=== PATIENT | male | born 1935 | race Caucasian/White ===

== ENCOUNTER 2024-04-08 10:13 | Emergency (ER) | payer OTHER, SELFPAY ==
[2024-04-08 10:19] VITALS: BP 159/77
[2024-04-08 12:18] VITALS: BMI 27.4
[2024-04-08 12:28] VITALS: BP 153/83
[2024-04-08 13:00] VITALS: BP 153/81
[2024-04-08 13:16] LABS: % Basophils 0.2 % (0-2); % Eosinophils 0.7 % (0-6); % Immature Granulocytes 0.3 % (0-0.5); % Neutrophils 53.8 % (42.2-75.2); Absolute Eosinophils 0.1 10^3/uL (0-0.7); Absolute Monocytes 0.4 10^3/uL (0.1-0.6); Absolute Neutrophils 5.2 10^3/uL (1.4-6.5); Hematocrit 31.1 % (39.0-52.0); Mean Corp Hgb Conc. 32.2 g/dL (33.0-37.0); Mean Corpuscular Hgb 30.2 pg (27.0-31.0); Mean Platelet Volume 11.1 fL (7.4-10.4); Nucleated Red Blood Cells % 0 % (-); Platelet Count 213 10^3/uL (130-400); Red Blood Cell Count 3.31 10^6/uL (4.70-6.10); Red Cell Dist. Width 14.4 % (11.5-14.5); White Blood Cell Count 9.7 10^3/uL (4.8-10.8)
[2024-04-08 13:16] LABS: Urine Albumin 2+ (Neg - Trace); Urine Bilirubin Negative (Negative); Urine Character Clear (Clear); Urine Color Yellow; Urine Glucose Negative (Negative); Urine Ketone Trace (Negative); Urine Leukocyte 2+ (Negative); Urine Nitrite Negative (Negative); Urine Occult Blood 3+ (Negative); Urine Urobilinogen Negative (Neg - 1+)
--- NOTE | 2024-04-08 13:23 | ED.GENMED ---
Addendum entered and electronically signed by Iván Mcfadden PA-C 04/10/24 07:11:
Urine culture shows greater than 100,000 colony-forming units of strep species sensitivities pending. Patient on Keflex.
Original Note:
History of Present Illness
General
Chief Complaint: Male Genito-Urinary Symptoms
Source: patient
Exam Limitations: none
Time Seen by Provider: 04/08/24 11:53
Travel History
Have you had any contact with someone who has COVID-19?: No
Do you have any symptoms of coronavirus? Fever > 100 degrees, chills, cough, shortness of breath, sore throat, loss of taste or smell, muscle aches, or headache?: No
History of Present Illness
History of Present Illness:
88-year-old male with known history of polycystic kidney disease presents with decreased urine output over the past several days. He now he only gets drops of urine out when he tries to go. He denies flank pain or fever. No nausea or vomiting.
He follows with nephrology for his polycystic kidney disease. He feels like he is going more frequently
Phy Exam
Physical Exam
Physical Exam:
General: Well-appearing male no acute respiratory distress
HEENT: Normocephalic atraumatic
Heart: Regular rate and rhythm no murmurs
Lungs: Clear no wheeze or rales
Abdomen: Soft suprapubic tenderness and distention no guarding or rebound normal bowel sounds nondistended no
Extremities: No cyanosis or edema
Course
Orders/Labs/Results
Orders:
Orders
04/08/24 12:11
Bladder Scan- Treatment ONCE
04/08/24 12:32
Rutledge Placement- Treatment ONCE
Reason for insertion: Acute Retention
04/08/24 12:50
Complete Blood Count/With Diff Urgent
Comprehensive Metabolic Panel Urgent
04/08/24 12:54
Urinalysis Reflex To Culture Urgent
Date Specimen was Collected: 04/08/24
Time Specimen was Collected: 12:51
Urine Microscopic Reflex Cult Urgent
Urine Culture Urgent
JESSICA Source: U
Specimen Description:
Date Specimen was Collected: 04/08/24
Time Specimen was Collected: 12:51
Abnormal Lab Results
04/08/24 04/08/24
12:50 12:54
RBC 3.31 L 10^6/uL
(4.70-6.10)
Hgb 10.0 L g/dL
(13.0-18.0)
Hct 31.1 L %
(39.0-52.0)
MCHC 32.2 L g/dL
(33.0-37.0)
MPV 11.1 H fL
(7.4-10.4)
Absolute Lymphs (auto) 4.0 H 10^3/uL
(1.2-3.4)
Sodium 128 L mmol/L
(135-145)
Carbon Dioxide 17 L mmol/L
(22-30)
BUN 61 H mg/dl
(9-20)
Creatinine 4.7 H* mg/dL
(0.7-1.3)
Glucose 100 H mg/dl
(70-99)
Urine Ketones Trace A
(Negative)
Ur Occult Blood Reflex 3+ A
(Negative)
Leukocyte Esterase Rfl 2+ A
(Negative)
Urine WBC (Reflex) 80-90 A /HPF
(0-5)
Urine Bacteria (Reflex) Few A
(Negative)
Urine Albumin (Reflex) 2+ A
(Neg - Trace)
04/08/24 12:50
04/08/24 12:50
Vital Signs
Initial and Last Documented VS:
Initial Vital Signs
Temp Pulse Resp BP Pulse Ox
98.1 F 62 17 159/77 99
04/08/24 10:19 04/08/24 10:19 04/08/24 10:19 04/08/24 10:19 04/08/24 10:19
Last Documented Vital Signs
Temp Pulse Resp BP Pulse Ox
98.1 F 62 17 156/94 95
04/08/24 10:19 04/08/24 10:19 04/08/24 10:19 04/08/24 14:00 04/08/24 14:15
MDM/Problems Addressed
Differential Diagnosis Includes:
Increased difficulty urinating with decreased output. Question worsening kidney dysfunction versus urinary retention versus UTI
Postvoid residual bladder scan performed here demonstrated a volume of 630 mL postvoid. Urinalysis is pending. Wait for labs. Patient has known kidney dysfunction secondary to polycystic kidney disease
*Critical Care Note
Total Time (30-74mins, 75-104mins- exclusive of procedures): Not Applicable
Update Note
Update Note:
Creatinine today 4.7. Discussed with nephrology who has been following the patient. Creatinine February last month was higher than what it is today at 5.24. I suspect patient does not have acute kidney injury currently. Postvoid bladder scan
demonstrated over 600 mL and a Rutledge catheter was placed for acute urinary retention. In actuality, 1100 mL was drained from his bladder. Catheter was kept in place. No need for intervention or admission at this time. Will refer to urology for
further evaluation. There was some white blood cells and bacteria in the urine and in the setting of instrumentation of Rutledge catheter will treat with Keflex pending culture
ED Attending Note
-
Portions of this chart may have been created with voice recognition software.� Occasional wrong word or��sound alike� substitutions may have occurred due to the inherent limitations of voice recognition software.
Discharge Plan
Departure
Patient Disposition: Home (Routine Discharge)
Date of Disposition: 04/08/24
Time of Disposition: 14:43
Patient with high blood pressure during this ER visit?: No
Discharge Problem:
Acute urinary retention
Instructions: Urinary Retention (DC)
Prescriptions:
New
cephalexin 500 mg capsule
500 mg PO TID 7 Days Qty: 21 0RF
No Action
amlodipine 10 MG tablet
10 mg PO DAILY
ezetimibe 10 MG tablet
10 mg PO HS
metoprolol succinate 50 MG tablet extended release 24 hr
50 mg PO BID
tamsulosin 0.4 MG capsule
0.4 mg PO HS
rosuvastatin 20 MG tablet
20 mg PO DAILY
pantoprazole 40 MG tablet,delayed release (DR/EC)
40 mg PO HS
clopidogrel 75 MG tablet
75 mg PO DAILY
acetaminophen 325 mg Tablet
650 mg PO Q6HPRN PRN (Reason: mild pain)
sodium bicarbonate 650 mg Tablet
650 mg PO TID
Referrals:
Rudy Gerardo DO [Family Provider] -
Isrrael Champagne MD [Active] -
Activity Restrictions/Additional Instructions:
Take antibiotic as directed. Please follow-up with urology for next available appointment for further evaluation
Interventions
Interventions:
*Risk Screen - Suicide Last Done: 04/08/24 10:20
*General Assessment Last Done: 04/08/24 10:20
*Neglect/Abuse Screening Last Done: 04/08/24 10:20
ED- Fall Risk Assessment Last Done: 04/08/24 12:18
*ED COVID-19 Vaccine History Last Done: 04/08/24 12:18
ED-Male Genitourinary Assessment Last Done: 04/08/24 12:18
Discharge Date and Time
Print Language: PAP[place]
[2024-04-08 13:27] LABS: ALT (SGPT) 21 U/L (0-50); AST (SGOT) 33 U/L (17-59); Albumin 4.1 g/dl (3.5-5.0); Alkaline Phosphatase 57 U/L (38-126); Blood Urea Nitrogen 61 mg/dl (9-20); Calcium 9.2 mg/dl (8.4-10.2); Carbon Dioxide 17 mmol/L (22-30); Chloride 100 mmol/L (98-107); Estimated Creatinine Clearance 11 ml/min; Glucose 100 mg/dl (70-99); Sodium 128 mmol/L (135-145); Total Bilirubin 0.7 mg/dl (0.2-1.3); Total Protein 6.4 g/dl (6.3-8.2); eGFR 11.44
[2024-04-08 13:31] LABS: Urine Red Blood Cell 0-2 /HPF (0-2); Urine Squamous Cell 0-2 /LPF (Few)
[2024-04-08 13:32] LABS: Urine Bacteria Few (Negative); Urine White Cell 80-90 /HPF (0-5)
--- NOTE | 2024-04-08 13:58 | PHANOTE ---
med rec rupali-attempted to do med rec with spouse and patient, but they don't know their meds and will bring in list later
[2024-04-08 14:00] VITALS: BP 156/94
== END 2024-04-08 15:10 | disposition home or self-care (01) ==
LOC: EMR 10:13
PROVIDERS: Physician Assistant; EMERGENCY PHYSICIAN Emergency Medicine; FAMILY PHYSICIAN Family Medicine
DX: R33.9 Retention of urine, unspecified (principal); Q61.3 Polycystic kidney, unspecified
CPT/HCPCS: 99283; 80053; 81003; 81015; 85025; 87086

== ENCOUNTER 2024-04-28 19:15 | Inpatient (IN) | payer OTHER, SELFPAY ==
[2024-04-28 16:13] VITALS: BP 131/53
[2024-04-28 16:33] VITALS: BP 132/67
--- NOTE | 2024-04-28 16:34 | ED.GENMED ---
History of Present Illness
General
Chief Complaint: Fever
Source: patient and spouse
Exam Limitations: none
Time Seen by Provider: 04/28/24 16:18
Nursing documentation reviewed up to this point in time: agreed with
Travel History
Have you had any contact with someone who has COVID-19?: No
Do you have any symptoms of coronavirus? Fever > 100 degrees, chills, cough, shortness of breath, sore throat, loss of taste or smell, muscle aches, or headache?: No
History of Present Illness
History of Present Illness:
Patient to ED with complaint of fever/chills, lethargy, decreased urine stream. He was seen in ED 2 weeks ago for urinary retention. Rutledge placed and he was dischrged home to follow up with Dr. Champagne. Rutledge was removed on Friday, started on
finasteride. States over the past 24 hours his urine stream has decreased. Other symptoms strarted this AM. Brought to ED by spouse for eval.
Past History
Past History
ED Past Medical History: GERD, HTN and Hypercholesterolemia
Social History
Alcohol: None
Review of Systems
Review of Systems
Allergies reviewed?: Yes
All Other Systems: ROS reviewed and negative except as documented in HPI and ROS
Constitutional: Reports fever, fatigue and chills
EENT: Reports no symptoms
Respiratory: Reports trouble breathing
Cardiac: Reports no symptoms
ABD/GI: Reports no symptoms
: Reports difficulty voiding
Musculoskeletal: Reports no symptoms
Skin: Reports no symptoms
Neurological: Reports weakness
Psychiatric: Reports no symptoms
Phy Exam
General Physical Exam
General Presentation: no apparent distress
General age: appears stated age
General Skin: warm and dry
General Habitus: normal
General Mental: alert
Cardiovascular Exam
Cardiovascular Exam: regular rate/rhythm
Pulmonary Exam
Pulmonary Exam: lungs clear and no respiratory distress
Gastrointestinal Exam
Gastrointestinal Exam: normal bowel sounds, non tender and soft
Musculoskeletal Exam
Musculoskeletal Exam: full ROM and neuro vasc intact
Skin Exam
Skin Exam: normal color and warm/dry
Psychiatric Exam
Psychiatric Exam: normal mood/affect
Course
Orders/Labs/Results
Orders:
Orders
04/28/24 16:32
Bladder Scan- Treatment ONCE
Acetaminophen [Tylenol] 650 mg PO NOW STA
04/28/24 16:33
CR Chest - 2 Views Urgent
Comment:
Reason For Exam: SOB
04/28/24 16:45
Complete Blood Count/With Diff Urgent
Comprehensive Metabolic Panel Urgent
Lactic Acid Urgent
Blood Culture Q30M
JESSICA Source: Blood/Venous
Specimen Description:
Blood Culture Q30M
JESSICA Source: Blood/Venous
Specimen Description:
04/28/24 16:55
Urinalysis Reflex To Culture Urgent
Date Specimen was Collected: 04/28/24
Time Specimen was Collected: 16:51
Urine Microscopic Reflex Cult Urgent
Urine Culture Urgent
JESSICA Source: U
Specimen Description:
Date Specimen was Collected: 04/28/24
Time Specimen was Collected: 16:51
04/28/24 17:03
0.9% Sodium Chloride 1000 ml [Nss] 1,000 ml IV BOLUS
04/28/24 17:13
Renal Only US [US Renal Only W/O Bladder] Urgent
Comment:
Reason For Exam: LUCIANO, sepsis
04/28/24 17:14
CefTRIAXone [Rocephin] 1,000 mg IV NOW STA
04/28/24 17:50
NEPHROLOGY CONSULT Urgent
Consulting Provider: Lincoln Coates V.
Was physician already notified: Yes
04/28/24 17:51
Gentamicin Sulfate [Gentamicin] 150 mg 0.9% Sodium Chloride [Nss] 50 ml IV NOW
04/28/24 18:42
Rutledge Catheter [Catheter- Indwelling] As Directed
Reason for insertion: Acute Kidney Injury
Discontinue Date/Time: 05/01/24 0600
04/28/24 18:43
Admit/Transfer Patient As Directed
Co-Sign Provider:
Level of Care: Inpatient admission
Assign to:: Telemetry
Physician / Group: Sandoval
Diagnosis: Severe Sepsis, UTI, LUCIANO
Reason for Telemetry: Arrhythmia
Date to Stop Telemetry: 05/01/24
Time to Stop Telemetry: 11:00
Reason for Hospitalization: IVFs, IV abx
Expected length of stay greater than two midnights?: Yes
ELOS- Estimated Length of Stay in days: 3
I certify the patient meets the requirements for IP care: Yes
Intake/ Output As Directed
Frequency: Per unit guidelines
Comment: strict intake and output monitoring
Weight As Directed
Frequency: Daily
04/28/24 18:47
Code Status As Directed
Resuscitation Status: Full Code
04/28/24 19:05
0.9% Sodium Chloride 1000 ml [Nss] 1,000 ml IV BOLUS
04/28/24 21:00
Lactic Acid Routine
05/01/24 11:00
DC Protocol for Telemetry ONCE
Abnormal Lab Results
04/28/24 04/28/24
16:45 16:55
WBC 18.9 H 10^3/uL
(4.8-10.8)
RBC 3.17 L 10^6/uL
(4.70-6.10)
Hgb 9.4 L g/dL
(13.0-18.0)
Hct 28.9 L %
(39.0-52.0)
MCHC 32.5 L g/dL
(33.0-37.0)
RDW 15.8 H %
(11.5-14.5)
Abs Immat Gran (auto) 0.1 H 10^3/uL
(0-0.05)
Absolute Neuts (auto) 15.7 H 10^3/uL
(1.4-6.5)
Absolute Monos (auto) 0.9 H 10^3/uL
(0.1-0.6)
Neutrophils % 83.5 H %
(42.2-75.2)
Lymphocytes % 11.4 L %
(20.5-51.1)
Sodium 134 L mmol/L
(135-145)
Carbon Dioxide 15 L mmol/L
(22-30)
BUN 72 H mg/dl
(9-20)
Creatinine 6.0 H* mg/dL
(0.7-1.3)
Glucose 195 H mg/dl
(70-99)
Lactic Acid 2.9 H mmol/L
(0.7-2.0)
Total Protein 5.8 L g/dl
(6.3-8.2)
Ur Occult Blood Reflex 1+ A
(Negative)
Leukocyte Esterase Rfl 2+ A
(Negative)
Urine RBC 3-6 A /HPF
(0-2)
Urine WBC (Reflex) 11-15 A /HPF
(0-5)
Urine Albumin (Reflex) 2+ A
(Neg - Trace)
04/28/24 16:45
04/28/24 16:45
Vital Signs
Initial and Last Documented VS:
Initial Vital Signs
Temp Pulse Resp BP Pulse Ox
99.1 F 68 20 131/53 97
04/28/24 16:13 04/28/24 16:13 04/28/24 16:13 04/28/24 16:13 04/28/24 16:13
Last Documented Vital Signs
Temp Pulse Resp BP Pulse Ox
98.8 F 65 20 114/59 97
04/28/24 19:24 04/28/24 20:14 04/28/24 20:14 04/28/24 20:14 04/28/24 20:14
*Critical Care Note
Total Time (30-74mins, 75-104mins- exclusive of procedures): Not Applicable
ED Attending Note
-
Portions of this chart may have been created with voice recognition software.� Occasional wrong word or��sound alike� substitutions may have occurred due to the inherent limitations of voice recognition software.
Discharge Plan
Departure
Patient Disposition: Admit
Date of Disposition: 04/28/24
Time of Disposition: 17:42
Presentation/result/management discussed w/ accepting MD/DO: Hospitalist
Patient with high blood pressure during this ER visit?: No
Condition: Fair
Covid-19: Not Applicable
Discharge Problem:
Sepsis, Renal failure
Interventions
Interventions:
*Risk Screen - Suicide Last Done: 04/28/24 16:30
*General Assessment Last Done: 04/28/24 17:49
*Neglect/Abuse Screening Last Done: 04/28/24 16:30
ED- Fall Risk Assessment Last Done: 04/28/24 16:29
*ED COVID-19 Vaccine History Last Done: 04/28/24 16:29
ED- Neurological Assessment Last Done: 04/28/24 19:24
ED-Skin Assessment Last Done: 04/28/24 19:24
[2024-04-28 16:51] VITALS: BMI 23.7
[2024-04-28] MEDS: TYLENOL 650 MG PO (16:52)
[2024-04-28 16:57] LABS: % Basophils 0.1 % (0-2); % Immature Granulocytes 0.5 % (0-0.5); % Lymphocytes 11.4 % (20.5-51.1); % Monocytes 4.5 % (1.7-9.3); % Neutrophils 83.5 % (42.2-75.2); Absolute Immature Granulocytes 0.1 10^3/uL (0-0.05); Absolute Lymphocytes 2.2 10^3/uL (1.2-3.4); Absolute Monocytes 0.9 10^3/uL (0.1-0.6); Absolute Neutrophils 15.7 10^3/uL (1.4-6.5); Hematocrit 28.9 % (39.0-52.0); Hemoglobin 9.4 g/dL (13.0-18.0); Mean Corp Hgb Conc. 32.5 g/dL (33.0-37.0); Mean Corpuscular Hgb 29.7 pg (27.0-31.0); Mean Corpuscular Volume 91.2 fL (80.0-94.0); Mean Platelet Volume 10.2 fL (7.4-10.4); Nucleated Red Blood Cells % 0 % (-); Platelet Count 249 10^3/uL (130-400); Red Blood Cell Count 3.17 10^6/uL (4.70-6.10); Red Cell Dist. Width 15.8 % (11.5-14.5); White Blood Cell Count 18.9 10^3/uL (4.8-10.8)
[2024-04-28 17:06] LABS: Urine Albumin 2+ (Neg - Trace); Urine Bilirubin Negative (Negative); Urine Glucose Negative (Negative); Urine Ketone Negative (Negative); Urine Leukocyte 2+ (Negative); Urine Nitrite Negative (Negative); Urine Occult Blood 1+ (Negative); Urine Specific Gravity 1.015 (<1.030); Urine Urobilinogen Negative (Neg - 1+)
[2024-04-28 17:09] LABS: Lactic Acid 2.9 mmol/L (0.7-2.0)
[2024-04-28 17:12] LABS: ALT (SGPT) 15 U/L (0-50); AST (SGOT) 19 U/L (17-59); Albumin 3.6 g/dl (3.5-5.0); Alkaline Phosphatase 57 U/L (38-126); Blood Urea Nitrogen 72 mg/dl (9-20); Calcium 8.8 mg/dl (8.4-10.2); Carbon Dioxide 15 mmol/L (22-30); Chloride 106 mmol/L (98-107); Estimated Creatinine Clearance 9 ml/min; Glucose 195 mg/dl (70-99); Potassium 4.9 mmol/L (3.5-5.1); Sodium 134 mmol/L (135-145); Total Bilirubin 0.8 mg/dl (0.2-1.3); Total Protein 5.8 g/dl (6.3-8.2); eGFR 8.54
[2024-04-28] MEDS: NSS 1000 IV ×3 (17:17→22:52)
[2024-04-28] MEDS: ROCEPHIN 1000 MG IV (17:22)
[2024-04-28 17:30] LABS: Urine Color Yellow
[2024-04-28 17:38] LABS: Urine Character Cloudy (Clear)
--- NOTE | 2024-04-28 18:16 | W.PN.UPDATE ---
Update Note
Progress Note Update
This note serves as an addendum to the H&P by Rosemary Blanchard PA-C, on April 28, 2024.
88 y/o male with past medical history of polycystic kidney disease, hypertension and TIA who presented to the emergency department with subjective fever, chills, shortness of breath, and difficulty balancing. The patient reports his symptoms started
this morning, he did not measure his temperature at home but felt hot. Additionally, he reports decreased urinary stream and increased frequency/urgency for a few days now. The patient notes he was started on Finasteride a few weeks ago when he
presented to the emergency department for urinary retention and require placement of a Mcmanus catheter which was just removed 2 days ago, at that time he got Keflex antibiotics and completed the course after discharge from the ER. He saw Dr. Champagne
and his special ed assistant a few days ago, when his mcmanus catheter was taken out. Patient reported increased sweats during history so temperature was taken revealing fever of 100.8F. The patient denied flank pain, dysuria, and hematuria.
Vital Signs
Afebrile
BP is okay
HR in the 60s
RR in the 20s
Saturating oxygen well on room air
Physical Exam
General: Not in acute distress.
HEENT: Normocephalic. Moist mucous membranes
Respiratory: CTAB
Cardiac: S1/S2 and Regular Rhythm
GI: Soft, Non Tender and Normal Bowel Sounds
Skin: Warm and Dry
Neuro: Awake, Alert, Oriented and Nonfocal/grossly intact
Psych: Calm
Assessment/Plan
Severe Sepsis secondary to Urinary Tract Infection
Leukocytosis
-Received Ceftriaxone and Gentamicin in the ER
-Continue Ceftriaxone
-Await urine and blood cultures
LUCIANO on CKD 4
History of Polycystic Kidney Disease
-Nephrology consulted, recommendations appreciated
-Place Mcmanus
-Continue IVFs
-Continue sodium bicarb as prior to admission
-Recheck Labs in AM
Essential Hypertension
-Continue amlodipine and metoprolol
Hyperlipidemia
-Continue Zetia and rosuvastatin
BPH
-Continue tamsulosin
-Patient reports headaches since starting finasteride - Will hold for now
Hx TIA
-Continue Plavix
Aortic Stenosis status post TAVR
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
DVT PPx: SC Heparin
Code Status: Full Code
[2024-04-28] MEDS: GENTAMICIN 53.75 MG IV (18:33)
--- NOTE | 2024-04-28 18:53 | HPS.HSE ---
Family Physician
-
Family Physician: Rudy Gerardo
Chief Complaint
-
Fever and Chills
History of Present Illness
This is a 88 year old male with past medical history polycystic kidney disease, hypertension and TIA who presents to the emergency department with subjective fever, chills, shortness of breath, and difficulty balancing. The patient reports his
symptoms started this morning. Additionally, he reports decreased urinary stream and increased frequency/urgency since yesterday. The patient notes he was started on Finasteride a few weeks ago when he presented to the emergency department for
urinary retention and require placement of a Rutledge catheter which was just removed 2 days ago. Patient reported increased sweats during history so temperature was taken revealing fever of 100.8F. The patient denies flank pain, dysuria, and
hematuria.
Medical History
Past Medical History
Past Medical History: Reports Other
Additional Past Medical History:
Essential Hypertension
Hyperlipidemia
Heart Block s/p Pacemaker
Aortic Stenosis s/p TAVR
TIA
Polycystic Kidney Disease
CKD Stage IV
BPH
Past Surgical History: Reports Other
Additional Past Surgical History:
L4/L5 Spine Surgery
Bilateral Knee Replacements
TAVR
Social History
Tobacco: Former Smoker
Alcohol: None
Family History
Family History: Not pertinent
Allergies / Home Medications
Allergies reflects when Allergies were last updated in [facility].
Home Medications with original date entered in [facility]
Allergy/Medication List:
Allergies
Allergy/AdvReac Type Severity Reaction Status Date / Time
celecoxib [From Celebrex] Allergy GI bleed Verified 04/28/24 17:39
Home Medications
amlodipine 10 mg tablet 10 mg PO DAILY Blood pressure 08/29/09
ezetimibe 10 mg tablet 10 mg PO DAILY High cholesterol 08/29/09
metoprolol succinate 50 mg tablet,extended release 24 hr 50 mg PO BID Blood pressure 04/01/16
pantoprazole 40 mg tablet,delayed release 40 mg PO DAILY Gastrointestinal issue 04/01/16
rosuvastatin 20 mg tablet 20 mg PO DAILY High cholesterol 04/01/16
tamsulosin 0.4 mg capsule 0.4 mg PO HS Urinary issue 04/01/16
clopidogrel 75 mg tablet 75 mg PO DAILY Blood clot prevention/tx 08/03/20
sodium bicarbonate 650 mg tablet 650 mg PO TID 04/08/24
acetaminophen 650 mg tablet,extended release 650 mg PO DAILYPRN PRN mild pain 04/28/24
finasteride 5 mg tablet 5 mg PO HS 04/28/24
vitamins A,C,G-qarg-jtkscz 4,296 mcg-226 mg-90 mg capsule (PreserVision AREDS) 1 cap PO BID 04/28/24
Review of Systems
-
A 12 point ROS was completed and negative except as noted: Yes
Constitutional: Reports Fever and Chills
Respiratory: Denies Cough or Trouble Breathing
Cardiac: Denies Chest Pain or Palpitations
Abdomen/GI: Denies Abdominal Pain, Nausea or Vomiting
: Reports See HPI
Physical Exam
Vital Signs
Vital Signs
Temp Pulse Resp BP Pulse Ox
99.1 F 65 26 132/67 97
04/28/24 16:13 04/28/24 17:15 04/28/24 17:15 04/28/24 16:33 04/28/24 16:13
Physical Exam
General: Comfortable and Conversant
HEENT: Anicteric and Moist mucous membranes
Respiratory: Clear and Non Labored Respirations
Cardiac: S1/S2 and Regular Rhythm
GI: Soft, Non Tender and Normal Bowel Sounds
Genito-urinary: Other (Suprapubic discomfort, prominent slightly palpable bladder)
Skin: Warm and Dry
Neuro: Awake, Alert, Oriented and Nonfocal/grossly intact
Psych: Calm
Laboratory Results
-
04/28/24 16:45
04/28/24 16:45
Laboratory Results
Lactic Acid 2.9 mmol/L (0.7-2.0) H 04/28/24 16:45
Total Bilirubin 0.8 mg/dl (0.2-1.3) 04/28/24 16:45
AST 19 U/L (17-59) 04/28/24 16:45
ALT 15 U/L (0-50) 04/28/24 16:45
Alkaline Phosphatase 57 U/L (38-126) 04/28/24 16:45
Data Reviewed
-
Diagnostic Radiology: Report Reviewed by me
Lab Data: Labs Reviewed by me
Old Records: Reviewed
Impression/Plan
-
Severe Sepsis secondary to Urinary Tract Infection
-Continue Ceftriaxone
-Await urine and blood cultures
LUCIANO on CKD 4
-Consult Nephrology
-Place Rutledge
-Continue IVFs
-Continue sodium bicarb as prior to admission
-Recheck Labs in AM
Essential Hypertension
-Continue amlodipine and metoprolol
Hyperlipidemia
-Continue Zetia and rosuvastatin
BPH
-Continue tamsulosin
-Patient reports headaches since starting finasteride - Will hold for now
Hx TIA
-Continue Plavix
DVT proph: SC Heparin
Code Status: Full Code
[2024-04-28 19:24] VITALS: BP 125/58
[2024-04-28 20:14] VITALS: BP 114/59
[2024-04-28 21:39] VITALS: BP 120/65
[2024-04-28 21:55] LABS: Lactic Acid 1.4 mmol/L (0.7-2.0)
[2024-04-28] MEDS: TOPROL XL 50 MG PO (22:52)
[2024-04-28] MEDS: SODIUM BICARBONATE 650 MG PO (22:52)
[2024-04-28] MEDS: FLOMAX 0.400000000000000022 MG PO (22:52)
[2024-04-28] MEDS: HEPARIN 5000 UNITS SC (23:04)
[2024-04-28 23:08] VITALS: BP 130/64
--- NOTE | 2024-04-29 00:34 | PTCARENOTE ---
Received pt from ER at 2300. Pt AAOX3, VSS, amb in room. Pt oriented to room, call eisenberg and plan of care.
[2024-04-29 00:38] VITALS: BMI 23.4
[2024-04-29 03:00] VITALS: BP 114/71
[2024-04-29 05:46] VITALS: BMI 23.4
[2024-04-29 06:03] LABS: Hematocrit 26.8 % (39.0-52.0); Hemoglobin 8.8 g/dL (13.0-18.0); Mean Corp Hgb Conc. 32.8 g/dL (33.0-37.0); Mean Corpuscular Hgb 29.7 pg (27.0-31.0); Mean Corpuscular Volume 90.5 fL (80.0-94.0); Mean Platelet Volume 10.3 fL (7.4-10.4); Platelet Count 246 10^3/uL (130-400); Red Blood Cell Count 2.96 10^6/uL (4.70-6.10); Red Cell Dist. Width 15.6 % (11.5-14.5); White Blood Cell Count 15.5 10^3/uL (4.8-10.8)
[2024-04-29 06:47] LABS: Blood Urea Nitrogen 72 mg/dl (9-20); Calcium 8.6 mg/dl (8.4-10.2); Carbon Dioxide 17 mmol/L (22-30); Chloride 108 mmol/L (98-107); Estimated Creatinine Clearance 10 ml/min; Glucose 102 mg/dl (70-99); Magnesium 2.2 mg/dl (1.6-2.3); Sodium 136 mmol/L (135-145); eGFR 9.27
[2024-04-29 07:59] VITALS: BP 117/62
[2024-04-29] MEDS: PROTONIX 40 MG PO (09:26)
[2024-04-29] MEDS: NORVASC 10 MG PO (09:26)
[2024-04-29] MEDS: SODIUM BICARBONATE 650 MG PO ×2 (09:26→15:54)
[2024-04-29] MEDS: ZETIA 10 MG PO (09:26)
[2024-04-29] MEDS: TOPROL XL 50 MG PO ×2 (09:26→19:50)
[2024-04-29] MEDS: HEPARIN 5000 UNITS SC ×3 (09:27→23:35)
[2024-04-29] MEDS: PLAVIX 75 MG PO (09:27)
[2024-04-29] MEDS: CRESTOR 20 MG PO (09:27)
--- NOTE | 2024-04-29 11:20 | CON.MD ---
Consultation - Medical
-
see dictated note
pt with long hx of PCKD and bph
recent episode of urinary retention
mcmanus removed several days ago
pt presented with fatigue/TREVINO and weakness
residual urine only about 200cc
started on iv atnibx and fluids- already feels better
plan
continue flomax- to consider restart of proscar as this is unlikely to be the cause of his current illness
continue mcmanus for now- can discuss timing of TOV depending on lenght of stay- but may need to be discharged with cath in place
await ucx
will follow
no evid of obstruction on renal u/s
[2024-04-29 11:52] VITALS: BP 109/60
[2024-04-29] MEDS: NSS 1000 IV (12:48)
--- NOTE | 2024-04-29 15:02 | W.PN.HOSP.TC ---
Today's Communication/Plan
-
Continue Rocephin
Urine cultures growing gram negative bacilli
Appreciate urology and nephrology
Assessment / Plan
Assessment / Plan
Physical Exam
General: Not in acute distress.
HEENT: Normocephalic. Moist mucous membranes
Respiratory: CTAB
Cardiac: S1/S2 and Regular Rhythm
GI: Soft, Non Tender and Normal Bowel Sounds
Skin: Warm and Dry
Neuro: Awake, Alert, Oriented and Nonfocal/grossly intact
Psych: Calm
Assessment/Plan
Severe Sepsis secondary to Urinary Tract Infection
Leukocytosis
-Received Ceftriaxone and Gentamicin in the ER
-Continue Ceftriaxone
-Await urine and blood cultures --> urine cultures preliminarily positive for gram negative bacilli
LUCIANO on CKD 4
History of Polycystic Kidney Disease
-Nephrology consulted, recommendations appreciated
-Continue Rutledge catheter
-Continue IVFs
-Continue sodium bicarb as prior to admission
-Recheck Labs in AM
Essential Hypertension
-Continue amlodipine and metoprolol
Hyperlipidemia
-Continue Zetia and rosuvastatin
BPH
-Continue tamsulosin
-Patient reports headaches since starting finasteride - but consider restart of Proscar as this is unlikely to be the cause of his current illness
-Consulted urology, recommendations appreciated
Hx TIA
-Continue Plavix
Aortic Stenosis status post TAVR
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
DVT PPx: SC Heparin
Code Status: Full Code
Anticipated Discharge: > 48 hours
Subjective/Interval History
-
Date of Service: April 29, 2024
Patient was seen and examined. He denied any new symptoms or complaints.
Objective Data
-
Labs:
Laboratory Results
04/29/24
05:23
WBC 15.5 H
Hgb 8.8 L
Hct 26.8 L
Plt Count 246
Sodium 136
Potassium 5.0
Chloride 108 H
Carbon Dioxide 17 L
BUN 72 H
Creatinine 5.6 H*
Glucose 102 H
Calcium 8.6
Vital Signs:
Vital Signs
Temp Pulse Resp BP Pulse Ox
97.6 F 70 21 109/60 98
04/29/24 11:52 04/29/24 11:52 04/29/24 11:52 04/29/24 11:52 04/29/24 11:52
I&O
04/28/24 04/29/24 04/30/24
06:59 06:59 06:59
Output Total 200 / 200
Balance -200 / -200
[2024-04-29 15:43] VITALS: BP 119/68
--- NOTE | 2024-04-29 15:50 | W.CON.NEPH ---
Consultation
-
Date/Time Consultation Requested: 04/28/2024 7:00 PM
Date/Time Consultation Performed: 04/29/2024 3:30 PM
Requesting Provider: Dr. Weinberg
Performing Provider: Dr. Coates
Reason for Consultation: Chronic kidney disease stage V/polycystic kidney disease
Medical History
-
Chief Complaint: CKD stage V
History of Present Illness:
The patient is a 88-year-old male with a past medical history of polycystic kidney disease who maintains a baseline creatinine of about 5. He has been preparing for hemodialysis but is yet to obtain the AV fistula access. He has a history of
hypertension for which he is maintained on metoprolol and amlodipine. He has a history of chronic metabolic acidosis and is maintained on sodium and bicarbonate therapy. Has a history of BPH with obstructive uropathy and recently had his Rutledge
catheter removed earlier this Friday by urology when he had been seen in the emergency room a few weeks prior for said obstructive uropathy. He presented to the hospital with change in mental status fatigue and decreased urinary output. He was in
acute renal failure with his creatinine up to 6 of his previous baseline of 4.7 noted on April 08, 2024. He was noted to have E. coli urinary tract infection and is being treated with ceftriaxone. Nephrology was consulted in the setting of his acute
on chronic kidney disease
Past Medical History
Polycystic kidney disease\\CKD stage V baseline creatinine 4.7
Hypertension
BPH
Metabolic acidosis
History of recent Rutledge catheter placement
Dyslipidemia
Pacemaker
Social History
Tobacco: Non-Smoker
Alcohol: None
Family History
Both sons with polycystic kidney disease requiring dialysis and transplant
Allergies / Home Medications
Allergy/AdvReac Type Severity Reaction Status Date / Time
celecoxib [From Celebrex] Allergy GI bleed Verified 04/28/24 17:39
�Medication �Instructions �Recorded �Confirmed �Type
amlodipine 10 mg tablet 10 mg PO DAILY Blood pressure 08/29/09 04/28/24 History
ezetimibe 10 mg tablet 10 mg PO DAILY High cholesterol 08/29/09 04/28/24 History
metoprolol succinate 50 mg 50 mg PO BID Blood pressure 04/01/16 04/28/24 History
tablet,extended release 24 hr
pantoprazole 40 mg tablet,delayed 40 mg PO DAILY Gastrointestinal 04/01/16 04/28/24 History
release issue
rosuvastatin 20 mg tablet 20 mg PO DAILY High cholesterol 04/01/16 04/28/24 History
tamsulosin 0.4 mg capsule 0.4 mg PO HS Urinary issue 04/01/16 04/28/24 History
clopidogrel 75 mg tablet 75 mg PO DAILY Blood clot 08/03/20 04/28/24 History
prevention/tx
sodium bicarbonate 650 mg tablet 650 mg PO TID Kidney Disease 04/08/24 04/28/24 History
acetaminophen 650 mg 650 mg PO DAILYPRN PRN mild pain 04/28/24 04/28/24 History
tablet,extended release
finasteride 5 mg tablet 5 mg PO HS Urinary Issue 04/28/24 04/28/24 History
vitamins A,C,D-pwyc-dfxwlf 4,296 1 cap PO BID Supplement 04/28/24 04/28/24 History
mcg-226 mg-90 mg capsule
(PreserVision AREDS)
Review of Systems
-
History Source: Patient
All other systems: Negative unless noted
Constitutional: Fever and Fatigue
Respiratory: No Symptoms
Cardiac: No Symptoms
Abdomen/GI: No Symptoms
: Difficulty Voiding
Neurological: Dizzy and Other (Balance issues confusion)
Physical Exam
Vital Signs
Vital Signs
Temp Pulse Resp BP Pulse Ox
98 F 71 20 119/68 99
04/29/24 15:43 04/29/24 15:43 04/29/24 15:43 04/29/24 15:43 04/29/24 15:43
Lab Results
04/29/24 05:23
04/29/24 05:23
WBC 15.5 10^3/uL (4.8-10.8) H 04/29/24 05:23
RBC 2.96 10^6/uL (4.70-6.10) L 04/29/24 05:23
Hgb 8.8 g/dL (13.0-18.0) L 04/29/24 05:23
Hct 26.8 % (39.0-52.0) L 04/29/24 05:23
Plt Count 246 10^3/uL (130-400) 04/29/24 05:23
Sodium 136 mmol/L (135-145) 04/29/24 05:23
Potassium 5.0 mmol/L (3.5-5.1) 04/29/24 05:23
Chloride 108 mmol/L (98-107) H 04/29/24 05:23
Carbon Dioxide 17 mmol/L (22-30) L 04/29/24 05:23
BUN 72 mg/dl (9-20) H 04/29/24 05:23
Creatinine 5.6 mg/dL (0.7-1.3) H* 04/29/24 05:23
eGFR 9.27 04/29/24 05:23
Glucose 102 mg/dl (70-99) H 04/29/24 05:23
Calcium 8.6 mg/dl (8.4-10.2) 04/29/24 05:23
Phosphorus 6.0 mg/dl (2.5-4.5) H 04/29/24 05:23
Albumin 3.6 g/dl (3.5-5.0) 04/28/24 16:45
Physical Exam
General: AOx3, No Distress and Nontoxic
HEENT: PERRL, EOMI, Anicteric, Conjunctivae Clear, Ear/Nose Intact, Oropharynx Clear/Moist, Dentition Intact, Neck Supple, Trachea Midline, No JVD and No Thyromegaly
Respiratory: Clear
Cardiac: S1/S2, Regular Rate/Rhythm, Murmur (Soft ejection murmur at right sternal border) and No Edema
Breast: Deferred by me
Abdomen: Soft, Nontender, Nondistended and Normal Bowel Sounds
Rectal: Deferred by Provider
Genito-urinary: No Costovertebral Tender and Other (Rutledge catheter)
Musculoskeletal: No Cyanosis and No Edema
Skin: No Rash, Warm, Dry and No Cyanosis
Neuro: Nonfocal/Grossly Intact and Strength (5 out of 5 in both upper and lower extremity)
Hematologic/Lymphatic: No Cervical Lymphadenopathy, No Submandibular Lymphadenopathy and No Supraclavicular Lymphadenopathy
Psych: Mood/afflect pleasant, Insight/judgement good and Appropriate
Data Reviewed
-
Radiology: Image Personally Visualized and interpreted (Chest x-ray personally viewed by myself no evidence of congestive heart failure or pneumonic infiltrate) and Report Reviewed by me (Renal ultrasound notes no hydronephrosis scattered cysts with
increased echogenicity consistent with PKD)
CT Scan: Image Personally Visualized and interpreted (Chest x-ray personally reviewed) and Report Reviewed by me (Renal ultrasound: No hydronephrosis noted enlarged kidneys multiple bilateral cyst)
Labs: Labs Reviewed by me (BMP CBC urine and blood cultures)
Old Records: Reviewed (Old labs reviewed including creatinine 4.7 from April 08, 2024)
Assessment/Plan
-
Impression:
Urinary tract infection/bladder retention
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
Acute kidney injury
Hypertension
Dyslipidemia
Metabolic acidosis
History of pacemaker placement
BPH with recent Rutledge catheter removal earlier this week
Plan:
LUCIANO:
-Likely due to obstructive component now nonoliguric with increased urinary output following Rutledge catheter reinsertion
-IV fluids have been provided with improvement of kidney function, no further need for IV fluids following this liter
-No acute need for dialysis at this time
-Discussed need to obtain vascular access and appointment with vascular surgery with patient and
HTN:
-Blood pressure well-controlled on metoprolol and amlodipine
Metabolic acidosis:
-Will increase sodium bicarbonate
UTI:
-Maintain on ceftriaxone for E. coli UTI
--- NOTE | 2024-04-29 15:56 | CM ---
Met with patient and his at the bedside; initial assessment completed
Pharmacy verified: [facility], [address], [place]
Patient and his live in multilevel home; 2 steps to enter; 12 steps between floors; railing present inside/outside; powder room on the 1st floor; 2nd floor bath has stall shower with grab bar.
Have family nearby if assistance or support needed
PLOF: patient reported he is independent with ambulation, stairs, and ADLs; drives
DME: CPAP, Had a Rutledge Catheter prior to admission
SNF/Rehab/Home Health utilization history: none; If Home Health is recommended, agency preference is [facility]
Transportation: will provide ride home
Plan: Discharge to home when medically stable; CM will monitor for DC needs
[2024-04-29] MEDS: STERILE WATER FOR INJECTION 10 ML IV (17:13)
[2024-04-29] MEDS: ROCEPHIN 1000 MG IV (17:13)
[2024-04-29 19:10] VITALS: BP 122/66
[2024-04-29] MEDS: PROSCAR 5 MG PO (22:10)
[2024-04-29] MEDS: SODIUM BICARBONATE 1300 MG PO (22:11)
[2024-04-29] MEDS: FLOMAX 0.400000000000000022 MG PO (22:11)
[2024-04-29 23:20] VITALS: BP 116/70
[2024-04-30 03:15] VITALS: BP 129/64
[2024-04-30] MEDS: NSS 1000 IV (03:31)
[2024-04-30 06:00] VITALS: BMI 23.6
[2024-04-30 07:00] VITALS: BP 120/79
[2024-04-30 07:30] LABS: Blood Urea Nitrogen 74 mg/dl (9-20); Calcium 8.7 mg/dl (8.4-10.2); Carbon Dioxide 17 mmol/L (22-30); Chloride 111 mmol/L (98-107); Estimated Creatinine Clearance 10 ml/min; Glucose 91 mg/dl (70-99); Potassium 5.4 mmol/L (3.5-5.1); Sodium 138 mmol/L (135-145); eGFR 9.48
--- NOTE | 2024-04-30 07:52 | W.PN.URO.CBU ---
Today's Communication / Plan
-
continue mcmanus
flomax and proscar
treat UTI
Assessment / Plan
-
PCKD
BPH
recent urinary retention
admitted with UTI
continue flomax- re-add proscar- this was not the source of his sx's
treat UTI
if pt remains in house thru the weekend- could remove mcmanus friday for TOV- if he is discharged- would send home with yonathan and to call dr haley to arrange outp f/u and TOV
Diagnosis
-
Date of Service: April 30, 2024
-
Patient Diagnosis:
urinary retention
UTI
PCKD
chronci renal insuff
Subjective
-
pt feels good
urine clear
cr stable
ucx + for gram neg rods
Objective
-
Vital Signs
Temp Pulse Resp BP Pulse Ox
97.8 F 82 18 129/64 100
04/30/24 03:15 04/30/24 03:15 04/30/24 03:15 04/30/24 03:15 04/30/24 03:15
Intake and Output
04/29/24 04/30/24 05/01/24
06:59 06:59 06:59
Intake Total 1530 / 1530
Output Total 200 / 200 2925 / 2925
Balance -200 / -200 -1395 / -1395
Intake:
Oral fluids 780 / 780
IV fluids (Total) 750 / 750
Output:
Urine, Mcmanus 2925 / 2925
Urine, Voided 200 / 200
Laboratory Results
04/29/24 05:23
04/30/24 06:19
Review of Systems
-
Constitutional: No Symptoms
Respiratory: No Symptoms
Cardiac: No Symptoms
Abdomen/GI: No Symptoms
: No Symptoms
Physical Exam
-
General -no acute distress
Genitalia - normal- mcmanus in place
[2024-04-30] MEDS: CRESTOR 20 MG PO (08:29)
[2024-04-30] MEDS: PLAVIX 75 MG PO (08:29)
[2024-04-30] MEDS: SODIUM BICARBONATE 1300 MG PO (08:30)
[2024-04-30] MEDS: ZETIA 10 MG PO (08:30)
[2024-04-30] MEDS: HEPARIN 5000 UNITS SC (08:30)
[2024-04-30] MEDS: PROTONIX 40 MG PO (08:30)
[2024-04-30] MEDS: TOPROL XL 50 MG PO (08:30)
[2024-04-30] MEDS: NORVASC 10 MG PO (08:30)
[2024-04-30 08:51] LABS: % Basophils 0.4 % (0-2); % Eosinophils 2.4 % (0-6); % Immature Granulocytes 0.2 % (0-0.5); % Lymphocytes 30.1 % (20.5-51.1); % Monocytes 6.2 % (1.7-9.3); % Neutrophils 60.7 % (42.2-75.2); Absolute Eosinophils 0.2 10^3/uL (0-0.7); Absolute Lymphocytes 2.8 10^3/uL (1.2-3.4); Absolute Monocytes 0.6 10^3/uL (0.1-0.6); Absolute Neutrophils 5.6 10^3/uL (1.4-6.5); Hematocrit 29.4 % (39.0-52.0); Hemoglobin 9.2 g/dL (13.0-18.0); Mean Corp Hgb Conc. 31.3 g/dL (33.0-37.0); Mean Corpuscular Hgb 29.7 pg (27.0-31.0); Mean Corpuscular Volume 94.8 fL (80.0-94.0); Mean Platelet Volume 10.9 fL (7.4-10.4); Nucleated Red Blood Cells % 0 % (-); Platelet Count 250 10^3/uL (130-400); Red Cell Dist. Width 15.7 % (11.5-14.5); White Blood Cell Count 9.2 10^3/uL (4.8-10.8)
[2024-04-30] MEDS: LOKELMA 10 GRAM PO (10:47)
[2024-04-30] MEDS: OMNICEF 300 MG PO (10:47)
[2024-04-30 11:00] VITALS: BP 118/63
--- NOTE | 2024-04-30 11:10 | W.PN.HOSP.TC ---
Addendum entered and electronically signed by Alverto Nick MD 05/09/24 12:27:
CKD 5
Original Note:
Today's Communication/Plan
-
Discharge today
Assessment / Plan
Assessment / Plan
Physical Exam
General: Not in acute distress.
HEENT: Normocephalic. Moist mucous membranes
Respiratory: CTAB
Cardiac: S1/S2 and Regular Rhythm
GI: Soft, Non Tender and Normal Bowel Sounds
Skin: Warm and Dry
Neuro: Awake, Alert, Oriented and Nonfocal/grossly intact
Psych: Calm
Assessment/Plan
Severe Sepsis secondary to Urinary Tract Infection
Enterobacter intermedius UTI
Leukocytosis
-Received Ceftriaxone and Gentamicin in the ER
-Completed Ceftriaxone
-Continue Cefdinir 300 mg daily (renally-dosed from 300 mg BID) for 12 more days
LUCIANO on CKD 4
History of Polycystic Kidney Disease
-Nephrology consulted, recommendations appreciated
-Continue Rutledge catheter
-Continue IVFs
-Continue sodium bicarb but newly increased dose at 1300 mg TID
-Recheck Labs in AM
Hyperkalemia
-Lokelma 10 mg daily
-Low potassium diet
Essential Hypertension
-Continue amlodipine and metoprolol
Hyperlipidemia
-Continue Zetia and rosuvastatin
BPH
-Continue tamsulosin
-Okat to resume Finasteride, as per urology
-Consulted urology, recommendations appreciated
History of TIA
-Continue Plavix
Aortic Stenosis status post TAVR
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
DVT PPx: SC Heparin
Code Status: Full Code
More than 30 minutes spent in discharge including
Final examination of the patient
Summarizing hospital stay
Instructions for continuing care to all relevant caregivers
Preparation of discharge records, prescriptions, and referral forms
Total time spent (in minutes): 38
Anticipated Discharge: Today
Subjective/Interval History
-
Date of Service: April 30, 2024
Patient was seen and examined. He denied any new symptoms or complaints, and mentioned he would be very happy to go home today.
Objective Data
-
Labs:
Laboratory Results
04/30/24 04/30/24
06:18 06:19
WBC 9.2
Hgb 9.2 L
Hct 29.4 L
Plt Count 250
Sodium 138
Potassium 5.4 H
Chloride 111 H
Carbon Dioxide 17 L
BUN 74 H
Creatinine 5.5 H*
Glucose 91
Calcium 8.7
Vital Signs:
Vital Signs
Temp Pulse Resp BP Pulse Ox
98.0 F 73 18 120/79 99
04/30/24 07:00 04/30/24 07:00 04/30/24 07:00 04/30/24 07:00 04/30/24 11:09
I&O
04/29/24 04/30/24 05/01/24
06:59 06:59 06:59
Intake Total 1530 / 1530
Output Total 200 / 200 2925 / 2925
Balance -200 / -200 -1395 / -1395
--- NOTE | 2024-04-30 13:02 | CM ---
Chart reviewed and plan is to home with spouse no needs when stable.
Plan; Home with spouse no needs.
--- NOTE | 2024-04-30 13:58 | W.DS.TRANS ---
DC Summary - Freight Adjuster
-
Discharge Instructions:
Discharge Diagnosis/Procedures Severe Sepsis secondary to Urinary Tract
Infection
Enterobacter intermedius Urinary Tract Infection
Leukocytosis
Acute Kidney Injury - likely due to obstructive
component now nonoliguric with increased urinary
output following Rutledge catheter reinsertion -
on Chronic Kidney Disease Stage 4
History of Polycystic Kidney Disease
Hyperkalemia
Essential Hypertension
Hyperlipidemia
Benign Prostatic Hyperplasia
History of Transient Ischemic Attack
Aortic Stenosis status post TAVR
History of 2nd degree AV Block status post
Pacemaker
Diet Other diet
Additional Diets 2 gram sodium diet, low potassium diet, low fat
diet
Activity As tolerated
Instructions:
Stand-Alone Forms:
Changes to Home Medications: Yes
Discharge Medications:
DC Medications w/original date entered in [employer]
amlodipine 10 mg tablet 10 mg PO DAILY Blood pressure 08/29/09
ezetimibe 10 mg tablet 10 mg PO DAILY High cholesterol 08/29/09
metoprolol succinate 50 mg tablet,extended release 24 hr 50 mg PO BID Blood pressure 04/01/16
pantoprazole 40 mg tablet,delayed release 40 mg PO DAILY Gastrointestinal issue 04/01/16
rosuvastatin 20 mg tablet 20 mg PO DAILY High cholesterol 04/01/16
tamsulosin 0.4 mg capsule 0.4 mg PO HS Urinary issue 04/01/16
clopidogrel 75 mg tablet 75 mg PO DAILY Blood clot prevention/tx 08/03/20
acetaminophen 650 mg tablet,extended release 650 mg PO DAILYPRN PRN mild pain 04/28/24
finasteride 5 mg tablet 5 mg PO HS Urinary Issue 04/28/24
vitamins A,C,P-xqff-vqnccm 4,296 mcg-226 mg-90 mg capsule (PreserVision AREDS) 1 cap PO BID Supplement 04/28/24
cefdinir 300 mg capsule 300 mg PO DAILY 12 days #12 caps 04/30/24
sodium bicarbonate 650 mg tablet 1,300 mg (2 x 650 mg) PO TID #180 tabs 04/30/24
Home Medication Changes
Cefdinir is a new medication.
Sodium Bicarbonate was increased from 650 mg PO TID to 1300 mg PO TID.
Pending Results: Yes
Additional Pending Results:
Final results of blood cultures from hospitalization
Total time spent discharging patient (in min): 38
--- NOTE | 2024-04-30 14:31 | W.PN.NEPH.PH ---
Today's Communication / Plan
-
- for d/c
Assessment/Plan
-
Impression:
Urinary tract infection/bladder retention
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
Acute kidney injury
Hypertension
Dyslipidemia
Metabolic acidosis
History of pacemaker placement
BPH with recent Rutledge catheter removal earlier this week
Plan:
LUCIANO:
-Likely due to obstructive component now nonoliguric with increased urinary output following Rutledge catheter reinsertion
-Cr moving back down to baseline
-no further IVF
-No acute need for dialysis at this time
-Discussed need to obtain vascular access and appointment with vascular surgery with patient and (per Dr. Coates)
HTN:
-Blood pressure well-controlled on metoprolol and amlodipine
Metabolic acidosis:
-Will increase sodium bicarbonate
UTI:
-Maintain on ceftriaxone for E. coli UTI
Mild HyperK
-low K diet
-lokelma 10g daily
Please obtain repeat labs Friday next week
-
-
Date of Service: April 30, 2024
CC / HPI / ROS
-
Chief Complaint:
LUCIANO on CKD
History of Present Illness:
Rutledge in place
excellent UOP
no urgent dialysis needs
Review of Systems:
feeling well
plan for DC today
Labs
-
Labs:
WBC 9.2 10^3/uL (4.8-10.8) 04/30/24 06:18
RBC 3.10 10^6/uL (4.70-6.10) L 04/30/24 06:18
Hgb 9.2 g/dL (13.0-18.0) L 04/30/24 06:18
Hct 29.4 % (39.0-52.0) L 04/30/24 06:18
Plt Count 250 10^3/uL (130-400) 04/30/24 06:18
Sodium 138 mmol/L (135-145) 04/30/24 06:19
Potassium 5.4 mmol/L (3.5-5.1) H 04/30/24 06:19
Chloride 111 mmol/L (98-107) H 04/30/24 06:19
Carbon Dioxide 17 mmol/L (22-30) L 04/30/24 06:19
BUN 74 mg/dl (9-20) H 04/30/24 06:19
Creatinine 5.5 mg/dL (0.7-1.3) H* 04/30/24 06:19
eGFR 9.48 04/30/24 06:19
Glucose 91 mg/dl (70-99) 04/30/24 06:19
Calcium 8.7 mg/dl (8.4-10.2) 04/30/24 06:19
Phosphorus 6.0 mg/dl (2.5-4.5) H 04/29/24 05:23
Albumin 3.6 g/dl (3.5-5.0) 04/28/24 16:45
Physical Exam
-
Vital Signs:
Vital Signs
Temp Pulse Resp BP Pulse Ox
97.3 F 71 18 118/63 99
04/30/24 11:00 04/30/24 11:00 04/30/24 11:00 04/30/24 11:00 04/30/24 11:09
Cardiovascular:: Regular rate and rhythm
Respiratory:: Bilateral: Coarse
Lung Excursion:: Normal
Abdomen:: Nontender and Soft
Bowel Sounds:: Normal
Extremity Edema:: +1: Bilateral:
Rutledge Catheter: Yes
[2024-04-30 15:00] VITALS: BP 123/70
--- NOTE | 2024-05-03 15:15 | PN.CDI ---
CDI
- -
CDI:
Physician Documentation Request
Admit Date: 04/28/24 19:15
Dear Doctor Sandoval,
Patient admitted with LUCIANO.
04/29 Nephrology PN: 'Polycystic kidney disease\\CKD stage V baseline creatinine 4.7'
04/30 Hospitalist PN: 'LUCIANO on CKD 4. History of Polycystic Kidney Disease'
Laboratory Tests
04/28/24 04/29/24 04/30/24
16:45 05:23 06:19
Creatinine 6.0 H* 5.6 H* 5.5 H*
eGFR 8.54 9.27 9.48
Clarify which of the following accurately represents the patient's renal status:
CKD 5
CKD 4
Other
Stages of Chronic Kidney Disease*
Level Description GFR
G1 Normal or High >90
G2 Mildly decreased 60-89
G3a Mildly to moderately decreased 45-59
G3b Moderately to severely decreased 30-44
G4 Severely decreased 15-29
G5 Kidney failure <15
Use of terms such as suspected, likely, concern for, or probable (associated with a specific diagnosis that is being evaluated, monitored, or treated as if it exists) are acceptable and can be coded in the inpatient setting, when documented at the
time of discharge.
Thank you,
Erica Skaggs RN, BSN
CDI Specialist
Available via [place] text
Please use your independent medical judgment in providing your response.
*Source: Kidney Disease: Improving Global Outcomes (KDIGO) 2012
--- NOTE | 2024-05-04 22:40 | W.DCSUMMARY ---
Discharge Summary
Discharge Data
Date of Admission: 04/28/24
Date of Discharge: 04/30/24
Total time spent discharging patient (in min): 38
-
Pending Results: Yes
Additional Pending Results:
Final results of blood cultures from hospitalization
Hospital Course
88 y/o male with past medical history of polycystic kidney disease, hypertension and TIA who presented to the emergency department with subjective fever, chills, shortness of breath, and difficulty balancing. The patient reports his symptoms started
on the morning of presentation, he did not measure his temperature at home, but felt hot. Additionally, he reported decreased urinary stream and increased frequency/urgency for a few days. The patient notes he was started on Finasteride a few weeks
ago when he presented to the emergency department for urinary retention and required placement of a Mcmanus catheter which was just removed 2 days prior to presentation, at that time he got Keflex antibiotics and completed the course after discharge
from the ER. He saw urologist Dr. Champagne and his rehab care assistant a few days prior to presentation, when his Mcmanus catheter was taken out.
Patient was admitted with severe sepsis secondary to urinary tract infection and was given intravenous fluids and antibiotics. A Mcmanus Catheter was placed. Urology was consulted. Proscar was held as patient's family was concerned about whether that
was causing his symptoms, but it was later continued when it was determined that it was an unlikely cause of patient's symptoms. Nephrology was also consulted given patient's polycystic kidney disease. Patient's acute kidney injury gradually
improved. Patient was found to have Enterobacter intermedius urinary tract infection, and he was able to be switched to oral antibiotics. Blood cultures were negative. As discussed with on-call steffen house supervisor on the day of discharge, patient was
started on Lokelma for hyperkalemia and his sodium bicarbonate dose was increased.
Discharge Plan
-
Patient Disposition: Home (Routine Discharge)
Discharge Diagnosis/Procedures: Severe Sepsis secondary to Urinary Tract Infection
Enterobacter intermedius Urinary Tract Infection
Leukocytosis
Acute Kidney Injury - likely due to obstructive component now nonoliguric with increased urinary output following Mcmanus catheter reinsertion - on Chronic Kidney Disease Stage 4
History of Polycystic Kidney Disease
Hyperkalemia
Essential Hypertension
Hyperlipidemia
Benign Prostatic Hyperplasia
History of Transient Ischemic Attack
Aortic Stenosis status post TAVR
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
Condition: Good
Diet: Other diet
Additional Diets: 2 gram sodium diet, low potassium diet, low fat diet
Activity: As tolerated
Activity Restrictions/Additional Instructions:
Follow-up with a vascular surgeon because of the need to obtain vascular access for dialysis.
Call urologist's Dr. Isrrael Champagne's office to arrange outpatient follow-up and trial of void to see whether your mcmanus catheter can be taken out.
Referrals:
Rudy Gerardo DO [Family Provider] - in less than 1 week
Isrrael Champagne MD [Active] - in less than 1 week (Hospital Follow-Up: needs trial of void for Mcmanus catheter)
Additional Discharge Medication Instructions: Cefdinir is a new medication.
Sodium Bicarbonate was increased from 650 mg PO TID to 1300 mg PO TID.
Prescriptions:
New
cefdinir 300 mg Capsule
300 mg PO DAILY 12 Days Qty: 12 0RF
sodium bicarbonate 650 mg Tablet
1,300 mg PO TID Qty: 180 1RF
Continued
amlodipine 10 MG tablet
10 mg PO DAILY
ezetimibe 10 MG tablet
10 mg PO DAILY
metoprolol succinate 50 MG tablet extended release 24 hr
50 mg PO BID
tamsulosin 0.4 MG capsule
0.4 mg PO HS
rosuvastatin 20 MG tablet
20 mg PO DAILY
pantoprazole 40 MG tablet,delayed release (DR/EC)
40 mg PO DAILY
clopidogrel 75 MG tablet
75 mg PO DAILY
acetaminophen 650 mg Tablet Extended Release
650 mg PO DAILYPRN PRN (Reason: mild pain)
finasteride 5 mg Tablet
5 mg PO HS
PreserVision AREDS 4,296 mcg-226 mg-90 mg Capsule
1 cap PO BID
Discontinued
sodium bicarbonate 650 mg Tablet
650 mg PO TID
Discharge Orders:
Discharge Patient (As Directed); Ordered 04/30/24
Ordered By: Alverto Nick
Discharge Date and Time
Discharge Date/Time: 04/30/24 17:56
Print Language: [place]OT[place]
== END 2024-04-30 17:56 | disposition home or self-care (01) | DRG 872 ==
LOC: 4 WEST ACU 19:15
PROVIDERS: Nurse Practitioner; Physician Assistant Medical; ADMITTING PHYSICIAN Hospitalist; CONSULT PHYSICIAN Specialist; EMERGENCY PHYSICIAN Emergency Medicine; FAMILY PHYSICIAN Family Medicine
DX: A41.9 Sepsis, unspecified organism (principal); N17.9 Acute kidney failure, unspecified; N39.0 Urinary tract infection, site not specified; Q61.3 Polycystic kidney, unspecified; E87.20 Acidosis, unspecified; N18.5 Chronic kidney disease, stage 5; R65.20 Severe sepsis without septic shock; I15.1 Hypertension secondary to other renal disorders; R50.9 Fever, unspecified; K21.9 Gastro-esophageal reflux disease without esophagitis; E78.5 Hyperlipidemia, unspecified; E87.5 Hyperkalemia; E78.00 Pure hypercholesterolemia, unspecified; R33.9 Retention of urine, unspecified; N40.0 Benign prostatic hyperplasia without lower urinary tract symptoms; Z96.653 Presence of artificial knee joint, bilateral; Z95.2 Presence of prosthetic heart valve; Z95.0 Presence of cardiac pacemaker; Z86.73 Personal history of transient ischemic attack (TIA), and cerebral infarction without residual deficits; Z87.891 Personal history of nicotine dependence; Z88.6 Allergy status to analgesic agent; Z79.02 Long term (current) use of antithrombotics/antiplatelets
CPT/HCPCS: 51702; 51798; 71046; 76775; 80048; 80053; 81003; 81015; 83605; 83735; 84100; 85025; 85027; 87040; 87077; 87086; 87186; 96361; 96365; 96375; 97162; 97166; 99285

== ENCOUNTER 2024-06-03 13:44 | Inpatient (IN) | payer OTHER, SELFPAY ==
[2024-06-01] VITALS (10 sets, daily range): BP systolic 124–153; BP diastolic 57–101; BMI 23.9; BMI 23.7
--- NOTE | 2024-06-01 11:41 | ED.GENMED ---
History of Present Illness
<Cheyanne Gil PA-C - Last Filed: 06/02/24 12:33>
General
Chief Complaint: Back Pain
Source: patient
Exam Limitations: none
Time Seen by Provider: 06/01/24 11:02
Nursing documentation reviewed up to this point in time: agreed with
History of Present Illness
History of Present Illness:
Patient is a 88 year old male with hx CKD, PCKD, HTN presenting to the emergency department via EMS for evaluation of acute onset lower back pain yesterday. Patient states that he was walking around yesterday morning when he noticed a sharp
stabbing, constant pain spanning across his lower back. Pain is worse with movement. Patient denies any associated fever, chills, nausea, vomiting, or abdominal pain. Patient denies any numbness or tingling in extremities. Patient denies any
bowel or bladder incontinence.
Patient states that he is producing urine. No hematuria or dysuria.
Patient did speak with his primary care provider today and was seen in office yesterday. Patient provide is concerned that this may be renal failure and advised to come to the emergency department for further evaluation.
Past History
<Cheyanne Gil PA-C - Last Filed: 06/02/24 12:33>
Past History
ED Past Medical History: GERD, HTN and Hypercholesterolemia
Social History
Alcohol: None
Review of Systems
<Cheyanne Gil PA-C - Last Filed: 06/02/24 12:33>
Review of Systems
Allergies reviewed?: Yes
All Other Systems: ROS reviewed and negative except as documented in HPI and ROS
Phy Exam
<Cheyanne Gil PA-C - Last Filed: 06/02/24 12:33>
Physical Exam
Physical Exam:
Vitals: Mildly hypertensive, otherwise vital signs stable. Afebrile
General: Patient is well appearing, no acute distress. Nontoxic appearing.
Skin: Warm and dry, no rashes or lesions
Head: Normocephalic, atraumatic
Eyes: Sclera nonicteric. EOMs intact. No nystagmus.
Throat: Dry mucous membranes. Protecting airway
Neck: Normal ROM, no cervical spine tenderness, no meningismus
Cardiac: Regular rate and rhythm, no murmurs.
Pulm: Normal respiratory effort, no wheezes, rales, rhonchi heard on exam.
Abdomen: Abdomen soft. No abdominal tenderness.
Back: Mildly reproducible paralumbar back tenderness. Positive straight leg raise on right. No cervical spine tenderness. No midline spinal tenderness.
Extremities: No evidence of cyanosis or edema. Great distal pulses.
Neuro: AAOx3. CN II-XII intact. No focal neurologic deficits. Speech fluid. Sensation fully intact. Bilateral weakness of upper and lower extremities.
Psychiatric: Normal affect.
Course
<Cheyanne Gil PA-C - Last Filed: 06/02/24 12:33>
Orders/Labs/Results
Orders:
Orders
06/01/24 Breakfast
Sodium, 2 Gram
At Your Request: Limited Participation
Low Sodium: Potassium, 2 Gram
06/01/24 11:32
Electrocardiogram (*1) Urgent
Reason for Study: Vertigo / Dizzy
EKG- Treatment ONCE
06/01/24 11:34
Interrogate Pacemaker- Treatment ONCE
06/01/24 11:36
Acetaminophen [Tylenol] 650 mg PO NOW STA
06/01/24 11:38
0.9% Sodium Chloride 1000 ml [Nss] 1,000 ml IV BOLUS
06/01/24 11:49
Complete Blood Count/With Diff Urgent
Comprehensive Metabolic Panel Urgent
Urinalysis Reflex To Culture Urgent
Date Specimen was Collected: 06/01/24
Time Specimen was Collected: 11:34
Urine Microscopic Reflex Cult Urgent
06/01/24 11:53
0.9% Sodium Chloride 1000 ml [Nss] 1,000 ml IV BOLUS
06/01/24 13:43
CT Abd/pel Without Iv Or Oral Urgent
Comment: CKD
Reason For Exam: lower back pain
06/01/24 14:01
Lidocaine [Lidocaine 4% Patch] 1 patch TOPICAL NOW STA
Apply Lidocaine patch(s) to:: lower back
Tramadol HCl [Ultram] 25 mg PO NOW STA
06/01/24 15:28
Morphine Sulfate 4 mg IV NOW STA
06/01/24 16:03
Morphine Sulfate 2 mg IV NOW STA
06/01/24 17:32
CT Head W/o Iv Contrast Urgent
Comment:
Reason For Exam: dizziness
06/01/24 17:33
Admit/Transfer Patient As Directed
Co-Sign Provider:
Level of Care: Observation services
Assign to:: Medical/Surgical
Physician / Group: [facility]
Diagnosis: Back Pain
PRN Pain Medication Management As Directed
May give lesser potent ordered pain med per pt: Yes
preference::
Protocol:: Medication orders for pain may be administered in a
manner that supports deferring to patient preference
when the pt is:
- Requesting an ordered lesser potent pain medication.
Least to most potent pain medications are defined
as: acetaminophen < NSAID < tramadol < opioids
(morphine, oxycodone, hydromorphone).
- Requesting a lesser dose of the same medication IF
ORDERED.
- Requesting a less intrusive route of administration
if both routes are prescribed by the provider (PO <
IV).
06/01/24 17:38
Code Status As Directed
Resuscitation Status: Full Code
06/01/24 19:15
Acetaminophen [Tylenol] 1,000 mg PO Q6HPRN PRN
Cyclobenzaprine HCl [Flexeril] 5 mg PO Q8HPRN PRN
Oxycodone [Roxicodone] 2.5 mg PO Q6HPRN PRN
Oxycodone [Roxicodone] 5 mg PO Q6HPRN PRN
06/01/24 19:15
NEPHROLOGY CONSULT Routine
Consulting Provider: Bita Negrete
Was physician already notified: Yes
MR Lumbar Without Contrast Routine
Comment:
Reason For Exam: back pain with radiation down legs
Recent pill cam endoscopy?: No
Activity As Directed
Activity Level: Out of Bed-Early Mobility
With Assistance
Bladder Scan As Directed
Follow Bladder Retention/Intermittent Cath Algorithm?: Yes
PRN if no void in __ hours: 6
Frequency: Per Retention Algorithm
If Bladder Scan Result >: 400
then:: Straight cath
I&O [Intake/ Output] As Directed
Frequency: q12h
Orthostatic Vital Signs As Directed
Orthostatic VS Frequency: BID
Straight Cath As Directed
Frequency: Per Retention Algorithm
Additional Instructions: straight cath as needed per acute urinary retention algorithm for 24 hrs
Additional Instructions: for bladder scan greater than 400 mL
Vital Signs As Directed
Frequency: Per unit guidelines
Weight As Directed
Frequency: Daily
Ot Eval And Treat Routine
Pt Eval And Treat Routine
Activity Level: Out of Bed-Early Mobility
With Assistance
DX Deep Vein Thrombosis Video Routine
06/01/24 20:00
Metoprolol Xl [Toprol Xl] 50 mg PO BID
Vit C/Vit E/Lutein/Min/[place]-3 [Ocuvite Softgel] 1 cap PO BID
06/01/24 22:00
Sodium Bicarbonate 1,300 mg PO TID
Tamsulosin [Flomax] 0.4 mg PO HS
06/02/24 00:00
Heparin 5,000 units SC Q8
06/02/24 08:00
Amlodipine [Norvasc] 10 mg PO DAILY
Clopidogrel Bisulfate [Plavix] 75 mg PO DAILY
Ezetimibe [Zetia] 10 mg PO DAILY
Lidocaine [Lidocaine 4% Patch] 1 patch TOPICAL DAILY
Apply Lidocaine patch(s) to:: low back
Pantoprazole [Protonix] 40 mg PO DAILY
Rosuvastatin Calcium [Crestor] 10 mg PO DAILY
06/02/24 09:39
Basic Metabolic Panel IN AM
Complete Blood Count/No Diff IN AM
Abnormal Lab Results
06/01/24
11:49
WBC 10.9 H 10^3/uL
(4.8-10.8)
RBC 3.62 L 10^6/uL
(4.70-6.10)
Hgb 10.2 L g/dL
(13.0-18.0)
Hct 31.4 L %
(39.0-52.0)
MCHC 32.5 L g/dL
(33.0-37.0)
RDW 15.9 H %
(11.5-14.5)
MPV 12.0 H fL
(7.4-10.4)
Absolute Neuts (auto) 8.5 H 10^3/uL
(1.4-6.5)
Absolute Monos (auto) 0.7 H 10^3/uL
(0.1-0.6)
Neutrophils % 77.6 H %
(42.2-75.2)
Lymphocytes % 15.8 L %
(20.5-51.1)
Carbon Dioxide 16 L mmol/L
(22-30)
BUN 93 H mg/dl
(9-20)
Creatinine 5.8 H* mg/dL
(0.7-1.3)
Glucose 118 H mg/dl
(70-99)
Total Protein 6.1 L g/dl
(6.3-8.2)
Urine Ketones Trace A
(Negative)
Ur Occult Blood Reflex Trace A
(Negative)
Leukocyte Esterase Rfl Trace A
(Negative)
Urine RBC 3-6 A /HPF
(0-2)
Urine Bacteria (Reflex) Few A
(Negative)
Urine Glucose Trace A
(Negative)
Urine Albumin (Reflex) 2+ A
(Neg - Trace)
06/01/24 11:49
06/01/24 11:49
Vital Signs
Initial and Last Documented VS:
Initial Vital Signs
Temp Pulse Resp BP Pulse Ox
99.9 F 88 18 153/99 92
06/01/24 11:00 06/01/24 11:00 06/01/24 11:00 06/01/24 11:00 06/01/24 11:00
Last Documented Vital Signs
Temp Pulse Resp BP Pulse Ox
98.4 F 87 14 116/73 94
06/02/24 07:00 06/02/24 08:52 06/02/24 07:00 06/02/24 07:00 06/02/24 11:05
<Washington Grace, DO - Last Filed: 06/01/24 12:03>
Orders/Labs/Results
Orders:
Orders
06/01/24 Breakfast
Sodium, 2 Gram
At Your Request: Limited Participation
Low Sodium: Potassium, 2 Gram
06/01/24 11:32
Electrocardiogram (*1) Urgent
Reason for Study: Vertigo / Dizzy
EKG- Treatment ONCE
06/01/24 11:34
Interrogate Pacemaker- Treatment ONCE
06/01/24 11:36
Acetaminophen [Tylenol] 650 mg PO NOW STA
06/01/24 11:38
0.9% Sodium Chloride 1000 ml [Nss] 1,000 ml IV BOLUS
06/01/24 11:49
Complete Blood Count/With Diff Urgent
Comprehensive Metabolic Panel Urgent
Urinalysis Reflex To Culture Urgent
Date Specimen was Collected: 06/01/24
Time Specimen was Collected: 11:34
Urine Microscopic Reflex Cult Urgent
06/01/24 11:53
0.9% Sodium Chloride 1000 ml [Nss] 1,000 ml IV BOLUS
06/01/24 13:43
CT Abd/pel Without Iv Or Oral Urgent
Comment: CKD
Reason For Exam: lower back pain
06/01/24 14:01
Lidocaine [Lidocaine 4% Patch] 1 patch TOPICAL NOW STA
Apply Lidocaine patch(s) to:: lower back
Tramadol HCl [Ultram] 25 mg PO NOW STA
06/01/24 15:28
Morphine Sulfate 4 mg IV NOW STA
06/01/24 16:03
Morphine Sulfate 2 mg IV NOW STA
06/01/24 17:32
CT Head W/o Iv Contrast Urgent
Comment:
Reason For Exam: dizziness
06/01/24 17:33
Admit/Transfer Patient As Directed
Co-Sign Provider:
Level of Care: Observation services
Assign to:: Medical/Surgical
Physician / Group: [facility]
Diagnosis: Back Pain
PRN Pain Medication Management As Directed
May give lesser potent ordered pain med per pt: Yes
preference::
Protocol:: Medication orders for pain may be administered in a
manner that supports deferring to patient preference
when the pt is:
- Requesting an ordered lesser potent pain medication.
Least to most potent pain medications are defined
as: acetaminophen < NSAID < tramadol < opioids
(morphine, oxycodone, hydromorphone).
- Requesting a lesser dose of the same medication IF
ORDERED.
- Requesting a less intrusive route of administration
if both routes are prescribed by the provider (PO <
IV).
06/01/24 17:38
Code Status As Directed
Resuscitation Status: Full Code
06/01/24 19:15
Acetaminophen [Tylenol] 1,000 mg PO Q6HPRN PRN
Cyclobenzaprine HCl [Flexeril] 5 mg PO Q8HPRN PRN
Oxycodone [Roxicodone] 2.5 mg PO Q6HPRN PRN
Oxycodone [Roxicodone] 5 mg PO Q6HPRN PRN
06/01/24 19:15
NEPHROLOGY CONSULT Routine
Consulting Provider: Bita Negrete
Was physician already notified: Yes
MR Lumbar Without Contrast Routine
Comment:
Reason For Exam: back pain with radiation down legs
Recent pill cam endoscopy?: No
Activity As Directed
Activity Level: Out of Bed-Early Mobility
With Assistance
Bladder Scan As Directed
Follow Bladder Retention/Intermittent Cath Algorithm?: Yes
PRN if no void in __ hours: 6
Frequency: Per Retention Algorithm
If Bladder Scan Result >: 400
then:: Straight cath
I&O [Intake/ Output] As Directed
Frequency: q12h
Orthostatic Vital Signs As Directed
Orthostatic VS Frequency: BID
Straight Cath As Directed
Frequency: Per Retention Algorithm
Additional Instructions: straight cath as needed per acute urinary retention algorithm for 24 hrs
Additional Instructions: for bladder scan greater than 400 mL
Vital Signs As Directed
Frequency: Per unit guidelines
Weight As Directed
Frequency: Daily
Ot Eval And Treat Routine
Pt Eval And Treat Routine
Activity Level: Out of Bed-Early Mobility
With Assistance
DX Deep Vein Thrombosis Video Routine
06/01/24 20:00
Metoprolol Xl [Toprol Xl] 50 mg PO BID
Vit C/Vit E/Lutein/Min/[place]-3 [Ocuvite Softgel] 1 cap PO BID
06/01/24 22:00
Sodium Bicarbonate 1,300 mg PO TID
Tamsulosin [Flomax] 0.4 mg PO HS
06/02/24 00:00
Heparin 5,000 units SC Q8
06/02/24 08:00
Amlodipine [Norvasc] 10 mg PO DAILY
Clopidogrel Bisulfate [Plavix] 75 mg PO DAILY
Ezetimibe [Zetia] 10 mg PO DAILY
Lidocaine [Lidocaine 4% Patch] 1 patch TOPICAL DAILY
Apply Lidocaine patch(s) to:: low back
Pantoprazole [Protonix] 40 mg PO DAILY
Rosuvastatin Calcium [Crestor] 10 mg PO DAILY
06/02/24 09:39
Basic Metabolic Panel IN AM
Complete Blood Count/No Diff IN AM
Abnormal Lab Results
06/01/24
11:49
WBC 10.9 H 10^3/uL
(4.8-10.8)
RBC 3.62 L 10^6/uL
(4.70-6.10)
Hgb 10.2 L g/dL
(13.0-18.0)
Hct 31.4 L %
(39.0-52.0)
MCHC 32.5 L g/dL
(33.0-37.0)
RDW 15.9 H %
(11.5-14.5)
MPV 12.0 H fL
(7.4-10.4)
Absolute Neuts (auto) 8.5 H 10^3/uL
(1.4-6.5)
Absolute Monos (auto) 0.7 H 10^3/uL
(0.1-0.6)
Neutrophils % 77.6 H %
(42.2-75.2)
Lymphocytes % 15.8 L %
(20.5-51.1)
Carbon Dioxide 16 L mmol/L
(22-30)
BUN 93 H mg/dl
(9-20)
Creatinine 5.8 H* mg/dL
(0.7-1.3)
Glucose 118 H mg/dl
(70-99)
Total Protein 6.1 L g/dl
(6.3-8.2)
Urine Ketones Trace A
(Negative)
Ur Occult Blood Reflex Trace A
(Negative)
Leukocyte Esterase Rfl Trace A
(Negative)
Urine RBC 3-6 A /HPF
(0-2)
Urine Bacteria (Reflex) Few A
(Negative)
Urine Glucose Trace A
(Negative)
Urine Albumin (Reflex) 2+ A
(Neg - Trace)
06/01/24 11:49
06/01/24 11:49
Vital Signs
Initial and Last Documented VS:
Initial Vital Signs
Temp Pulse Resp BP Pulse Ox
99.9 F 88 18 153/99 92
06/01/24 11:00 06/01/24 11:00 06/01/24 11:00 06/01/24 11:00 06/01/24 11:00
Last Documented Vital Signs
Temp Pulse Resp BP Pulse Ox
98.4 F 87 14 116/73 94
06/02/24 07:00 06/02/24 08:52 06/02/24 07:00 06/02/24 07:00 06/02/24 11:05
<Cheyanne Gil PA-C - Last Filed: 06/02/24 12:33>
MDM/Problems Addressed
Differential Diagnosis Includes:
Not limited to: muscle strain, UTI, pyelonephritis, kidney stone, LUCIANO,
MDM/Problems Addressed:
88 year old male with history as documented presenting via EMS for acute onset back pain yesterday. PCP concerned for worsening kidney function and sent to ER. Patient denies any fever, chills, or urinary symptoms. Reports urinating with normal
frequency/ amount.No bowel/bladder incontinence. Patient does endorse an episode of dizziness yesterday. 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 Rutledge next week. Patient hypertensive, otherwise vitals
stable. Exam as above. No focal neurologic deficits. Great distal pulses. Sensation fully intact in b/l upper and lower extremities. Positive straight leg raise on right. Benign abdominal exam. Will obtain basic labs, UA, bladder scan to r/o urinary
retention. Will give tylenol and IVF.
Pacemaker was interrogated due to episode of dizziness yesterday. No arrhythmias noted.
Labs noted. CBC without any clinically significant abnormalities. Chemistry shows findings consistent with stable kidney disease- creatinine of 5.8 which is minimally elevated from suspected baseline. No indication for emergent dialysis. Urine
without signs of infection. Patient without urinary retention based on bladder scan. Patient still with significant discomfort. Suspect likely sciatica/MSK etiology but will obtain CT abdomen/pelvis to rule out obbstructing stone.
CT shows no acute changes. 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 Patient with no improvement following tramadol - will give IV morphine. Given patients intractable pain requiring IV pain medication and gait difficulties due to pain will
admit to hospitalist for pain management/further evaluation.Patient accepted to hospitalist service.
Chronic conditions affecting care:
PCKD, CKD, hypertension
Acute Exacerbation and/or Progression of Chronic Illness:
N/A
<Cheyanne Gil PA-C - Last Filed: 06/02/24 12:33>
*Radiology
Radiology exam reviewed: preliminary read by ED provider and radiology read reviewed
*Pulse Oximetry
Patient hypoxic: no
*EKG
Interpreted by ED Provider?: Yes
EKG Intrepretation Date: 06/01/24
Interpretation: abnormal
Comparison EKG: changes noted
Heart Rate: 88
Rate: normal
Rhythm: ventricular paced
Ischemia: no ischemia
*Stockroom Attendant Interpretation
Rate: normal
Interpretation: abnormal
Heart Rate: 86
Rhythm: ventricular paced
*Critical Care Note
Total Time (30-74mins, 75-104mins- exclusive of procedures): Not Applicable
<Cheyanne Gil PA-C - Last Filed: 06/02/24 12:33>
Patient Management
Discussion with other providers: Hospitalist
Escalation/DeEscalation of care consider admission/obs:
Admit for pain management/ further evaluation
ED Attending Note
<Cheyanne Gil PA-C - Last Filed: 06/02/24 12:33>
-
Portions of this chart may have been created with voice recognition software.� Occasional wrong word or��sound alike� substitutions may have occurred due to the inherent limitations of voice recognition software.
<Washington Grace DO - Last Filed: 06/01/24 12:03>
ED Attending Note
Patient seen and examined by attending physician: Yes
I performed the substantive portion of visit, reviewed & personally made and approve the management plan that is documented in note by myself or VINCE.: Yes
ED Attending Note:
I have seen and evaluated the patient with a [id number] encounter. I have spoken to the advance practicer provider and involved in the medical history, the physical exam, medical decision making.
Evaluation and management service: agree unless noted differently below.
Results interpretation: agree unless noted differently below.
Focused HPI: 88-year-old male presenting for evaluation of back pain. Given his history of polycystic kidney disease, his primary care doctor is concerned that he could be developing kidney failure. Patient denies trouble urinating
Physical exam: Sitting in bed comfortably. No abdominal or back tenderness noted. No leg edema
Medical Decision Making: Will start with blood work to look for any evidence of acute kidney injury. Urinalysis and postvoid bladder scan to rule out post renal syndrome.
Discharge Plan
Departure
Patient Disposition: Admit
Date of Disposition: 06/01/24
Time of Disposition: 17:01
Presentation/result/management discussed w/ accepting MD/DO: Hospitalist
Discharge Problem:
Back pain
Interventions
Interventions:
*General Assessment Last Done: 06/01/24 11:00
*Neglect/Abuse Screening Last Done: 06/01/24 11:00
*Nursing Disposition Last Done: 06/01/24 19:04
ED-Musculoskeletal Assessment Last Done: 06/01/24 11:04
Discharge Date and Time
Discharge Date/Time: 06/01/24 19:06
[2024-06-01] MEDS: TYLENOL 650 MG PO (11:56)
[2024-06-01] MEDS: NSS 1000 IV (11:57)
[2024-06-01 12:11] LABS: % Basophils 0.1 % (0-2); % Immature Granulocytes 0.3 % (0-0.5); % Lymphocytes 15.8 % (20.5-51.1); % Monocytes 6.2 % (1.7-9.3); % Neutrophils 77.6 % (42.2-75.2); Absolute Lymphocytes 1.7 10^3/uL (1.2-3.4); Absolute Monocytes 0.7 10^3/uL (0.1-0.6); Absolute Neutrophils 8.5 10^3/uL (1.4-6.5); Hematocrit 31.4 % (39.0-52.0); Hemoglobin 10.2 g/dL (13.0-18.0); Mean Corp Hgb Conc. 32.5 g/dL (33.0-37.0); Mean Corpuscular Hgb 28.2 pg (27.0-31.0); Mean Corpuscular Volume 86.7 fL (80.0-94.0); Nucleated Red Blood Cells % 0 % (-); Platelet Count 170 10^3/uL (130-400); Red Blood Cell Count 3.62 10^6/uL (4.70-6.10); Red Cell Dist. Width 15.9 % (11.5-14.5); White Blood Cell Count 10.9 10^3/uL (4.8-10.8)
[2024-06-01 12:20] LABS: ALT (SGPT) 27 U/L (0-50); AST (SGOT) 37 U/L (17-59); Albumin 3.7 g/dl (3.5-5.0); Alkaline Phosphatase 61 U/L (38-126); Blood Urea Nitrogen 93 mg/dl (9-20); Carbon Dioxide 16 mmol/L (22-30); Chloride 104 mmol/L (98-107); Estimated Creatinine Clearance 10 ml/min; Glucose 118 mg/dl (70-99); Potassium 4.6 mmol/L (3.5-5.1); Sodium 137 mmol/L (135-145); Total Bilirubin 0.9 mg/dl (0.2-1.3); Total Protein 6.1 g/dl (6.3-8.2); eGFR 8.89
[2024-06-01 13:21] LABS: Urine Albumin 2+ (Neg - Trace); Urine Bilirubin Negative (Negative); Urine Character Clear (Clear); Urine Color Yellow; Urine Glucose Trace (Negative); Urine Ketone Trace (Negative); Urine Leukocyte Trace (Negative); Urine Nitrite Negative (Negative); Urine Occult Blood Trace (Negative); Urine Specific Gravity 1.015 (<1.030); Urine Urobilinogen Negative (Neg - 1+)
[2024-06-01 13:28] LABS: Urine Bacteria Few (Negative)
[2024-06-01] MEDS: LIDOCAINE 4% PATCH 1 PATCH TOPICAL (14:44)
[2024-06-01] MEDS: ULTRAM 25 MG PO (14:45)
[2024-06-01] MEDS: MORPHINE SULFATE 2 MG IV (16:05)
--- NOTE | 2024-06-01 17:03 | HPS.HSE ---
Family Physician
-
Family Physician: Rudy Gerardo
Chief Complaint
-
Back Pain
History of Present Illness
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 Patient reports he saw his PCP yesterday for dizziness and he was told
to stop his finasteride. Later yesterday he developed back pain which has worsened to the point he could not get out of bed. He reports pain radiates down both legs, but reports it is worse on the right leg. He denies bowel/bladder incontinence.
Medical History
Past Medical History
Past Medical History: Reports Other
Additional Past Medical History:
Essential Hypertension
Hyperlipidemia
Heart Block s/p Pacemaker
Aortic Stenosis s/p TAVR
TIA
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
BPH
Past Surgical History: Reports Other
Additional Past Surgical History:
L4/L5 Spine Surgery
Bilateral Knee Replacements
TAVR
Social History
Tobacco: Former Smoker
Alcohol: None
Family History
Family History: Not pertinent
Allergies / Home Medications
Allergies reflects when Allergies were last updated in [email or web address].
Home Medications with original date entered in [email or web address]
Allergy/Medication List:
Allergies
Allergy/AdvReac Type Severity Reaction Status Date / Time
celecoxib [From Celebrex] Allergy GI bleed Verified 06/01/24 11:05
Home Medications
amlodipine 10 mg tablet 10 mg PO DAILY Blood pressure 08/29/09
ezetimibe 10 mg tablet 10 mg PO DAILY High cholesterol 08/29/09
metoprolol succinate 50 mg tablet,extended release 24 hr 50 mg PO BID Blood pressure 04/01/16
pantoprazole 40 mg tablet,delayed release 40 mg PO DAILY Gastrointestinal issue 05/23/16
rosuvastatin 20 mg tablet 20 mg PO DAILY High cholesterol 04/01/16
tamsulosin 0.4 mg capsule 0.4 mg PO HS Urinary issue 04/01/16
clopidogrel 75 mg tablet 75 mg PO DAILY Blood clot prevention/tx 08/03/20
acetaminophen 650 mg tablet,extended release 650 mg PO DAILYPRN PRN mild pain 04/28/24
vitamins A,C,Y-upoz-cvoxhw 4,296 mcg-226 mg-90 mg capsule (PreserVision AREDS) 1 cap PO BID Supplement 04/28/24
sodium bicarbonate 650 mg tablet 1,300 mg PO TID Electrolyte Repletion 06/01/24
Review of Systems
-
A 12 point ROS was completed and negative except as noted: Yes
Constitutional: Denies Fever
Respiratory: Denies Cough or Trouble Breathing
Cardiac: Denies Chest Pain or Palpitations
Abdomen/GI: Denies Abdominal Pain, Nausea, Vomiting or Diarrhea
Physical Exam
Vital Signs
Vital Signs
Temp Pulse Resp BP Pulse Ox
99.9 F 79 22 131/75 90
06/01/24 11:00 06/01/24 16:45 06/01/24 16:45 06/01/24 17:00 06/01/24 16:45
Physical Exam
General: Comfortable and Conversant
HEENT: Anicteric and Moist mucous membranes
Respiratory: Clear and Non Labored Respirations
Cardiac: S1/S2 and Regular Rhythm
GI: Soft and Non Tender
Musculoskeletal: No Clubbing, No Cyanosis, No Edema and Other (Holds right lower extremity in flexed position with inability to lift right lower ext off stretcher due to pain)
Skin: Warm and Dry
Neuro: Awake, Alert, Oriented and Nonfocal/grossly intact
Psych: Calm
Laboratory Results
-
06/01/24 11:49
06/01/24 11:49
Laboratory Results
Total Bilirubin 0.9 mg/dl (0.2-1.3) 06/01/24 11:49
AST 37 U/L (17-59) 06/01/24 11:49
ALT 27 U/L (0-50) 06/01/24 11:49
Alkaline Phosphatase 61 U/L (38-126) 06/01/24 11:49
Data Reviewed
-
CT Scan: Report Reviewed by me
Lab Data: Labs Reviewed by me
Old Records: Reviewed
Impression/Plan
-
Back Pain/Ambulatory Dysfunction
-Check Lumbar Spine MRI
-Consult PT/OT
-Continue Tylenol for mild pain and Oxycodone for moderate/severe pain
-Add Flexeril for muscle spasms
-Continue Lidocaine Patch
Dizziness
-Check Head CT
-Check orthostatic VS
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
-BUN more elevated than baseline
-Consult Nephrology
Chronic Metabolic Acidosis
-Continue sodium bicarbonate
Essential Hypertension
-Continue amlodipine and Metoprolol
Hyperlipidemia
-Continue Crestor and Zetia
Hx TIA
-Continue Plavix
BPH
-Continue Flomax
Hx Heart Block s/p Pacemaker
Hx Aortic Stenosis s/p TAVR
DVT proph: SC Heparin
Code Status: Full Code
--- NOTE | 2024-06-01 18:07 | W.PN.UPDATE ---
Update Note
Progress Note Update
I have independently evaluated the patient and agree with A/P outlined in same date written H&P. In addition:
88yo M with APKD with CKD stage 5, BPH, HTN, HLD came with intractable back pain starting from the top of the back and radiating down to both LE R>L. Also noted dizziness for past few days.
A/P:
#Back pain, most likely schiatica with multilevel disk narrowing on CT
Pain mgmt
Muscle relaxant
PT/OT
MRI spine
#Dizziness
CT head
#APKD with CKD stage 5
planned for AVF with
Nephrology eval
avoid nephrotoxins
#Essential HTN
cont home meds
#BPH
tamsulosin/finasteride
watch for urinary retention
DVT ppx hep
Full code
I have spent at least 58min admitting patient, reviewing chart, test results and direct patient care
--- NOTE | 2024-06-01 19:05 | EDRN ---
Please note this patient was not cared for by this RN. The patients chart was removed by this RN only
[2024-06-01] MEDS: OCUVITE SOFTGEL 1 CAP PO (20:04)
[2024-06-01] MEDS: TOPROL XL 50 MG PO (20:04)
[2024-06-01] MEDS: SODIUM BICARBONATE 1300 MG PO (21:10)
[2024-06-01] MEDS: FLOMAX 0.4 MG PO (21:10)
[2024-06-02] VITALS (7 sets, daily range): BP systolic 105–138; BP diastolic 65–82; PULSE 80–91; O2SAT 89; BMI 23.6
[2024-06-02] MEDS: HEPARIN 5000 UNITS SC ×4 (00:09→23:31)
[2024-06-02] MEDS: ZETIA 10 MG PO (08:51)
[2024-06-02] MEDS: OCUVITE SOFTGEL 1 CAP PO ×2 (08:51→20:12)
[2024-06-02] MEDS: NORVASC 10 MG PO (08:51)
[2024-06-02] MEDS: PLAVIX 75 MG PO (08:51)
[2024-06-02] MEDS: LIDOCAINE 4% PATCH 1 PATCH TOPICAL (08:51)
[2024-06-02] MEDS: PROTONIX 40 MG PO (08:52)
[2024-06-02] MEDS: TOPROL XL 50 MG PO ×2 (08:52→20:12)
[2024-06-02] MEDS: SODIUM BICARBONATE 1300 MG PO ×3 (08:52→21:30)
[2024-06-02] MEDS: CRESTOR 10 MG PO (08:52)
[2024-06-02 10:09] LABS: Hemoglobin 10.2 g/dL (13.0-18.0); Mean Corp Hgb Conc. 32.9 g/dL (33.0-37.0); Mean Corpuscular Hgb 29.1 pg (27.0-31.0); Mean Corpuscular Volume 88.3 fL (80.0-94.0); Mean Platelet Volume 11.8 fL (7.4-10.4); Platelet Count 147 10^3/uL (130-400); Red Blood Cell Count 3.51 10^6/uL (4.70-6.10); Red Cell Dist. Width 16.2 % (11.5-14.5); White Blood Cell Count 9.8 10^3/uL (4.8-10.8)
--- NOTE | 2024-06-02 11:25 | W.CON.NEPH ---
Consultation
-
Date/Time Consultation Requested: 06/01/2024 19:15
Date/Time Consultation Performed: 06/02/2024 11:26AM
Requesting Provider: Siva Blanchard
Performing Provider: Ivet Alonso
Reason for Consultation: CKD V
Medical History
-
Chief Complaint: CKD stage V
History of Present Illness:
The patient is a 88-year-old male with a past medical history of polycystic kidney disease who maintains a baseline creatinine of about 5. He has been preparing for hemodialysis but is yet to obtain the AV fistula access. He has a history of
hypertension for which he is maintained on metoprolol and amlodipine. He has a history of chronic metabolic acidosis and is maintained on sodium bicarbonate therapy. Has a history of BPH with obstructive uropathy and recently had his Rutledge
catheter removed earlier this Friday by urology when he had been seen in the emergency room a few weeks prior for said obstructive uropathy. He recently had an admission in April for obstructive uropathy in April. Cr had improved to 5.5. Rutledge
removed 05/17, patient is instructed to straight cath per urology.
He presents with back pain yesterday and lightheadedness/dizziness. He was told to stop tamuslosin? vs. finasteride?
Past Medical History
Polycystic kidney disease\\CKD stage V baseline creatinine 5ish
Hypertension
BPH
Metabolic acidosis
History of recent Rutledge catheter placement
Dyslipidemia
Pacemaker
Social History
Tobacco: Non-Smoker
Alcohol: None
Family History
Both sons with polycystic kidney disease requiring dialysis and transplant
Allergies / Home Medications
Allergy/AdvReac Type Severity Reaction Status Date / Time
celecoxib [From Celebrex] Allergy GI bleed Verified 06/01/24 11:05
�Medication �Instructions �Recorded �Confirmed �Type
amlodipine 10 mg tablet 10 mg PO DAILY Blood pressure 08/29/09 06/01/24 History
ezetimibe 10 mg tablet 10 mg PO DAILY High cholesterol 10/20/09 07/23/24 History
metoprolol succinate 50 mg 50 mg PO BID Blood pressure 04/01/16 06/01/24 History
tablet,extended release 24 hr
pantoprazole 40 mg tablet,delayed 40 mg PO DAILY Gastrointestinal 04/01/16 06/01/24 History
release issue
rosuvastatin 20 mg tablet 20 mg PO DAILY High cholesterol 04/01/16 06/01/24 History
tamsulosin 0.4 mg capsule 0.4 mg PO HS Urinary issue 04/01/16 06/01/24 History
clopidogrel 75 mg tablet 75 mg PO DAILY Blood clot 08/03/20 06/01/24 History
prevention/tx
acetaminophen 650 mg 650 mg PO DAILYPRN PRN mild pain 04/28/24 06/01/24 History
tablet,extended release
vitamins A,C,Y-rcoc-uaxfaz 4,296 1 cap PO BID Supplement 04/28/24 06/01/24 History
mcg-226 mg-90 mg capsule
(PreserVision AREDS)
sodium bicarbonate 650 mg tablet 1,300 mg PO TID Electrolyte 06/01/24 06/01/24 History
Repletion
Review of Systems
-
History Source: Patient
All other systems: Negative unless noted
Neurological: Dizzy
Physical Exam
Vital Signs
Vital Signs
Temp Pulse Resp BP Pulse Ox
98.4 F 87 14 116/73 90
06/02/24 07:00 06/02/24 08:52 06/02/24 07:00 06/02/24 07:00 06/02/24 07:00
Lab Results
WBC 9.8 10^3/uL (4.8-10.8) 06/02/24 09:39
RBC 3.51 10^6/uL (4.70-6.10) L 06/02/24 09:39
Hgb 10.2 g/dL (13.0-18.0) L 06/02/24 09:39
Hct 31.0 % (39.0-52.0) L 06/02/24 09:39
Plt Count 147 10^3/uL (130-400) 06/02/24 09:39
eGFR 8.89 06/01/24 11:49
Albumin 3.7 g/dl (3.5-5.0) 06/01/24 11:49
Physical Exam
General: AOx3, No Distress and Nontoxic
HEENT: PERRL, EOMI, Anicteric, Conjunctivae Clear, Ear/Nose Intact, Hearing Normal, Oropharynx Clear/Moist, Dentition Intact, Facial Symmetry and Neck Supple
Respiratory: Clear
Cardiac: S1/S2, Regular Rate/Rhythm and No Edema
Breast: N/A
Abdomen: Soft, Nontender, Nondistended, Normal Bowel Sounds and No Hepatosplenomegaly
Rectal: Deferred by Provider
Genito-urinary: Other (no Rutledge in place)
Musculoskeletal: No Clubbing, No Cyanosis and No Edema
Skin: No Rash, Warm, Dry, No Clubbing, No Cyanosis, Normal Turgor and No Bruising
Neuro: Other (difficulty with movement of R arm)
Hematologic/Lymphatic: No Cervical Lymphadenopathy
Psych: Mood/afflect pleasant, Insight/judgement good and Appropriate
Data Reviewed
-
CT Scan: Report Reviewed by me (No acute intracranial abnormality. Left parietal arachnoid cyst)
Labs: Labs Reviewed by me, Discussed with Physician and Discussed with Patient
Old Records: Reviewed
Assessment/Plan
-
Impression:
Urinary retention
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
Acute kidney injury
Hypertension
Dyslipidemia
Metabolic acidosis
History of pacemaker placement
BPH with recent Rutledge catheter removal earlier this week
Plan:
LUCIANO vs CKD
- Cr likely at new baseline
- please continue with bladder scans and intermittent straight cath.
-No acute need for dialysis at this time
-Vascular access being obtained
HTN:
-Blood pressure well-controlled on metoprolol and amlodipine
Metabolic acidosis:
-Will increase sodium bicarbonate
--- NOTE | 2024-06-02 11:26 | W.PN.HOSP.TC ---
Today's Communication/Plan
-
MRI spine
Neuro eval
cont pain meds
Assessment / Plan
Assessment / Plan
88yo M with SSS s/p PPM, APKD with CKD stage 5, BPH, HTN, HLD came with intractable back pain starting from the top of the back and radiating down to both LE R>L. Also noted dizziness for past few days. ALso started to complain of b/l UE weakness
with pain
A/P:
#Back pain, most likely schiatica with multilevel disk narrowing on CT
#B/L UE pain and weakness
Pain mgmt
Muscle relaxant
PT/OT
MRI spine: cervical, thoracic and lumbar
Neurology consult
#Dizziness
CT head neg for acute pathology
#APKD with CKD stage 5
planned for AVF with
Nephrology eval
avoid nephrotoxins
#Essential HTN
cont home meds
#BPH
tamsulosin/finasteride
watch for urinary retention
#Anemia of chronic disease
Check anemia w/u
DVT ppx hep
Full code
I have spent at least 58min reviewing chart, test results and direct patient care
Anticipated Discharge: > 48 hours
Subjective/Interval History
-
Date of Service: June 02, 2024
Objective Data
-
Labs:
Laboratory Results
06/02/24
09:39
WBC 9.8
Hgb 10.2 L
Hct 31.0 L
Plt Count 147
Sodium Pending
Potassium Pending
Chloride Pending
Carbon Dioxide Pending
BUN Pending
Creatinine Pending
Glucose Pending
Calcium Pending
Vital Signs:
Vital Signs
Temp Pulse Resp BP Pulse Ox
98.4 F 87 14 116/73 90
06/02/24 07:00 06/02/24 08:52 06/02/24 07:00 06/02/24 07:00 06/02/24 07:00
I&O
06/01/24 06/02/24 06/03/24
06:59 06:59 06:59
Intake Total 220 / 220
Output Total 650 / 650
Balance -430 / -430
Review of Systems
-
History Source: Patient
Constitutional: Reports Weakness
Musculoskeletal: Reports Other (b/l UE pain, RLE pain)
Neuro: Reports Dizzy
Physical Exam
-
General: No Apparent Distress
Respiratory: Clear to Auscultation; Negative Wheezes or Rales
Cardiac: Regular Rhythm
GI: Soft, Nontender and Nondistended
Musculoskeletal: No Clubbing, No Cyanosis and No Edema
Skin: Warm
Neuro: Awake, Alert, Oriented, AO x 3 and Other (b/l UE weakness)
Psych: Calm
--- NOTE | 2024-06-02 11:28 | CM ---
Patient seen bedside, initial assessment completed. Patient resides with his spouse in a multiple story home, three steps to enter. Prior to admission, patient was driving, working, denied use of any DME other than CPAP (patient unsure provider).
Patient denies VN or SNF history. Patient confirms PCP Rudy Gerardo, pharmacy [facility], confirms prescription coverage. Patient denies food, housing/utility, transportation insecurities at home. CM reviewed [facility] form, patient unable to sign at
this time, comfortable with CM documenting that form was reviewed. CM discussed OT recommendation of acute vs skilled rehab, patient agreeable to rehab, referral sent to [facility]. CM discussed patient will need insurance authorization and if acute rehab
unable to accept/denied, can look into skilled rehab. CM will continue to follow for all discharge planning needs.
Plan; acute vs skilled rehab, will need insurance auth, ref sent to [facility].
[2024-06-02 11:49] LABS: Blood Urea Nitrogen 97 mg/dl (9-20); Calcium 8.8 mg/dl (8.4-10.2); Carbon Dioxide 12 mmol/L (22-30); Chloride 107 mmol/L (98-107); Estimated Creatinine Clearance 10 ml/min; Glucose 173 mg/dl (70-99); Potassium 4.5 mmol/L (3.5-5.1); Sodium 135 mmol/L (135-145); eGFR 8.71
--- NOTE | 2024-06-02 12:06 | PTCARENOTE ---
Notified provider of patient's critical Cr as well as new oxygen needs.
[2024-06-02] MEDS: LASIX 40 MG IV (18:31)
[2024-06-02] MEDS: TYLENOL 1000 MG PO (20:21)
--- NOTE | 2024-06-02 21:16 | W.PN.UPDATE ---
Update Note
Progress Note Update
Reported by the nursing staff that the patient is currently on 5L O2 NC, seems SOB. On exam patient was seen on bed, looking comfortable, SPo2 93%. Lung sound/LT side with wheezing. Chest x-ray done earlier and noted with Pulmonary edema with small
bilateral pleural effusions. Patient received one time Lasix during the day.
- New order of duo neb as needed was added.
- Patient is using CPAP in home, order was added for CPAP.
-Bladder scan as needed
[2024-06-02] MEDS: FLEXERIL 5 MG PO (21:29)
[2024-06-02] MEDS: DUONEB 3 ML INH (22:08)
[2024-06-03 05:34] VITALS: BMI 23.7
[2024-06-03] MEDS: TYLENOL 1000 MG PO ×2 (06:16→17:16)
[2024-06-03] MEDS: FLEXERIL 5 MG PO ×2 (06:17→17:16)
[2024-06-03 07:00] VITALS: BP 99/61
[2024-06-03] MEDS: ZETIA 10 MG PO (08:24)
[2024-06-03] MEDS: LIDOCAINE 4% PATCH 1 PATCH TOPICAL (08:24)
[2024-06-03] MEDS: OCUVITE SOFTGEL 1 CAP PO ×2 (08:24→19:58)
[2024-06-03] MEDS: CRESTOR 10 MG PO (08:24)
[2024-06-03] MEDS: SODIUM BICARBONATE 1300 MG PO ×3 (08:24→21:11)
[2024-06-03] MEDS: PROTONIX 40 MG PO (08:24)
[2024-06-03] MEDS: HEPARIN 5000 UNITS SC ×3 (08:24→22:53)
[2024-06-03] MEDS: PLAVIX 75 MG PO (08:24)
[2024-06-03] MEDS: NORVASC PO (08:25)
[2024-06-03] MEDS: TOPROL XL PO (08:26)
[2024-06-03 09:00] LABS: % Basophils 0.1 % (0-2); % Immature Granulocytes 0.4 % (0-0.5); % Lymphocytes 16.9 % (20.5-51.1); % Monocytes 4.6 % (1.7-9.3); Absolute Lymphocytes 1.9 10^3/uL (1.2-3.4); Absolute Monocytes 0.5 10^3/uL (0.1-0.6); Absolute Neutrophils 8.8 10^3/uL (1.4-6.5); Hematocrit 28.9 % (39.0-52.0); Hemoglobin 9.4 g/dL (13.0-18.0); Mean Corp Hgb Conc. 32.5 g/dL (33.0-37.0); Mean Corpuscular Hgb 27.6 pg (27.0-31.0); Mean Platelet Volume 12.5 fL (7.4-10.4); Nucleated Red Blood Cells % 0 % (-); Platelet Count 176 10^3/uL (130-400); Red Cell Dist. Width 16.1 % (11.5-14.5); White Blood Cell Count 11.3 10^3/uL (4.8-10.8)
[2024-06-03 09:48] LABS: Blood Urea Nitrogen 107 mg/dl (9-20); Calcium 8.8 mg/dl (8.4-10.2); Carbon Dioxide 17 mmol/L (22-30); Chloride 104 mmol/L (98-107); Estimated Creatinine Clearance 9 ml/min; Glucose 132 mg/dl (70-99); Iron 22 ug/dl (49-181); Potassium 4.6 mmol/L (3.5-5.1); Sodium 132 mmol/L (135-145); eGFR 7.76
[2024-06-03 10:06] LABS: Percent Saturation 12 % (20-50); Total Iron Binding Capacity 174 ug/dl (261-462)
[2024-06-03] MEDS: STERILE WATER FOR INJECTION 10 ML IV (10:09)
[2024-06-03] MEDS: ROCEPHIN 1000 MG IV (10:09)
[2024-06-03] MEDS: VIBRAMYCIN 260 MG IV ×2 (10:24→21:11)
[2024-06-03 11:00] VITALS: BP 120/76
--- NOTE | 2024-06-03 12:24 | CM ---
Patient seen with , discussed PT recommendations for acute vs SNF when patient medically stable for discharge. Patients would prefer acute rehab. CM discussed referral was made to [facility], however patients insurance may deny approval,
discussed SNF referrals as backup. CM will send referrals for SNF for when patient is stable for discharge. CM will continue to follow for all discharge planning needs.
Plan; Acute vs SNF, will need insurance authorization, when patient is stable.
--- NOTE | 2024-06-03 12:26 | CON.NS ---
Chief Complaint
-
Weakness and pain
History of Present Illness
This is an 88-year-old male admitted on Friday of this week with severe onset of low back pain with bilateral radicular symptoms. His who is present also stated that he had such severe acute onset of weakness that he was unable to stand or
walk on his own. Addition to his low back pain he also notes severe amounts of arm pain and weakness. He is difficulty moving his right greater than left side. Describes his pain as aching, burning. He has been unable to ambulate. He is on
BiPAP.
He has a history of CKD stage V. Recently had vascular access placed just in case dialysis is needed.
MRI cervical spine and thoracic spine have been completed and are available for review
Review of Systems
-
10 point review of systems is completed negative except stated in HPI
Medication and Allergies
Home Medications
Home Medications
�Medication �Instructions �Recorded
amlodipine 10 mg tablet 10 mg PO DAILY Blood pressure 08/29/09
ezetimibe 10 mg tablet 10 mg PO DAILY High cholesterol 08/29/09
metoprolol succinate 50 mg 50 mg PO BID Blood pressure 04/01/16
tablet,extended release 24 hr
pantoprazole 40 mg tablet,delayed 40 mg PO DAILY Gastrointestinal 04/01/16
release issue
rosuvastatin 20 mg tablet 20 mg PO DAILY High cholesterol 04/01/16
tamsulosin 0.4 mg capsule 0.4 mg PO HS Urinary issue 04/01/16
clopidogrel 75 mg tablet 75 mg PO DAILY Blood clot 08/03/20
prevention/tx
acetaminophen 650 mg 650 mg PO DAILYPRN PRN mild pain 04/28/24
tablet,extended release
vitamins A,C,J-zahy-hszzom 4,296 1 cap PO BID Supplement 04/28/24
mcg-226 mg-90 mg capsule
(PreserVision AREDS)
sodium bicarbonate 650 mg tablet 1,300 mg PO TID Electrolyte 06/01/24
Repletion
Allergies
Allergies
Allergy/AdvReac Type Severity Reaction Status Date / Time
celecoxib [From Celebrex] Allergy GI bleed Verified 06/01/24 11:05
Physical Exam
-
Exam:
General: Ill-appearing
Awake alert and oriented x 3
Cranials 2-12 gross intact
Motor strength testing reveals pain limited weakness involving the upper and lower extremities. However he is at least 3 out of 5 in his upper extremities in all motor groups. Lower extremity strength testing again pain limited shows normal distal
strength and mild proximal hip flexor weakness 4 out of 5
Sensory testing reveals diminished sensation in his upper extremities compared to his lower extremities without any serious burning paresthesia or dysesthesia.
No Ade's, no clonus
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 Again motion limited making it difficult to determine whether or not there is abnormal spinal cord signal at this level.
Problems
-
Problem Status Onset Code
Back pain M54.9
Assessment / Plan
-
Weakness, burning paresthesias, back pain, neck pain
1. At this point in time is unclear if this is metabolic versus anatomic. My concern is that with his C4-5 stenosis that he has spinal cord compression causing his presentation.
2. Will await completion of MRIs
3. Continue supportive care
4. Will follow to determine whether or not patient requires surgical intervention of cervical spine during this admission
[2024-06-03 12:31] LABS: Folate > 20.0 ng/ml (2.76-20); Vitamin B12 771 pg/ml (239-931)
--- NOTE | 2024-06-03 13:02 | W.PN.HOSP.TC ---
Today's Communication/Plan
-
start Abx
Nephro for LUCIANO mgmt
BiPAP
IMU for close monitoring
MRI and repeat
Discussed with in details
Assessment / Plan
Assessment / Plan
88yo M with SSS s/p PPM, APKD with CKD stage 5, BPH, HTN, HLD came with intractable back pain starting from the top of the back and radiating down to both LE R>L. Also noted dizziness for past few days. ALso started to complain of b/l UE weakness
with pain
A/P:
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
#APKD
Nephro to follow
Lasix trial on 06/02/24
Maty, strict I&O
BiPAP PRN
Supplemental O2
Limit fluid intake
#XR with concern for b/l pneumonia
Empiric Ceftriaxone/DOxy
#Back pain, most likely sciatica with multilevel disk narrowing on CT
#B/L UE pain and weakness
Pain mgmt
Muscle relaxant
PT/OT
MRI spine: cervical, thoracic and lumbar. COncern for C4-C5 stenosis. Neurosurgey follows. Due to poor image qualiry - repeating MRI cervical. sedation impossible 2/2 worsening respiratory status
Neurology consult
#Dizziness
CT head neg for acute pathology
with CKD stage 5
planned for AVF with
Nephrology eval
avoid nephrotoxins
#Essential HTN
cont home meds
#BPH
tamsulosin/finasteride
watch for urinary retention
#Anemia of chronic disease
Check anemia w/u
#JEANIE
cont CPAP
DVT ppx hep
Full code
I have spent at least 58min reviewing chart, test results and direct patient care
Anticipated Discharge: > 48 hours
Subjective/Interval History
-
Date of Service: June 03, 2024
Objective Data
-
Labs:
Laboratory Results
06/03/24
08:25
WBC 11.3 H
Hgb 9.4 L
Hct 28.9 L
Plt Count 176
Sodium 132 L
Potassium 4.6
Chloride 104
Carbon Dioxide 17 L
BUN 107 H*
Creatinine 6.5 H*
Glucose 132 H
Calcium 8.8
Vital Signs:
Vital Signs
Temp Pulse Resp BP Pulse Ox
98.4 F 72 18 120/76 98
06/03/24 11:00 06/03/24 11:00 06/03/24 11:00 06/03/24 11:00 06/03/24 11:00
I&O
06/02/24 06/03/24 06/04/24
06:59 06:59 06:59
Intake Total 220 / 220 780 / 780
Output Total 650 / 650 1050 / 1050 240 / 240
Balance -430 / -430 -270 / -270 -240 / -240
Review of Systems
-
History Source: Patient
Constitutional: Reports Other (PAin )
Respiratory: Reports Trouble Breathing
Musculoskeletal: Reports Other (PAin and weakness in b/l UE R>L and RLE)
Physical Exam
-
General: Respiratory Distress
Respiratory: Crackles
Cardiac: Regular Rhythm and Tachycardic
GI: Soft, Nontender and Nondistended
Musculoskeletal: No Clubbing, No Cyanosis, Edema, Right Lower Extrem and Edema, Left Lower Extrem
Skin: Warm
Neuro: Awake, Alert, Oriented and AO x 3
Psych: Calm
--- NOTE | 2024-06-03 13:49 | W.PN.NEPH.PH ---
Today's Communication / Plan
-
- okay for lasix
Assessment/Plan
-
Impression:
Urinary retention
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
Acute kidney injury
Hypertension
Dyslipidemia
Metabolic acidosis
History of pacemaker placement
BPH with recent Rutledge catheter removal earlier this week
Plan:
LUCIANO vs CKD
-Cr again elevated to 6.5
- Rutledge placed today
- patient given lasix overnight, but feels euvolemic currently
- patient okay with initiating HD in the hospital if needed. no urgent indications currently, monitor for another 24-48h before deciding
- Vascular access being obtained
HTN:
-Blood pressure well-controlled on metoprolol and amlodipine
Metabolic acidosis:
-c/w sodium bicarb
Anemia
- likely will need iron infusions but will hold in the setting of possible infection
-
-
Date of Service: June 03, 2024
CC / HPI / ROS
-
Chief Complaint:
CKD V
History of Present Illness:
LUCIANO on CKD V
Cr now elevated to 6.5
Review of Systems:
?some concerns for volume overload overnight, but patient asx now
Labs
-
Labs:
WBC 11.3 10^3/uL (4.8-10.8) H 06/03/24 08:25
RBC 3.40 10^6/uL (4.70-6.10) L 06/03/24 08:25
Hgb 9.4 g/dL (13.0-18.0) L 06/03/24 08:25
Hct 28.9 % (39.0-52.0) L 06/03/24 08:25
Plt Count 176 10^3/uL (130-400) 06/03/24 08:25
Sodium 132 mmol/L (135-145) L 06/03/24 08:25
Potassium 4.6 mmol/L (3.5-5.1) 06/03/24 08:25
Chloride 104 mmol/L (98-107) 06/03/24 08:25
Carbon Dioxide 17 mmol/L (22-30) L 06/03/24 08:25
BUN 107 mg/dl (9-20) H* 06/03/24 08:25
Creatinine 6.5 mg/dL (0.7-1.3) H* 06/03/24 08:25
eGFR 7.76 06/03/24 08:25
Glucose 132 mg/dl (70-99) H 06/03/24 08:25
Calcium 8.8 mg/dl (8.4-10.2) 06/03/24 08:25
Albumin 3.7 g/dl (3.5-5.0) 06/01/24 11:49
Physical Exam
-
Vital Signs:
Vital Signs
Temp Pulse Resp BP Pulse Ox
98.4 F 72 18 120/76 98
06/03/24 11:00 06/03/24 11:00 06/03/24 11:00 06/03/24 11:00 06/03/24 11:00
Cardiovascular:: Regular rate and rhythm
Respiratory:: Bilateral: Coarse
Lung Excursion:: Normal
Abdomen:: Nontender and Soft
Bowel Sounds:: Normal
Extremity Edema:: None: Bilateral:
Rutledge Catheter: Yes
[2024-06-03 15:00] VITALS: BP 129/78
--- NOTE | 2024-06-03 16:45 | PTCARENOTE ---
Patient desatting on nasal cannula in AM d/t drowsiness. Patient on continuous pulse oximetry via tele and went down to mid to high 80's O2 sats when dozing off. CPAP reapplied. Attempted x2 to remove CPAP in the morning. Patient desaturated. MD
made aware, transfer to IMU initiated. While awaiting a bed for transfer, respiratory attempted to wean to NC. Patient more awake with visitors at bedside and tolerated 4LNC saturating adequately. IMU transfer cancelled per provider. No further
needs assessed at this time.
[2024-06-03] MEDS: ROXICODONE 2.5 MG PO (18:26)
[2024-06-03] MEDS: TOPROL XL 50 MG PO (19:58)
[2024-06-03 20:29] VITALS: BP 118/66
[2024-06-03 22:02] VITALS: PULSE 76
[2024-06-03 23:31] VITALS: BP 122/74
[2024-06-04] VITALS (7 sets, daily range): BP systolic 89–142; BP diastolic 77–88; PULSE 99; BMI 23.8
[2024-06-04 07:20] LABS: Venous Blood Gas B.E. -7.8 mmol/L (-4 to +4); Venous Blood Gas HCO3 16.2 mmol/L (22-27); Venous Blood Gas O2 Sat % 98.7 %; Venous Blood Gas pCO2 28 mmHg (35-48); Venous Blood Gas pH 7.37 (7.32-7.43); Venous Blood Gas pO2 94 mmHg (30-50)
[2024-06-04 07:21] LABS: Venous Blood Gas O2 Therapy CPAP
[2024-06-04 07:47] LABS: % Basophils 0.1 % (0-2); % Eosinophils 0.1 % (0-6); % Immature Granulocytes 0.3 % (0-0.5); % Lymphocytes 17.7 % (20.5-51.1); % Monocytes 3.8 % (1.7-9.3); Absolute Lymphocytes 2.1 10^3/uL (1.2-3.4); Absolute Monocytes 0.5 10^3/uL (0.1-0.6); Absolute Neutrophils 9.3 10^3/uL (1.4-6.5); Hemoglobin 11.4 g/dL (13.0-18.0); Mean Corp Hgb Conc. 33.5 g/dL (33.0-37.0); Mean Corpuscular Hgb 28.7 pg (27.0-31.0); Mean Corpuscular Volume 85.6 fL (80.0-94.0); Mean Platelet Volume 12.6 fL (7.4-10.4); Nucleated Red Blood Cells % 0 % (-); Platelet Count 200 10^3/uL (130-400); Red Blood Cell Count 3.97 10^6/uL (4.70-6.10); Red Cell Dist. Width 15.9 % (11.5-14.5); White Blood Cell Count 11.9 10^3/uL (4.8-10.8)
[2024-06-04 08:17] LABS: Blood Urea Nitrogen 117 mg/dl (9-20); Calcium 9.1 mg/dl (8.4-10.2); Carbon Dioxide 14 mmol/L (22-30); Chloride 104 mmol/L (98-107); Estimated Creatinine Clearance 9 ml/min; Glucose 128 mg/dl (70-99); Potassium 4.8 mmol/L (3.5-5.1); Sodium 135 mmol/L (135-145); eGFR 8.05
[2024-06-04] MEDS: NORVASC 10 MG PO (09:11)
[2024-06-04] MEDS: HEPARIN 5000 UNITS SC ×2 (09:11→17:42)
[2024-06-04] MEDS: SODIUM BICARBONATE 1300 MG PO ×3 (09:11→21:55)
[2024-06-04] MEDS: LIDOCAINE 4% PATCH 1 PATCH TOPICAL (09:11)
[2024-06-04] MEDS: TOPROL XL 50 MG PO ×2 (09:12→20:15)
[2024-06-04] MEDS: PLAVIX 75 MG PO (09:12)
[2024-06-04] MEDS: PROTONIX 40 MG PO (09:12)
[2024-06-04] MEDS: CRESTOR 10 MG PO (09:12)
[2024-06-04] MEDS: ZETIA 10 MG PO (09:12)
[2024-06-04] MEDS: OCUVITE SOFTGEL 1 CAP PO ×2 (09:12→20:15)
[2024-06-04] MEDS: STERILE WATER FOR INJECTION 10 ML IV (09:17)
[2024-06-04] MEDS: ROCEPHIN 1000 MG IV (09:17)
[2024-06-04] MEDS: VIBRAMYCIN 260 MG IV ×2 (09:36→21:55)
[2024-06-04] MEDS: ROXICODONE 5 MG PO (09:37)
--- NOTE | 2024-06-04 10:53 | PN.NS ---
Subjective
-
dosed oxycodone this am, slow to answer questions
remains with pain all over, parasthesias in UE's
weakness in Ue and LE
Physical Exam
-
Exam:
General: Ill-appearing
Awake alert and oriented x 3
Cranials 2-12 gross intact
Motor strength testing reveals pain limited weakness involving the upper and lower extremities. However he is at least 3 out of 5 in his upper extremities in all motor groups. Lower extremity strength testing again pain limited shows normal distal
strength and mild proximal hip flexor weakness 4 out of 5
Sensory testing reveals diminished sensation in his upper extremities compared to his lower extremities without any serious burning paresthesia or dysesthesia.
No Ade's, no clonus
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 Again motion limited making it difficult to determine whether or not there is abnormal spinal cord signal at this level.
Problems
-
Problem Status Onset Code
Back pain M54.9
Assessment / Plan
-
Weakness, burning paresthesias, back pain, neck pain
1. Likely central cord syndrome
2. Will await completion of MRIs/repeat cervical spine MRI as there is to much movement
3. Continue supportive care
4. if needs surgery will plan for next week
Today's Communication
-
--- NOTE | 2024-06-04 11:22 | CM ---
Chart reviewed: PT recommends SNF @ [facility]; wants Acute Rehab @ [place]. Per Neuro, dosed oxycodone this am, slow to answer questions; remains with pain all over; parasthesias in UE's; weakness in UE and LE
Referrals sent to SNFs and Acute Rehab
Text to Attending sent and acknowledged: PM&R requested for referral to Acute Rehab
Plan: SNF vs. Acute Rehab when medically stable pending bed availability and AUTH approval
--- NOTE | 2024-06-04 11:25 | W.PN.HOSP.TC ---
Today's Communication/Plan
-
Pending Echo
Pending repeated MRI cervical spine and completion of lumbar MRI
Cont Abx
Assessment / Plan
Assessment / Plan
88yo M with SSS s/p PPM, APKD with CKD stage 5, BPH, HTN, HLD came with intractable back pain starting from the top of the back and radiating down to both LE R>L. Also noted dizziness for past few days. ALso started to complain of b/l UE weakness
with pain, concern for central cord syndrome.
A/P:
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
#APKD
Nephro to follow: might need HD
Lasix trial on 06/02/24
Rutledge, strict I&O
BiPAP PRN
Supplemental O2
Limit fluid intake
#XR with concern for b/l pneumonia
Empiric Ceftriaxone/Doxy
#Back pain, most likely sciatica with multilevel disk narrowing on CT
#B/L UE pain and weakness, concern for central cord syndrome
Pain mgmt
Muscle relaxant
PT/OT
MRI spine: cervical, thoracic and lumbar. Concern for C4-C5 stenosis. Neurosurgery follows. Due to poor image quality - repeating MRI cervical. sedation impossible 2/2 worsening respiratory status.
Neurology consult
#Dizziness
CT head neg for acute pathology
#Essential HTN
cont home meds
#BPH
tamsulosin/finasteride
Rutledge
#Anemia of chronic disease
Check anemia w/u
#JEANIE
cont CPAP
DVT ppx hep
Full code
I have spent at least 38min reviewing chart, test results and direct patient care
Anticipated Discharge: > 48 hours
Subjective/Interval History
-
Date of Service: June 04, 2024
Objective Data
-
Labs:
Laboratory Results
06/04/24
07:07
WBC 11.9 H
Hgb 11.4 L D
Hct 34.0 L
Plt Count 200
Sodium 135
Potassium 4.8
Chloride 104
Carbon Dioxide 14 L*
BUN 117 H*
Creatinine 6.3 H*
Glucose 128 H
Calcium 9.1
Vital Signs:
Vital Signs
Temp Pulse Resp BP Pulse Ox
99.5 F 104 20 138/88 97
06/04/24 08:11 06/04/24 09:11 06/04/24 08:11 06/04/24 09:11 06/04/24 08:11
I&O
06/03/24 06/04/24 06/05/24
06:59 06:59 06:59
Intake Total 780 / 780 1660 / 1660
Output Total 1050 / 1050 1365 / 1365
Balance -270 / -270 295 / 295
Review of Systems
-
History Source: Patient
Musculoskeletal: Reports Other (RUE pain and weaknedd > LUE. RLL weakness and pain)
Physical Exam
-
General: No Apparent Distress
HEENT: Normocephalic and Atraumatic
Respiratory: Negative Wheezes or Rales
Cardiac: Regular Rhythm
GI: Soft, Nontender and Nondistended
Genito-urinary: Clear Urine and Rutledge
Musculoskeletal: No Clubbing, No Cyanosis and No Edema
Skin: Warm
Neuro: Awake, Alert, Oriented and AO x 3
Psych: Calm
--- NOTE | 2024-06-04 11:57 | W.PN.NEPH.PH ---
Today's Communication / Plan
-
Tunneled catheter today , HD tomorrow
Assessment/Plan
-
Impression:
Urinary retention
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
Acute kidney injury
Hypertension
Dyslipidemia
Metabolic acidosis
History of pacemaker placement
BPH with recent Rutledge catheter removal earlier this week
Plan:
LUCIANO vs CKD progression to ESRD
-Cr again elevated to 6.3, worsening azotemia
non oliguric with Rutledge
worsening met acidosis despite on large dose of po bicarb
I think he approached requiring HD, place tunneled catheter today and plan start HD tomorrow
since he noted hypervolemia on admit, will dose lasix today , echo results noted low EF 34%
HTN:
-Blood pressure well-controlled cont metoprolol and hold amlodipine for time being
pain control will be challenging, NS feels centra cord syndrome
spoke with on phone in detail
d/w nursing
-
-
Date of Service: June 04, 2024
CC / HPI / ROS
-
Chief Complaint:
CKD V
History of Present Illness:
LUCIANO on CKD V
Cr now elevated to 6.3, BUN 117
wt no change
Review of Systems:
offers no cp or sob
but less responsive on pain meds
Labs
-
Labs:
WBC 11.9 10^3/uL (4.8-10.8) H 06/04/24 07:07
RBC 3.97 10^6/uL (4.70-6.10) L 06/04/24 07:07
Hgb 11.4 g/dL (13.0-18.0) L D 06/04/24 07:07
Hct 34.0 % (39.0-52.0) L 06/04/24 07:07
Plt Count 200 10^3/uL (130-400) 06/04/24 07:07
Sodium 135 mmol/L (135-145) 06/04/24 07:07
Potassium 4.8 mmol/L (3.5-5.1) 06/04/24 07:07
Chloride 104 mmol/L (98-107) 06/04/24 07:07
Carbon Dioxide 14 mmol/L (22-30) L* 06/04/24 07:07
BUN 117 mg/dl (9-20) H* 06/04/24 07:07
Creatinine 6.3 mg/dL (0.7-1.3) H* 06/04/24 07:07
eGFR 8.05 06/04/24 07:07
Glucose 128 mg/dl (70-99) H 06/04/24 07:07
Calcium 9.1 mg/dl (8.4-10.2) 06/04/24 07:07
Albumin 3.7 g/dl (3.5-5.0) 06/01/24 11:49
Physical Exam
-
Vital Signs:
Vital Signs
Temp Pulse Resp BP Pulse Ox
99.7 F 92 18 119/77 96
06/04/24 11:38 06/04/24 11:38 06/04/24 11:38 06/04/24 11:38 06/04/24 11:38
Cardiovascular:: Regular rate and rhythm
Respiratory:: Bilateral: CTA (decreased)
Lung Excursion:: Normal
Abdomen:: Nontender and Soft
Extremity Edema:: None: Bilateral:
Rutledge Catheter: Yes
[2024-06-04] MEDS: LASIX 40 MG IV (12:22)
--- NOTE | 2024-06-04 13:21 | CON.CAR ---
Addendum entered and electronically signed by Yuriy Parra DO 06/04/24 16:50:
I saw and examined the patient.
The Pump Servicer Supervisor's note was reviewed and I agree with the note.
Comment:
General: No Apparent Distress and Other (elderly male seen in IR[facility] holding area, lethargic, on supp O2)
HEENT: Normocephalic, Anicteric and Moist Mucous Membranes
Respiratory: Wheezes (mild exp) and Non Labored Respirations
Cardiac: S1/S2 and Regular Rhythm; 2/6 holosystolic murmur
Musculoskeletal: No Clubbing, No Cyanosis and Edema (trace of B/L LE)
Skin: Warm and Dry
Neuro: Awake, Alert, Oriented and Sedated
EKG/Tele DEALERSHIP MANAGER
A/P as below
Patient presenting with worsening extremity weakness undergoing evaluation by neurosurgery with concern for central cord syndrome. Additionally, patient noted to have worsening function and dyspnea. Repeat TTE noted reduced LVEF 35-40%.
HD per nephrology to start this weekend via tunneled catheter
Continue GDMT as tolerated, monitor on telemetry
May require ischemic evaluation when stable from renal standpoint to uncover possible etiology of new cardiomyopathy; if non-ischemic, may require device upgrade with possible pacing induced CM with chronic DEALERSHIP MANAGER.
If surgery is required, patient at high risk however urgency defined by neurosurgery may outweigh the risk
Will continue to follow along
Original Note:
Consultation
Consultation Request
Date/Time Consultation Performed: 06/04/24
Requesting Provider: Dr. Camara
Performing Provider: Genie Stoll PA-C for Dr. Parra
Reason for Consultation: abnormal echo
Medical History
-
Chief Complaint: back pain
History of Present Illness:
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
Reports radiation down B/L legs R>L with weakness. Also reported some dizziness at times. Cervical and thoracic spine MRI with advanced DDD and central stenosis of T9-11. Concern for central cord syndrome and neurosurgery following. renal function
continues to worsen with concern for acute HF, and may require HD this admit. echo ordered which showed new EF 35%, resulting in cardiology consultation. Seen in [facility] post tunneled catheter placement. Denies CP, SOB, palpitations.
PMH:
Severe status post TAVR 2019
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
Progressive polycystic kidney disease with CKD stage V
History of TIA/CVA
Hypertension
Hyperlipidemia
Moderate bilateral carotid disease
JEANIE on CPAP
Past Medical History
Past Medical History: Other (in HPI)
Social History
Tobacco: Former Smoker
Personal:
Living: With Family
Allergies / Home Medications
Allergy/AdvReac Type Severity Reaction Status Date / Time
celecoxib [From Celebrex] Allergy GI bleed Verified 06/01/24 11:05
�Medication �Instructions �Recorded �Confirmed �Type
amlodipine 10 mg tablet 10 mg PO DAILY Blood pressure 08/29/09 06/01/24 History
ezetimibe 10 mg tablet 10 mg PO DAILY High cholesterol 08/29/09 06/01/24 History
metoprolol succinate 50 mg 50 mg PO BID Blood pressure 04/01/16 06/01/24 History
tablet,extended release 24 hr
pantoprazole 40 mg tablet,delayed 40 mg PO DAILY Gastrointestinal 04/01/16 06/01/24 History
release issue
rosuvastatin 20 mg tablet 20 mg PO DAILY High cholesterol 04/01/16 06/01/24 History
tamsulosin 0.4 mg capsule 0.4 mg PO HS Urinary issue 04/01/16 06/01/24 History
clopidogrel 75 mg tablet 75 mg PO DAILY Blood clot 08/03/20 06/01/24 History
prevention/tx
acetaminophen 650 mg 650 mg PO DAILYPRN PRN mild pain 04/28/24 06/01/24 History
tablet,extended release
vitamins A,C,V-ticz-loqikw 4,296 1 cap PO BID Supplement 04/28/24 06/01/24 History
mcg-226 mg-90 mg capsule
(PreserVision AREDS)
sodium bicarbonate 650 mg tablet 1,300 mg PO TID Electrolyte 06/01/24 06/01/24 History
Repletion
Review of Systems
-
History Source: Patient
All other systems: Negative unless noted
Physical Exam
Vital Signs
Temp Pulse Resp BP Pulse Ox
99.7 F 92 18 119/77 96
06/04/24 11:38 06/04/24 11:38 06/04/24 11:38 06/04/24 11:38 06/04/24 11:38
Lab Results
06/04/24 07:07
06/04/24 07:07
Physical Exam
General: No Apparent Distress and Other (elderly male seen in [facility] area, lethargic, on supp O2)
HEENT: Normocephalic, Anicteric and Moist Mucous Membranes
Respiratory: Wheezes (mild exp) and Non Labored Respirations
Cardiac: S1/S2 and Regular Rhythm
Musculoskeletal: No Clubbing, No Cyanosis and Edema (trace of B/L LE)
Skin: Warm and Dry
Neuro: Awake, Alert, Oriented and Sedated
Impression / Plan
-
Primary Finishing Operator: Dr. French
Assessment:
Presentation with back pain, concern for central cord syndrome
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
Cardiomyopathy, EF 35% by echo 06/03/24
Severe status post TAVR 2019
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
History of TIA/CVA
Hypertension
Hyperlipidemia
Moderate bilateral carotid disease
JEANIE on CPAP
Iron deficiency anemia
ECHO 11/2022: EF 53%, moderate concentric LVH, stage II diastolic dysfunction, MAC, mild to moderate MR, mildly dilated left atrium, #26 [place] GAMA #3 ultra transcatheter aortic valve with peak/mean gradients 28/14 mmHg with mild paravalvular AR,
normal right heart
ECHO 06/03/24: EF 35%, global hypokinesis, mild LVH, stage II diastolic dysfunction, dense MAC, mild to moderate MS with peak/mean gradients 14/7 mmHg, mild to moderate MR, status post TAVR with peak/mean gradient 22/12 mmHg, mild to moderate TR, PAP
44 mmHg, small circumferential pericardial effusion
Plan:
-Patient presented with intractable back pain, work up ongoing. being followed by neurosurgery as concern for central cord syndrome
-with evidence of acute CHF by CXR. diuresis per nephrology. unfortunately BUN/Cr worsening. received tunneled catheter placement in IR[facility] this afternoon with plan for initiation of HD in AM per nephrology notes
-echo completed with new EF 35% compared to prior. results discussed with patient in IRAD today. possibly pacemaker induced. plan for conservative mgmt at present given ongoing active issues
-continue toprol. not candidate for segundo/arb/arni/aldactone/SGLT2 inhibitor due to ESRD
-consider device interrogation. EKG asensed vpaced rhythm
-he is on chronic plavix and statin for history of TIA/CVA
-would consider for ischemic evaluation as well as possible device upgrade pending clinical improvement/recovery and once HD initiated. if without clinical improvement, goals of care discussion would appear appropriate.
-if surgical procedure needed, patient would be high cardiovascular risk given comorbidities
-d/w IRAD nursing
Data Reviewed
-
EKG: Tracing Personally Visualized and interpreted
Radiology: Report Reviewed by me
MRI: Report Reviewed by me
Medical Tests (Nuc Med, Echo etc): Report Reviewed by me
Labs: Labs Reviewed by me
Old Records: Reviewed
[2024-06-04 15:38] LABS: Hepatitis B Surface Antigen Negative (Negative)
[2024-06-04 15:57] LABS: Hepatitis B Core Ab, Total Negative (Negative); Hepatitis B Surface Antibody Negative; Hepatitis C Antibody Negative (Negative)
[2024-06-05] VITALS (8 sets, daily range): BP systolic 91–138; BP diastolic 56–83; PULSE 98
[2024-06-05] MEDS: HEPARIN 5000 UNITS SC ×4 (00:24→23:24)
[2024-06-05] MEDS: LIDOCAINE 4% PATCH 1 PATCH TOPICAL (08:46)
[2024-06-05] MEDS: PLAVIX 75 MG PO (08:46)
[2024-06-05] MEDS: OCUVITE SOFTGEL 1 CAP PO ×2 (08:46→20:36)
[2024-06-05] MEDS: CRESTOR 10 MG PO (08:47)
[2024-06-05] MEDS: SODIUM BICARBONATE 1300 MG PO (08:47)
[2024-06-05] MEDS: ZETIA 10 MG PO (08:47)
[2024-06-05] MEDS: TOPROL XL 50 MG PO ×2 (08:47→20:37)
[2024-06-05] MEDS: PROTONIX 40 MG PO (08:47)
[2024-06-05] MEDS: VIBRAMYCIN 260 MG IV (08:49)
[2024-06-05 09:10] LABS: Hematocrit 31.4 % (39.0-52.0); Hemoglobin 10.4 g/dL (13.0-18.0); Mean Corp Hgb Conc. 33.1 g/dL (33.0-37.0); Mean Corpuscular Hgb 28.5 pg (27.0-31.0); Mean Platelet Volume 12.7 fL (7.4-10.4); Platelet Count 212 10^3/uL (130-400); Red Blood Cell Count 3.65 10^6/uL (4.70-6.10); Red Cell Dist. Width 16.2 % (11.5-14.5); White Blood Cell Count 12.5 10^3/uL (4.8-10.8)
[2024-06-05 09:34] LABS: % Basophils 0.1 % (0-2); % Immature Granulocytes 0.7 % (0-0.5); % Lymphocytes 22.8 % (20.5-51.1); % Monocytes 1.9 % (1.7-9.3); % Neutrophils 74.5 % (42.2-75.2); Absolute Immature Granulocytes 0.1 10^3/uL (0-0.05); Absolute Lymphocytes 2.8 10^3/uL (1.2-3.4); Absolute Monocytes 0.2 10^3/uL (0.1-0.6); Absolute Neutrophils 9.3 10^3/uL (1.4-6.5); Nucleated Red Blood Cells % 0 % (-)
[2024-06-05 09:36] LABS: Calcium 9.2 mg/dl (8.4-10.2); Carbon Dioxide 13 mmol/L (22-30); Chloride 105 mmol/L (98-107); Creatine Phosphokinase 27 U/L (55-170); Glucose 148 mg/dl (70-99); Potassium 4.9 mmol/L (3.5-5.1); Sodium 137 mmol/L (135-145)
[2024-06-05 09:46] LABS: Blood Urea Nitrogen 133 mg/dl (9-20); Estimated Creatinine Clearance 8 ml/min; eGFR 6.98
--- NOTE | 2024-06-05 10:03 | PN.NS ---
Subjective
-
new MRI cervical spine reviewed. patient remains diffusely weak in UE and LE's. He has pain all over his body. He is unable to answer questions today. He quickly loses attention.
Physical Exam
-
Exam:
Diffusely weak in Ue and LE, worse than before. Only 2/5 UE and LE
pain with any palpation of any body part
Problems
-
Problem Status Onset Code
Back pain M54.9
Assessment / Plan
-
Weakness, burning paresthesias, back pain, neck pain
1. His repeat MRI doesn't show severe spinal cord compression or abnormal spinal cord signal to explain his symptoms
2. Unclear at this point whether this is or isn't a cervical spine process
3. his worsening mental status is concerning, defer to medicine/neurology for input
4. I am still considering surgery for his cervical spine if workup proves unfruitful for any metabolic/infectious reason for his weakness
5. will follow
Today's Communication
-
[2024-06-05 11:15] LABS: Urine Albumin 1+ (Neg - Trace); Urine Bilirubin Negative (Negative); Urine Character Clear (Clear); Urine Color Yellow; Urine Glucose Negative (Negative); Urine Ketone Trace (Negative); Urine Leukocyte Trace (Negative); Urine Nitrite Negative (Negative); Urine Occult Blood 1+ (Negative); Urine Urobilinogen Negative (Neg - 1+)
[2024-06-05 11:34] LABS: Urine Mucus Few
[2024-06-05 11:35] LABS: Urine Bacteria Few (Negative)
[2024-06-05] MEDS: ROCEPHIN IV (12:13)
[2024-06-05] MEDS: STERILE WATER FOR INJECTION IV (12:14)
[2024-06-05] MEDS: HEPARIN 500 UNITS IV ×2 (12:25→13:25)
[2024-06-05] MEDS: MANNITOL 25% 12.5 GRAMS IV ×2 (12:34→13:35)
[2024-06-05] MEDS: FLEXBUMIN 25% FOR HEMODIALYSIS 12.5 GRAMS IV ×2 (12:35→13:36)
--- NOTE | 2024-06-05 12:39 | W.PN.HOSP.TC ---
Today's Communication/Plan
-
Upgrade Abx
start HD
Assessment / Plan
Assessment / Plan
88yo M with SSS s/p PPM, APKD with CKD stage 5, BPH, HTN, HLD came with intractable back pain starting from the top of the back and radiating down to both LE R>L. Also noted dizziness for past few days. ALso started to complain of b/l UE weakness
with pain, concern for central cord syndrome. Developed worsening LUCIANO and AMS 2/2 this. Started new HD. Also concern for pneumonia
A/P:
#Acute metabolic encephalopathy
most likely 2/[address] head unremarkable
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
#APKD
Nephro to follow: might need HD
Permacath placed on 06/04/24
Initiate HD
Rutledge, strict I&O
BiPAP PRN
Supplemental O2
Limit fluid intake
#XR with concern for b/l pneumonia
Empiric Ceftriaxone/Doxy switched to Vanco/Zosyn on
Legionella and S/pneumonia Ag
Sputum Cx
Bcx
#Back pain, most likely sciatica with multilevel disk narrowing on CT
#B/L UE pain and weakness, concern for central cord syndrome
Pain mgmt
Muscle relaxant
PT/OT
MRI spine: cervical, thoracic and lumbar. Concern for C4-C5 stenosis. Neurosurgery follows. Due to poor image quality - repeating MRI cervical. sedation impossible 2/2 worsening respiratory status.
Neurology consult
#Dizziness
CT head neg for acute pathology
#Essential HTN
cont home meds
#BPH
tamsulosin/finasteride
Rutledge
#Anemia of chronic disease
Check anemia w/u
#JEANIE
cont CPAP
DVT ppx hep
Full code
I have spent at least 38min reviewing chart, test results and direct patient care
Anticipated Discharge: > 48 hours
Subjective/Interval History
-
Date of Service: June 05, 2024
Objective Data
-
Labs:
Laboratory Results
06/05/24
07:48
WBC 12.5 H
Hgb 10.4 L
Hct 31.4 L
Plt Count 212
Sodium 137
Potassium 4.9
Chloride 105
Carbon Dioxide 13 L*
BUN 133 H*
Creatinine 7.1 H*
Glucose 148 H
Calcium 9.2
Vital Signs:
Vital Signs
Temp Pulse Resp BP Pulse Ox
98.9 F 105 18 126/78 99
06/05/24 07:00 06/05/24 08:47 06/05/24 07:00 06/05/24 08:47 06/05/24 07:00
I&O
06/04/24 06/05/24 06/06/24
06:59 06:59 06:59
Intake Total 1660 / 1660 240 / 240
Output Total 1365 / 1365 1250 / 1250
Balance 295 / 295 -1010 / -1010
[2024-06-05] MEDS: VANCOCIN 200 IV (13:30)
[2024-06-05] MEDS: HEPARIN 4300 UNITS INTRACATH (14:10)
--- NOTE | 2024-06-05 14:15 | PHA.VAN.IN ---
Assessment
- Assessment
Renal Function: Appears elevated from baseline (SCr rising --> 7.1)
Concomitant Antimicrobials: piperacillin/tazo
AUC Dosing Plan
- Empiric Dosing
Initial / Loading Dose: 1000 mg x 1 dose
Maintenance Regimen: dose by random level
possible HD tomorrow
Plan
- Plan
Monitoring: random level 06/06 600
Pharmacokinetics Vancomycin I
- -
Patient Age: 88
Patient Sex: Male
Vancomycin Day #: 1
Indication: Pulmonary/Respiratory
Requesting Provider: Isshukri
Pertinent Antimicrobial Allergies:
celecoxib
Height / Weight:
Height 5 ft 11 in
Actual Weight 77.111 kg
Pertinent Past Medical History: worsening LUCIANO (poss HD tomorrow)
- Vital Signs / Lab Results
Temp Pulse Resp BP Pulse Ox
98.9 F 105 18 126/78 99
06/05/24 07:00 06/05/24 08:47 06/05/24 07:00 06/05/24 08:47 06/05/24 07:00
Lab Results - Hematology
06/03/24 06/04/24 06/05/24
08:25 07:07 07:48
WBC 11.3 H 11.9 H 12.5 H
Lab Results - Chemistry
06/03/24 06/04/24 06/05/24
08:25 07:07 07:48
BUN 107 H* 117 H* 133 H*
Creatinine 6.5 H* 6.3 H* 7.1 H*
Estimated Creat Clear 9 9 8
Lab Results - Urine
06/05/24
11:01
Urine Nitrite (Reflex) Negative
Leukocyte Esterase Rfl Trace A
Urine WBC (Reflex) 3-5
Ur Squamous Epith Cells 3-5
Urine Bacteria (Reflex) Few A
[2024-06-05] MEDS: ZOSYN 50 IV ×2 (14:40→23:24)
--- NOTE | 2024-06-05 14:42 | W.PN.NEPH.HD ---
Assessment
-
pt seen during HD
vitals stable
wean O2 as able
suspect AMS multifactorial-uremia is in differential
tunneled catheter functions well
NS follows
now he is on HD d/c po bicarb
HD tomorrow
Progress Note - Hemodialysis
-
Date of Service: June 05, 2024
Duration: 2 hours
Potassium Bath: 2
Calcium Bath: 2.5
Opti-Dialyzer: 160
Ultrafiltration: Other (1kg)
Blood Flow: 250
Dialysate Flow: Other (400)
Heparin: yesx2
EPO: no
[2024-06-05] MEDS: TYLENOL 1000 MG PO ×2 (16:06→23:25)
[2024-06-05] MEDS: ROXICODONE 5 MG PO (16:07)
--- NOTE | 2024-06-05 16:48 | W.PN.UPDATE ---
Update Note
Progress Note Update
Patient with new fever. Already repeated septic w/u - pneumonia with unspecified organism. Abx coverage extended. ID consult
[2024-06-05] MEDS: NSS 250 IV (18:34)
--- NOTE | 2024-06-05 19:04 | PTCARENOTE ---
Received patient on transfer from via bed. Ox1-2: able to say he was in the hospital but unable to state which hospital. Afebrile on arrival. IVF bolus initiated on arrival; labs drawn and urine sent. Family at bedside. Report given to oncoming
shift.
[2024-06-05 19:05] LABS: Lactic Acid 2.7 mmol/L (0.7-2.0)
--- NOTE | 2024-06-05 19:45 | PTCARENOTE ---
aaox2. vss. v paced. cpap placed. iv zozyn given. prelim blood cultures +. call eisenberg in reach. will monitor.
[2024-06-06] VITALS (31 sets, daily range): BP systolic 88–132; BP diastolic 59–85; PULSE 72–86; O2SAT 98; BMI 23.7
[2024-06-06 01:59] LABS: % Basophils 0.1 % (0-2); % Immature Granulocytes 0.5 % (0-0.5); % Monocytes 5.9 % (1.7-9.3); % Neutrophils 68.5 % (42.2-75.2); Absolute Immature Granulocytes 0.1 10^3/uL (0-0.05); Absolute Lymphocytes 2.8 10^3/uL (1.2-3.4); Absolute Monocytes 0.7 10^3/uL (0.1-0.6); Absolute Neutrophils 7.6 10^3/uL (1.4-6.5); Hematocrit 26.5 % (39.0-52.0); Hemoglobin 8.8 g/dL (13.0-18.0); Mean Corp Hgb Conc. 33.2 g/dL (33.0-37.0); Mean Corpuscular Hgb 28.5 pg (27.0-31.0); Mean Corpuscular Volume 85.8 fL (80.0-94.0); Mean Platelet Volume 11.2 fL (7.4-10.4); Nucleated Red Blood Cells % 0 % (-); Platelet Count 166 10^3/uL (130-400); Red Blood Cell Count 3.09 10^6/uL (4.70-6.10); Red Cell Dist. Width 16.1 % (11.5-14.5); White Blood Cell Count 11.1 10^3/uL (4.8-10.8)
[2024-06-06 02:16] LABS: Vancomycin Random 6.3 ug/ml
[2024-06-06 02:21] LABS: Blood Urea Nitrogen 108 mg/dl (9-20); Calcium 8.9 mg/dl (8.4-10.2); Carbon Dioxide 18 mmol/L (22-30); Chloride 104 mmol/L (98-107); Estimated Creatinine Clearance 10 ml/min; Glucose 145 mg/dl (70-99); Potassium 4.2 mmol/L (3.5-5.1); Sodium 135 mmol/L (135-145); eGFR 8.71
[2024-06-06] MEDS: ZOSYN 50 IV (06:20)
[2024-06-06] MEDS: TYLENOL 1000 MG PO (06:20)
--- NOTE | 2024-06-06 07:01 | PHA.VAN.FU ---
Vancomycin Assessment / Plan
- Assessment
Renal Function: SCR Decreasing (7.1->5.9 ( pt started HD yesterday))
Last Hemodialysis performed: 06/05/24 (sat) - Next HD Wednesday 06/06
WBC's are: Trending Down
In the past 24 hrs, patient has been: Febrile (100.4 - 06/06 - 03:36)
Concomitant Antimicrobials: pip/tazo
- Assessment - Therapeutic Drug Monitoring
Random Level: 6.3 ~ 12 hours after 1 gm dose - pt recd HD in interim
- Dosing Plan
Continue: dose by random level HD days
Dosing by Level: Re-dose today (750 mg x 1 dose at end of HD)
- Monitoring Plan
Random Level: ordered for AM Thursday 06/07 - unsure of next HD day
- Follow Up
Pharmacy will continue to follow.
Vancomycin Follow UP
- -
Patient Age: 88
Patient Sex: Male
Vancomycin Day #: 2
Indication: Pulmonary/Respiratory
Requesting Provider: Hoa
Pertinent Antimicrobial Allergies:
celecoxib
Height / Weight:
Height 5 ft 11 in
Actual Weight 77.2 kg
Pertinent Past Medical History: worsening LUCIANO
- Vital Signs / Lab Results
Temp Pulse Resp BP Pulse Ox
100.4 F H 67 15 92/60 96
06/06/24 03:36 06/06/24 01:00 06/06/24 01:00 06/06/24 00:09 06/06/24 01:00
Lab Results - Hematology
06/03/24 06/04/24 06/05/24
08:25 07:07 07:48
WBC 11.3 H 11.9 H 12.5 H
06/06/24
01:45
WBC 11.1 H
Lab Results - Chemistry
06/03/24 06/04/24 06/05/24
08:25 07:07 07:48
BUN 107 H* 117 H* 133 H*
Creatinine 6.5 H* 6.3 H* 7.1 H*
Estimated Creat Clear 9 9 8
06/06/24
01:45
BUN 108 H*
Creatinine 5.9 H*
Estimated Creat Clear 10
06/05/24 06/06/24 06/06/24
18:38 01:45 06:30
Lactic Acid 2.7 H 1.0 Cancelled
Lab Results - Urine
06/05/24
11:01
Urine Nitrite (Reflex) Negative
Leukocyte Esterase Rfl Trace A
Ur Squamous Epith Cells 3-5
Microbiology Results
06/05/24 11:11 Blood Culture - Preliminary
Blood/Venous Positive culture in progress
06/05/24 11:01 Blood Culture - Preliminary
Blood/Venous Positive culture in progress
Therapeutic Drug Monitoring
Random Vancomycin 6.3 ug/ml 06/06/24 01:45
--- NOTE | 2024-06-06 07:50 | W.PN.HOSP.TC ---
Addendum entered and electronically signed by Delano Camara MD 06/06/24 08:19:
#Severe spinal stenosis C2-C3
Original Note:
Today's Communication/Plan
-
Repeated Bcx scheduled for 06/07
ID consult
Cont HD
Assessment / Plan
Assessment / Plan
88yo M with SSS s/p PPM, s/p TAVR, APKD with CKD stage 5, BPH, HTN, HLD came with intractable back pain starting from the top of the back and radiating down to both LE R>L. Also noted dizziness for past few days. ALso started to complain of b/l
UE weakness with pain, concern for central cord syndrome. Developed worsening LUCIANO and AMS 2/2 this. tarted new HD. Low suspicion for pneumonia on admission then developed bacteremia with sepsis on 06/05/24.
A/P:
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
#APKD
Nephro to follow: might need HD
Permacath placed on 06/04/24
Initiate HD
Rutledge, strict I&O
BiPAP PRN
Supplemental O2
Limit fluid intake
#Sepsis with bacteremia (AMS, leukocytosis fever)
#XR with concern for b/l pneumonia
Bcx - GPC
TTE showed mitral calcifications
Vanco/Zosyn
ID consult
Follow repeated Bcx
Unlikely CAUTI since developed <24 after permacath insertion. Site of insertion not inflamed.
No significant wounds or signs of skin infection as per review with RN
Legionella and S/pneumonia Ag
Sputum Cx
Bcx
#Acute metabolic encephalopathy complicated by septic encephalopathy
Resolved
#Back pain, most likely sciatica with multilevel disk narrowing on CT
#B/L UE pain and weakness, concern for central cord syndrome
Pain mgmt
Muscle relaxant
PT/OT
MRI spine: cervical, thoracic and lumbar. Concern for C4-C5 stenosis. Neurosurgery follows. Due to poor image quality - repeating MRI cervical. sedation impossible 2/2 worsening respiratory status.
Neurology consult
#Dizziness
CT head neg for acute pathology
#Essential HTN
cont home meds
#BPH
tamsulosin/finasteride
Rutledge
#Anemia of chronic disease
Check anemia w/u
#JEANIE
cont CPAP
DVT ppx hep
Full code
I have spent at least 38min reviewing chart, test results and direct patient care
Anticipated Discharge: > 48 hours
Subjective/Interval History
-
Date of Service: June 06, 2024
Objective Data
-
Labs:
Laboratory Results
06/06/24
01:45
WBC 11.1 H
Hgb 8.8 L
Hct 26.5 L
Plt Count 166 D
Sodium 135
Potassium 4.2
Chloride 104
Carbon Dioxide 18 L
BUN 108 H*
Creatinine 5.9 H*
Glucose 145 H
Calcium 8.9
Vital Signs:
Vital Signs
Temp Pulse Resp BP Pulse Ox
100.4 F H 67 15 92/60 96
06/06/24 03:36 06/06/24 01:00 06/06/24 01:00 06/06/24 00:09 06/06/24 01:00
I&O
06/05/24 06/06/24 06/07/24
06:59 06:59 06:59
Intake Total 240 / 240 340 / 340
Output Total 1250 / 1250 720 / 720
Balance -1010 / -1010 -380 / -380
Review of Systems
-
History Source: Patient
All other systems: Reviewed and negative
Musculoskeletal: Reports Other (b/l UE pain and RLE pain)
Physical Exam
-
General: No Apparent Distress
HEENT: Normocephalic and Atraumatic
Respiratory: Clear to Auscultation
Cardiac: Regular Rhythm
GI: Soft
Musculoskeletal: No Clubbing
Skin: Warm
Neuro: Awake, Alert, Oriented and AO x 3
Psych: Calm
Data Reviewed
-
Labs: Labs Reviewed by me
[2024-06-06] MEDS: HEPARIN 500 UNITS IV ×2 (08:20→09:20)
[2024-06-06] MEDS: RETACRIT 2000 UNITS IV (08:32)
[2024-06-06] MEDS: MANNITOL 25% 12.5 GRAMS IV ×2 (08:32→09:33)
[2024-06-06] MEDS: FLEXBUMIN 25% FOR HEMODIALYSIS 12.5 GRAMS IV (09:02)
--- NOTE | 2024-06-06 09:35 | PN.NS ---
Subjective
-
on HD this am, and bipap
Mentally clearer and states pain is improving in UE and LE
notes improvement with motor strength as well
Physical Exam
-
Exam:
LE's 03/14
UE's /
sensory normal now without dysesthesias
Problems
-
Problem Status Onset Code
Back pain M54.9
Assessment / Plan
-
Weakness, burning paresthesias, back pain, neck pain
1. Given his improvement with HD symptoms are most likely to have been metabolic from uremia
2. no surgery at this time
3. will continue to follow to make sure he does not need surgery
Today's Communication
-
--- NOTE | 2024-06-06 10:10 | PTCARENOTE ---
Captured VS for nightshift from [phone]. This RN not present and cannot confirm accuracy.
--- NOTE | 2024-06-06 10:21 | PTCARENOTE ---
Assumed care of patient this morning. He reports his pain is decreased and strength is slightly better. He has no other complaints. Pt currently on HD, tolerating well. Assessment, care and VS as charted.
--- NOTE | 2024-06-06 10:34 | CON.ID ---
Consultation
-
Date/Time Consultation Requested: 06/05/24 16:51
Date/Time Consultation Performed: 06/06/24 10:35
Requesting Provider: Dr Camara
Performing Provider: Dr Meraz
Reason for Consultation: eval for mgmt of infection
Chief Complaint / Past History
Chief Complaint
back pain
History of Present Illness
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 Of note the day prior he was feeling dizzy, saw PCP and was instructed to stop finasteride. Then with back pain
with radiation to the bilateral legs R>L. No bowel or bladder incontinence. Progressed to burning paresthesias, weakness and neck pain. No cough, sputum production or difficulty breathing.
He was admitted here 06/01. He was initially afebrile then developed fevers 06/05 to a tmax of 102.8 which has persisted, BP stable. On arrival wbc was 10.9 and it has remained in the low teens throughout his stay. Hbg now 8.8, plt 166, L shift was
nitially present and resolved by HD 4. Eos not present throughout this time. On arrival na 137, K 4.6, cr 5.8. Today na 135, k 4.2, cr 5.9, lactic acid was elevated to 2.7 on 06/05 around the time fevers begun and has now normalized. UA 3-5
wbc/hpf, few bacteria on both 06/01 and again 06/05. Cervial MRI without contrast: DJD - no overt cord edema, lumbar spine MRI without contrast: DJD L2-L3 severe spinal stensosis; L4-L5 severe foraminal stenosis. initial CXR:06/02: pulmon edeam,
bibasilar pneumonia cannot be excluded. CXR: pacemaker, small bilateral effusions on my read, CT head: no acute abnormality. Note prior urine culture from 04/28/24 with 100K enterobacter, 04/08/24 urine culture 100K strep, with negative UA x2 urine
culture was not reflexed and not needed. 06/05 blood cultures x2 10 min apart both with gpcs in chains in aerobic bottle. Repeat blood cultures x2 are ordered. Legionella and S pnuemonia urine ags are negative. CT abd: 06/01 without contrast:
report is visible in the viewer though has not yet been pushed through to [facility]. Notable for: chronic bladder outlet, PCKD with nonobstructing stones, hepatic cysts, 3 cm AAA, Colonoscopy report from 10/2018 reviewed: diverticulosis, minimal
polys resected, TTE done 06/03: no vegatations but dense mitral calcifications. During the course of his admission he was started on new HD and a permacath was placed 06/04 at 4 pm (about a day before fevers began). patient is currently on
vancomycin and zosyn, was previously on ceftriaxone and doxycycline. He was seen by neurosurgery with concern for possible spinal compression however MRIs were reassuring as above. Rutledge was placed this admission Has been ID is consulted for
assistance with management.
Past History
Additional Past Medical History:
Essential Hypertension
Hyperlipidemia
Heart Block s/p Pacemaker
Aortic Stenosis s/p TAVR
TIA
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
BPH
Additional Past Surgical History:
L4/L5 Spine Surgery
Bilateral Knee Replacements
TAVR
Allergy History:
celecoxib [From Celebrex] Allergy (Verified 06/01/24 11:05)
GI bleed
Medications Reviewed: Yes
Social History
Tobacco: Former Smoker
Alcohol: None
Drug: None
Family History
Family History: Not Pertinent
Review of Systems
Review of Systems
General: Fever and Chills
All systems: All other systems were reviewed and were negative
Vital Signs
Temp Pulse Resp BP Pulse Ox
98.8 F 74 13 123/77 99
06/06/24 07:25 06/06/24 10:00 06/06/24 10:00 06/06/24 10:00 06/06/24 10:11
Physical Exam
Physical Exam
Constitutional: No Acute Distress and Chronically Ill
Cardiovascular: Regular Rate and S1/S2; Negative Murmur or Rub
Pulmonary: Clear and Symmetric; Negative Wheezes, Rales or Rhonchi
Gastrointestinal: Soft, Non Tender, Non Distended and Normal Bowel Sounds
Skin: Warm and Dry; Negative Rash or Jaundice
Lab / Diagnostic Study Results
06/06/24 01:45
06/06/24 01:45
Abs Immat Gran (auto) 0.1 10^3/uL (0-0.05) H 06/06/24 01:45
Absolute Neuts (auto) 7.6 10^3/uL (1.4-6.5) H 06/06/24 01:45
Absolute Lymphs (auto) 2.8 10^3/uL (1.2-3.4) 06/06/24 01:45
Absolute Monos (auto) 0.7 10^3/uL (0.1-0.6) H 06/06/24 01:45
Absolute Basos (auto) 0.0 10^3/uL (0-0.2) 06/06/24 01:45
Immature Gran % 0.5 % (0-0.5) 06/06/24 01:45
Neutrophils % 68.5 % (42.2-75.2) 06/06/24 01:45
Lymphocytes % 25.0 % (20.5-51.1) 06/06/24 01:45
Monocytes % 5.9 % (1.7-9.3) 06/06/24 01:45
Eosinophils % 0.0 % (0-6) 06/06/24 01:45
Basophils % 0.1 % (0-2) 06/06/24 01:45
Lactic Acid Cancelled 06/06/24 06:30
Ur Squamous Epith Cells 3-5 /LPF (Few) 06/05/24 11:01
Microbiology Results
Micro:
07/27/24 18:38 Legionella Urinary Antigen - Final
Urine Negative for Legionella pneumophila Serogroup 1 antigen.
A negative result does not rule out the possiblity of
Legionella infection due to other serogroups or species of
Legionella. Clinical correlation is recommended.
Streptococcus pneumoniae Antigen (M - Final
Negative for Streptococcus pneumoniae antigen.
A negative result does not exclude infection with
Streptococcus pneumoniae. Clinical correlation is
recommended.
06/05/24 11:11 Blood Culture - Preliminary
Blood/Venous Positive culture in progress
Gram Stain - Preliminary
06/05/24 11:01 Blood Culture - Preliminary
Blood/Venous Positive culture in progress
Gram Stain - Preliminary
06/05/24 18:38 Nasal Screen MRSA (PCR) - Pending
Nose
06/05/24 18:38 MRSA Screen - Pending
Throat/Pharynx
Assessment / Plan
Gram Positive bacteremia
S/p Pacemaker - no evidence of infection
s/p TAVR
ESRD, HD via permacath
Diverticulosis
- repeat blood cultures x2 ordered for 06/07
- follow for ID of isolate could be strep or enterococcus
- UA x2 negative, did not reflex to culture and I wouldnt recommend it
- s pneumo urine ag negative
- MARII - calcified MV, no definite vegetations
- CXR most likely bibasilar atelectasis and no symptoms of pneumonia
- CT a/p without contrast 06/01: incidental 3 cm AAA, known PCKD, no obvious source - report visible in the viewer application
- colonoscopy last done here 2018 - diverticulosis, few polyps resected
- permacath placed the day before onset of bacteremia - seems less likely to be the source
- no skin lesions, pacemaker without signs of inflammation
- agree with vancomycin for GPCs pending ID - likely cause of fevers
- no need for gram negative or atypical coverage, does not have symptoms of pneumonia and cxr most likely atelectasis - stopped zosyn
- follow clinically
[2024-06-06] MEDS: HEPARIN 4300 UNITS INTRACATH (10:55)
--- NOTE | 2024-06-06 11:06 | W.PN.NEPH.HD ---
Assessment
-
pt seen during HD
vitals stable
more awake and talking, likely uremia better with HD
febrile overnight, await cx data, bld cx GPC in chains
note he has tunneled catheter hopefully not the source-ID follows
HD again tomorrow
Progress Note - Hemodialysis
-
Date of Service: June 06, 2024
Duration: 45 minutes and 2 hours
Potassium Bath: 3
Calcium Bath: 2.5
Opti-Dialyzer: 160
Ultrafiltration: Other (1kg)
Blood Flow: 300
Dialysate Flow: 600
Heparin: yesx2
EPO: 2000
[2024-06-06] MEDS: PLAVIX 75 MG PO (11:38)
[2024-06-06] MEDS: ZETIA 10 MG PO (11:38)
[2024-06-06] MEDS: CRESTOR 10 MG PO (11:38)
[2024-06-06] MEDS: PROTONIX 40 MG PO (11:38)
[2024-06-06] MEDS: TOPROL XL 50 MG PO ×2 (11:38→20:06)
[2024-06-06] MEDS: LIDOCAINE 4% PATCH 1 PATCH TOPICAL (11:38)
[2024-06-06] MEDS: OCUVITE SOFTGEL 1 CAP PO ×2 (11:38→20:06)
[2024-06-06] MEDS: HEPARIN 5000 UNITS SC ×2 (11:44→16:39)
--- NOTE | 2024-06-06 11:47 | CON.NEURO4 ---
Consultation - Neurology 4
-
CONSULTING PHYSICIAN: Alin Ritter MD neurology
REFERRING PHYSICIAN: Hospitalist
DICTATED BY: Alin Ritter MD
DATE/TIME OF REQUEST: June 03, 2024
DATE/TIME OF CONSULTATION: June 06, 2024 1000
Reason for Consultation: Generalized weakness
History of Present Illness:
This is a 88 year old right handed male who has presented to the hospital with chief complaint low back pain with leg weakness. He gives a history of sick sinus syndrome/second-degree AV block status post PPM, aortic stenosis status post TAVR,
polycystic kidney disease with end-stage renal disease benign prostatic hypertrophy hypertension hyperlipidemia obstructive sleep apnea Enterococcal bacteremia- sustained, Definite Prosthetic Valve Endocarditis, S/p Pacemaker - no evidence of
infection
with hx TAVR, Diverticulosis, Multiple strokes suggestion of emboli who had generalized weakness.
MRI cervical and lumbar spine revealed extensive DJD with cord impression
Past Medical History: As above
Surgical History: As above
Family History: Polycystic kidney disease
Social History: Lives at home with his
Allergies: Celebrex
Home Medications: Addendum
Review of Symptoms:
Patient denies any fever, headache, chest pain, shortness of breath, GI or symptoms.
�Per the HPI.�All systems are reviewed negative except above.
�- Remove any of these problems that patient may have complained about in the HPI.
�- If patient is unresponsive, intubated or demented, say 'Per the HPI. I am unable to obtain a complete review of systems�because of patient's inability to provide history.'
Vital Signs:
The patient has a Temp 36.8 C Pulse 82 Resp13 BP132/81 Pulse Ox 99
Physical Exam:
The patient is afebrile, heart sounds S1 and S2 are regular, and chest is clear to auscultation bilaterally.
- If not clear, describe.
Neurologic Examination:
The patient is awake, confused and oriented x person and place. He is able to follow commands and answer questions appropriately. Speech is fluent with dysarthria. There is no aphasia .
On cranial nerve assessment, pupils are 3 mm bilateral, round and reactive to light and accommodation. Visual gomez are full. Extraocular movements are intact. Facial sensations are intact and bilaterally symmetrical, there is no facial asymmetry.
Hearing is intact bilaterally to normal conversation volume. Tongue palate and uvula are midline. Sternocleidomastoid strengths are full bilaterally.
Motor strengths are 5/5 bilateral upper and lower extremities on medical research [place] scale. There is no drift or involuntary movement noted.
Deep tendon reflexes are absent bilateral upper and lower extremities and Babinski is absent bilaterally.
Sensations of pain, touch, temperature and vibration are intact and bilaterally symmetrical. Coordination is intact by finger to nose bilaterally.
Rombergs and Gait cannot be tested as pat is bedbound
Lab Results: addendum
Neuro Imaging:
Impression:
Mr. YARI KENNY is a 88 year old M who has presented to the hospital with generalized weaknesssymptoms.
Differentials for the patient's presentation include:
1. ESRD
2. Sepsis
3. Peripheral neuropathy
4. Cervical myelopathy
Recommendations:
1. Hemodialysis
2. ID consult for IV antibiotics
3. PT/OT
4. Neurosurgery eval
Discussed patient care with: Hospitalist
Vital Signs and Labs
-
Vital Signs and Labs:
Vital Signs
Temp Pulse Resp BP Pulse Ox
36.8 C 82 13 132/81 99
06/06/24 11:10 06/06/24 11:38 06/06/24 10:00 06/06/24 11:38 06/06/24 10:11
Lab Results
06/06/24 01:45
06/06/24 01:45
Sodium 135 mmol/L (135-145) 06/06/24 01:45
Potassium 4.2 mmol/L (3.5-5.1) 06/06/24 01:45
BUN 108 mg/dl (9-20) H* 06/06/24 01:45
Glucose 145 mg/dl (70-99) H 06/06/24 01:45
Calcium 8.9 mg/dl (8.4-10.2) 06/06/24 01:45
Vitamin B12 771 pg/ml (115-931) 06/03/24 08:25
Medications
-
Active Medications
Generic Name Dose Route Start Last Admin
Trade Name Freq PRN Reason Stop Dose Admin
Acetaminophen 1,000 mg 06/01/24 19:15 06/06/24 06:20
Acetaminophen 500 Mg Tablet PO 06/29/24 19:14 1,000 mg
Q6HPRN PRN Administration
mild pain/fever
Albumin Human 12.5 grams 06/06/24 08:00 06/06/24 09:02
Albumin 12.5 Grams/50 Ml Bag *For Hemodialysis* IV 06/06/24 23:59 12.5 grams
HD-Q1HPRN PRN Administration
sbp<100
Albuterol/Ipratropium 3 ml 06/02/24 21:14 06/02/24 22:08
Ipratropium 0.5/Albuterol 3 Mg (3 Ml Ampul) INH 3 ml
R Q4HPRN PRN Administration
SOB or wheezing
Protocol
Amlodipine Besylate 10 mg 06/02/24 08:00 06/04/24 09:11
Amlodipine 10 Mg Tablet PO 06/30/24 07:59 10 mg
DAILY GARRETT Administration
Clopidogrel Bisulfate 75 mg 06/02/24 08:00 06/06/24 11:38
Clopidogrel 75 Mg Tablet PO 06/30/24 07:59 75 mg
DAILY GARRETT Administration
Cyclobenzaprine HCl 5 mg 06/01/24 19:15 06/03/24 17:16
Cyclobenzaprine 10 Mg Tablet PO 06/29/24 19:14 5 mg
Q8HPRN PRN Administration
muscle spasms
Ezetimibe 10 mg 06/02/24 08:00 06/06/24 11:38
Ezetimibe (Zetia) 10 Mg Tablet PO 06/30/24 07:59 10 mg
DAILY GARRETT Administration
Heparin Sodium 5,000 units 06/02/24 00:00 06/06/24 11:44
Heparin 5,000 Units/Ml 1 Ml Vial SC 06/30/24 00:00 5,000 units
Q8 GARRETT Administration
Vancomycin HCl 1 each/ Device 0 mls @ 0 mls/hr 06/05/24 12:00
IV
PER PROTOCOL GARRETT
Protocol
As Directed
Vancomycin HCl 750 mg in 150 mls @ 150 mls/hr 06/06/24 14:00
Vancocin IV 06/06/24 14:59
ONCE@1400 ONE
Protocol
Lidocaine 1 patch 06/02/24 08:00 06/06/24 11:38
Lidocaine 4% Topical Patch TOPICAL 06/30/24 07:59 1 patch
DAILY GARRETT Administration
Protocol
Metoprolol Succinate 50 mg 06/01/24 20:00 06/06/24 11:38
Metoprolol 50 Mg Extended Release Tablet PO 06/29/24 19:59 50 mg
BID GARRETT Administration
Oxycodone HCl 2.5 mg 06/01/24 19:15 06/03/24 18:26
Oxycodone 5 Mg Regular Release Tablet PO 06/15/24 19:14 2.5 mg
Q6HPRN PRN Administration
moderate pain
Oxycodone HCl 5 mg 06/01/24 19:15 06/05/24 16:07
Oxycodone 5 Mg Regular Release Tablet PO 06/15/24 19:14 5 mg
Q6HPRN PRN Administration
severe pain
Pantoprazole Sodium 40 mg 06/02/24 08:00 06/06/24 11:38
Pantoprazole 40 Mg Delayed Release Tablet PO 06/30/24 07:59 40 mg
DAILY GARRETT Administration
Patch Removal 0 patch 06/02/24 20:00 06/05/24 21:07
Remove Lidocaine Patch REMOVE 06/30/24 19:59 1 patch
DAILY@2000 GARRETT Administration
Rosuvastatin Calcium 10 mg 06/02/24 08:00 06/06/24 11:38
Rosuvastatin (Crestor) 10 Mg Tablet PO 06/30/24 07:59 10 mg
DAILY GARRETT Administration
Sodium Chloride 0 flush 06/01/24 20:00
Sodium Chloride 0.9% (Flush) Syringe IV 06/29/24 19:59
PER PROTOCOL GARRETT
Vitamin C/Vitamin E 1 cap 06/01/24 20:00 06/06/24 11:38
Vit C/Vit E/Lutein/Min/Douglas-3 (Ocuvite) Capsule PO 06/29/24 19:59 1 cap
BID GARRETT Administration
Home Medications
�Medication �Instructions �Recorded
amlodipine 10 mg tablet 10 mg PO DAILY Blood pressure 08/29/09
ezetimibe 10 mg tablet 10 mg PO DAILY High cholesterol 08/29/09
metoprolol succinate 50 mg 50 mg PO BID Blood pressure 04/01/16
tablet,extended release 24 hr
pantoprazole 40 mg tablet,delayed 40 mg PO DAILY Gastrointestinal 04/01/16
release issue
rosuvastatin 20 mg tablet 20 mg PO DAILY High cholesterol 04/01/16
tamsulosin 0.4 mg capsule 0.4 mg PO HS Urinary issue 04/01/16
clopidogrel 75 mg tablet 75 mg PO DAILY Blood clot 08/03/20
prevention/tx
acetaminophen 650 mg 650 mg PO DAILYPRN PRN mild pain 04/28/24
tablet,extended release
vitamins A,C,B-jntt-hdojvm 4,296 1 cap PO BID Supplement 04/28/24
mcg-226 mg-90 mg capsule
(PreserVision AREDS)
sodium bicarbonate 650 mg tablet 1,300 mg PO TID Electrolyte 06/01/24
Repletion
[2024-06-06] MEDS: VANCOCIN 150 IV (13:47)
--- NOTE | 2024-06-06 20:00 | PTCARENOTE ---
procurement consultant, pt awake/oriented to self and place, denies pain, VPaced HR 70s. RA IV flushed, patent. Sat 97% on 2LNC. inc small BM, skin care, mcmanus care, repositioned. RIJ HD cath WNL. POC discussed, call eisenberg with pt, bed alarm on.
[2024-06-07] VITALS (32 sets, daily range): BP systolic 101–128; BP diastolic 63–78; PULSE 69–79; O2SAT 95; BMI 23.0
[2024-06-07] MEDS: HEPARIN 5000 UNITS SC ×4 (00:24→23:21)
[2024-06-07 05:01] LABS: % Basophils 0.1 % (0-2); % Eosinophils 0.2 % (0-6); % Immature Granulocytes 0.6 % (0-0.5); % Monocytes 5.4 % (1.7-9.3); % Neutrophils 61.7 % (42.2-75.2); Absolute Immature Granulocytes 0.1 10^3/uL (0-0.05); Absolute Monocytes 0.7 10^3/uL (0.1-0.6); Absolute Neutrophils 7.7 10^3/uL (1.4-6.5); Hematocrit 29.1 % (39.0-52.0); Hemoglobin 9.4 g/dL (13.0-18.0); Mean Corp Hgb Conc. 32.3 g/dL (33.0-37.0); Mean Corpuscular Hgb 27.6 pg (27.0-31.0); Mean Corpuscular Volume 85.6 fL (80.0-94.0); Mean Platelet Volume 11.7 fL (7.4-10.4); Nucleated Red Blood Cells % 0 % (-); Platelet Count 190 10^3/uL (130-400); Red Cell Dist. Width 16.1 % (11.5-14.5); White Blood Cell Count 12.5 10^3/uL (4.8-10.8)
--- NOTE | 2024-06-07 05:15 | PTCARENOTE ---
no changes in pt assessment, restful on cpap.
[2024-06-07 05:36] LABS: Blood Urea Nitrogen 86 mg/dl (9-20); Calcium 9.2 mg/dl (8.4-10.2); Carbon Dioxide 21 mmol/L (22-30); Chloride 102 mmol/L (98-107); Estimated Creatinine Clearance 11 ml/min; Glucose 114 mg/dl (70-99); Potassium 3.8 mmol/L (3.5-5.1); Sodium 135 mmol/L (135-145); eGFR 10.62
[2024-06-07] MEDS: HEPARIN 500 UNITS IV ×2 (08:05→09:05)
--- NOTE | 2024-06-07 08:24 | W.PN.NEPH.HD ---
Assessment
-
Patient seen on dialysis
Currently on BiPAP
Systolic blood pressure 123 at current UF
Reducing dry weight as hemodynamically tolerated
Remains on vancomycin for gram-positive cocci in blood cultures x 2
Next dialysis will be scheduled for Friday
Progress Note - Hemodialysis
-
Date of Service: June 07, 2024
Duration: 30 minutes and 3 hours
Potassium Bath: 3
Calcium Bath: 2.5
Opti-Dialyzer: 160
Ultrafiltration: Other (1 kg)
Blood Flow: 400
Dialysate Flow: 600
Heparin: 500 x 2
EPO: 8000
--- NOTE | 2024-06-07 08:27 | PHA.VAN.FU ---
Vancomycin Assessment / Plan
- Assessment
Hemodialysis Schedule: Other (new start HD)
Last Hemodialysis performed: Sat 06/05 and Sun 06/06
WBC's are: Trending Up
- Assessment - Therapeutic Drug Monitoring
Random Level: pre-HD = 10
- Dosing Plan
Dosing by Level: Re-dose today (Vanc 750mg)
- Monitoring Plan
No level(s) ordered at this time: consider next level prior to HD Wed
- Follow Up
Pharmacy will continue to follow.
Vancomycin Follow UP
- -
Patient Age: 88
Patient Sex: Male
Vancomycin Day #: 3
Indication: Pulmonary/Respiratory
Requesting Provider: Hoa / Kt
Pertinent Antimicrobial Allergies:
no pertinent antibiotic allergies
Height / Weight:
Height 5 ft 11 in
Actual Weight 74.8 kg
Pertinent Past Medical History: CKD now requiring HD
- Vital Signs / Lab Results
Temp Pulse Resp BP Pulse Ox
98.4 F 74 15 105/66 100
06/07/24 07:58 06/07/24 07:58 06/07/24 07:58 06/07/24 04:00 06/07/24 07:58
Lab Results - Hematology
06/05/24 06/06/24 06/07/24
07:48 01:45 04:34
WBC 12.5 H 11.1 H 12.5 H
Lab Results - Chemistry
06/05/24 06/06/24 06/07/24
07:48 01:45 04:34
BUN 133 H* 108 H* 86 H
Creatinine 7.1 H* 5.9 H* 5.0 H*
Estimated Creat Clear 8 10 11
06/05/24 06/06/24 06/06/24
18:38 01:45 06:30
Lactic Acid 2.7 H 1.0 Cancelled
Microbiology Results
06/05/24 11:01 Blood Culture - Preliminary
Blood/Venous Positive culture in progress
Gram Stain - Final
06/05/24 18:38 Nasal Screen MRSA (PCR) - Final
Nose MRSA not detected - performed by PCR methodology.
06/05/24 11:11 Blood Culture - Preliminary
Blood/Venous Positive culture in progress
Gram Stain - Final
06/05/24 18:38 Legionella Urinary Antigen - Final
Urine Negative for Legionella pneumophila Serogroup 1 antigen.
A negative result does not rule out the possiblity of
Legionella infection due to other serogroups or species of
Legionella. Clinical correlation is recommended.
Streptococcus pneumoniae Antigen (M - Final
Negative for Streptococcus pneumoniae antigen.
A negative result does not exclude infection with
Streptococcus pneumoniae. Clinical correlation is
recommended.
Therapeutic Drug Monitoring
Random Vancomycin 10.0 ug/ml 06/07/24 04:34
[2024-06-07] MEDS: TOPROL XL PO (08:28)
[2024-06-07] MEDS: RETACRIT 8000 UNITS IV (09:07)
--- NOTE | 2024-06-07 09:14 | W.PN.ID1 ---
Date of Service
Date of Service: June 07, 2024
Today's Communication
- agree with vancomycin for GPCs pending ID - likely cause of fevers
Assessment / Plan
Gram Positive bacteremia
S/p Pacemaker - no evidence of infection
s/p TAVR
ESRD, HD via permacath
Diverticulosis
- repeat blood cultures x2 are in progress no growth to date
- follow for ID of isolate could be strep or enterococcus
- UA x2 negative
- MARII - calcified MV, no definite vegetations
- colonoscopy last done here 2017 - diverticulosis, few polyps resected
- permacath placed the day before onset of bacteremia - seems less likely to be the source
- no skin lesions, pacemaker without signs of inflammation
- agree with vancomycin for GPCs pending ID - likely cause of fevers
- follow clinically
Chief Complaint
-: Bacteremia
Subjective / Review of Systems
fever resolved
bp stable
essentially stable wbc count
hgb and plt slightly increased
no left shift
k 3.8
repeat blood cultures no growth to date
Vital Signs / Physical Exam
Vital Signs
Vital Signs
Temp Pulse Resp BP Pulse Ox
98.4 F 74 15 105/66 99
06/07/24 07:58 06/07/24 07:58 06/07/24 07:58 06/07/24 04:00 06/07/24 08:29
Physical Exam
Constitutional: No Acute Distress
Cardiovascular: Regular Rate and S1/S2; Negative Murmur or Rub
Pulmonary: Clear and Symmetric; Negative Wheezes or Rales
Gastrointestinal: Soft, Non Tender, Non Distended and Normal Bowel Sounds
Musculoskeletal: Other (bilateral knee surgical sites fully healed - no erythema/warmth/swelling/drainage)
Skin: Warm and Dry; Negative Rash or Jaundice
Objective Data
Lab Data
Lab Results
06/07/24 04:34
06/07/24 04:34
Estimated Creat Clear 11 ml/min 06/07/24 04:34
Lactic Acid Cancelled 06/06/24 06:30
Total Bilirubin 0.9 mg/dl (0.2-1.3) 06/01/24 11:49
AST 37 U/L (17-59) 06/01/24 11:49
ALT 27 U/L (0-50) 06/01/24 11:49
Alkaline Phosphatase 61 U/L (38-126) 06/01/24 11:49
Most recent labs reviewed.
Micro Results:
06/05/24 18:38 MRSA Screen - Final
Throat/Pharynx No Methicillin Resistant Staphylococcus aureus isolated.
06/05/24 11:01 Blood Culture - Preliminary
Blood/Venous Positive culture in progress
Gram Stain - Final
06/07/24 04:46 Blood Culture - Pending
Blood/Venous
06/07/24 04:34 Blood Culture - Pending
Blood/Venous
06/05/24 18:38 Nasal Screen MRSA (PCR) - Final
Nose MRSA not detected - performed by PCR methodology.
06/05/24 11:11 Blood Culture - Preliminary
Blood/Venous Positive culture in progress
Gram Stain - Final
06/05/24 18:38 Legionella Urinary Antigen - Final
Urine Negative for Legionella pneumophila Serogroup 1 antigen.
A negative result does not rule out the possiblity of
Legionella infection due to other serogroups or species of
Legionella. Clinical correlation is recommended.
Streptococcus pneumoniae Antigen (M - Final
Negative for Streptococcus pneumoniae antigen.
A negative result does not exclude infection with
Streptococcus pneumoniae. Clinical correlation is
recommended.
--- NOTE | 2024-06-07 09:24 | W.PN.CARDCBS ---
Today's Communication / Plan
-
Cont HD for ESRD, new HD this admit.
Volume control as per nephrology.
Discussed his new CM with EF 35-40%. Cont beta sirena.
GDMT limited due to renal failure and hypotension. Not currently a candidate for segundo/arb/arni/aldactone/SGLT2 inhibitor due to ESRD
Consider ischemic eval as outpt once improved clinically from comorbidities including renal failure. CM could also be from chronic pacing as part of the differential.
Impression / Plan
-
.
Primary Cage Supervisor: Dr. French
Impression:
Presentation with back pain, concern for central cord syndrome
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
Cardiomyopathy, EF 35% by echo 06/03/24
Severe status post TAVR 2019
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
History of TIA/CVA
Hypertension
Hyperlipidemia
Moderate bilateral carotid disease
JEANIE on CPAP
Iron deficiency anemia
ECHO 11/2022: EF 53%, moderate concentric LVH, stage II diastolic dysfunction, MAC, mild to moderate MR, mildly dilated left atrium, #26 Mobley GAMA #3 ultra transcatheter aortic valve with peak/mean gradients 28/14 mmHg with mild paravalvular AR,
normal right heart
ECHO 06/03/24: EF 35%, global hypokinesis, mild LVH, stage II diastolic dysfunction, dense MAC, mild to moderate MS with peak/mean gradients 14/7 mmHg, mild to moderate MR, status post TAVR with peak/mean gradient 22/12 mmHg, mild to moderate TR, PAP
44 mmHg, small circumferential pericardial effusion
Plan:
Cont HD for ESRD, new HD this admit.
Volume control as per nephrology.
Discussed his new CM with EF 35-40%. Cont beta sirena.
GDMT limited due to renal failure and hypotension. Not currently a candidate for segundo/arb/arni/aldactone/SGLT2 inhibitor due to ESRD
Consider ischemic eval as outpt once improved clinically from comorbidities including renal failure. CM could also be from chronic pacing as part of the differential.
Neurosurgery notes that weakness likely secondary to uremia. No plan for neurosurgery at this time. Neurosurgery continuing to follow.
Vpaced. HR and bp stable overall.
Remains on chronic plavix for hx of CVA.
HPI: Patient presenting with worsening extremity weakness undergoing evaluation by neurosurgery with concern for central cord syndrome. Additionally, patient noted to have worsening function and dyspnea. Repeat TTE noted reduced LVEF 35-40%.
Progress Note - Cage Supervisor
Subjective
Date of Service: June 07, 2024
Pt seen and examined. No complaints. No chest pain or shortness of breath.
Objective
Labs:
06/07/24 04:34
06/07/24 04:34
Labs
Hgb 9.4 g/dL (13.0-18.0) L 06/07/24 04:34
Hct 29.1 % (39.0-52.0) L 06/07/24 04:34
Plt Count 190 10^3/uL (130-400) 06/07/24 04:34
Sodium 135 mmol/L (135-145) 06/07/24 04:34
Potassium 3.8 mmol/L (3.5-5.1) 06/07/24 04:34
BUN 86 mg/dl (9-20) H 06/07/24 04:34
Creatinine 5.0 mg/dL (0.7-1.3) H* 06/07/24 04:34
Glucose 114 mg/dl (70-99) H 06/07/24 04:34
Vital Signs and I&O:
Vital Signs
Temp Pulse Resp BP Pulse Ox
98.4 F 74 15 105/66 99
06/07/24 07:58 06/07/24 07:58 06/07/24 07:58 06/07/24 04:00 06/07/24 08:29
Vital Signs
Temp Pulse Resp BP Pulse Ox
98.4 F 74 15 105/66 99
06/07/24 07:58 06/07/24 07:58 06/07/24 07:58 06/07/24 04:00 06/07/24 08:29
Intake & Output
06/05/24 06/06/24 06/07/24 06/08/24
06:59 06:59 06:59 06:59
Intake Total 240 / 240 340 / 340 930 / 930
Output Total 1250 / 1250 720 / 720 580 / 580
Balance -1010 / -1010 -380 / -380 350 / 350
Physical Exam
Physical Exam
General: No acute distress, AAOX3
Neck: Negative JVD
Heart: Regular, Negative S3 positive S1/S2, Negative S4, No murmur
Lungs: CTA b/l, negative wheezes/rales/rhonchi
Abd: Positive BS, NT/ND, neg rebound/rigidity/guarding
Ext: Negative cyanosis/clubbing/edema
Neuro: nonfocal
--- NOTE | 2024-06-07 09:30 | W.PN.HOSP.TC ---
Today's Communication/Plan
-
Continue antibiotics
Follow repeat cultures
PT OT
Out of bed to chair every day
Physiatry evaluation requested
Needs outpatient dialysis set up
Assessment / Plan
Assessment / Plan
88yo M with SSS s/p PPM, s/p TAVR, APKD with CKD stage 5, BPH, HTN, HLD came with intractable back pain starting from the top of the back and radiating down to both LE R>L. Also noted dizziness for past few days. ALso started to complain of b/l
UE weakness with pain, concern for central cord syndrome. Developed worsening LUCIANO and AMS 2/2 this. tarted new HD. Low suspicion for pneumonia on admission then developed bacteremia with sepsis on 06/05/24.
Echo 06/03/2024-LV mildly dilated. Mild LVH. Moderately reduced LV systolic function. Left ventricular ejection fraction 34%. Global hypokinesis. Stage II diastolic dysfunction suggestive of abnormal relaxation and increased filling pressures.
Mildly enlarged RV. Dense mitral annular calcification. Thickened mitral valve leaflets. Posterior leaflet appears calcified and restricted. Mild to moderate mitral stenosis. Mild to moderate MR. Status post TAVR. Mild to moderate TR.
Pulmonary artery pressure 44 mmHg. Small circumferential pericardial fusion without evidence of hemodynamic compromise. Since November 2023 LVEF has decreased from 50% to 34%.
06/04/24-Lumbar spine MRI-multilevel degenerative changes.Worst at L2-L3 where disc and facet disease contribute to severe spinal canal and moderate bilateral neural foraminal stenosis. Severe left-sided neuroforaminal stenosis L4/L5.
06/04/24-C-spine MRI-Motion degraded. Only marginally improved compared to 06/02/2024. 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 Focal mild myelomalacia C3/C4. No overt cord edema.
06/02/24-Thoracic spine MRI-multilevel changes. Advanced degenerative disc space narrowing with reactive Modic type I reactive signal alteration T8/T9 and T9/T10. Moderate to advanced central stenosis T9/T10 and T10/T11. No evidence of thoracic
cord signal alteration.
CT abdomen and pelvis 06/01/2024-prostatomegaly with bladder diverticulum and concentric thickening of the wall of the urinary bladder consistent with partial bladder outlet obstruction. Multicystic kidneys with multiple small bilateral
nonobstructing renal calculi. Stable hepatic cysts up to 5 cm. Atherosclerosis with fusiform aneurysmal dilatation of the infrarenal abdominal aorta 3 cm. Severe multilevel DJD.
Patient was seen during dialysis.
Awake alert and conversant. Able to give me history
Cardiovascular system S1-S2 appreciated, systolic murmur and diastolic murmur at apex
Extremity no edema
Neuro exam-no facial droop, sensory exam bilateral upper extremity and lower extremity unremarkable. Bilateral thenar and hypothenar muscle wasting on hands. Patient is able to lift arms however bilateral hand grasp is 4 x 5 strength.
Plantarflexion 4+ by 5. Dorsiflexion 5 x 5. Proximal muscles slightly weak on the lower extremities. Reflexes equivocal throughout
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
Continue supplemental oxygen, BiPAP as needed
#APKD
Metabolic acidosis better
Right chest wall permacath placed on 06/04/24
Started on hemodialysis 06/05/2024
End-stage renal disease
#Sepsis with bacteremia
No clear source identified at present
Bcx - GPC
TTE showed mitral calcifications
On Vanco
ID consult appreciated.
Follow cultures
Unlikely CAUTI since developed <24 after permacath insertion. Site of insertion not inflamed.
No significant wounds or signs of skin infection -on skin review
#Dizziness
CT head neg for acute pathology
PCP stopped finasteride as outpatient
#Acute toxic metabolic encephalopathy
Resolved
#Back pain, most likely sciatica with multilevel disk narrowing on CT
B/L UE pain and weakness, cervical spine MRI noted
Pain mgmt
Muscle relaxants
PT/OT
Neurosurgery consulted and following.
Patient has a history of L4-L5 surgery in the past
Unclear if this is likely secondary to uremia.
# Cardiomyopathy-new ejection fraction 34% by echo 06/03/2024.
Continue Toprol. Not candidate for segundo/arb/Arni/Aldactone/SGLT2 inhibitor due to renal failure
Ischemic evaluation planned at a later date
# Pacemaker placement 2019
# History of TAVR 2019
# History of TIA/CVA-continue Plavix and statin
# Moderate bilateral carotid disease
# Essential HTN-continue metoprolol. Norvasc on Hold.
# Hyperlipidemia-continue Zetia/Crestor
# Prostatomegaly with bladder diverticulum- Tamsulosin/finasteride on hold .Continue Rutledge
# Anemia of chronic disease
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
# Multiple hepatic cysts
# JEANIE-cont CPAP
# GERD/peptic ulcer disease-continue PPI
# Ex-smoker
# DVT ppx -SC hep
# Full code
Called on [phone]- was not able to reach
D/W Case management
D/W RN
D/W Dialysis RM at bed side
Time spent over 52 min
Anticipated Discharge: > 48 hours
Subjective/Interval History
-
Date of Service: June 07, 2024
Objective Data
-
Labs:
Laboratory Results
06/07/24
04:34
WBC 12.5 H
Hgb 9.4 L
Hct 29.1 L
Plt Count 190
Sodium 135
Potassium 3.8
Chloride 102
Carbon Dioxide 21 L
BUN 86 H
Creatinine 5.0 H*
Glucose 114 H
Calcium 9.2
Vital Signs:
Vital Signs
Temp Pulse Resp BP Pulse Ox
98.4 F 74 15 105/66 99
06/07/24 07:58 06/07/24 07:58 06/07/24 07:58 06/07/24 04:00 06/07/24 08:29
I&O
06/06/24 06/07/24 06/08/24
06:59 06:59 06:59
Intake Total 340 / 340 930 / 930
Output Total 720 / 720 580 / 580
Balance -380 / -380 350 / 350
[2024-06-07] MEDS: VANCOCIN 150 IV (10:39)
[2024-06-07] MEDS: HEPARIN 4300 UNITS INTRACATH (11:21)
[2024-06-07] MEDS: LIDOCAINE 4% PATCH 1 PATCH TOPICAL (12:13)
[2024-06-07] MEDS: ZETIA 10 MG PO (12:14)
[2024-06-07] MEDS: PROTONIX 40 MG PO (12:14)
[2024-06-07] MEDS: CRESTOR 10 MG PO (12:14)
[2024-06-07] MEDS: OCUVITE SOFTGEL 1 CAP PO ×2 (12:14→19:32)
[2024-06-07] MEDS: PLAVIX 75 MG PO (12:14)
--- NOTE | 2024-06-07 13:59 | PN.NS ---
Subjective
-
Patient seen and examined. History reviewed. Patient with a history of chronic kidney disease, stage IV, just initiated on dialysis. He presented with severe onset of low back pain, bilateral radicular symptoms. He also reported significant arm
pain, and weakness.
Patient seen and examined. is at bedside. Patient reports that while he does have sensitivity in upper extremities, he does admit that overall, his motor strength is improved, compared with presentation. agrees.
Physical Exam
-
Exam:
Exam:
LE's 03/14
UE's 02/12
Hyperesthesias in bilateral upper extremities diffusely
Problems
-
Problem Status Onset Code
Back pain M54.9
Assessment / Plan
-
88-year-old gentleman who presented with severe neck pain, back pain, workup demonstrating gram-positive bacteremia, end-stage renal disease, now on hemodialysis.
Symptoms are slowly improving, compared with presentation. Neurological examination in strength stable, compared with yesterday
1. Given his improvement with HD symptoms are most likely to have been metabolic from uremia
2. no surgery at this time
Patient can follow-up in the office with Dr. Aden should he have persistent/worsening symptoms after he undergoes a course of rehab/physical therapy.
Today's Communication
-
Discussed with the patient's , patient at bedside
--- NOTE | 2024-06-07 14:40 | CM ---
CM reviewed chart and pt with Dr Montoya- ADC >48 hours
Pt initiated on new HD and tunnel cath placed
Discussion with Jordon/Andria
PMR pending- if approved for [place], will need outpt HD set up prior to transfer to [place] per Andria
Bedside update with pt and spouse
Educated on role of PMR and [place] in auth approval
Also discussed SNF if acute denied- aware of limited options for SNF due to HD needs
Pt and spouse are requesting [facility] if outpt HD needs to be arranged
Spouse requesting info regarding HD transport- Transport info and application provided
[place] admissions and CM in agreement to await outcome of PMR prior to setting up outpt HD
Discharge Disposition- acute rehab vs SNF- new HD needs
--- NOTE | 2024-06-07 17:27 | PTCARENOTE ---
Pt presents as assessed. No acute events throughout the day. Resting at this time. Able to make needs known, call eisenberg within reach.
[2024-06-07] MEDS: TOPROL XL 50 MG PO (19:32)
[2024-06-07] MEDS: TYLENOL 1000 MG PO (23:20)
[2024-06-08] VITALS (17 sets, daily range): BP systolic 91–117; BP diastolic 55–90; PULSE 75–81; O2SAT 97; BMI 22.4
--- NOTE | 2024-06-08 04:23 | PTCARENOTE ---
Assessment as documented. 100% V-paced HR under 60 at times while sleeping. BPs soft at times while sleeping, but MAP remains >70. Pt denies complaints at this time. CPAP in place HS. Call eisenberg within reach
--- NOTE | 2024-06-08 08:45 | W.PN.CARDCBS ---
Today's Communication / Plan
-
Cont HD for ESRD, new HD this admit.
Volume control as per nephrology.
Discussed his new CM with EF 35-40%. Cont beta sirena.
GDMT limited due to renal failure and hypotension. Not currently a candidate for segundo/arb/arni/aldactone/SGLT2 inhibitor due to ESRD
Will consider ischemic eval as outpt once improved clinically from comorbidities including renal failure, bacteremia. CM could also be from chronic pacing as part of the differential.
Neurosurgery notes that weakness likely secondary to uremia. No plan for neurosurgical intervention.
Bacteremia with abx as per ID and primary service. Cont supportive care.
Vpaced. HR and bp stable overall with bp on the lower side.
Remains on chronic plavix for hx of CVA.
Impression / Plan
-
.
Primary Accounting Machine Operator: Dr. French
Impression:
Presentation with back pain, concern for central cord syndrome
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
Cardiomyopathy, EF 35% by echo 06/03/24
Bacteremia with gram positive cocci
Severe status post TAVR 2019
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
History of TIA/CVA
Hypertension
Hyperlipidemia
Moderate bilateral carotid disease
JEANIE on CPAP
Iron deficiency anemia
ECHO 11/2022: EF 53%, moderate concentric LVH, stage II diastolic dysfunction, MAC, mild to moderate MR, mildly dilated left atrium, #26 Mobley GAMA #3 ultra transcatheter aortic valve with peak/mean gradients 28/14 mmHg with mild paravalvular AR,
normal right heart
ECHO 06/03/24: EF 35%, global hypokinesis, mild LVH, stage II diastolic dysfunction, dense MAC, mild to moderate MS with peak/mean gradients 14/7 mmHg, mild to moderate MR, status post TAVR with peak/mean gradient 22/12 mmHg, mild to moderate TR, PAP
44 mmHg, small circumferential pericardial effusion
Plan:
Cont HD for ESRD, new HD this admit.
Volume control as per nephrology.
Discussed his new CM with EF 35-40%. Cont beta sirena.
GDMT limited due to renal failure and hypotension. Not currently a candidate for segundo/arb/arni/aldactone/SGLT2 inhibitor due to ESRD
Will consider ischemic eval as outpt once improved clinically from comorbidities including renal failure, bacteremia. CM could also be from chronic pacing as part of the differential.
Neurosurgery notes that weakness likely secondary to uremia. No plan for neurosurgical intervention.
Bacteremia with abx as per ID and primary service. Cont supportive care.
Vpaced. HR and bp stable overall with bp on the lower side.
Remains on chronic plavix for hx of CVA.
Discussed with son at bedside, primary service and nephrology.
HPI: Patient presenting with worsening extremity weakness undergoing evaluation by neurosurgery with concern for central cord syndrome. Additionally, patient noted to have worsening function and dyspnea. Repeat TTE noted reduced LVEF 35-40%.
Progress Note - Accounting Machine Operator
Subjective
Date of Service: June 08, 2024
Pt seen and examined. No complaints. No chest pain or shortness of breath.
Objective
Labs:
06/07/24 04:34
06/07/24 04:34
Labs
Hgb 9.4 g/dL (13.0-18.0) L 06/07/24 04:34
Hct 29.1 % (39.0-52.0) L 06/07/24 04:34
Plt Count 190 10^3/uL (130-400) 06/07/24 04:34
Sodium 135 mmol/L (135-145) 06/07/24 04:34
Potassium 3.8 mmol/L (3.5-5.1) 06/07/24 04:34
BUN 86 mg/dl (9-20) H 06/07/24 04:34
Creatinine 5.0 mg/dL (0.7-1.3) H* 06/07/24 04:34
Glucose 114 mg/dl (70-99) H 06/07/24 04:34
Vital Signs and I&O:
Vital Signs
Temp Pulse Resp BP Pulse Ox
97.7 F 54 18 97/61 98
06/08/24 03:02 06/08/24 04:00 06/08/24 04:00 06/08/24 04:00 06/08/24 04:00
Vital Signs
Temp Pulse Resp BP Pulse Ox
97.7 F 54 18 97/61 98
06/08/24 03:02 06/08/24 04:00 06/08/24 04:00 06/08/24 04:00 06/08/24 04:00
Intake & Output
06/06/24 06/07/24 06/08/24 06/09/24
06:59 06:59 06:59 06:59
Intake Total 340 / 340 930 / 930
Output Total 720 / 720 580 / 580 425 / 425
Balance -380 / -380 350 / 350 -425 / -425
Physical Exam
Physical Exam
General: No acute distress, AAOX3
Neck: Negative JVD
Heart: Regular, Negative S3 positive S1/S2, Negative S4, No murmur
Lungs: CTA b/l, negative wheezes/rales/rhonchi
Abd: Positive BS, NT/ND, neg rebound/rigidity/guarding
Ext: Negative cyanosis/clubbing/edema
Neuro: nonfocal
[2024-06-08] MEDS: OCUVITE SOFTGEL 1 CAP PO ×2 (09:19→20:07)
[2024-06-08] MEDS: LIDOCAINE 4% PATCH 1 PATCH TOPICAL (09:19)
[2024-06-08] MEDS: ZETIA 10 MG PO (09:19)
[2024-06-08] MEDS: HEPARIN 5000 UNITS SC ×3 (09:19→23:14)
[2024-06-08] MEDS: PLAVIX 75 MG PO (09:20)
[2024-06-08] MEDS: PROTONIX 40 MG PO (09:20)
[2024-06-08] MEDS: TOPROL XL 50 MG PO (09:20)
[2024-06-08] MEDS: CRESTOR 10 MG PO (09:20)
--- NOTE | 2024-06-08 09:26 | W.PN.NEPH.PH ---
Today's Communication / Plan
-
Dialysis tomorrow via catheter
Assessment/Plan
-
Impression:
Urinary retention
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
Acute kidney injury
Hypertension
Dyslipidemia
Metabolic acidosis
History of pacemaker placement
BPH with recent Rutledge catheter removal earlier this week
Enterococcus bacteremia
MAIL AGENT EF ~30%
Plan:
LUCIANO vs CKD progression to ESRD
-Now on dialysis/Hd again tomorrow
-Hypotensive with Enterococcus bacteremia
-Holding antihypertensives
-ID to direct antibiotic therapy, may need of assistance pacemaker extraction due to bacteremia
-
-
Date of Service: June 08, 2024
CC / HPI / ROS
-
Chief Complaint:
CKD V
History of Present Illness:
LUCIANO on CKD V now on HD
Hemodynamically labile
Currently maintained on vancomycin for Enterococcus bacteremia
Leukocytosis persist
Review of Systems:
offers no cp or sob
Mental status improving
Tunneled HD catheter
febrile
Labs
-
Labs:
WBC 12.5 10^3/uL (4.8-10.8) H 06/07/24 04:34
RBC 3.40 10^6/uL (4.70-6.10) L 06/07/24 04:34
Hgb 9.4 g/dL (13.0-18.0) L 06/07/24 04:34
Hct 29.1 % (39.0-52.0) L 06/07/24 04:34
Plt Count 190 10^3/uL (130-400) 06/07/24 04:34
Sodium 135 mmol/L (135-145) 06/07/24 04:34
Potassium 3.8 mmol/L (3.5-5.1) 06/07/24 04:34
Chloride 102 mmol/L (98-107) 06/07/24 04:34
Carbon Dioxide 21 mmol/L (22-30) L 06/07/24 04:34
BUN 86 mg/dl (9-20) H 06/07/24 04:34
Creatinine 5.0 mg/dL (0.7-1.3) H* 06/07/24 04:34
eGFR 10.62 06/07/24 04:34
Glucose 114 mg/dl (70-99) H 06/07/24 04:34
Calcium 9.2 mg/dl (8.4-10.2) 06/07/24 04:34
Albumin 3.7 g/dl (3.5-5.0) 06/01/24 11:49
Physical Exam
-
Vital Signs:
Vital Signs
Temp Pulse Resp BP Pulse Ox
97.9 F 54 18 97/61 98
06/08/24 07:02 06/08/24 04:00 06/08/24 04:00 06/08/24 04:00 06/08/24 04:00
Cardiovascular:: Regular rate and rhythm
Respiratory:: Bilateral: Coarse
Lung Excursion:: Normal
Abdomen:: Nontender and Soft
Extremity Edema:: None: Bilateral:
Rutledge Catheter: Yes
--- NOTE | 2024-06-08 09:37 | CON.NEURO4 ---
Addendum entered and electronically signed by Ren Rodas MD 06/08/24 14:50:
Studies reviewed.
I have personally examined the patient. I reviewed and agree with the ELECTRONIC ASSEMBLY's Note.
My addenda:
Awake, alert, interactive. No acute distress.
Speech intact.
Follows 2-step requests w/o difficulty. No tremor.
Extra-ocular movements grossly intact.
Facial movements full and symmetric. Hearing intact to normal conversational volume.
Normal UE movements with proximal weakness bilaterally, weakness in lower extremities proximally.
Neck: full ROM.
Chest: no dyspnea
Heart: no JVD
Ext: (-) Clubbing, (-) Cyanosis, (-) Edema
IMPRESSIONS/RECOMMENDATIONS:
Abrupt onset of proximal upper and lower extremity weakness and pain associated with onset of uremia
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
Reduced uremia if possible in hopes of reducing myopathy
When possible, provide high-dose steroids to reduce myopathy, if complete improvement of strength with uremic remediation
EMG with nerve conduction study if patient does not have significant improvement following remediation of other issues
Physical therapy evaluation
D/W patient / family / nursing
All questions answered.
Will continue to follow patient.
Original Note:
Consultation - Neurology 4
-
CONSULTING PHYSICIAN: Ren Rodas MD
REFERRING PHYSICIAN: Hospitalists/Dr. Camara
DICTATED BY: PEDRO Hdz
DATE/TIME OF REQUEST: 06/02/24
DATE/TIME OF CONSULTATION: 06/08/24
Reason for Consultation: Weakness and muscle pain
History of Present Illness:
This is an 88-year-old right-handed male who has presented to the hospital on 06/01/24 with report of severe low back pain. Patient reports a one month history of muscle discomfort with exertion. About 7-10 days ago he reports that bilateral arms
and legs became weak and he needed to start using a rolling walker. At baseline he walks without an assistive device. Currently, he reports he is unable to bear his own weight. One day prior to arrival he was noted to have dizziness and his
finesteride was discontinued. ON 06/04/24 a HD permacath was inserted. On 06/05/24 he spiked a fever to 102.8 and blood cultures were positive. MRI cervical, thoracic, and lumbar spine show multilevel degeneration without significant spinal cord
compression to explain patient's symptoms. He denies any swallowing difficulty or bladder/bowel difficulty. He denies any headache, dizziness, vision changes, speech difficulty, numbness, chest pain, palpitations, and shortness of breath. He is
taking Plavix 75mg daily.
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
Surgical History: TAVR, pacemaker, left carpal tunnel release, lumbar laminectomy, b/l TKR
Family History: Reviewed and noncontributory.
Social History: Former smoker. Occasional alcohol. Denies illicit drug use.
Allergies: Celecoxib.
Home Medications: See below.
Review of Symptoms:
Patient denies any fever, headache, chest pain, shortness of breath, GI or symptoms.
�Per the HPI.�All systems are reviewed negative except above.
Physical Exam:
The patient is afebrile, abdomen is nondistended, breathing is unlabored on oxygen via nasal cannula, skin with scattered ecchymosis.
Neurologic Examination:
The patient is awake, alert and oriented x 3. He is able to follow commands and answer questions appropriately. There is no aphasia or dysarthria. On cranial nerve assessment, pupils are 3 mm bilateral, round and reactive to light and
accommodation. Visual gomez are full. Extraocular movements are mildly reduced with upgaze. Facial sensations are intact and bilaterally symmetrical, there is no facial asymmetry. Hearing is intact bilaterally to normal conversation volume. Tongue
palate and uvula are midline. Sternocleidomastoid strengths are full bilaterally. Neck flexion 5/5, neck extension 5-/5. Motor strengths are distally 4-/5 bilateral upper and 4/5 left lower and 4-/4 right lower extremities on medical research
[place] scale. Bilateral finger spread 4-/5. Proximal arm weakness 2/5. Dorsiflexion/extension 5/5. There is no drift or involuntary movement noted. Deep tendon reflexes are 2+ bilateral upper and lower extremities and Babinski is absent
bilaterally. Sensations of touch and temperature are intact and bilaterally symmetrical. There was no extinction noted on double simultaneous stimulation. Coordination is intact by finger to nose bilaterally.
Lab Results: See below.
Neuro Imaging:
1. CT Head 06/05/24: No acute intracranial abnormality noted.
2. MRI Cervical Spine 06/04/24: Motion degraded exam, only marginally improved compared to prior exam 06/02/2024. Redemonstration of multilevel degenerative changes of the cervical spine as detailed, not significantly changed. 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 No overt cord edema.
3. MRI Lumbar Spine 06/04/24: Multilevel degenerative changes of the lumbar spine as detailed, worst at L2-3 where disc and facet disease contribute to severe spinal canal and moderate bilateral neural foraminal stenosis at this level. Severe
left-sided neural foraminal stenosis at L4-5. Nerve root impingements at several levels as detailed.
4. MRI Thoracic Spine 06/02/24: Limited examination, as described. Multilevel changes, as described. Advanced degenerative disc space narrowing with reactive Modic type I reactive signal alteration at T8-9 and T9-10. Moderate to advanced central
stenosis at T9-10 and T10-11. As far as visualized, no intrinsic thoracic cord signal alteration.
Differentials for the patient's presentation include:
1. Concern for uremic myopathy producing patient's weakness and muscle pain.
2. Cannot entirely exclude other sources of myopathy.
3. Orthostasis possibly producing transient dizziness.
4. Sepsis.
Patient has the following risk factors for their symptoms: ESRD, statin usage, infection, age, mutilevel spine degeneration
Recommendations:
-Symptoms will hopefully improve with dialysis treatments.
-Will avoid initiating steroids due to bacteremia, reviewed with ID.
-Consider EMG if symptoms do not improve with improvement in renal function.
-Infection workup per ID.
-PT/OT/ST evaluations.
-DVT prophylaxis.
Discussed patient care with: Dr. Rodas, the patient, patient's son
Vital Signs and Labs
-
Vital Signs and Labs:
Vital Signs
Temp Pulse Resp BP Pulse Ox
97.8 F 66 15 117/90 99
06/08/24 11:05 06/08/24 10:00 06/08/24 10:00 06/08/24 10:00 06/08/24 10:00
Lab Results
06/07/24 04:34
06/07/24 04:34
Sodium 135 mmol/L (135-145) 06/07/24 04:34
Potassium 3.8 mmol/L (3.5-5.1) 06/07/24 04:34
BUN 86 mg/dl (9-20) H 06/07/24 04:34
Glucose 114 mg/dl (70-99) H 06/07/24 04:34
Calcium 9.2 mg/dl (8.4-10.2) 06/07/24 04:34
Vitamin B12 895 pg/ml (239-931) 06/07/24 04:34
Medications
-
Active Medications
Generic Name Dose Route Start Last Admin
Trade Name Freq PRN Reason Stop Dose Admin
Acetaminophen 1,000 mg 06/01/24 19:15 06/07/24 23:20
Acetaminophen 500 Mg Tablet PO 06/29/24 19:14 1,000 mg
Q6HPRN PRN Administration
mild pain/fever
Amlodipine Besylate 10 mg 06/02/24 08:00 06/04/24 09:11
Amlodipine 10 Mg Tablet PO 06/30/24 07:59 10 mg
DAILY GARRETT Administration
Clopidogrel Bisulfate 75 mg 06/02/24 08:00 06/08/24 09:20
Clopidogrel 75 Mg Tablet PO 06/30/24 07:59 75 mg
DAILY GARRETT Administration
Cyclobenzaprine HCl 5 mg 06/01/24 19:15 06/03/24 17:16
Cyclobenzaprine 10 Mg Tablet PO 06/29/24 19:14 5 mg
Q8HPRN PRN Administration
muscle spasms
Ezetimibe 10 mg 06/02/24 08:00 06/08/24 09:19
Ezetimibe (Zetia) 10 Mg Tablet PO 06/30/24 07:59 10 mg
DAILY GARRETT Administration
Epoetin Evert-epbx 8,000 units 06/09/24 08:00
Epoetin Evert-Epbx (Retacrit) 4,000 Units/Ml Vial IV 06/09/24 08:01
HD-ONCE ONE
Heparin Sodium 5,000 units 06/02/24 00:00 06/08/24 09:19
Heparin 5,000 Units/Ml 1 Ml Vial SC 06/30/24 00:00 5,000 units
Q8 GARRETT Administration
Heparin Sodium 500 units 06/09/24 08:00
Heparin (1000 Units/Ml) 10,000 Units/10 Ml Vial IV 06/09/24 08:01
HD-ONCE ONE
Heparin Sodium 500 units 06/09/24 08:00
Heparin (1000 Units/Ml) 10,000 Units/10 Ml Vial IV 06/09/24 08:01
HD-ONCE ONE
Heparin Sodium 0 units 06/09/24 08:00
Heparin (1000 Units/Ml) 10,000 Units/10 Ml Vial INTRACATH 06/09/24 08:01
HD-ONCE ONE
Vancomycin HCl 1 each/ Device 0 mls @ 0 mls/hr 06/05/24 12:00
IV
PER PROTOCOL GARRETT
Protocol
As Directed
Ampicillin Sodium 2,000 mg/ 108 mls @ 108 mls/hr 06/08/24 12:00 06/08/24 12:11
Sodium Chloride IV 108 mls
Q12H GARRETT Administration
Lidocaine 1 patch 06/02/24 08:00 06/08/24 09:19
Lidocaine 4% Topical Patch TOPICAL 06/30/24 07:59 1 patch
DAILY GARRETT Administration
Protocol
Mannitol 12.5 grams 06/09/24 08:00
Mannitol 25% (12.5 Grams/50 Ml) Vial IV 06/09/24 23:59
HD-Q1HPRN PRN
sbp less then 100
Metoprolol Succinate 50 mg 06/01/24 20:00 06/08/24 09:20
Metoprolol 50 Mg Extended Release Tablet PO 06/29/24 19:59 50 mg
BID GARRETT Administration
Midodrine 5 mg 06/09/24 08:00
Midodrine 5 Mg Tablet PO 06/09/24 08:01
HD-ONCE ONE
Oxycodone HCl 2.5 mg 06/01/24 19:15 06/03/24 18:26
Oxycodone 5 Mg Regular Release Tablet PO 06/15/24 19:14 2.5 mg
Q6HPRN PRN Administration
moderate pain
Oxycodone HCl 5 mg 06/01/24 19:15 06/05/24 16:07
Oxycodone 5 Mg Regular Release Tablet PO 06/15/24 19:14 5 mg
Q6HPRN PRN Administration
severe pain
Pantoprazole Sodium 40 mg 06/02/24 08:00 06/08/24 09:20
Pantoprazole 40 Mg Delayed Release Tablet PO 06/30/24 07:59 40 mg
DAILY GARRETT Administration
Patch Removal 0 patch 06/02/24 20:00 06/07/24 19:33
Remove Lidocaine Patch REMOVE 06/30/24 19:59 1 patch
DAILY@2000 GARRETT Administration
Rosuvastatin Calcium 10 mg 06/02/24 08:00 06/08/24 09:20
Rosuvastatin (Crestor) 10 Mg Tablet PO 06/30/24 07:59 10 mg
DAILY GARRETT Administration
Sodium Chloride 0 flush 06/01/24 20:00
Sodium Chloride 0.9% (Flush) Syringe IV 06/29/24 19:59
PER PROTOCOL GARRETT
Sodium Chloride 10 ml 06/09/24 08:00
Sodium Chloride (4 Meq/Ml) 30 Ml Vial *For Hemodialysis* IV 06/09/24 23:59
HD-Q1HPRN PRN
cramps
Vitamin C/Vitamin E 1 cap 06/01/24 20:00 06/08/24 09:19
Vit C/Vit E/Lutein/Min/[place]-3 (Ocuvite) Capsule PO 06/29/24 19:59 1 cap
BID GARRETT Administration
Home Medications
�Medication �Instructions �Recorded
amlodipine 10 mg tablet 10 mg PO DAILY Blood pressure 08/29/09
ezetimibe 10 mg tablet 10 mg PO DAILY High cholesterol 08/29/09
metoprolol succinate 50 mg 50 mg PO BID Blood pressure 04/01/16
tablet,extended release 24 hr
pantoprazole 40 mg tablet,delayed 40 mg PO DAILY Gastrointestinal 04/01/16
release issue
rosuvastatin 20 mg tablet 20 mg PO DAILY High cholesterol 04/01/16
tamsulosin 0.4 mg capsule 0.4 mg PO HS Urinary issue 04/01/16
clopidogrel 75 mg tablet 75 mg PO DAILY Blood clot 08/03/20
prevention/tx
acetaminophen 650 mg 650 mg PO DAILYPRN PRN mild pain 04/28/24
tablet,extended release
vitamins A,C,Z-aaru-ouvukz 4,296 1 cap PO BID Supplement 04/28/24
mcg-226 mg-90 mg capsule
(PreserVision AREDS)
sodium bicarbonate 650 mg tablet 1,300 mg PO TID Electrolyte 06/01/24
Repletion
--- NOTE | 2024-06-08 09:51 | PHA.VAN.FU ---
Vancomycin Assessment / Plan
- Assessment
Hemodialysis Schedule: MWF
Last Hemodialysis performed: Mon 06/07
- Dosing Plan
Dosing by Level: Hold off on dosing today
- Monitoring Plan
Random Level: 06/09 prior to HD
- Follow Up
Pharmacy will continue to follow.
Vancomycin Follow UP
- -
Patient Age: 88
Patient Sex: Male
Vancomycin Day #: 4
Indication: Pulmonary/Respiratory
Requesting Provider: Hoa Meraz
Pertinent Antimicrobial Allergies:
no pertinent antibiotic allergies
Height / Weight:
Height 5 ft 11 in
Actual Weight 72.9 kg
Pertinent Past Medical History: CKD now requiring HD
- Vital Signs / Lab Results
Temp Pulse Resp BP Pulse Ox
97.9 F 54 18 97/61 98
06/08/24 07:02 06/08/24 04:00 06/08/24 04:00 06/08/24 04:00 06/08/24 04:00
Lab Results - Hematology
06/06/24 06/07/24
01:45 04:34
WBC 11.1 H 12.5 H
Lab Results - Chemistry
06/06/24 06/07/24
01:45 04:34
BUN 108 H* 86 H
Creatinine 5.9 H* 5.0 H*
Estimated Creat Clear 10 11
06/05/24 06/06/24 06/06/24
18:38 01:45 06:30
Lactic Acid 2.7 H 1.0 Cancelled
Microbiology Results
06/05/24 11:11 Blood Culture - Preliminary
Blood/Venous Enterococcus species
Gram Stain - Final
06/05/24 11:01 Blood Culture - Preliminary
Blood/Venous Positive culture in progress
Gram Stain - Final
06/07/24 04:46 Blood Culture - Preliminary
Blood/Venous Positive culture in progress
Gram Stain - Preliminary
06/07/24 04:34 Blood Culture - Preliminary
Blood/Venous Positive culture in progress
Gram Stain - Preliminary
06/05/24 18:38 MRSA Screen - Final
Throat/Pharynx No Methicillin Resistant Staphylococcus aureus isolated.
06/05/24 18:38 Nasal Screen MRSA (PCR) - Final
Nose MRSA not detected - performed by PCR methodology.
06/05/24 18:38 Legionella Urinary Antigen - Final
Urine Negative for Legionella pneumophila Serogroup 1 antigen.
A negative result does not rule out the possiblity of
Legionella infection due to other serogroups or species of
Legionella. Clinical correlation is recommended.
Streptococcus pneumoniae Antigen (M - Final
Negative for Streptococcus pneumoniae antigen.
A negative result does not exclude infection with
Streptococcus pneumoniae. Clinical correlation is
recommended.
Therapeutic Drug Monitoring
Random Vancomycin 10.0 ug/ml 06/07/24 04:34
--- NOTE | 2024-06-08 09:51 | W.PN.ID1 ---
Addendum entered and electronically signed by Pamella Meraz MD 06/08/24 13:07:
I spent about 15 minutes with patient and adult son Alejandro on rounds explaining in detail patients diagnosis and plan. Alejandro relayed that he would share with his family.
This afternoon I was surprised to be approached by patients nurse with concern that 'family wasnt being updated with the plan.'
I called patients Cheyanne - explained the above and clarified that I am only able to update 1 'point person' in the family per day and they will need to establish that person. Cheyanne and daughter agreed that Cheyanne will be that person.
Cheyanne was surprised to learn that I typically round on the step down unit before noon and wasnt sure she would physically be there by that time. While I am on service if she is not in the room we will call her from patients cell phone at most
twice and if no answer then they will need to wait for the next day or access the patients portal and read my note. The community relations representative can assist with portal access. I expressed clearly that I am only speaking for myself as the [facility] portal consultant and not
anyone else. I shared this conversation with the hospitalist Dr Montoya as well.
Original Note:
Date of Service
Date of Service: June 08, 2024
Today's Communication
plan 6 weeks of IV therapy follow by suppression
no evidence of suprainfection of his numerous devices at this time though at high risk for seeding and I will plan suppression
continue vancomycin add ampicillin
outpatient colonoscopy
Assessment / Plan
Enterococcal bacteremia - persistent
S/p Pacemaker - no evidence of infection
s/p TAVR
ESRD, HD via permacath
Diverticulosis
- repeat blood cultures x2 q48 hours until persistently cleared - ordered
- source was likely initially GI, could well have seeded other locations. CT nonrevealing, eventual outpatient colonoscopy, was last done 2017
- TTE - calcified MV, no definite vegetations; given persistent bacteremia will plan 6 weeks of IV therapy followed by oral suppression
- close attention to pacemaker on physical exam
- permacath placed the day before onset of bacteremia - seems less likely to be the source though possibly secondarily infected particularly as enterococcus forms biofilms, would like to see removal/replacement at some point particularly if unable
to clear the bacteremia. He has multiple endovascular devices (TAVR, pacemaker leads and the line) making the decision/management more complicated. Discussed with nephrology same day
- eventual outpatient colonoscopy to continue workup for inital source
- continue with vancomycin pending final ID and sensi of the enterococcus
- add ampicillin 2 gm iv q12 - renally dosed
- follow clinically
Chief Complaint
-: Bacteremia
Subjective / Review of Systems
afebrile
bp overall stable
no new complaints, shoulder pain ongoing
Vital Signs / Physical Exam
Vital Signs
Vital Signs
Temp Pulse Resp BP Pulse Ox
97.9 F 54 18 97/61 98
06/08/24 07:02 06/08/24 04:00 06/08/24 04:00 06/08/24 04:00 06/08/24 04:00
Physical Exam
Constitutional: No Acute Distress and Chronically Ill
Cardiovascular: Regular Rate and S1/S2; Negative Murmur or Rub
Pulmonary: Clear and Symmetric; Negative Wheezes or Rales
Gastrointestinal: Soft, Non Tender, Non Distended and Normal Bowel Sounds
Extremities: Other (tenderness in the R shoulder but no effusion, redness or warmth)
Musculoskeletal: Other (bilateral knees no redness swelling or tenderness)
Skin: Warm and Dry; Negative Rash or Jaundice
Lines: HD Cath (no redness, swelling or tendernes) and Other (pacemaker: no redness, swelling or tendernes)
Objective Data
Lab Data
Lab Results
06/07/24 04:34
06/07/24 04:34
Estimated Creat Clear 11 ml/min 06/07/24 04:34
Lactic Acid Cancelled 06/06/24 06:30
Total Bilirubin 0.9 mg/dl (0.2-1.3) 06/01/24 11:49
AST 37 U/L (17-59) 06/01/24 11:49
ALT 27 U/L (0-50) 06/01/24 11:49
Alkaline Phosphatase 61 U/L (38-126) 06/01/24 11:49
Most recent labs reviewed.
Micro Results:
06/05/24 11:11 Blood Culture - Preliminary
Blood/Venous Enterococcus species
Gram Stain - Final
06/05/24 11:01 Blood Culture - Preliminary
Blood/Venous Positive culture in progress
Gram Stain - Final
06/07/24 04:46 Blood Culture - Preliminary
Blood/Venous Positive culture in progress
Gram Stain - Preliminary
06/07/24 04:34 Blood Culture - Preliminary
Blood/Venous Positive culture in progress
Gram Stain - Preliminary
06/05/24 18:38 MRSA Screen - Final
Throat/Pharynx No Methicillin Resistant Staphylococcus aureus isolated.
06/05/24 18:38 Nasal Screen MRSA (PCR) - Final
Nose MRSA not detected - performed by PCR methodology.
06/05/24 18:38 Legionella Urinary Antigen - Final
Urine Negative for Legionella pneumophila Serogroup 1 antigen.
A negative result does not rule out the possiblity of
Legionella infection due to other serogroups or species of
Legionella. Clinical correlation is recommended.
Streptococcus pneumoniae Antigen (M - Final
Negative for Streptococcus pneumoniae antigen.
A negative result does not exclude infection with
Streptococcus pneumoniae. Clinical correlation is
recommended.
Care Review
Plan reviewed with: Physician (Dr Alejandre - persistent bacteremia)
--- NOTE | 2024-06-08 10:13 | W.PN.HOSP.TC ---
Today's Communication/Plan
-
Repeat blood cultures ordered
Neurology evaluation
Continue vancomycin
Encourage out of bed
PT OT every day
Assessment / Plan
Assessment / Plan
88yo M with difficulty with moving. Son at bedside giving me history [place] and then had a fever. Patient then had difficulty moving and had to be brought to the emergency room in
an ambulance. He also had some pain patient is not able to describe exactly where the pain is. Pain is mostly in the arms with movement but no muscle tenderness
Echo 06/03/2024-LV mildly dilated. Mild LVH. Moderately reduced LV systolic function. Left ventricular ejection fraction 34%. Global hypokinesis. Stage II diastolic dysfunction suggestive of abnormal relaxation and increased filling pressures.
Mildly enlarged RV. Dense mitral annular calcification. Thickened mitral valve leaflets. Posterior leaflet appears calcified and restricted. Mild to moderate mitral stenosis. Mild to moderate MR. Status post TAVR. Mild to moderate TR.
Pulmonary artery pressure 44 mmHg. Small circumferential pericardial fusion without evidence of hemodynamic compromise. Since November 2023 LVEF has decreased from 50% to 34%.
06/04/24-Lumbar spine MRI-multilevel degenerative changes.Worst at L2-L3 where disc and facet disease contribute to severe spinal canal and moderate bilateral neural foraminal stenosis. Severe left-sided neuroforaminal stenosis L4/L5.
06/04/24-C-spine MRI-Motion degraded. Only marginally improved compared to 06/02/2024. 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 Focal mild myelomalacia C3/C4. No overt cord edema.
06/02/24-Thoracic spine MRI-multilevel changes. Advanced degenerative disc space narrowing with reactive Modic type I reactive signal alteration T8/T9 and T9/T10. Moderate to advanced central stenosis T9/T10 and T10/T11. No evidence of thoracic
cord signal alteration.
CT abdomen and pelvis 06/01/2024-prostatomegaly with bladder diverticulum and concentric thickening of the wall of the urinary bladder consistent with partial bladder outlet obstruction. Multicystic kidneys with multiple small bilateral
nonobstructing renal calculi. Stable hepatic cysts up to 5 cm. Atherosclerosis with fusiform aneurysmal dilatation of the infrarenal abdominal aorta 3 cm. Severe multilevel DJD.
Awake alert and conversant. Able to give me history
Cardiovascular system S1-S2 appreciated, systolic murmur and diastolic murmur at apex
Extremity no edema
Neuro exam-no facial droop, sensory exam bilateral upper extremity and lower extremity unremarkable. Bilateral thenar and hypothenar muscle wasting on hands. Unable to raise arms today about shoulder. He is able to plantarflex and dorsiflex.
Decreased grasp in both hands. Proximal muscle weakness also noted. No muscle tenderness. No joint tenderness or redness noted.
# Weakness of upper extremity and to an extent lower extremity also
Pain reported
Check sed rate and CRP
? Polymyalgia rheumatica
Trial of 20 mg of prednisone to treat and see if it gets better-if not we will discontinue.
Discussed this with patient and son both agreeable.
Also request neurology evaluation
If not better may need EMG
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
Continue supplemental oxygen, BiPAP as needed
#APKD
Metabolic acidosis better
Right chest wall permacath placed on 06/04/24
Started on hemodialysis 06/05/2024
End-stage renal disease
# Sepsis with enterococcal bacteremia
No clear source identified at present
TTE showed mitral calcifications
On Vanco
ID following
Follow cultures
Unlikely CAUTI since developed <24 after permacath insertion. Site of insertion not inflamed.
Colonoscopy 2018-polyps and diverticulosis.
#Dizziness
CT head neg for acute pathology
PCP stopped finasteride as outpatient
#Acute toxic metabolic encephalopathy
Resolved
#Back pain, most likely sciatica with multilevel disk narrowing on CT
B/L UE pain and weakness, cervical spine MRI noted
Pain mgmt
Muscle relaxants
PT/OT
Neurosurgery consulted and following.
Patient has a history of L4-L5 surgery in the past
Unclear if this is likely secondary to uremia.
# Cardiomyopathy-new ejection fraction 34% by echo 06/03/2024.
Continue Toprol. Not candidate for segundo/arb/Arni/Aldactone/SGLT2 inhibitor due to renal failure
Ischemic evaluation planned at a later date
# Pacemaker placement 2019
# History of TAVR 2019
# History of TIA/CVA-continue Plavix and statin
# Moderate bilateral carotid disease
# Essential HTN-continue metoprolol. Norvasc on Hold.
# Hyperlipidemia-continue Zetia/Crestor
# Prostatomegaly with bladder diverticulum- Tamsulosin/finasteride on hold .Continue Rutledge
# Anemia of chronic disease
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
# Multiple hepatic cysts
# JEANIE-cont CPAP
# GERD/peptic ulcer disease-continue PPI
# Ex-smoker
# DVT ppx -SC hep
# Full code
Called on [phone]- was not able to reach
D/W RN
D/W son at bed side
D/W cardiology at bed side
Time spent over 51 min
Anticipated Discharge: > 48 hours
Subjective/Interval History
-
Date of Service: June 08, 2024
Objective Data
-
Vital Signs:
Vital Signs
Temp Pulse Resp BP Pulse Ox
97.9 F 53 16 93/55 97
06/08/24 07:02 06/08/24 08:00 06/08/24 08:00 06/08/24 08:00 06/08/24 08:53
I&O
06/07/24 06/08/24 06/09/24
06:59 06:59 06:59
Intake Total 930 / 930
Output Total 580 / 580 425 / 425
Balance 350 / 350 -425 / -425
[2024-06-08 11:05] LABS: Creatine Phosphokinase 37 U/L (55-170)
--- NOTE | 2024-06-08 11:20 | CM ---
Addendum entered by Faby Benito RN 06/08/24 15:51:
Met with patient, Cheyanne and daughter Fátima; discussed that [employer] will be seeing him to [facility] for [facility].
and daughter agree to a referral to [facility] for [place] [facility].
They have spoken with Dr Meraz and are aware that the patient will need a 6 wk course of IV Abx.
The wishes to remain as the primary contact. Fátima suggests that patient's son Axel, who lives nearby, should be the 2ndary contact- his ph [phone]. Fátima says the son that visited here this morning was Alejandro, who primarily lives in
[place]. The patient has 4 children. Fátima lives 1.5 hrs away.
Spoke with [facility]; initiated referral. Clinicals sent via Active Fax.
Plan follow up with [facility] for HD chair and clearance.
Plan follow patient's IV Abx needs post d/c.
Plan follow up after seen by Physiatry.
Original Note:
Patient with Dx extremity weakness/back pain, Acute hypoxic respiratory failure 2/2 pulmonary edema 2/2 LUCIANO, APKD, sepsis, acute TME, cardiomyopathy. O2 2L, CPAP. Receiving IV Abx.
PT; assist of 2, not doing transfers/ambulation, rec acute rehab.
OT 06/02; assist of 2, dependent LB self care, rec acute vs skilled rehab.
Physiatry Consult pending.
Per ID: plan 6 weeks of IV therapy for bacteremia.
Spoke with [facility]; discussed patient's clinical/functional status. She is aware Physiatry Consult is pending. Patient will need outpatient HD setup completed prior to going to [facility].
Spoke with patient's Cheyanne; asked to have update from MD- informed her would send message to Dr Montoya with her request---> sent via TT and Dr Montoya responded saying she spoke with son earlier today.
Provided update to that [employer] would see her for decision if [facility] could accept. says she is unsure if they would want patient to return home after rehab if his mobility does not improve, or be placed into penitentiary care.
Message from Dr Gutiérrez; Dx is ESRD and ok to refer to [facility] [place] [facility].
Message from nurse Karina; son was here this morning however name/phone # not available.
Plan referral to [facility] for Outpt HD.
Plan follow patient's IV Abx needs post d/c.
Plan follow up after seen by Physiatry.
[2024-06-08 11:39] LABS: TSH Reflex To Free T4 1.58 uIU/ml (0.47-4.68)
[2024-06-08 12:11] LABS: Folate > 20.0 ng/ml (2.76-20); Vitamin B12 895 pg/ml (239-931)
[2024-06-08] MEDS: AMPICILLIN 108 MG IV ×2 (12:11→23:15)
[2024-06-08] MEDS: DELTASONE 20 MG PO (12:13)
[2024-06-08 14:09] LABS: Erythrocyte Sed Rate 22 mm/hour (0-20)
--- NOTE | 2024-06-08 14:15 | W.PN.UPDATE ---
Update Note
Progress Note Update
Met with patient's at bedside and explained in detail regarding his medical conditions. She is aware that he has a very serious bloodstream infection which is hard to clear. Also discussed about his other conditions including the heart,
dialysis, weakness. Plan for care.
All questions answered. She requested that she be the spinneret person and not her children from now on
Case discussed with infectious disease, nephrology and neurology.
--- NOTE | 2024-06-08 15:44 | PTCARENOTE ---
Pt presents as assessed. Pt's family voicing concerns that pt needs more assistance with meals and pt is having difficulty pressing call button. director of nursing and information systems supervisor made aware. Director Ehs to unit to speak with family. Tap eisenberg placed in
patients room. Meal assistance provided, will pass on to oncoming shift as well. Updated on plan of care. Q2T maintained.
--- NOTE | 2024-06-08 15:59 | CON.MD ---
Documented by User: Judith Flores PA-C 06/09/24 19:38
Consultation - Medical
-
Referring Provider: Wilfredo Clark
Chief Complaint: Weakness and pain, debility
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
maintained on sodium bicarbonate therapy, BPH with obstructive uropathy with mcmanus removal a few weeks ago) who has presented to the hospital on 06/01/24 with report of severe low back pain. Patient reports a one month history of muscle discomfort
with exertion. About 7-10 days ago he reports that bilateral arms and legs became weak and he needed to start using a rolling walker. At baseline he walks without an assistive device. Currently, he reports he is unable to bear his own weight. One
day prior to arrival he was noted to have dizziness and his finesteride was discontinued. ON 06/04/24 a HD permacath was inserted. On 06/05/24 he spiked a fever to 102.8 and blood cultures were positive. MRI cervical, thoracic, and lumbar spine show
multilevel degeneration without significant spinal cord compression to explain patient's symptoms. He denies any swallowing difficulty or bladder/bowel difficulty. He denies any headache, dizziness, vision changes, speech difficulty, numbness, chest
pain, palpitations, and shortness of breath. He is taking Plavix 75mg daily.
Neurosurgery: patient remains diffusely weak in UE and LE's. He has pain all over his body. Weakness, burning paresthesias, back pain, neck pain. Repeat MRI doesn't show severe spinal cord compression or abnormal spinal cord signal to explain his
symptoms. Unclear at this point whether this is or isn't a cervical spine process. To consider surgery if no metabolic or infectious process found.
06/03- Acute hypoxic respiratory failure 2/2 pulmonary edema 2/2 LUCIANO on CKD stage 5. Recently had vascular access placed if dialysis is needed. Echo results noted low EF 34%. HD to be started.
Cardio:worsening function and dyspnea. Repeat TTE noted reduced LVEF 35-40%. HD per nephrology to start this weekend via tunneled catheter. Continue Beta Roland. GDMT limited due to renal failure and hypotension. Not currently a candidate for
segundo/arb/arni/aldactone/SGLT2 inhibitor due to ESRD. May require ischemic evaluation when stable from renal standpoint to uncover possible etiology of new cardiomyopathy; if non-ischemic, may require device upgrade with possible pacing induced CM
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
Per neurology:Abrupt onset of proximal upper and lower extremity weakness and pain associated with onset of uremia. 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
Neurosurgery notes that weakness likely secondary to uremia. No plan for neurosurgical intervention.
Patient remains with pain all over body on oxycodone
Bacteremia with abx as per ID and primary service. Cont supportive care.
06/09- nephrology: Has limited options of dialysis access since pacer on left side and HD catheter on right side
As per ID if bacteremia does not clear likely exchanging catheter is the option. Awaiting culture results.
06/09- MRI of Brain done today reveals- numerous small foci of restricted diffusion involving the bilateral cerebellar hemispheres, bilateral frontal lobes, left parietal and left occipital lobes consistent with acute infarctions. Given the
distribution this may be embolic in nature. No evidence of acute intracranial hemorrhage.
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
Procedure History: L4, L5 Laminectomy, bilateral knee replacement, TAVR, pacemaker, left carpal tunnel release,
Family History: non contributory
Social History:
Functional Level Premorbidly: Independent with all activities
Functional Level Currently: ADL status�dependent self-care unable to hold items secondary to pain, bed mobility�max assist. fatigue requiring assist to maintain upright posture sitting at edge of bed after 10 minutes. Unable to stand and transfer
due to weakness and pain. Cannot yet residential glazier walker handles, and has joint pain throughout with movement. Standing not attempted yet due to pain and weakness
Tobacco: Former smoker
Alcohol: Occasional alcohol.
Drug use: Denies
Lives with: Spouse
24-hour assistance available:
Number of floors: 2
# steps to enter: 3
# steps to second floor: 10 steps
Potential First floor set up: Bathroom first floor
Driving: Yes
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
�
Allergies:
Allergy/AdvReac Type Severity Reaction Status Date / Time
celecoxib [From Celebrex] Allergy GI bleed Verified 06/01/24 11:05
Review of Systems:
Constitutional: (x) Normal _
Eye: (x) Normal _
Ear/Nose/Throat: (x) Normal _
Respiratory: (x) Normal _
Cardiovascular: (x) Normal _
Gastrointestinal: (x) Normal _
Genitourinary: (x) Normal _
Musculoskeletal: (x) Normal _
Integumentary: (x) Normal _
Neurologic: (x) weakness neuropathy pain, cva
Psychiatric: (x) Normal _
Endocrine: (x) Normal _
Hematologic/Lymphatic: (x) Normal _
Allergic/Immunologic: (x) Normal _
Medications:
Active Current Visit Medication List
Category Date Time Status
Acetaminophen [Tylenol] Med 06/01/24 19:15 Active
1,000 mg PO Q6HPRN PRN
Amlodipine [Norvasc] Med 06/02/24 08:00 Hold
10 mg PO DAILY
Ampicillin 2,000 mg Med 06/08/24 12:00 Active
0.9% Sodium Chloride 100 ml [Nss] 100 ml
IV Q12H
Clopidogrel Bisulfate [Plavix] Med 06/02/24 08:00 Active
75 mg PO DAILY
Cyclobenzaprine HCl [Flexeril] Med 06/01/24 19:15 Active
5 mg PO Q8HPRN PRN
Ezetimibe [Zetia] Med 06/02/24 08:00 Active
10 mg PO DAILY
Flush (0.9% Sodium Chloride) [Flush (Nss)] Med 06/01/24 20:00 Active
See Dose Instructions IV PER PROTOCOL
Heparin Med 06/02/24 00:00 Active
5,000 units SC Q8
Lidocaine [Lidocaine 4% Patch] Med 06/02/24 08:00 Active
1 patch TOPICAL DAILY
Mannitol 25% Med 06/09/24 08:00 Active
12.5 grams IV HD-Q1HPRN PRN
Metoprolol Xl [Toprol Xl] Med 06/01/24 20:00 Active
50 mg PO BID
Oxycodone [Roxicodone] Med 06/01/24 19:15 Active
2.5 mg PO Q6HPRN PRN
Oxycodone [Roxicodone] Med 06/01/24 19:15 Active
5 mg PO Q6HPRN PRN
Pantoprazole [Protonix] Med 06/02/24 08:00 Active
40 mg PO DAILY
Remove Patch [Remove Lidocaine Patch] Med 06/02/24 20:00 Active
See Dose Instructions REMOVE DAILY@1999
Rosuvastatin Calcium [Crestor] Med 06/02/24 08:00 Active
10 mg PO DAILY
Sodium Chloride [Sodium Chloride 4 Meq/ml For Med 06/09/24 08:00 Active
Hemodialysis]
10 ml IV HD-Q1HPRN PRN
VANCOMYCIN Pharmacy to Dose [VANCOCIN Pharmacy to Dose] Med 06/05/24 12:00 Active
1 each
Pharmacy To Prepare [Call Pharmacy To Prepare] 0
ml
IV PER PROTOCOL
Vit C/Vit E/Lutein/Min/Beulah-3 [Ocuvite Softgel] Med 06/01/24 20:00 Active
1 cap PO BID
Vitals:
Temp Pulse Resp BP Pulse Ox
97.3 F 69 14 103/64 99
06/09/24 03:07 06/09/24 08:13 06/09/24 06:00 06/09/24 08:13 06/09/24 08:21
Height 5 ft 11 in
Actual Weight 74.7 kg
Body Mass Index (BMI) 23.0
Physical Exam:
General Appearance/Observation: Well-developed, well-nourished individual in no apparent distress. Resting in bed with warm blankets having HD
Pain/Comfort Assessment: neuropathic pain, joints pain
Mood/Affect: Appropriate, pleasant
Integumentary/Operative Site:
�� Pressure Ulcer Evaluation: absent over heels.
��
�� Other Type of Wound: pace on left side, HD cath on right side
�
Eyes: Conjunctiva/Lids: normal ��� Pupils: pupils equal round and reactive to light and Accommodation
Ears/Nose/Throat: oral mucosa moist,� throat clear.������������ Lips/Teeth/Gums: normal
Neck: No muscle spasm or tenderness
Cardiovascular: Heart: regular, no murmur
Pulses: dorsalis pedis 1+ bilaterally
Respiratory: Respiratory Effort/Chest Expansion: normal ������� Auscultation: Clear to auscultation bilaterally
Gastrointestinal: abdomen not tender, no distension, normal abdominal bowel sounds
Genitourinary: Mcmanus
Extremities: Edema: None Cyanosis: None Trophic changes: None
Neurology Exam:
Orientation: Alert, Oriented to self, Time, Place
Memory: Intact for immediate medical concerns
Higher cortical function
Repetition: NT
Comprehension: Intact
Two step command: Intact
Naming: Intact
Cranial Nerves:
�� CNII: Pupillary light reflex: Intact��� Visual Field: NT
�� CN III, IV, : Extraocular muscles: Intact
�� CN V: Facial Sensation at Forehead: Intact, Maxilla: Intact, Mandible: Intact
�� CN VII: Facial movement: Symmetric
�� CN VIII: Hearing: Normal
�� CN IX/X: Speech & swallow: Normal, Position of Uvula: Midline
�� CN XI: Shoulder shrug: Symmetric
�� CN XII: Tongue protrusion: Midline
Sensory:
�� Light touch: Intact in bilateral upper and lower extremities. No allodynia, no dysesthesia
��
Reflexes:
�� Biceps: absent bilaterally
�� Brachioradialis: absent+ bilaterally
�� Triceps: absent bilaterally
�� Patellar: 1+ bilaterally
�� Achilles: absent bilaterally
�� Babinski: Down going bilaterally
�� Clonus: NT
�� cerebellar: Dysmetria/Ataxia: NT
Musculoskeletal:
Motor: (Manual muscle scale 0-5)
Muscle SA EF WE EE FF FA HF KE DF EHL PF
Right� 2 2 2 2 2 2 2 2 2 NT 2
Left 2 2 2 2 2 2 2 2 2 NT 2
No muscular pain with touch or palpation. Pain with movement , range of motion of joints.
Tone: Normal in all extremities
Range of Motion: NT due to HD and pain
Lab Results
Labs
WBC 13.6 10^3/uL (4.8-10.8) H 06/09/24 07:24
RBC 3.70 10^6/uL (4.70-6.10) L 06/09/24 07:24
Hgb 10.4 g/dL (13.0-18.0) L 06/09/24 07:24
Hct 32.1 % (39.0-52.0) L 06/09/24 07:24
MCV 86.8 fL (80.0-94.0) 06/09/24 07:24
MCH 28.1 pg (27.0-31.0) 06/09/24 07:24
MCHC 32.4 g/dL (33.0-37.0) L 06/09/24 07:24
RDW 15.9 % (11.5-14.5) H 06/09/24 07:24
Plt Count 242 10^3/uL (130-400) D 06/09/24 07:24
MPV 12.6 fL (7.4-10.4) H 06/09/24 07:24
Abs Immat Gran (auto) 0.1 10^3/uL (0-0.05) H 06/07/24 04:34
Absolute Neuts (auto) 7.7 10^3/uL (1.4-6.5) H 06/07/24 04:34
Absolute Lymphs (auto) 4.0 10^3/uL (1.2-3.4) H 06/07/24 04:34
Absolute Monos (auto) 0.7 10^3/uL (0.1-0.6) H 06/07/24 04:34
Absolute Eos (auto) 0.0 10^3/uL (0-0.7) 06/07/24 04:34
Absolute Basos (auto) 0.0 10^3/uL (0-0.2) 06/07/24 04:34
CBC Comment Cancelled 06/09/24 06:00
Immature Gran % 0.6 % (0-0.5) H 06/07/24 04:34
Neutrophils % 61.7 % (42.2-75.2) 06/07/24 04:34
Lymphocytes % 32.0 % (20.5-51.1) 06/07/24 04:34
Monocytes % 5.4 % (1.7-9.3) 06/07/24 04:34
Eosinophils % 0.2 % (0-6) 06/07/24 04:34
Basophils % 0.1 % (0-2) 06/07/24 04:34
Nucleated RBC % 0 % (-) 06/07/24 04:34
ESR 22 mm/hour (0-20) H 06/08/24 11:26
VBG pH 7.37 (7.32-7.43) 06/04/24 07:07
VBG pCO2 28 mmHg (35-48) L 06/04/24 07:07
VBG pO2 94 mmHg (30-50) H 06/04/24 07:07
VBG HCO3 16.2 mmol/L (22-27) L 06/04/24 07:07
VBG O2 Sat (Dajuan) 98.7 % 06/04/24 07:07
VBG Base Excess -7.8 mmol/L (-4 to +4) 06/04/24 07:07
VBG O2 Therapy Cpap 06/04/24 07:07
Sodium 135 mmol/L (135-145) 06/09/24 07:24
Potassium 3.4 mmol/L (3.5-5.1) L 06/09/24 07:24
Chloride 99 mmol/L (98-107) 06/09/24 07:24
Carbon Dioxide 26 mmol/L (22-30) 06/09/24 07:24
BUN 76 mg/dl (9-20) H 06/09/24 07:24
Creatinine 4.8 mg/dL (0.7-1.3) H* 06/09/24 07:24
Estimated Creat Clear 12 ml/min 06/09/24 07:24
eGFR 11.16 06/09/24 07:24
Glucose 169 mg/dl (70-99) H 06/09/24 07:24
Lactic Acid Cancelled 06/06/24 06:30
Calcium 9.0 mg/dl (8.4-10.2) 06/09/24 07:24
Iron 22 ug/dl (49-181) L 06/03/24 08:25
TIBC 174 ug/dl (261-462) L 06/03/24 08:25
% Saturation 12 % (20-50) L 06/03/24 08:25
Ferritin 210.0 ng/ml (17.9-464.0) 06/07/24 04:34
Total Bilirubin 0.9 mg/dl (0.2-1.3) 06/01/24 11:49
AST 37 U/L (17-59) 06/01/24 11:49
ALT 27 U/L (0-50) 06/01/24 11:49
Alkaline Phosphatase 61 U/L (38-126) 06/01/24 11:49
Creatine Kinase 37 U/L (55-170) L 06/07/24 04:34
C-Reactive Protein 154.40 mg/L (0.0-10.00) H 06/07/24 04:34
Total Protein 6.1 g/dl (6.3-8.2) L 06/01/24 11:49
Albumin 3.7 g/dl (3.5-5.0) 06/01/24 11:49
Vitamin B12 895 pg/ml (239-931) 06/07/24 04:34
Folate > 20.0 ng/ml (2.76-20) H 06/07/24 04:34
TSH (Reflex) 1.58 uIU/ml (0.47-4.68) 06/07/24 04:34
Urine Color Yellow 06/05/24 11:01
Urine Clarity Clear (Clear) 06/05/24 11:01
Urine pH 5.0 (5.0-9.0) 06/05/24 11:01
Ur Specific [place] 1.020 (<1.030) 06/05/24 11:01
Urine Ketones Trace (Negative) A 06/05/24 11:01
Ur Occult Blood Reflex 1+ (Negative) A 06/05/24 11:01
Urine Nitrite (Reflex) Negative (Negative) 06/05/24 11:01
Urine Bilirubin Negative (Negative) 06/05/24 11:01
Urine Urobilinogen Negative (Neg - 1+) 06/05/24 11:01
Leukocyte Esterase Rfl Trace (Negative) A 06/05/24 11:01
Urine RBC 7-10 /HPF (0-2) A 06/05/24 11:01
Urine WBC (Reflex) 3-5 /HPF (0-5) 06/05/24 11:01
Ur Squamous Epith Cells 3-5 /LPF (Few) 06/05/24 11:01
Urine Bacteria (Reflex) Few (Negative) A 06/05/24 11:01
Urine Mucus Few 06/05/24 11:01
Urine Glucose Negative (Negative) 06/05/24 11:01
Urine Albumin (Reflex) 1+ (Neg - Trace) A 06/05/24 11:01
Random Vancomycin 8.7 ug/ml 06/09/24 06:20
HARRY IgG Screen Cancelled 06/07/24 04:34
Hep Bs Antigen Negative (Negative) 06/04/24 07:07
Hep Bs Antibody Negative 06/04/24 07:07
Hep B Core Total Ab Negative (Negative) 06/04/24 07:07
Hepatitis C Antibody Negative (Negative) 06/04/24 07:07
�
Diagnostic Results: as per HPI
Assessment
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
few weeks ago) currently with bilateral UE and LE weakness and pain. 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
Plan
PT/OT to increase independence with ADLs, improve balance, coordination, endurance, strength, mobility, community reintegration, decreased burden of care on others and family education.
CVA: Brain CXG-[id number] small foci of restricted diffusion involving the bilateral cerebellar hemispheres, bilateral frontal lobes, left parietal and left occipital lobes consistent with acute infarctions. Given the distribution this may be
embolic in nature. No evidence of acute intracranial hemorrhage.
Peripheral neuropathy/weakness: Neuro:normal, B12, TSH, A1c. unclear etiology, but very likely due to CKD slowly worsened over the years. symptoms and course not consistent with Guillain-Thao� syndrome. Weakness also in part due to sepsis/infection
and new dialysis needs. Best avenue for improving his neuropathy is dialysis and treatment of CKD. Neurology-does not think neuropathy will resolve completely even with dialysis
Enterococcus bacteremia:Gram Positive bacteremia. Permacath placed the day before onset of bacteremia - seems less likely to be the source. No skin lesions, pacemaker without signs of inflammation. S/p Pacemaker - no evidence of infection.
Ampicillin sodium 2000 mg IV q 12 . 06/09-received one time vancomycin 1gram IV HD
ESRD: satrted HD
HTN: Amlodipine 10 mg daily, metoprolol succinate 50 mg twice daily
HLD: Zetia 10 mg daily, Crestor 10 mg daily
Coronary artery disease : Aspirin, statin, beta-roland
Anemia: Likely multifactorial.� Continue to monitor.
Hypokalemia: replenish
Psych: Psychology consult.� Monitor mood, adjust medications as needed.
Skin: monitor for pressure sores/rashes/lesions.
Pain: acetaminophen, oxycodone 2.5mg as needed, flexeril
Bowel: Colace and Senna, PRN bisacodyl.
Bladder: Time void, PVRs, PRN straight cath.
GI Prophylaxis: Pantoprazole 40 mg daily
DVT Prophylaxis: Mechanical and Heparin sc q 8 hours
Pulmonary: Incentive spirometry
Safety: Continue to reinforce assistance with all transfers.
Code Status:� Full code
Dispo (date/plan/equipment needs): Home with family care.� Social history reviewed.
Functional and Medical Goals: Modified Independent with ADL�s, ambulation, transfers
Summary of recommendations: Patient with severe weakness and pain complicated by uremia and bacteremia currently on hemodialysis. As of today found to have multiple infarcts by MRI mostly likely embolic in nature, would benefit from Acute
inpatient rehabilitation once he is medically stable from nephrology, cardiology, infectious, and neurology stand and has been able to participate in therapies with decreased pain and improved mobility in order to be able to tolerate 3 hours of
intense acute inpatient therapies.
- Discharge Destination: Acute inpatient Rehab once medically stable from all medical specialties and able to tolerate and progress in recovery and therapies
CVA: Brain MRI- as of today-with numerous small foci of restricted diffusion involving the bilateral cerebellar hemispheres, bilateral frontal lobes, left parietal and left occipital lobes consistent with acute infarctions. Given the distribution
this may be embolic in nature. No evidence of acute intracranial hemorrhage. Continue care per neurology. (SBP less than 180 and diastolic less than 100 for ischemic stroke to participate in therapy)
Peripheral neuropathy/weakness: Neuro:normal, B12, TSH, A1c. unclear etiology, but very likely due to CKD slowly worsened over the years. symptoms and course not consistent with Guillain-Thao� syndrome. Weakness also in part due to sepsis/infection
and new dialysis needs. Best avenue for improving his neuropathy is dialysis and treatment of CKD. Neurology-does not think neuropathy will resolve completely even with dialysis
Enterococcus bacteremia:Gram Positive bacteremia. Permacath placed the day before onset of bacteremia - seems less likely to be the source. No skin lesions, pacemaker without signs of inflammation. S/p Pacemaker - no evidence of infection.
Ampicillin sodium 2000 mg IV q 12 . 06/09-received one time vancomycin 1gram IV HD
HTN: Amlodipine 10 mg daily, metoprolol succinate 50 mg twice daily. Amlodipine-on hold-soft pressure
Bowel: Colace and Senna, PRN bisacodyl.
Bladder: Time void, PVRs, PRN straight cath.
GI Prophylaxis: Pantoprazole 40 mg daily
DVT Prophylaxis: Mechanical and Heparin sc q 8 hours
Pulmonary: Incentive spirometry
Safety: Continue to reinforce assistance with all transfers.
Thank you for allowing me to care for your patient. Please contact me with any questions or concerns.
This note was dictated using a voice recognition system. Please excuse any typographical errors from swing saw operator. If you believe there are any discrepancies, please notify our office.

Documented by User: Jorge Dejesus MD 06/09/24 22:29
Consultation - Medical
-
Referring Provider: Wilfredo Clark
Chief Complaint: Weakness and pain, debility
History of Present Illness: Patient is a 88 year old male past medical history of CKD V due to polycystic kidney with baseline creatinine of 5ish, hypertension, heart block s/p pacemaker ,and aortic stenosis s/p TAVR, chronic metabolic acidosis
maintained on sodium bicarbonate therapy, BPH with obstructive uropathy with mcmanus removal a few weeks ago) who has presented to the hospital on 06/01/24 with report of severe low back pain. Patient reports a one month history of muscle discomfort
with exertion. About 7-10 days ago he reports that bilateral arms and legs became weak and he needed to start using a rolling walker. At baseline he walks without an assistive device. Currently, he reports he is unable to bear his own weight. One
day prior to arrival he was noted to have dizziness and his finasteride was discontinued. ON 06/04/24 a HD permacath was inserted. On 06/05/24 he spiked a fever to 102.8 and blood cultures were positive. MRI cervical, thoracic, and lumbar spine show
multilevel degeneration without significant spinal cord compression to explain patient's symptoms. He denies any swallowing difficulty or bladder/bowel difficulty. He denies any headache, dizziness, vision changes, speech difficulty, numbness, chest
pain, palpitations, and shortness of breath. He is taking Plavix 75mg daily.
Neurosurgery: patient remains diffusely weak in UE and LE's. He has pain all over his body. Weakness, burning paresthesias, back pain, neck pain. Repeat MRI doesn't show severe spinal cord compression or abnormal spinal cord signal to explain his
symptoms. Unclear at this point whether this is or isn't a cervical spine process. To consider surgery if no metabolic or infectious process found.
06/03- Acute hypoxic respiratory failure 2/2 pulmonary edema 2/2 LUCIANO on CKD stage 5. Recently had vascular access placed if dialysis is needed. Echo results noted low EF 34%. HD to be started.
Cardio:worsening function and dyspnea. Repeat TTE noted reduced LVEF 35-40%. HD per nephrology to start this weekend via tunneled catheter. Continue Beta Roland. GDMT limited due to renal failure and hypotension. Not currently a candidate for
segundo/arb/arni/aldactone/SGLT2 inhibitor due to ESRD. May require ischemic evaluation when stable from renal standpoint to uncover possible etiology of new cardiomyopathy; if non-ischemic, may require device upgrade with possible pacing induced CM
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
Per neurology:Abrupt onset of proximal upper and lower extremity weakness and pain associated with onset of uremia. 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
Neurosurgery notes that weakness likely secondary to uremia. No plan for neurosurgical intervention.
Patient remains with pain all over body on oxycodone
Bacteremia with abx as per ID and primary service. Cont supportive care.
06/09- nephrology: Has limited options of dialysis access since pacer on left side and HD catheter on right side
As per ID if bacteremia does not clear likely exchanging catheter is the option. Awaiting culture results.
06/09- MRI of Brain done today reveals- numerous small foci of restricted diffusion involving the bilateral cerebellar hemispheres, bilateral frontal lobes, left parietal and left occipital lobes consistent with acute infarctions. Given the
distribution this may be embolic in nature. No evidence of acute intracranial hemorrhage.
Overall patient and /son note he is doing much better with movement in the arms and legs today.
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
Procedure History: L4, L5 Laminectomy, bilateral knee replacement, TAVR, pacemaker, left carpal tunnel release,
Family History: non contributory
Social History:
Functional Level Premorbidly: Independent with all activities
Functional Level Currently: ADL status�dependent self-care unable to hold items secondary to pain, bed mobility�max assist. fatigue requiring assist to maintain upright posture sitting at edge of bed after 10 minutes. Unable to stand and transfer
due to weakness and pain. Cannot yet residential glazier walker handles, and has joint pain throughout with movement. Standing not attempted yet due to pain and weakness
Tobacco: Former smoker
Alcohol: Occasional alcohol.
Drug use: Denies
Lives with: Spouse
24-hour assistance available:
Number of floors: 2
# steps to enter: 3
# steps to second floor: 10 steps
Potential First floor set up: Bathroom first floor
Driving: Yes
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
Allergies:
Allergy/AdvReac Type Severity Reaction Status Date / Time
celecoxib [From Celebrex] Allergy GI bleed Verified 06/01/24 11:05
Review of Systems:
Constitutional: (x) abNormal _fatigue
Eye: (x) Normal _
Ear/Nose/Throat: (x) Normal _
Respiratory: (x) Normal _
Cardiovascular: (x) Normal _
Gastrointestinal: (x) Normal _
Genitourinary: (x) Normal _
Musculoskeletal: (x) abNormal _ weakness
Integumentary: (x) Normal _
Neurologic: (x) weakness neuropathy pain, cva
Psychiatric: (x) Normal _
Endocrine: (x) Normal _
Hematologic/Lymphatic: (x) Normal _
Allergic/Immunologic: (x) Normal _
Medications:
Active Current Visit Medication List
Category Date Time Status
Acetaminophen [Tylenol] Med 06/01/24 19:15 Active
1,000 mg PO Q6HPRN PRN
Amlodipine [Norvasc] Med 06/02/24 08:00 Hold
10 mg PO DAILY
Ampicillin 2,000 mg Med 06/08/24 12:00 Active
0.9% Sodium Chloride 100 ml [Nss] 100 ml
IV Q12H
Clopidogrel Bisulfate [Plavix] Med 06/02/24 08:00 Active
75 mg PO DAILY
Cyclobenzaprine HCl [Flexeril] Med 06/01/24 19:15 Active
5 mg PO Q8HPRN PRN
Ezetimibe [Zetia] Med 06/02/24 08:00 Active
10 mg PO DAILY
Flush (0.9% Sodium Chloride) [Flush (Nss)] Med 06/01/24 20:00 Active
See Dose Instructions IV PER PROTOCOL
Heparin Med 06/02/24 00:00 Active
5,000 units SC Q8
Lidocaine [Lidocaine 4% Patch] Med 06/02/24 08:00 Active
1 patch TOPICAL DAILY
Mannitol 25% Med 06/09/24 08:00 Active
12.5 grams IV HD-Q1HPRN PRN
Metoprolol Xl [Toprol Xl] Med 06/01/24 20:00 Active
50 mg PO BID
Oxycodone [Roxicodone] Med 06/01/24 19:15 Active
2.5 mg PO Q6HPRN PRN
Oxycodone [Roxicodone] Med 06/01/24 19:15 Active
5 mg PO Q6HPRN PRN
Pantoprazole [Protonix] Med 06/02/24 08:00 Active
40 mg PO DAILY
Remove Patch [Remove Lidocaine Patch] Med 06/02/24 20:00 Active
See Dose Instructions REMOVE DAILY@1999
Rosuvastatin Calcium [Crestor] Med 06/02/24 08:00 Active
10 mg PO DAILY
Sodium Chloride [Sodium Chloride 4 Meq/ml For Med 06/09/24 08:00 Active
Hemodialysis]
10 ml IV HD-Q1HPRN PRN
VANCOMYCIN Pharmacy to Dose [VANCOCIN Pharmacy to Dose] Med 06/05/24 12:00 Active
1 each
Pharmacy To Prepare [Call Pharmacy To Prepare] 0
ml
IV PER PROTOCOL
Vit C/Vit E/Lutein/Min/Beulah-3 [Ocuvite Softgel] Med 06/01/24 20:00 Active
1 cap PO BID
Vitals:
Temp Pulse Resp BP Pulse Ox
97.3 F 69 14 103/64 99
06/09/24 03:07 06/09/24 08:13 06/09/24 06:00 06/09/24 08:13 06/09/24 08:21
Height 5 ft 11 in
Actual Weight 74.7 kg
Body Mass Index (BMI) 23.0
Physical Exam:
General Appearance/Observation: Well-developed, well-nourished male in no apparent distress. Resting in bed with warm blankets having HD
Pain/Comfort Assessment: neuropathic pain, joints pain
Mood/Affect: Appropriate, pleasant
Integumentary/Operative Site:
�� Pressure Ulcer Evaluation: absent over heels.
�� �� Other Type of Wound: pacer on left side, HD cath on right side
�
Eyes: Conjunctiva/Lids: normal ��� Pupils: pupils equal round and reactive to light and Accommodation
Ears/Nose/Throat: oral mucosa moist,� throat clear.������������ Lips/Teeth/Gums: normal
Neck: No muscle spasm or tenderness
Cardiovascular: Heart: regular, no murmur
Pulses: dorsalis pedis 1+ bilaterally
Respiratory: Respiratory Effort/Chest Expansion: normal ������� Auscultation: Clear to auscultation bilaterally
Gastrointestinal: abdomen not tender, no distension, normal abdominal bowel sounds
Genitourinary: Catheter with no urine
Extremities: Edema: None Cyanosis: None Trophic changes: None
Neurology Exam:
Orientation: Alert, Oriented to self, year, Place, not day of week or date
Memory: Intact for immediate medical concerns
Comprehension: Impaired
Two step command: Impaired
Naming: Intact
Cranial Nerves:
�� CNII: Pupillary light reflex: Intact��
�� CN III, IV, : Extraocular muscles: Intact
�� CN V: Facial Sensation at Forehead: Intact, Maxilla: Intact, Mandible: Intact
�� CN VII: Facial movement: Symmetric
�� CN VIII: Hearing: Normal
�� CN IX/X: Speech & swallow: Normal, Position of Uvula: Midline
�� CN XI: Shoulder shrug: Symmetric
�� CN XII: Tongue protrusion: Midline
Sensory:
�� Light touch: Intact in bilateral upper and lower extremities. No allodynia, no dysesthesia
��
Reflexes:
�� Biceps: absent bilaterally
�� Brachioradialis: absent+ bilaterally
�� Triceps: absent bilaterally
�� Patellar: 0 bilaterally
�� Achilles: 0 bilaterally
�� Babinski: Down going bilaterally
�� Clonus: None
�� cerebellar: Dysmetria/Ataxia: trouble with weakness
Musculoskeletal: Motor: (Manual muscle scale 0-5) Limited with pain in most joints.
Muscle SA EF WE EE FF FA HF KE DF EHL PF
Right� 2 3 2+ 2 3 2 2 3 2 NT 2
Left 2 3 2+ 2 3 2 2 3 2 NT 2
No muscular pain with touch or palpation. Pain with movement , range of motion of joints.
Tone: Normal in all extremities
Range of Motion: limited with general pain with ROM of joints.
Lab Results
Labs
WBC 13.6 10^3/uL (4.8-10.8) H 06/09/24 07:24
RBC 3.70 10^6/uL (4.70-6.10) L 06/09/24 07:24
Hgb 10.4 g/dL (13.0-18.0) L 06/09/24 07:24
Hct 32.1 % (39.0-52.0) L 06/09/24 07:24
MCV 86.8 fL (80.0-94.0) 06/09/24 07:24
MCH 28.1 pg (27.0-31.0) 06/09/24 07:24
MCHC 32.4 g/dL (33.0-37.0) L 06/09/24 07:24
RDW 15.9 % (11.5-14.5) H 06/09/24 07:24
Plt Count 242 10^3/uL (130-400) D 06/09/24 07:24
MPV 12.6 fL (7.4-10.4) H 06/09/24 07:24
Abs Immat Gran (auto) 0.1 10^3/uL (0-0.05) H 06/07/24 04:34
Absolute Neuts (auto) 7.7 10^3/uL (1.4-6.5) H 06/07/24 04:34
Absolute Lymphs (auto) 4.0 10^3/uL (1.2-3.4) H 06/07/24 04:34
Absolute Monos (auto) 0.7 10^3/uL (0.1-0.6) H 06/07/24 04:34
Absolute Eos (auto) 0.0 10^3/uL (0-0.7) 06/07/24 04:34
Absolute Basos (auto) 0.0 10^3/uL (0-0.2) 06/07/24 04:34
CBC Comment Cancelled 06/09/24 06:00
Immature Gran % 0.6 % (0-0.5) H 06/07/24 04:34
Neutrophils % 61.7 % (42.2-75.2) 06/07/24 04:34
Lymphocytes % 32.0 % (20.5-51.1) 06/07/24 04:34
Monocytes % 5.4 % (1.7-9.3) 06/07/24 04:34
Eosinophils % 0.2 % (0-6) 06/07/24 04:34
Basophils % 0.1 % (0-2) 06/07/24 04:34
Nucleated RBC % 0 % (-) 06/07/24 04:34
ESR 22 mm/hour (0-20) H 06/08/24 11:26
VBG pH 7.37 (7.32-7.43) 06/04/24 07:07
VBG pCO2 28 mmHg (35-48) L 06/04/24 07:07
VBG pO2 94 mmHg (30-50) H 06/04/24 07:07
VBG HCO3 16.2 mmol/L (22-27) L 06/04/24 07:07
VBG O2 Sat (Dajuan) 98.7 % 06/04/24 07:07
VBG Base Excess -7.8 mmol/L (-4 to +4) 06/04/24 07:07
VBG O2 Therapy Cpap 06/04/24 07:07
Sodium 135 mmol/L (135-145) 06/09/24 07:24
Potassium 3.4 mmol/L (3.5-5.1) L 06/09/24 07:24
Chloride 99 mmol/L (98-107) 06/09/24 07:24
Carbon Dioxide 26 mmol/L (22-30) 06/09/24 07:24
BUN 76 mg/dl (9-20) H 06/09/24 07:24
Creatinine 4.8 mg/dL (0.7-1.3) H* 06/09/24 07:24
Estimated Creat Clear 12 ml/min 06/09/24 07:24
eGFR 11.16 06/09/24 07:24
Glucose 169 mg/dl (70-99) H 06/09/24 07:24
Lactic Acid Cancelled 06/06/24 06:30
Calcium 9.0 mg/dl (8.4-10.2) 06/09/24 07:24
Iron 22 ug/dl (49-181) L 06/03/24 08:25
TIBC 174 ug/dl (261-462) L 06/03/24 08:25
% Saturation 12 % (20-50) L 06/03/24 08:25
Ferritin 210.0 ng/ml (17.9-464.0) 06/07/24 04:34
Total Bilirubin 0.9 mg/dl (0.2-1.3) 06/01/24 11:49
AST 37 U/L (17-59) 06/01/24 11:49
ALT 27 U/L (0-50) 06/01/24 11:49
Alkaline Phosphatase 61 U/L (38-126) 06/01/24 11:49
Creatine Kinase 37 U/L (55-170) L 06/07/24 04:34
C-Reactive Protein 154.40 mg/L (0.0-10.00) H 06/07/24 04:34
Total Protein 6.1 g/dl (6.3-8.2) L 06/01/24 11:49
Albumin 3.7 g/dl (3.5-5.0) 06/01/24 11:49
Vitamin B12 895 pg/ml (239-931) 06/07/24 04:34
Folate > 20.0 ng/ml (2.76-20) H 06/07/24 04:34
TSH (Reflex) 1.58 uIU/ml (0.47-4.68) 06/07/24 04:34
Urine Color Yellow 06/05/24 11:01
Urine Clarity Clear (Clear) 06/05/24 11:01
Urine pH 5.0 (5.0-9.0) 06/05/24 11:01
Ur Specific [place] 1.020 (<1.030) 06/05/24 11:01
Urine Ketones Trace (Negative) A 06/05/24 11:01
Ur Occult Blood Reflex 1+ (Negative) A 06/05/24 11:01
Urine Nitrite (Reflex) Negative (Negative) 06/05/24 11:01
Urine Bilirubin Negative (Negative) 06/05/24 11:01
Urine Urobilinogen Negative (Neg - 1+) 06/05/24 11:01
Leukocyte Esterase Rfl Trace (Negative) A 06/05/24 11:01
Urine RBC 7-10 /HPF (0-2) A 06/05/24 11:01
Urine WBC (Reflex) 3-5 /HPF (0-5) 06/05/24 11:01
Ur Squamous Epith Cells 3-5 /LPF (Few) 06/05/24 11:01
Urine Bacteria (Reflex) Few (Negative) A 06/05/24 11:01
Urine Mucus Few 06/05/24 11:01
Urine Glucose Negative (Negative) 06/05/24 11:01
Urine Albumin (Reflex) 1+ (Neg - Trace) A 06/05/24 11:01
Random Vancomycin 8.7 ug/ml 06/09/24 06:20
HARRY IgG Screen Cancelled 06/07/24 04:34
Hep Bs Antigen Negative (Negative) 06/04/24 07:07
Hep Bs Antibody Negative 06/04/24 07:07
Hep B Core Total Ab Negative (Negative) 06/04/24 07:07
Hepatitis C Antibody Negative (Negative) 06/04/24 07:07
Diagnostic Results: as per HPI
Assessment
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
weeks ago) currently with bilateral UE and LE weakness and pain. 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
Plan
PT/OT to increase independence with ADLs, improve balance, coordination, endurance, strength, mobility, community reintegration, decreased burden of care on others and family education.
CVA: Brain RAG-[id number] small foci of restricted diffusion involving the bilateral cerebellar hemispheres, bilateral frontal lobes, left parietal and left occipital lobes consistent with acute infarctions. Given the distribution this may be
embolic in nature. No evidence of acute intracranial hemorrhage. Neurology follow-up
Peripheral neuropathy/weakness: Neuro:normal, B12, TSH, A1c. unclear etiology, but very likely due to CKD slowly worsened over the years. symptoms and course not consistent with Guillain-Thao� syndrome. Weakness also in part due to sepsis/infection
and new dialysis needs. Best avenue for improving his neuropathy is dialysis and treatment of CKD. Neurology-does not think neuropathy will resolve completely even with dialysis
Enterococcus bacteremia:Gram Positive bacteremia. Permacath placed the day before onset of bacteremia - seems less likely to be the source. No skin lesions, pacemaker without signs of inflammation. S/p Pacemaker - no evidence of infection.
Ampicillin sodium 2000 mg IV q 12 . 06/09-received one time vancomycin 1gram IV HD
-duration of antibiotics as per ID, please note them prior to discahrge to make sure they can be given in rehab and at home/dialysis.
ESRD: started HD, has a place set up for outpatient. Spoke with SW and this process is almost complete.
HTN: Amlodipine 10 mg daily, metoprolol succinate 50 mg twice daily
HLD: Zetia 10 mg daily, Crestor 10 mg daily
Coronary artery disease : Aspirin, statin, beta-roland
Anemia: Likely multifactorial.� Continue to monitor.
Hypokalemia: replenish
Psych: Psychology consult.� Monitor mood, adjust medications as needed.
Skin: monitor for pressure sores/rashes/lesions.
Pain: acetaminophen, oxycodone 2.5mg as needed, flexeril
Bowel: Colace and Senna, PRN bisacodyl.
Bladder: Has catheter, external per patient. BPH history. Was started on prostate medication but got dizzy when standing. Time void, PVRs, PRN straight cath.
GI Prophylaxis: Pantoprazole 40 mg daily
DVT Prophylaxis: Mechanical and Heparin sc q 8 hours
Pulmonary: Incentive spirometry
Safety: Continue to reinforce assistance with all transfers.
Code Status:� Full code
Dispo (date/plan/equipment needs): Home with family care.� Social history reviewed.
Functional and Medical Goals: Modified Independent with ADL�s, ambulation, transfers
Attending Statement:I saw and examined the patient 06/09/24.� Reviewed care plan with patient, therapy, nursing, and physician wardrobe assistant.� I agree with the above subjective and physical exam, and plan as documented by JAN Flores with adjustments
made as necessary.
A total of 60 minutes were spent with the patient preparing for the evaluation, obtaining history, performing examination and evaluation, counseling, data review, case management, care coordination, order picker, and EMR documentation.
Summary of recommendations: Patient with severe weakness and pain complicated by uremia and bacteremia currently on hemodialysis. As of today found to have multiple infarcts by MRI mostly likely embolic in nature, would benefit from Acute
inpatient rehabilitation once he is medically stable from nephrology, cardiology, infectious, and neurology stand and has been able to participate in therapies with decreased pain and improved mobility in order to be able to tolerate 3 hours of
intense acute inpatient therapies.
Discharge Destination: Acute inpatient Rehab once medically stable from all medical specialties and able to tolerate and progress in recovery and therapies
CVA: Brain MRI- as of today-with numerous small foci of restricted diffusion involving the bilateral cerebellar hemispheres, bilateral frontal lobes, left parietal and left occipital lobes consistent with acute infarctions. Given the distribution
this may be embolic in nature. No evidence of acute intracranial hemorrhage. Continue care per neurology. (SBP less than 180 and diastolic less than 100 for ischemic stroke to participate in therapy)
Peripheral neuropathy/weakness: Neuro:normal, B12, TSH, A1c. unclear etiology, but very likely due to CKD slowly worsened over the years. symptoms and course not consistent with Guillain-Thao� syndrome. Weakness also in part due to sepsis/infection
and new dialysis needs. Best avenue for improving his neuropathy is dialysis and treatment of CKD. Neurology-does not think neuropathy will resolve completely even with dialysis
Enterococcus bacteremia: Gram Positive bacteremia. Permacath placed the day before onset of bacteremia - seems less likely to be the source. No skin lesions, pacemaker without signs of inflammation. S/p Pacemaker - no evidence of infection.
Ampicillin sodium 2000 mg IV q 12 . 06/09-received one time vancomycin 1gram IV HD
-duration of antibiotics as per ID, please note them prior to discahrge to make sure they can be given in rehab and at home/dialysis.
HTN: Amlodipine 10 mg daily, metoprolol succinate 50 mg twice daily. Amlodipine-on hold-soft pressure
Bowel: Colace and Senna, PRN bisacodyl.
Bladder: Has catheter, external per patient. BPH history. Was started on prostate medication but got dizzy when standing. Time void, PVRs, PRN straight cath.
DVT Prophylaxis: Mechanical and Heparin sc q 8 hours
Thank you for allowing me to care for your patient. Please contact me with any questions or concerns.
[2024-06-08] MEDS: TOPROL XL PO (20:07)
[2024-06-09] VITALS (38 sets, daily range): BP systolic 84–123; BP diastolic 60–86; PULSE 80; BMI 23.0
--- NOTE | 2024-06-09 00:58 | PTCARENOTE ---
assumed care of patient, pt able to make needs known. tap call eisenberg at bedside. pt inc of stool, cleaned up at start of the shift. pt able to take pills without issues. q2t- on bipap at HS. no c/o pain. care ongoing.
--- NOTE | 2024-06-09 05:55 | W.PN.NEURO.1 ---
Addendum entered and electronically signed by Stone Calabrese MD 06/09/24 13:46:
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
Given bacteremia and s/p TAVR along with embolic strokes will need consider infective endocarditis and MARII
Keep the chronic clopidogrel going but would not add to antithrombotics.
Add NIH and neurologic checks
Will continue to follow
Original Note:
Today's Communication / Plan
-
-Would continue with dialysis mobilization and supportive care efforts to improve strength
-Checks of easily reversible causes of neuropathy have been normal, B12, TSH, A1c
-In general it seems to me the best avenue for improving his neuropathy is dialysis and treatment of CKD although I set expectations with him that I do not expect what is most likely a longstanding peripheral neuropathy from CKD to resolve
altogether even with dialysis
-Discussed the option to pursue EMG testing with the patient although I do not feel that this would really change his management to a significant extent, he would prefer to hold off on the test for now
-Not seeing indication for starting neuropathic pain medications which can create some drowsiness/confusion (Pregabalin, Gabapentin)
Will follow peripherally
Neuro Assessment/Plan
Assessment
Patient is 88-year-old man presented to hospital and has developed renal failure from previous CKD now requiring dialysis as well as Enterococcus bacteremia.
He presented with significant back pain radiating to the legs bilaterally. He notes that this is improved and nearly resolved though still with some leg pain with movement.
He does feel that the strength of his arms and legs has improved some.
MRI of lumbar and C spine not showing abscess, cord compression or surgical pathology
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 They probably came to a head with infection and dialysis. Additionally could
have also had a transient sciatica bilaterally. His symptoms and course not consistent with Guillain-Thao� syndrome.
Weakness also in part due to sepsis/infection and new dialysis neegs
Subjective/Objective
Subjective Data
Date of Service: June 09, 2024
No acute events, notes some improvement in strength compared to previous days, pain with moving in the legs but back pain and radiation has improved
Objective Data
Vital Signs
Temp Pulse Resp BP Pulse Ox
97.3 F 59 16 101/67 99
06/09/24 03:07 06/09/24 04:00 06/09/24 04:00 06/09/24 04:00 06/09/24 04:00
Sodium 135 mmol/L (135-145) 06/07/24 04:34
Potassium 3.8 mmol/L (3.5-5.1) 06/07/24 04:34
BUN 86 mg/dl (9-20) H 06/07/24 04:34
Glucose 114 mg/dl (70-99) H 06/07/24 04:34
Calcium 9.2 mg/dl (8.4-10.2) 06/07/24 04:34
Vitamin B12 895 pg/ml (239-931) 06/07/24 04:34
Patient Allergies
celecoxib [From Celebrex] Allergy (Verified 06/01/24 11:05)
GI bleed
Review of Systems
-
History Source: Patient
All other systems: Reviewed and negative
Constitutional: No Symptoms
EENT: No Symptoms Reported
Respiratory: No Symptoms
Cardiac: No Symptoms
Abdomen/GI: No Symptoms
Genitourinary: No Symptoms
Musculoskeletal: No Symptoms
Skin: No Symptoms
Neuro: Weakness
Endocrine: No Symptoms
Allergy / Immunology: No Symptoms
Physical Exam
-
General: No Apparent Distress and Appears Chronically Ill
Eyes: No Ptosis
HEENT: Normocephalic
Neck: No Bruits Bilaterally
Respiratory: Clear to Auscultation
Cardiac: Regular Rhythm
GI: Normal Bowel Sounds
Skin: Unremarkable
Extremities: No Clubbing
Psych: Unremarkable
Extended Neurological Exam
Mood & Affect: Mood Unremarkable and Affect Unremarkable
Attention Span & Concentration: Awake, Alert and Interactive
Memory: Unremarkable
Tremor: Hand Tremor Absent
Involuntary Movement: None
Speech: Quality Unremarkable and Quantity Unremarkable; Negative Expressive Aphasia, Receptive Aphasia or Dysarthric
Cranial Nerve II: Left Eye: Pupillary Reactivity Unremarkable and Pupillary Size Unremarkable
Cranial Nerve II: Right Eye: Pupillary Reactivity Unremarkable and Pupillary Size Unremarkable
Cranial Nerves III, IV, : Extraocular Movement: Extraocular Movement Full in all Directions
Muscle Bulk & Tone: Bulk Unremarkable and Tone Unremarkable
Pronator Drift: No Drift in Upper Extremities
Deep Tendon Reflexes: Absent Throughout
Vibration Sensation: Reduced Mildly Distally
Touch Sensation: Pin Prick Reduced
Coordination: Cibknl-jvdo-qsfwnw Testing Unremarkable
Babinski Sign: Absent Bilaterally
Data Reviewed
-
MRI Cervical Spine: Report Reviewed and Image Reviewed
MRI Lumbar Spine: Report Reviewed and Image Reviewed
[2024-06-09 07:16] LABS: Vancomycin Random 8.7 ug/ml
[2024-06-09] MEDS: HEPARIN 500 UNITS IV ×2 (07:45→08:45)
[2024-06-09 07:59] LABS: Hematocrit 32.1 % (39.0-52.0); Hemoglobin 10.4 g/dL (13.0-18.0); Mean Corp Hgb Conc. 32.4 g/dL (33.0-37.0); Mean Corpuscular Hgb 28.1 pg (27.0-31.0); Mean Corpuscular Volume 86.8 fL (80.0-94.0); Mean Platelet Volume 12.6 fL (7.4-10.4); Platelet Count 242 10^3/uL (130-400); Red Cell Dist. Width 15.9 % (11.5-14.5); White Blood Cell Count 13.6 10^3/uL (4.8-10.8)
[2024-06-09 08:11] LABS: Blood Urea Nitrogen 76 mg/dl (9-20); Carbon Dioxide 26 mmol/L (22-30); Chloride 99 mmol/L (98-107); Estimated Creatinine Clearance 12 ml/min; Glucose 169 mg/dl (70-99); Potassium 3.4 mmol/L (3.5-5.1); Sodium 135 mmol/L (135-145); eGFR 11.16
[2024-06-09] MEDS: HEPARIN 5000 UNITS SC ×2 (08:12→16:54)
[2024-06-09] MEDS: CRESTOR 10 MG PO (08:13)
[2024-06-09] MEDS: ProAmatine 5 MG PO (08:13)
[2024-06-09] MEDS: OCUVITE SOFTGEL 1 CAP PO ×2 (08:13→20:01)
[2024-06-09] MEDS: PROTONIX 40 MG PO (08:13)
[2024-06-09] MEDS: LIDOCAINE 4% PATCH 1 PATCH TOPICAL (08:13)
[2024-06-09] MEDS: ZETIA 10 MG PO (08:13)
[2024-06-09] MEDS: MANNITOL 25% 12.5 GRAMS IV ×2 (08:30→10:10)
--- NOTE | 2024-06-09 08:30 | PHA.VAN.FU ---
Vancomycin Assessment / Plan
- Assessment
Hemodialysis Schedule: MWF
Last Hemodialysis performed: 06/07
WBC's are: Trending Up
Concomitant Antimicrobials: ampicillin
- Assessment - Therapeutic Drug Monitoring
Random Level: pre-HD = 8.7
- Dosing Plan
Dosing by Level: Re-dose today (Vanc 1000mg)
- Monitoring Plan
No level(s) ordered at this time: consider level for Fri
- Follow Up
Pharmacy will continue to follow.
Vancomycin Follow UP
- -
Patient Age: 88
Patient Sex: Male
Vancomycin Day #: 5
Indication: Pulmonary/Respiratory
Requesting Provider: Hoa / Kt
Pertinent Antimicrobial Allergies:
no pertinent antibiotic allergies
Height / Weight:
Height 5 ft 11 in
Actual Weight 74.7 kg
Pertinent Past Medical History: CKD now requiring HD
- Vital Signs / Lab Results
Temp Pulse Resp BP Pulse Ox
97.3 F 69 14 103/64 99
06/09/24 03:07 06/09/24 08:13 06/09/24 06:00 06/09/24 08:13 06/09/24 08:21
Lab Results - Hematology
06/07/24 06/09/24 06/09/24
04:34 06:00 07:24
WBC 12.5 H Cancelled 13.6 H
Lab Results - Chemistry
06/07/24 06/09/24
04:34 07:24
BUN 86 H 76 H
Creatinine 5.0 H* 4.8 H*
Estimated Creat Clear 11 12
Microbiology Results
06/05/24 11:01 Blood Culture - Preliminary
Blood/Venous Enterococcus faecalis
Gram Stain - Final
06/05/24 11:11 Blood Culture - Final
Blood/Venous Enterococcus faecalis
Gram Stain - Final
06/07/24 04:46 Blood Culture - Preliminary
Blood/Venous Positive culture in progress
Gram Stain - Preliminary
06/07/24 04:34 Blood Culture - Preliminary
Blood/Venous Positive culture in progress
Gram Stain - Preliminary
06/05/24 18:38 MRSA Screen - Final
Throat/Pharynx No Methicillin Resistant Staphylococcus aureus isolated.
Therapeutic Drug Monitoring
Random Vancomycin 8.7 ug/ml 06/09/24 06:20
[2024-06-09] MEDS: RETACRIT 8000 UNITS IV (08:58)
--- NOTE | 2024-06-09 09:17 | W.PN.CARDCBS ---
Today's Communication / Plan
-
Continue hemodialysis.
Has recurrent bacteremia with Enterococcus. Will need 6 weeks of antibiotics. Continue vancomycin and ampicillin.
Continue Toprol.
Will review transthoracic echo.
Impression / Plan
-
.
Primary Caser Up: Dr. French
Impression:
Presentation with back pain, concern for central cord syndrome
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
Cardiomyopathy, EF 35% by echo 06/03/24
Bacteremia with gram positive cocci
Severe status post TAVR 2019
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
History of TIA/CVA
Hypertension
Hyperlipidemia
Moderate bilateral carotid disease
JEANIE on CPAP
Iron deficiency anemia
ECHO 11/2022: EF 53%, moderate concentric LVH, stage II diastolic dysfunction, MAC, mild to moderate MR, mildly dilated left atrium, #26 [place] GAMA #3 ultra transcatheter aortic valve with peak/mean gradients 28/14 mmHg with mild paravalvular AR,
normal right heart
ECHO 06/03/24: EF 35%, global hypokinesis, mild LVH, stage II diastolic dysfunction, dense MAC, mild to moderate MS with peak/mean gradients 14/7 mmHg, mild to moderate MR, status post TAVR with peak/mean gradient 22/12 mmHg, mild to moderate TR, PAP
44 mmHg, small circumferential pericardial effusion
Plan:
Remains on hemodialysis. Continue to follow daily weights.
Has Enterococcus bacteremia with recurrent blood cultures positive. Will review transthoracic echo again. He likely needs at least 6 weeks of antibiotics with his transcatheter aortic valve.
Discussed his new CM with EF 35-40%. Cont Toprol.
GDMT limited due to renal failure and hypotension. Not currently a candidate for segundo/arb/arni/aldactone/SGLT2 inhibitor due to ESRD
Will consider ischemic eval as outpt once improved clinically from comorbidities including renal failure, bacteremia. CM could also be from chronic pacing as part of the differential.
Neurosurgery notes that weakness likely secondary to uremia. No plan for neurosurgical intervention.
Vpaced. HR and bp stable overall with bp on the lower side.
Remains on chronic plavix for hx of CVA.
HPI: Patient presenting with worsening extremity weakness undergoing evaluation by neurosurgery with concern for central cord syndrome. Additionally, patient noted to have worsening function and dyspnea. Repeat TTE noted reduced LVEF 35-40%.
Progress Note - Caser Up
Subjective
Date of Service: June 09, 2024
On dialysis. Denies fevers or shortness of breath.
Objective
Labs:
06/09/24 07:24
06/09/24 07:24
Labs
Hgb 10.4 g/dL (13.0-18.0) L 06/09/24 07:24
Hct 32.1 % (39.0-52.0) L 06/09/24 07:24
Plt Count 242 10^3/uL (130-400) D 06/09/24 07:24
Sodium 135 mmol/L (135-145) 06/09/24 07:24
Potassium 3.4 mmol/L (3.5-5.1) L 06/09/24 07:24
BUN 76 mg/dl (9-20) H 06/09/24 07:24
Creatinine 4.8 mg/dL (0.7-1.3) H* 06/09/24 07:24
Glucose 169 mg/dl (70-99) H 06/09/24 07:24
Vital Signs and I&O:
Vital Signs
Temp Pulse Resp BP Pulse Ox
97.5 F 69 14 103/64 99
06/09/24 07:07 06/09/24 08:13 06/09/24 06:00 06/09/24 08:13 06/09/24 08:21
Vital Signs
Temp Pulse Resp BP Pulse Ox
97.5 F 69 14 103/64 99
06/09/24 07:07 06/09/24 08:13 06/09/24 06:00 06/09/24 08:13 06/09/24 08:21
Intake & Output
06/07/24 06/08/24 06/09/24 06/10/24
06:59 06:59 06:59 06:59
Intake Total 930 / 930
Output Total 580 / 580 425 / 425 250 / 250
Balance 350 / 350 -425 / -425 -250 / -250
Physical Exam
Physical Exam
GEN: No distress, awake, Ox3
HEENT: supple, anicteric, mmm
LUNGS: scatt rhonchi
CV: Reg, S1/S2, 1/6 syst LSB, no gallop
ABD: soft, BS+, NT/ND
EXT: R chest wall dialysis catheter
NEURO: Gross non-focal
SKIN: No rash
--- NOTE | 2024-06-09 09:53 | W.PN.HOSP.TC ---
Today's Communication/Plan
-
Continue antibiotics until blood cultures clear
If blood cultures continue to be growing Enterococcus consider MARII
MRI of the brain today
Assistance with all meals
Encourage patient out of bed in a chair twice a day and therapy daily.
Assessment / Plan
Assessment / Plan
88yo M with difficulty with moving. [place] gave me history [place] and then had a fever. Patient then had difficulty moving and had to be brought to the emergency room in an ambulance.
He also had some pain patient is not able to describe exactly where the pain is. Pain is mostly in the arms with movement but no muscle tenderness
Echo 06/03/2024-LV mildly dilated. Mild LVH. Moderately reduced LV systolic function. Left ventricular ejection fraction 34%. Global hypokinesis. Stage II diastolic dysfunction suggestive of abnormal relaxation and increased filling pressures.
Mildly enlarged RV. Dense mitral annular calcification. Thickened mitral valve leaflets. Posterior leaflet appears calcified and restricted. Mild to moderate mitral stenosis. Mild to moderate MR. Status post TAVR. Mild to moderate TR.
Pulmonary artery pressure 44 mmHg. Small circumferential pericardial fusion without evidence of hemodynamic compromise. Since November 2023 LVEF has decreased from 50% to 34%.
06/04/24-Lumbar spine MRI-multilevel degenerative changes.Worst at L2-L3 where disc and facet disease contribute to severe spinal canal and moderate bilateral neural foraminal stenosis. Severe left-sided neuroforaminal stenosis L4/L5.
06/04/24-C-spine MRI-Motion degraded. Only marginally improved compared to 06/02/2024. 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 Focal mild myelomalacia C3/C4. No overt cord edema.
06/02/24-Thoracic spine MRI-multilevel changes. Advanced degenerative disc space narrowing with reactive Modic type I reactive signal alteration T8/T9 and T9/T10. Moderate to advanced central stenosis T9/T10 and T10/T11. No evidence of thoracic
cord signal alteration.
CT abdomen and pelvis 06/01/2024-prostatomegaly with bladder diverticulum and concentric thickening of the wall of the urinary bladder consistent with partial bladder outlet obstruction. Multicystic kidneys with multiple small bilateral
nonobstructing renal calculi. Stable hepatic cysts up to 5 cm. Atherosclerosis with fusiform aneurysmal dilatation of the infrarenal abdominal aorta 3 cm. Severe multilevel DJD.
Awake alert and conversant.
Cardiovascular system S1-S2 appreciated, systolic murmur and diastolic murmur at apex
Extremity no edema
Neuro exam-no facial droop, sensory exam bilateral upper extremity and lower extremity unremarkable. Bilateral thenar and hypothenar muscle wasting on hands. Unable to raise arms today about shoulder. He is able to plantarflex and dorsiflex.
Decreased grasp in both hands. Proximal muscle weakness also noted. No muscle tenderness. No joint tenderness or redness noted.
# Weakness of upper extremity and to an extent lower extremity also
Generalized weakness
Pain reported- cant specify
He feels slightly better today
No more steroids per D/W ID
This may be related to enterococcal sepsis
Consider EMG - Though Neuro notes indicate pt wants to hold off
Neuro eval appreciated.
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
Continue supplemental oxygen, BiPAP as needed
#APKD
Metabolic acidosis better
Right chest wall Permacath placed on 06/04/24
Started on hemodialysis 06/05/2024
End-stage renal disease
# Sepsis with enterococcal bacteremia
No clear source identified at present
TTE showed mitral calcifications
On Vanco and Ampicillin
ID following
Follow cultures
Unlikely CAUTI since developed <24 after Permacath insertion. Site of insertion not inflamed.
Colonoscopy 2018-polyps and diverticulosis.
#Dizziness
CT head neg for acute pathology
PCP stopped finasteride as outpatient
#Acute toxic metabolic encephalopathy
Resolved
#Back pain, most likely sciatica with multilevel disk narrowing on CT
B/L UE pain and weakness, cervical spine MRI noted
Pain mgmt
Muscle relaxants
PT/OT
Neurosurgery consulted and following.
Patient has a history of L4-L5 surgery in the past
Unclear if this is likely secondary to uremia.
# Cardiomyopathy-new ejection fraction 34% by echo 06/03/2024.
Continue Toprol. Not candidate for segundo/arb/Arni/Aldactone/SGLT2 inhibitor due to renal failure
Ischemic evaluation planned at a later date
# Pacemaker placement 2019
# History of TAVR 2019
# History of TIA/CVA-continue Plavix and statin
# Moderate bilateral carotid disease
# Essential HTN-continue metoprolol. Norvasc on Hold.
# Hyperlipidemia-continue Zetia/Crestor
# Prostatomegaly with bladder diverticulum- Tamsulosin/finasteride on hold .Continue Rutledge
# Anemia of chronic disease
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
# Multiple hepatic cysts
# JEANIE-cont CPAP
# GERD/peptic ulcer disease-continue PPI
# Ex-smoker
# DVT ppx -SC hep
# Full code
Spoke to on [phone]- updated the plan
D/W RN
Time spent over 51 min
Anticipated Discharge: > 48 hours
Subjective/Interval History
-
Date of Service: June 09, 2024
Objective Data
-
Labs:
Laboratory Results
06/09/24 06/09/24
06:00 07:24
WBC Cancelled 13.6 H
Hgb Cancelled 10.4 L
Hct Cancelled 32.1 L
Plt Count Cancelled 242 D
Sodium 135
Potassium 3.4 L
Chloride 99
Carbon Dioxide 26
BUN 76 H
Creatinine 4.8 H*
Glucose 169 H
Calcium 9.0
Vital Signs:
Vital Signs
Temp Pulse Resp BP Pulse Ox
97.5 F 69 14 103/64 99
06/09/24 07:07 06/09/24 08:13 06/09/24 06:00 06/09/24 08:13 06/09/24 08:21
I&O
06/08/24 06/09/24 06/10/24
06:59 06:59 06:59
Output Total 425 / 425 250 / 250
Balance -425 / -425 -250 / -250
--- NOTE | 2024-06-09 09:57 | W.PN.ID1 ---
Date of Service
Date of Service: June 09, 2024
Today's Communication
blood culture x2 q48 hours until persistently clear
- continue ampicillin 2 gm iv q12 - renally dosed
- add ceftriaxone 2 gm IV q24 - monitor mental status
Assessment / Plan
Enterococcal bacteremia - persistent
S/p Pacemaker - no evidence of infection
s/p TAVR
ESRD, HD via permacath
Diverticulosis
- repeat blood cultures x2 q48 hours until persistently cleared - ordered; note a third set was inadvertently sent yesterday
- source was likely initially GI, could well have seeded other locations. CT nonrevealing, eventual outpatient colonoscopy, was last done 2017
- TTE - calcified MV, no definite vegetations; given persistent bacteremia will plan 6 weeks of IV therapy followed by oral suppression
- continue close attention to pacemaker on physical exam
- permacath placed the day before onset of bacteremia - seems less likely to be the source though possibly secondarily infected particularly as enterococcus forms biofilms, would like to see removal/replacement at some point particularly if unable
to clear the bacteremia. He has multiple endovascular devices (TAVR, pacemaker leads and the line) making the decision/management more complicated. Discussed with nephrology same day
- eventual outpatient colonoscopy to continue workup for initial source
- continue ampicillin 2 gm iv q12 - renally dosed
- add ceftriaxone 2 gm IV q24 - monitor mental status
- follow clinically
Chief Complaint
-: Bacteremia
Subjective / Review of Systems
no further fevers
seen by neurology - declined emg
I strongly objected to steroids in discussion with neurology yesterday and the consensus was not to give them. the risks of prolonging bacteremia/seeding other devices is significant
no new joint pains or swelling
spoke with patient and via cell phone
Vital Signs / Physical Exam
Vital Signs
Vital Signs
Temp Pulse Resp BP Pulse Ox
97.5 F 69 14 103/64 99
07/31/24 07:07 06/09/24 08:13 06/09/24 06:00 06/09/24 08:13 06/09/24 08:21
Physical Exam
Constitutional: No Acute Distress and Chronically Ill
Cardiovascular: Regular Rate and S1/S2; Negative Murmur or Rub
Pulmonary: Clear and Symmetric; Negative Wheezes or Rales
Gastrointestinal: Soft, Non Tender, Non Distended and Normal Bowel Sounds
Extremities: Other (tenderness in the R shoulder but no effusion, redness or warmth)
Musculoskeletal: Other (bilateral knees no redness swelling or tenderness)
Skin: Warm and Dry; Negative Rash or Jaundice
Lines: HD Cath (no redness, swelling or tenderness, functional)
Objective Data
Lab Data
Lab Results
06/09/24 07:24
06/09/24 07:24
ESR 22 mm/hour (0-20) H 06/08/24 11:26
Estimated Creat Clear 12 ml/min 06/09/24 07:24
Lactic Acid Cancelled 06/06/24 06:30
Total Bilirubin 0.9 mg/dl (0.2-1.3) 06/01/24 11:49
AST 37 U/L (17-59) 06/01/24 11:49
ALT 27 U/L (0-50) 06/01/24 11:49
Alkaline Phosphatase 61 U/L (38-126) 06/01/24 11:49
C-Reactive Protein 154.40 mg/L (0.0-10.00) H 06/07/24 04:34
Most recent labs reviewed.
Micro Results:
06/07/24 04:46 Blood Culture - Preliminary
Blood/Venous Enterococcus faecalis
Gram Stain - Preliminary
06/07/24 04:34 Blood Culture - Preliminary
Blood/Venous Enterococcus faecalis
Gram Stain - Preliminary
06/05/24 11:01 Blood Culture - Final
Blood/Venous Enterococcus faecalis
Gram Stain - Final
06/09/24 06:14 Blood Culture - Pending
Blood/Venous
06/09/24 06:20 Blood Culture - Pending
Blood/Venous
06/08/24 11:25 Blood Culture - Pending
Blood/Venous
06/05/24 11:11 Blood Culture - Final
Blood/Venous Enterococcus faecalis
Gram Stain - Final
06/05/24 18:38 MRSA Screen - Final
Throat/Pharynx No Methicillin Resistant Staphylococcus aureus isolated.
06/05/24 18:38 Nasal Screen MRSA (PCR) - Final
Nose MRSA not detected - performed by PCR methodology.
06/05/24 18:38 Legionella Urinary Antigen - Final
Urine Negative for Legionella pneumophila Serogroup 1 antigen.
A negative result does not rule out the possiblity of
Legionella infection due to other serogroups or species of
Legionella. Clinical correlation is recommended.
Streptococcus pneumoniae Antigen (M - Final
Negative for Streptococcus pneumoniae antigen.
A negative result does not exclude infection with
Streptococcus pneumoniae. Clinical correlation is
recommended.
[2024-06-09] MEDS: AMPICILLIN 108 MG IV (10:27)
[2024-06-09] MEDS: HEPARIN 4300 UNITS INTRACATH (11:04)
[2024-06-09] MEDS: ROCEPHIN 2000 MG IV (11:39)
[2024-06-09] MEDS: STERILE WATER FOR INJECTION 20 ML IV (11:39)
[2024-06-09] MEDS: TOPROL XL 50 MG PO (11:41)
[2024-06-09] MEDS: PLAVIX 75 MG PO (11:41)
--- NOTE | 2024-06-09 12:32 | W.PN.NEPH.HD ---
Assessment
-
pt seen during HD
vitals stable, bp soft with minimal UF, may need to decrease BB if ok with cards
will d/c mcmanus and follow bladder scan
await repeat cx data to clear bacteremia
Has limited options of dialysis access since pacer on left side and HD catheter on right side
As per ID if bacteremia does not clear likely exchange catheter is the option
abx per ID
high k bath for hypokalemia
Progress Note - Hemodialysis
-
Date of Service: June 09, 2024
Duration: 30 minutes and 3 hours
Potassium Bath: 4
Calcium Bath: 2.5
Opti-Dialyzer: 160
Ultrafiltration: Other (1kg)
Blood Flow: 400
Dialysate Flow: 600
Heparin: yesx2
EPO: 8000
--- NOTE | 2024-06-09 14:30 | PTCARENOTE ---
Patient taken to and back from MRI with RN. Performed NIH on return and resulted 2, see flowsheet.
Pt's reports that she does not want the patient to know he had strokes. She expressed that she thinks he is already depressed and this will make it worse.
Pt's Rutledge was removed per Nephrology today, DTV [id number].
Assessment, care and VS as charted.
--- NOTE | 2024-06-09 14:48 | W.PN.UPDATE ---
Update Note
Progress Note Update
Embolic stroke noted.
made aware about the MRI findings.
requested not to let the patient know about the strokes now as he is already feeling really down and she does not want this to impact him. She feels this will bring him even down and
--- NOTE | 2024-06-09 17:04 | CM ---
Patient with Dx extremity weakness/back pain, Acute hypoxic respiratory failure 2/2 pulmonary edema 2/2 LUCIANO, APKD, sepsis, dizziness, acute TME, cardiomyopathy. Room air. Brain MRI today. Receiving IV Abx. Physiatry Consult today. PT; rec acute
rehab. OT: rec acute vs skilled rehab.
Spoke with Hannah, Assigned [facility] x [phone]; she has set patient up with HD for MWF 3:30pm start time with tentative start date 06/16, considering he will be going to rehab first then home. Faxed her the Preadmission checklist and
HD flowsheets.
Message from Dr Dejesus; [facility] will be accepting when he can tolerate a little more rehab. Will need to have a dialysis center all lined up and accepting of him.
Plan follow up with [facility] for HD clearance.
Plan follow patient's IV Abx needs post d/c.
Plan [facility] when medically ready.
[2024-06-09] MEDS: TOPROL XL PO (20:01)
[2024-06-10] VITALS (21 sets, daily range): BP systolic 92–130; BP diastolic 56–97; PULSE 78–82; O2SAT 98; BMI 23.1
[2024-06-10] MEDS: AMPICILLIN 108 MG IV ×3 (01:17→23:24)
[2024-06-10] MEDS: HEPARIN 5000 UNITS SC ×4 (01:20→23:25)
[2024-06-10 01:34] LABS: ANA, IgG Reflex to HEp-2 None Detected (None Detected)
--- NOTE | 2024-06-10 03:24 | PTCARENOTE ---
Pt has not voided since removal of mcmanus, most recent BS result 229, pt encouraged to attempt to void. This RN will continue to monitor status and bladder scan throughout shift. Turn schedule in place to prevent skin breakdown. Tap call eisenberg within
reach.
[2024-06-10 04:35] LABS: % Basophils 0.1 % (0-2); % Eosinophils 0.4 % (0-6); % Immature Granulocytes 0.6 % (0-0.5); % Lymphocytes 24.4 % (20.5-51.1); % Monocytes 5.4 % (1.7-9.3); % Neutrophils 69.1 % (42.2-75.2); Absolute Eosinophils 0.1 10^3/uL (0-0.7); Absolute Immature Granulocytes 0.1 10^3/uL (0-0.05); Absolute Lymphocytes 3.5 10^3/uL (1.2-3.4); Absolute Monocytes 0.8 10^3/uL (0.1-0.6); Absolute Neutrophils 9.9 10^3/uL (1.4-6.5); Hematocrit 31.3 % (39.0-52.0); Mean Corp Hgb Conc. 31.9 g/dL (33.0-37.0); Mean Corpuscular Hgb 28.3 pg (27.0-31.0); Mean Corpuscular Volume 88.7 fL (80.0-94.0); Nucleated Red Blood Cells % 0 % (-); Platelet Count 241 10^3/uL (130-400); Red Blood Cell Count 3.53 10^6/uL (4.70-6.10); Red Cell Dist. Width 15.9 % (11.5-14.5); White Blood Cell Count 14.3 10^3/uL (4.8-10.8)
[2024-06-10] MEDS: PLAVIX 75 MG PO (08:34)
[2024-06-10] MEDS: LIDOCAINE 4% PATCH 1 PATCH TOPICAL (08:34)
[2024-06-10] MEDS: TOPROL XL 50 MG PO (08:34)
[2024-06-10] MEDS: OCUVITE SOFTGEL 1 CAP PO ×2 (08:35→20:19)
[2024-06-10] MEDS: PROTONIX 40 MG PO (08:35)
[2024-06-10] MEDS: CRESTOR 10 MG PO (08:35)
[2024-06-10] MEDS: ZETIA 10 MG PO (08:35)
--- NOTE | 2024-06-10 08:46 | W.PN.NEURO.1 ---
Today's Communication / Plan
-
-Would need to consider MARII given TAVR, bacteremia, embolic appearing strokes.
-Would need plan for length of antibiotic coverage if there remains suspicion for endocarditis
-Okay to continue Clopidogrel would not add further antithrombotics
-Continuing on dialysis
-NIH and neurologic checks
Neuro Assessment/Plan
Assessment
Patient is 88-year-old man presented to hospital and has developed renal failure from previous CKD now requiring dialysis as well as Enterococcus bacteremia.
He presented with significant back pain radiating to the legs bilaterally. He notes that this is improved and nearly resolved though still with some leg pain with movement.
He does feel that the strength of his arms and legs has improved some.
MRI of lumbar and C spine not showing abscess, cord compression or surgical pathology
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 They probably came to a head with infection and dialysis. Additionally could
have also had a transient sciatica bilaterally. His symptoms and course not consistent with Guillain-Thao� syndrome.
Weakness also in part due to sepsis/infection and new dialysis neegs
MRI showing multiterritory small embolic ischemic strokes, concerning for possibly an embolic source and in the context of a patient with bacteremia and TAVR would need to consider endocarditis
Subjective/Objective
Subjective Data
Date of Service: June 10, 2024
Discussed findings of stroke on the brain, infection, antibiotics
Objective Data
Vital Signs
Temp Pulse Resp BP Pulse Ox
97.6 F 76 15 120/72 96
06/10/24 07:33 06/10/24 08:34 06/10/24 06:00 06/10/24 08:34 06/10/24 06:00
Lab Results
06/10/24 04:11
06/09/24 07:24
Sodium 135 mmol/L (135-145) 06/09/24 07:24
Potassium 3.4 mmol/L (3.5-5.1) L 06/09/24 07:24
BUN 76 mg/dl (9-20) H 06/09/24 07:24
Glucose 169 mg/dl (70-99) H 06/09/24 07:24
Calcium 9.0 mg/dl (8.4-10.2) 06/09/24 07:24
Vitamin B12 895 pg/ml (239-931) 06/07/24 04:34
Patient Allergies
celecoxib [From Celebrex] Allergy (Verified 06/01/24 11:05)
GI bleed
Review of Systems
-
History Source: Patient
All other systems: Reviewed and negative
Constitutional: No Symptoms
EENT: No Symptoms Reported
Respiratory: No Symptoms
Cardiac: No Symptoms
Abdomen/GI: No Symptoms
Genitourinary: No Symptoms
Musculoskeletal: No Symptoms
Skin: No Symptoms
Neuro: Weakness and See existing Neuro Note
Endocrine: No Symptoms
Hematologic / Lymphatic: No Symptoms
Allergy / Immunology: No Symptoms
Physical Exam
-
General: Well Developed and Well Nourished
Eyes: No Ptosis
HEENT: Normocephalic
Neck: No Bruits Bilaterally
Respiratory: Clear to Auscultation
Cardiac: Regular Rhythm
GI: Normal Bowel Sounds
Skin: Unremarkable
Extremities: No Clubbing
Psych: Unremarkable
Extended Neurological Exam
Attention Span & Concentration: Awake, Alert and Interactive
Memory: Able to Recall
Tremor: Hand Tremor Absent
Involuntary Movement: None
Speech: Quality Unremarkable, Quantity Unremarkable and Dysarthric; Negative Receptive Aphasia or Mildly Reduced Output
Cranial Nerve II: Left Eye: Pupillary Reactivity Unremarkable and Pupillary Size Unremarkable
Cranial Nerve II: Right Eye: Pupillary Reactivity Unremarkable and Pupillary Size Unremarkable
Cranial Nerves III, IV, : Extraocular Movement: Extraocular Movement Full in all Directions
Muscle Strength, Overall: Other (Mild right leg weakness hip flexion 4/5, left leg hip flexion 5/5, upper extremity arm flexion 5/5 bilaterally)
Deep Tendon Reflexes: Absent Throughout
Data Reviewed
-
MRI Head: Report Reviewed and Image Reviewed
MRI Cervical Spine: Report Reviewed and Image Reviewed
MRI Lumbar Spine: Report Reviewed and Image Reviewed
--- NOTE | 2024-06-10 09:20 | CM ---
Addendum entered by Faby Benito RN 06/10/24 10:48:
Spoke with Robjolanta, [facility] (ph [phone]); provided update re; d/c plan first to [facility] then home with HD. She will hold off on assigning HD chair time. Provided her with Devon's contact info at [facility].
Plan follow up with [facility] after benefit check.
Plan [facility] with [facility] in place for home IV Abx, with [facility] in place.
Original Note:
Patient with Dx embolic stroke, suspicion endocarditis, acute hypoxic respiratory failure, LUCIANO & CKD- new HD, APKD, sepsis with bacteremia, acute TME, back pain, cardiomyopathy. BiPAP HS. Receiving IV Abx. PT 06/08; rec acute rehab. OT 06/08: rec
acute vs skilled rehab.
[facility]; patient is fully cleared to start at [facility], and HD Schedule Letter that was provided stating MWF 330pm is a placeholder, as chair time/schedule will surely change by the time he is ready
for outpatient HD. He was updated with plan for d/c to [facility] and then home.
Spoke with Cheyanne; informed her that her was accepted by [facility] - she says she met with Dr Dejesus yesterday and feels good about him going to [facility].
Informed Cheyanne that [facility] is setup and [facility] will help her with obtaining his outpatient HD schedule, when he is a week away from d/c from [facility], and she agrees with that plan. She asked who would be doing
the HD at [facility]- explained it would be done by the same dialysis nurses that see the patient here at the hospital.
is aware that patient will need 6 weeks of IV Abx and that patient will probably be discharged home from [facility] with need for a few more weeks of Abx. has done home IV infusion before and she is willing to be taught home IV Abx
administration again. Cheyanne agrees to a referral to [facility], and she would like to know if there is any out of pocket cost- explained she can speak with [facility] nurse once benefits check is done.
The patient's has been coming in daily and will be here later today. She says one of her sons is with the patient at present.
Messages with Dr Meraz; Script provided for Ampicillin 2Gm IV Q12h & Ceftriaxone 2gm IV Q24h via PICC x 6 wks, end date 07/20/24, for Dx endocarditis. Patient will need PICC line.
Phone call to [facility]; left message re; referral. Referral sent via [employer] with script.
Plan follow up with [facility] after benefit check.
Plan [facility] with [facility] in place for home IV Abx, with [facility] in place.
--- NOTE | 2024-06-10 09:36 | W.PN.ID1 ---
Date of Service
Date of Service: June 10, 2024
Today's Communication
- continue ampicillin 2 gm iv q12 - renally dosed
- add ceftriaxone 2 gm IV q24 - monitor mental status
Assessment / Plan
Enterococcal bacteremia - persistent
Probable Endocarditis
S/p Pacemaker - no evidence of infection
s/p TAVR
ESRD, HD via permacath
Diverticulosis
Multiple strokes suggestion of emboli
- repeat blood cultures x2 q48 hours until persistently cleared - ordered for 06/11
- 06/08 single set no growth
- 06/09 two sets: no growth
- 06/05-06/07 amp sensitive E faecalis
- source was likely initially GI, could well have seeded other locations. CT nonrevealing, eventual outpatient colonoscopy, was last done 2017
- TTE - calcified MV, no definite vegetations; given persistent bacteremia will plan 6 weeks of IV therapy followed by oral suppression
- MARII can be considered, will defer to cardiology, I am not certain that it will changer fixer if patient is not a surgical candidate and there are risks with the procedure
- continue close attention to pacemaker on physical exam
- permacath placed the day before onset of bacteremia - seems less likely to be the initial source though likely secondarily infected particularly as enterococcus forms biofilms, would like to see removal/replacement at some point, note plans for
removal tomorrow after HD for line holiday.
- eventual outpatient colonoscopy to continue workup for initial source
- continue ampicillin 2 gm iv q12 - renally dosed
- add ceftriaxone 2 gm IV q24 - monitor mental status
- follow clinically
Chief Complaint
-: Bacteremia
Subjective / Review of Systems
afebrile
found to have numerous tiny lesions on MRI brain possibly embolic, also with stable arachnoid cyst
' requested not to let the patient know about the strokes now' per Dr Montoya
no new complaints
Vital Signs / Physical Exam
Vital Signs
Vital Signs
Temp Pulse Resp BP Pulse Ox
97.6 F 76 15 120/72 96
06/10/24 07:33 06/10/24 08:34 06/10/24 06:00 06/10/24 08:34 06/10/24 06:00
Physical Exam
Constitutional: No Acute Distress and Chronically Ill
Cardiovascular: Regular Rate and S1/S2; Negative Murmur or Rub
Pulmonary: Clear and Symmetric; Negative Wheezes or Rales
Gastrointestinal: Soft, Non Tender, Non Distended and Normal Bowel Sounds
Extremities: Other (tenderness in the R shoulder but no effusion, redness or warmth)
Musculoskeletal: Other (bilateral knees no redness swelling or tenderness)
Skin: Warm and Dry; Negative Rash or Jaundice
Lines: HD Cath (no redness, swelling or tenderness, functional) and Other (pacemaker no erythema, warmth, swelling or tenderness)
Objective Data
Lab Data
Lab Results
06/10/24 04:11
06/09/24 07:24
ESR 22 mm/hour (0-20) H 06/08/24 11:26
Estimated Creat Clear 12 ml/min 06/09/24 07:24
Lactic Acid Cancelled 06/06/24 06:30
Total Bilirubin 0.9 mg/dl (0.2-1.3) 06/01/24 11:49
AST 37 U/L (17-59) 06/01/24 11:49
ALT 27 U/L (0-50) 06/01/24 11:49
Alkaline Phosphatase 61 U/L (38-126) 06/01/24 11:49
C-Reactive Protein 154.40 mg/L (0.0-10.00) H 06/07/24 04:34
Most recent labs reviewed.
Micro Results:
06/07/24 04:46 Blood Culture - Final
Blood/Venous Enterococcus faecalis
Gram Stain - Final
06/09/24 06:14 Blood Culture - Preliminary
Blood/Venous No Growth in 24 hours- Final report to follow
06/09/24 06:20 Blood Culture - Preliminary
Blood/Venous No Growth in 24 hours- Final report to follow
06/08/24 11:25 Blood Culture - Preliminary
Blood/Venous No Growth in 24 hours- Final report to follow
06/07/24 04:34 Blood Culture - Preliminary
Blood/Venous Enterococcus faecalis
Gram Stain - Preliminary
06/05/24 11:01 Blood Culture - Final
Blood/Venous Enterococcus faecalis
Gram Stain - Final
06/05/24 11:11 Blood Culture - Final
Blood/Venous Enterococcus faecalis
Gram Stain - Final
06/05/24 18:38 MRSA Screen - Final
Throat/Pharynx No Methicillin Resistant Staphylococcus aureus isolated.
06/05/24 18:38 Nasal Screen MRSA (PCR) - Final
Nose MRSA not detected - performed by PCR methodology.
06/05/24 18:38 Legionella Urinary Antigen - Final
Urine Negative for Legionella pneumophila Serogroup 1 antigen.
A negative result does not rule out the possiblity of
Legionella infection due to other serogroups or species of
Legionella. Clinical correlation is recommended.
Streptococcus pneumoniae Antigen (M - Final
Negative for Streptococcus pneumoniae antigen.
A negative result does not exclude infection with
Streptococcus pneumoniae. Clinical correlation is
recommended.
--- NOTE | 2024-06-10 11:32 | W.PN.HOSP.TC ---
Today's Communication/Plan
-
Encourage out of bed to chair daily for a few hours as tolerated
Permacath to be removed after dialysis tomorrow and to be replaced on Friday
Blood cultures from the is negative so far
Continue IV antibiotics-needs long-term
Await cardiology plans
Assessment / Plan
Assessment / Plan
88yo M with difficulty with moving. [place] gave me history [place] and then had a fever. Patient then had difficulty moving and had to be brought to the emergency room in an ambulance.
He also had some pain patient is not able to describe exactly where the pain is. Pain is mostly in the arms with movement but no muscle tenderness
Echo 06/03/2024-LV mildly dilated. Mild LVH. Moderately reduced LV systolic function. Left ventricular ejection fraction 34%. Global hypokinesis. Stage II diastolic dysfunction suggestive of abnormal relaxation and increased filling pressures.
Mildly enlarged RV. Dense mitral annular calcification. Thickened mitral valve leaflets. Posterior leaflet appears calcified and restricted. Mild to moderate mitral stenosis. Mild to moderate MR. Status post TAVR. Mild to moderate TR.
Pulmonary artery pressure 44 mmHg. Small circumferential pericardial fusion without evidence of hemodynamic compromise. Since November 2023 LVEF has decreased from 50% to 34%.
06/04/24-Lumbar spine MRI-multilevel degenerative changes.Worst at L2-L3 where disc and facet disease contribute to severe spinal canal and moderate bilateral neural foraminal stenosis. Severe left-sided neuroforaminal stenosis L4/L5.
06/04/24-C-spine MRI-Motion degraded. Only marginally improved compared to 06/02/2024. 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 Focal mild myelomalacia C3/C4. No overt cord edema.
06/02/24-Thoracic spine MRI-multilevel changes. Advanced degenerative disc space narrowing with reactive Modic type I reactive signal alteration T8/T9 and T9/T10. Moderate to advanced central stenosis T9/T10 and T10/T11. No evidence of thoracic
cord signal alteration.
CT abdomen and pelvis 06/01/2024-prostatomegaly with bladder diverticulum and concentric thickening of the wall of the urinary bladder consistent with partial bladder outlet obstruction. Multicystic kidneys with multiple small bilateral
nonobstructing renal calculi. Stable hepatic cysts up to 5 cm. Atherosclerosis with fusiform aneurysmal dilatation of the infrarenal abdominal aorta 3 cm. Severe multilevel DJD.
MRI of the brain 06/09/2024-numerous small foci of restricted diffusion involving bilateral cerebral hemispheres, bilateral frontal lobes, left parietal and left occipital lobes consistent with acute infarctions. Embolic in nature. No hemorrhage.
3.70 3.5 cm CSF signal lesion in the left parietal convexity consistent with arachnoid cyst with associated mild mass effect similar to the CT. Global volume loss with sec left small vessel ischemic changes.
Awake alert and conversant.
Cardiovascular system S1-S2 appreciated, systolic murmur and diastolic murmur at apex
Extremity no edema
Neuro exam- sitting in a chair,no facial droop, sensory exam bilateral upper extremity and lower extremity unremarkable. Bilateral thenar and hypothenar muscle wasting on hands. Sitting in a chair
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
MARII eventually
Unclear if he is a candidate for valve replacement given his other comorbidities.
Neurochecks and NIH scale
Continue Plavix
# Weakness of upper extremity and to an extent lower extremity also
Generalized weakness
This may be related to enterococcal sepsis
Consider EMG - Though Neuro notes indicate pt wants to hold off
Neuro eval appreciated.
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
Continue supplemental oxygen, BiPAP as needed
#APKD
Metabolic acidosis better
Right chest wall Permacath placed on 06/04/24
Started on hemodialysis 06/05/2024
End-stage renal disease
# Enterococcal sepsis
No clear source identified at present
TTE showed mitral calcifications
On Vanco and Ampicillin
ID following
Follow cultures
Unlikely CAUTI since developed <24 after Permacath insertion.
Permacath will be removed after dialysis on 06-11-24 and to be replaced 06/14/2024
Colonoscopy 2018-polyps and diverticulosis.
#Dizziness
CT head neg for acute pathology
PCP stopped finasteride as outpatient
#Acute toxic metabolic encephalopathy
Resolved
#Back pain, most likely sciatica with multilevel disk narrowing on CT
B/L UE pain and weakness, cervical spine MRI noted
Pain mgmt
Muscle relaxants
PT/OT
Neurosurgery consulted and following.
Patient has a history of L4-L5 surgery in the past
Unclear if this is likely secondary to uremia.
# Cardiomyopathy-new ejection fraction 34% by echo 06/03/2024.
Continue Toprol. Not candidate for segundo/arb/Arni/Aldactone/SGLT2 inhibitor due to renal failure
Ischemic evaluation planned at a later date
# Pacemaker placement 2019
# History of TAVR 2019
# History of TIA/CVA-continue Plavix and statin
# Moderate bilateral carotid disease
# Essential HTN-continue metoprolol. Norvasc on Hold.
# Hyperlipidemia-continue Zetia/Crestor
# Prostatomegaly with bladder diverticulum- Tamsulosin/finasteride on hold .Continue Rutledge
# Anemia of chronic disease
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
# Multiple hepatic cysts
# JEANIE-cont CPAP
# GERD/peptic ulcer disease-continue PPI
# Ex-smoker
# DVT ppx -SC hep
# Full code
Discussed with cardiology
D/W Renal
Spoke to on [phone]- updated the plan again today
D/W RN
Time spent over 55 min
Anticipated Discharge: > 48 hours
Subjective/Interval History
-
Date of Service: June 10, 2024
Objective Data
-
Labs:
Laboratory Results
06/10/24
04:11
WBC 14.3 H
Hgb 10.0 L
Hct 31.3 L
Plt Count 241
Vital Signs:
Vital Signs
Temp Pulse Resp BP Pulse Ox
97.6 F 76 15 120/72 96
06/10/24 07:33 06/10/24 08:34 06/10/24 06:00 06/10/24 08:34 06/10/24 06:00
I&O
06/09/24 06/10/24 06/11/24
06:59 06:59 06:59
Intake Total 660 / 660
Output Total 250 / 250 300 / 300
Balance -250 / -250 360 / 360
--- NOTE | 2024-06-10 11:43 | W.PN.CARDCBS ---
Today's Communication / Plan
-
Remains on hemodialysis for volume control. Nephrology managing volume. Continue to follow daily weights.
Cont broad spectrum abx for enterococcus bacteremia with now negative blood cultures sine June 08 2024. Needs at least 6 weeks of antibiotics with his transcatheter aortic valve and after discussion with ID this may be care home antibiotics.
Discussed his new CM with EF 35-40%. Cont Toprol.
GDMT limited due to renal failure and hypotension. Not currently a candidate for segundo/arb/arni/aldactone/SGLT2 inhibitor due to ESRD
Will consider ischemic eval as outpt once improved clinically from comorbidities including renal failure, bacteremia. CM could also be from chronic pacing as part of the differential.
Neuro input appreciated.
Currently, MARII may not ultimately jacquard loom card changer given need for care home abx as per ID and pt is poor candidate for invasive treatments for potential endocarditis.
Could consider MARII in the future for recurrent/persistent bacteremia with positive blood cultures.
No evidence of spinal processs and no plan for neurosurgical intervention.
Vpaced. HR and bp stable overall with bp on the lower side.
Remains on chronic plavix for hx of CVA.
Discussed with primary service, ID, neurology and EP.
Prognosis is poor.
Impression / Plan
-
.
Primary Rehabilitation Medicine Physician: Dr. French
Impression:
Presentation with back pain, concern for central cord syndrome
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
Cardiomyopathy, EF 35% by echo 06/03/24
Bacteremia with gram positive cocci
New CVA, multiterritory small embolic ischemic strokes, concerning for possibly an embolic source
Severe status post TAVR 2019
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
History of TIA/CVA
Hypertension
Hyperlipidemia
Moderate bilateral carotid disease
JEANIE on CPAP
Iron deficiency anemia
ECHO 11/2022: EF 53%, moderate concentric LVH, stage II diastolic dysfunction, MAC, mild to moderate MR, mildly dilated left atrium, #26 Mobley GAMA #3 ultra transcatheter aortic valve with peak/mean gradients 28/14 mmHg with mild paravalvular AR,
normal right heart
ECHO 06/03/24: EF 35%, global hypokinesis, mild LVH, stage II diastolic dysfunction, dense MAC, mild to moderate MS with peak/mean gradients 14/7 mmHg, mild to moderate MR, status post TAVR with peak/mean gradient 22/12 mmHg, mild to moderate TR, PAP
44 mmHg, small circumferential pericardial effusion
Plan:
Remains on hemodialysis for volume control. Nephrology managing volume. Continue to follow daily weights.
Cont broad spectrum abx for enterococcus bacteremia with now negative blood cultures sine June 08 2024. Needs at least 6 weeks of antibiotics with his transcatheter aortic valve and after discussion with ID this may be care home antibiotics.
Discussed his new CM with EF 35-40%. Cont Toprol.
GDMT limited due to renal failure and hypotension. Not currently a candidate for segundo/arb/arni/aldactone/SGLT2 inhibitor due to ESRD
Will consider ischemic eval as outpt once improved clinically from comorbidities including renal failure, bacteremia. CM could also be from chronic pacing as part of the differential.
Neuro input appreciated.
Currently, MARII may not ultimately jacquard loom card changer given need for care home abx as per ID and pt is poor candidate for invasive treatments for potential endocarditis.
Could consider MARII in the future for recurrent/persistent bacteremia with positive blood cultures.
No evidence of spinal processs and no plan for neurosurgical intervention.
Vpaced. HR and bp stable overall with bp on the lower side.
Remains on chronic plavix for hx of CVA.
Discussed with primary service, ID, neurology and EP.
Prognosis is poor.
HPI: Patient presenting with worsening extremity weakness undergoing evaluation by neurosurgery with concern for central cord syndrome. Additionally, patient noted to have worsening function and dyspnea. Repeat TTE noted reduced LVEF 35-40%.
Progress Note - Rehabilitation Medicine Physician
Subjective
Date of Service: June 10, 2024
Pt seen and examined. No complaints. No chest pain or shortness of breath.
Objective
Labs:
06/10/24 04:11
06/09/24 07:24
Labs
Hgb 10.0 g/dL (13.0-18.0) L 06/10/24 04:11
Hct 31.3 % (39.0-52.0) L 06/10/24 04:11
Plt Count 241 10^3/uL (130-400) 06/10/24 04:11
Sodium 135 mmol/L (135-145) 06/09/24 07:24
Potassium 3.4 mmol/L (3.5-5.1) L 06/09/24 07:24
BUN 76 mg/dl (9-20) H 06/09/24 07:24
Creatinine 4.8 mg/dL (0.7-1.3) H* 06/09/24 07:24
Glucose 169 mg/dl (70-99) H 06/09/24 07:24
Vital Signs and I&O:
Vital Signs
Temp Pulse Resp BP Pulse Ox
97.6 F 76 15 120/72 96
06/10/24 07:33 06/10/24 08:34 06/10/24 06:00 06/10/24 08:34 06/10/24 06:00
Vital Signs
Temp Pulse Resp BP Pulse Ox
97.6 F 76 15 120/72 96
06/10/24 07:33 06/10/24 08:34 06/10/24 06:00 06/10/24 08:34 06/10/24 06:00
Intake & Output
06/08/24 06/09/24 06/10/24 06/11/24
06:59 06:59 06:59 06:59
Intake Total 660 / 660 240 / 240
Output Total 425 / 425 250 / 250 300 / 300
Balance -425 / -425 -250 / -250 360 / 360 240 / 240
Physical Exam
Physical Exam
General: No acute distress, Awake and alert
Neck: Negative JVD
Heart: Regular, Negative S3 positive S1/S2, Negative S4, No murmur
Lungs: CTA b/l, negative wheezes/rales/rhonchi
Abd: Positive BS, NT/ND, neg rebound/rigidity/guarding
Ext: Negative cyanosis/clubbing/edema
Neuro: nonfocal
[2024-06-10] MEDS: ROCEPHIN 2000 MG IV (13:01)
[2024-06-10] MEDS: STERILE WATER FOR INJECTION 20 ML IV (13:01)
--- NOTE | 2024-06-10 13:22 | W.PN.NEPH.PH ---
Today's Communication / Plan
-
- HD tomorrow and TDC removal afterwards
Assessment/Plan
-
Impression:
Urinary retention
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
Acute kidney injury
Hypertension
Dyslipidemia
Metabolic acidosis
History of pacemaker placement
BPH with recent Rutledge catheter removal earlier this week
Enterococcus bacteremia
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
Plan:
LCUIANO vs CKD progression to ESRD
-Plan for HD tomorrow and TDC removal afterwards due to bacteremia and stroke
-blood pressures now normalized
-Holding antihypertensives
-ID to direct antibiotic therapy, may need of assistance pacemaker extraction due to bacteremia
-
-
Date of Service: June 10, 2024
CC / HPI / ROS
-
Chief Complaint:
CKD V
History of Present Illness:
LUCIANO on CKD V now on HD
Hemodynamically labile
Currently maintained on ampicillin/rocepin for Enterococcus bacteremia
Leukocytosis persist
Review of Systems:
offers no cp or sob
Mental status improving
Tunneled HD catheter
febrile
Labs
-
Labs:
WBC 14.3 10^3/uL (4.8-10.8) H 06/10/24 04:11
RBC 3.53 10^6/uL (4.70-6.10) L 06/10/24 04:11
Hgb 10.0 g/dL (13.0-18.0) L 06/10/24 04:11
Hct 31.3 % (39.0-52.0) L 06/10/24 04:11
Plt Count 241 10^3/uL (130-400) 06/10/24 04:11
Sodium 135 mmol/L (135-145) 06/09/24 07:24
Potassium 3.4 mmol/L (3.5-5.1) L 06/09/24 07:24
Chloride 99 mmol/L (98-107) 06/09/24 07:24
Carbon Dioxide 26 mmol/L (22-30) 06/09/24 07:24
BUN 76 mg/dl (9-20) H 06/09/24 07:24
Creatinine 4.8 mg/dL (0.7-1.3) H* 06/09/24 07:24
eGFR 11.16 06/09/24 07:24
Glucose 169 mg/dl (70-99) H 06/09/24 07:24
Calcium 9.0 mg/dl (8.4-10.2) 06/09/24 07:24
Albumin 3.7 g/dl (3.5-5.0) 06/01/24 11:49
Physical Exam
-
Vital Signs:
Vital Signs
Temp Pulse Resp BP Pulse Ox
97.9 F 76 15 120/72 96
06/10/24 12:01 06/10/24 08:34 06/10/24 06:00 06/10/24 08:34 06/10/24 06:00
Cardiovascular:: Regular rate and rhythm
Respiratory:: Bilateral: Coarse
Lung Excursion:: Normal
Abdomen:: Nontender and Soft
Bowel Sounds:: Normal
Extremity Edema:: +1: Bilateral:
Rutledge Catheter: No
--- NOTE | 2024-06-10 15:48 | PTCARENOTE ---
Assumed care of pt this am after morning report/ He is soft spoken and reports feeling tired but he is easily arousable. NIH completed and no changes since 0800 assessment. Room air pulse ocx99, lungs diminished but clear. No cough noted. Abdomen
round with active bowel tones. Pt requests bedpan for small amount loose brown BM. Condom cath intact, pt did have 125 clear yellow urine with PVR bladder scan 194ml/ Pt denies any bladder pressure, urgency or discomfort. Moving all extremities, but
note he does have history of arthritis pain in multiple joints and hands are quite stiff. He is OOB to chair with PT/OT and was returned to bed with assist of 1 Rn and 1 PCT. Pt was able to get from sit to stand. he needed coaching to tuck in hips
and stand up, he was able to take a few shifting steps towards bed and then assisted to sitting by staff. Pt was feeling 'weak in the legs' but grateful to have gotten out of bed today. pt's daughter and are at bedside and aware of pt
tolerating chair. Pt tolerating food slowand steady with assist of staff or family. Pt did okay feeding self finger foods.
[2024-06-10] MEDS: TOPROL XL PO (20:19)
[2024-06-11] VITALS (47 sets, daily range): BP systolic 92–128; BP diastolic 60–81; PULSE 84; BMI 23.2
--- NOTE | 2024-06-11 01:36 | PTCARENOTE ---
Pt resting comfortably in bed with turn schedule in place to prevent skin breakdown. Pt was able to take oral pill with sip of water without complication. Pt remains V-paced on radiation monitor.
[2024-06-11 03:57] LABS: Hematocrit 32.2 % (39.0-52.0); Hemoglobin 10.2 g/dL (13.0-18.0); Mean Corp Hgb Conc. 31.7 g/dL (33.0-37.0); Mean Corpuscular Hgb 28.1 pg (27.0-31.0); Mean Corpuscular Volume 88.7 fL (80.0-94.0); Mean Platelet Volume 11.4 fL (7.4-10.4); Platelet Count 277 10^3/uL (130-400); Red Blood Cell Count 3.63 10^6/uL (4.70-6.10); Red Cell Dist. Width 16.1 % (11.5-14.5); White Blood Cell Count 14.4 10^3/uL (4.8-10.8)
[2024-06-11 04:28] LABS: Blood Urea Nitrogen 57 mg/dl (9-20); Calcium 9.1 mg/dl (8.4-10.2); Carbon Dioxide 26 mmol/L (22-30); Chloride 98 mmol/L (98-107); Estimated Creatinine Clearance 14 ml/min; Glucose 142 mg/dl (70-99); Potassium 3.6 mmol/L (3.5-5.1); Sodium 131 mmol/L (135-145); eGFR 13.48
--- NOTE | 2024-06-11 07:02 | W.PN.NEURO.1 ---
Today's Communication / Plan
-
-Continue Clopidogrel
-Do not feel that MARII would be essential here given unlikely to exchange specialist, not candidate for more invasive procedures
-Continuing on antibiotics
-NIH and neurologic checks
Neuro Assessment/Plan
Assessment
Patient is 88-year-old man presented to hospital and has developed renal failure from previous CKD now requiring dialysis as well as Enterococcus bacteremia.
He presented with significant back pain radiating to the legs bilaterally. He notes that this is improved and nearly resolved though still with some leg pain with movement.
He does feel that the strength of his arms and legs has improved some.
MRI of lumbar and C spine not showing abscess, cord compression or surgical pathology
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 They probably came to a head with infection and dialysis. Additionally could
have also had a transient sciatica bilaterally. His symptoms and course not consistent with Guillain-Thao� syndrome.
Weakness also in part due to sepsis/infection and new dialysis neegs
MRI showing multiterritory small embolic ischemic strokes, concerning for possibly an embolic source and in the context of a patient with bacteremia and TAVR would need to consider endocarditis
Subjective/Objective
Subjective Data
Date of Service: June 11, 2024
No acute events, remains on antibiotics, patient with no headache, notes right leg weakness
Objective Data
Vital Signs
Temp Pulse Resp BP Pulse Ox
98.3 F 72 18 99/69 97
06/11/24 03:00 06/11/24 06:00 06/11/24 06:00 06/11/24 06:00 06/11/24 06:00
Lab Results
06/11/24 03:37
06/11/24 03:37
Sodium 131 mmol/L (135-145) L 06/11/24 03:37
Potassium 3.6 mmol/L (3.5-5.1) 06/11/24 03:37
BUN 57 mg/dl (9-20) H 06/11/24 03:37
Glucose 142 mg/dl (70-99) H 06/11/24 03:37
Calcium 9.1 mg/dl (8.4-10.2) 06/11/24 03:37
Vitamin B12 895 pg/ml (239-931) 06/07/24 04:34
Patient Allergies
celecoxib [From Celebrex] Allergy (Verified 06/01/24 11:05)
GI bleed
Review of Systems
-
History Source: Patient
All other systems: Reviewed and negative
Constitutional: No Symptoms
EENT: No Symptoms Reported
Respiratory: No Symptoms
Cardiac: No Symptoms
Abdomen/GI: No Symptoms
Genitourinary: No Symptoms
Musculoskeletal: No Symptoms
Skin: No Symptoms
Neuro: Weakness
Endocrine: No Symptoms
Hematologic / Lymphatic: No Symptoms
Allergy / Immunology: No Symptoms
Physical Exam
-
General: No Apparent Distress and Comfortable
Eyes: No Ptosis
HEENT: Normocephalic, Atraumatic and Anicteric
Neck: Full Range of Motion
Respiratory: No Dyspnea; Negative Wheezes
Cardiac: No Murmur
GI: Non-tender
Skin: Warm, Dry and Rash
Psych: Negative Confused
Extended Neurological Exam
Attention Span & Concentration: Awake, Alert, Interactive and No Difficulty with 2 Step Request
Memory: Unremarkable
Tremor: Hand Tremor Absent
Involuntary Movement: None
Speech: Quality Unremarkable, Quantity Unremarkable and Dysarthric; Negative Expressive Aphasia or Receptive Aphasia
Cranial Nerve II: Left Eye: Pupillary Reactivity Unremarkable and Pupillary Size Unremarkable
Cranial Nerve II: Right Eye: Pupillary Reactivity Unremarkable and Pupillary Size Unremarkable
Cranial Nerves III, IV, : Extraocular Movement: Extraocular Movement Full in all Directions
Cranial Nerve VII: Facial Symmetry: Normal Facial Symmetry
Muscle Strength, Overall: Other (Mild right leg hip flexion weakness 4/5)
--- NOTE | 2024-06-11 08:37 | W.PN.NEPH.HD ---
Assessment
-
Patient seen on dialysis
Systolic blood pressure 119 at current UF of 1 kg
Next dialysis will be planned for Friday
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
Patient to have tunneled catheter removed after dialysis today
Progress Note - Hemodialysis
-
Date of Service: June 11, 2024
Duration: 30 minutes and 3 hours
Potassium Bath: 3
Calcium Bath: 2.5
Opti-Dialyzer: 160
Ultrafiltration: Other (1kg)
Blood Flow: 400
Dialysate Flow: 600
Heparin: None
EPO: None
--- NOTE | 2024-06-11 09:28 | W.PN.CARDCBS ---
Today's Communication / Plan
-
Continue hemodialysis to remove temporary catheter.
Continue antibiotics.
Continue hemodialysis for volume management.
Blood cultures have cleared which is a good sign. Will need long-term antibiotics. Holding off on MARII for now.
Continue metoprolol, Crestor, Zetia, and Plavix
Impression / Plan
-
.
Primary Cafeteria Team Leader: Dr. French
Impression:
Presentation with back pain, concern for central cord syndrome
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
Cardiomyopathy, EF 35% by echo 06/03/24
Bacteremia with gram positive cocci
New CVA, multiterritory small embolic ischemic strokes, concerning for possibly an embolic source
Severe status post TAVR 2019
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
History of TIA/CVA
Hypertension
Hyperlipidemia
Moderate bilateral carotid disease
JEANIE on CPAP
Iron deficiency anemia
ECHO 11/2022: EF 53%, moderate concentric LVH, stage II diastolic dysfunction, MAC, mild to moderate MR, mildly dilated left atrium, #26 Mobley GAMA #3 ultra transcatheter aortic valve with peak/mean gradients 28/14 mmHg with mild paravalvular AR,
normal right heart
ECHO 06/03/24: EF 35%, global hypokinesis, mild LVH, stage II diastolic dysfunction, dense MAC, mild to moderate MS with peak/mean gradients 14/7 mmHg, mild to moderate MR, status post TAVR with peak/mean gradient 22/12 mmHg, mild to moderate TR, PAP
44 mmHg, small circumferential pericardial effusion
Plan:
Cont hemodialysis for volume control. Nephrology managing volume. Continue to follow daily weights.
Cont broad spectrum abx for enterococcus bacteremia with now negative blood cultures sine June 08 2024. With Enterococcus bacteremia, MRI with possible embolic events, transcatheter aortic valve, and permanent pacemaker I would recommend
longstanding antibiotics. Will hold off on MARII for now.
Repeat blood cultures are negative.
Discussed his new CM with EF 35-40%. Cont Toprol.
GDMT limited due to renal failure and hypotension. Not currently a candidate for segundo/arb/arni/aldactone/SGLT2 inhibitor due to ESRD
Will consider ischemic eval as outpt once improved clinically from comorbidities including renal failure, bacteremia. CM could also be from chronic pacing as part of the differential.
Neuro input appreciated.
No evidence of spinal processs and no plan for neurosurgical intervention.
Vpaced. HR and bp stable overall with bp on the lower side.
Remains on chronic plavix for hx of CVA.
Prognosis is poor.
HPI: Patient presenting with worsening extremity weakness undergoing evaluation by neurosurgery with concern for central cord syndrome. Additionally, patient noted to have worsening function and dyspnea. Repeat TTE noted reduced LVEF 35-40%.
Progress Note - Cafeteria Team Leader
Subjective
Date of Service: June 11, 2024
no new fevers. on HD
Objective
Labs:
06/11/24 03:37
06/11/24 03:37
Labs
Hgb 10.2 g/dL (13.0-18.0) L 06/11/24 03:37
Hct 32.2 % (39.0-52.0) L 06/11/24 03:37
Plt Count 277 10^3/uL (130-400) 06/11/24 03:37
Sodium 131 mmol/L (135-145) L 06/11/24 03:37
Potassium 3.6 mmol/L (3.5-5.1) 06/11/24 03:37
BUN 57 mg/dl (9-20) H 06/11/24 03:37
Creatinine 4.1 mg/dL (0.7-1.3) H* 06/11/24 03:37
Glucose 142 mg/dl (70-99) H 06/11/24 03:37
Vital Signs and I&O:
Vital Signs
Temp Pulse Resp BP Pulse Ox
97.7 F 72 18 99/69 97
06/11/24 07:38 06/11/24 06:00 06/11/24 06:00 06/11/24 06:00 06/11/24 06:00
Vital Signs
Temp Pulse Resp BP Pulse Ox
97.7 F 72 18 99/69 97
06/11/24 07:38 06/11/24 06:00 06/11/24 06:00 06/11/24 06:00 06/11/24 06:00
Intake & Output
06/09/24 06/10/24 06/11/24 06/12/24
06:59 06:59 06:59 06:59
Intake Total 660 / 660 1008 / 1008
Output Total 250 / 250 300 / 300 375 / 375
Balance -250 / -250 360 / 360 633 / 633
Physical Exam
Physical Exam
GEN: No distress, awake, Ox3
HEENT: supple, anicteric, mmm
LUNGS: CTA, no wheezes/rales
CV: Reg, S1/S2, 1/6 syst LSB, no gallop
ABD: soft, BS+, NT/ND
EXT: R chest wall dialysis catheter
NEURO: Gross non-focal
SKIN: No rash
--- NOTE | 2024-06-11 09:47 | PTCARENOTE ---
Assumed care of patient at beginning of this shift from previous RN. Patient currently receiving HD; will administer meds after. Ox3, drowsy but easily arousable. Plan is to have HD cath removed after treatment; await notification of time. See
worklist for full assessment, NIHSS, interventions and vital signs; see MAR for med administration.
--- NOTE | 2024-06-11 10:25 | W.PN.HOSP.TC ---
Today's Communication/Plan
-
Continue antibiotics
Removal of permacath after dialysis today
Encourage out of bed to chair at this afternoon
PT OT every day and get out of bed every day
Eventual rehab with long-term antibiotics
Assessment / Plan
Assessment / Plan
88yo M with difficulty with moving. [place] gave me history [place] and then had a fever. Patient then had difficulty moving and had to be brought to the emergency room in an ambulance.
He also had some pain patient is not able to describe exactly where the pain is. Pain is mostly in the arms with movement but no muscle tenderness
Echo 06/03/2024-LV mildly dilated. Mild LVH. Moderately reduced LV systolic function. Left ventricular ejection fraction 34%. Global hypokinesis. Stage II diastolic dysfunction suggestive of abnormal relaxation and increased filling pressures.
Mildly enlarged RV. Dense mitral annular calcification. Thickened mitral valve leaflets. Posterior leaflet appears calcified and restricted. Mild to moderate mitral stenosis. Mild to moderate MR. Status post TAVR. Mild to moderate TR.
Pulmonary artery pressure 44 mmHg. Small circumferential pericardial fusion without evidence of hemodynamic compromise. Since November 2023 LVEF has decreased from 50% to 34%.
06/04/24-Lumbar spine MRI-multilevel degenerative changes.Worst at L2-L3 where disc and facet disease contribute to severe spinal canal and moderate bilateral neural foraminal stenosis. Severe left-sided neuroforaminal stenosis L4/L5.
06/04/24-C-spine MRI-Motion degraded. Only marginally improved compared to 06/02/2024. 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 Focal mild myelomalacia C3/C4. No overt cord edema.
06/02/24-Thoracic spine MRI-multilevel changes. Advanced degenerative disc space narrowing with reactive Modic type I reactive signal alteration T8/T9 and T9/T10. Moderate to advanced central stenosis T9/T10 and T10/T11. No evidence of thoracic
cord signal alteration.
CT abdomen and pelvis 06/01/2024-prostatomegaly with bladder diverticulum and concentric thickening of the wall of the urinary bladder consistent with partial bladder outlet obstruction. Multicystic kidneys with multiple small bilateral
nonobstructing renal calculi. Stable hepatic cysts up to 5 cm. Atherosclerosis with fusiform aneurysmal dilatation of the infrarenal abdominal aorta 3 cm. Severe multilevel DJD.
MRI of the brain 06/09/2024-numerous small foci of restricted diffusion involving bilateral cerebral hemispheres, bilateral frontal lobes, left parietal and left occipital lobes consistent with acute infarctions. Embolic in nature. No hemorrhage.
3.70 3.5 cm CSF signal lesion in the left parietal convexity consistent with arachnoid cyst with associated mild mass effect similar to the CT. Global volume loss with sec left small vessel ischemic changes.
Getting HD
Awake alert and conversant.
Cardiovascular system S1-S2 appreciated, systolic murmur and diastolic murmur at apex
Extremity no edema
Neuro exam-Unchanged
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
No MARII per cards
Neurochecks and NIH scale
Continue Plavix
# Weakness of upper extremity and to an extent lower extremity also
Generalized weakness
This may be related to enterococcal sepsis
Consider EMG - Though Neuro notes indicate pt wants to hold off
Neuro eval appreciated.
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
Continue supplemental oxygen, BiPAP as needed
#APKD
Metabolic acidosis better
Right chest wall Permacath placed on 06/04/24
Started on hemodialysis 06/05/2024
End-stage renal disease
HD catheter removal after HD 06/11/24.
# Enterococcal sepsis
No clear source identified at present
Blood Cx have turned negative.
TTE showed mitral calcifications
On Vanco and Ampicillin
ID following
Follow cultures
Unlikely CAUTI since developed <24 after Permacath insertion.
Permacath will be removed after dialysis on 06-11-24 and to be replaced 06/14/2024
Colonoscopy 2018-polyps and diverticulosis.
#Dizziness
CT head neg for acute pathology
PCP stopped finasteride as outpatient
#Acute toxic metabolic encephalopathy
Resolved
#Back pain, most likely sciatica with multilevel disk narrowing on CT
B/L UE pain and weakness, cervical spine MRI noted
Pain mgmt
Muscle relaxants
PT/OT
Neurosurgery consulted and following.
Patient has a history of L4-L5 surgery in the past
Unclear if this is likely secondary to uremia.
# Cardiomyopathy-new ejection fraction 34% by echo 06/03/2024.
Continue Toprol. Not candidate for segundo/arb/Arni/Aldactone/SGLT2 inhibitor due to renal failure
Ischemic evaluation planned at a later date
# Pacemaker placement 2019
# History of TAVR 2019
# History of TIA/CVA-continue Plavix and statin
# Moderate bilateral carotid disease
# Essential HTN-continue metoprolol. Norvasc on Hold.
# Hyperlipidemia-continue Zetia/Crestor
# Prostatomegaly with bladder diverticulum- Tamsulosin/finasteride on hold .Continue [place]
# Anemia of chronic disease
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
# Multiple hepatic cysts
# JEANIE-cont CPAP
# GERD/peptic ulcer disease-continue PPI
# Ex-smoker
# DVT ppx -SC hep
# Full code
D/W Renal
Spoke to on [phone]- updated the plan
D/W RN
Time spent over 50 min
Anticipated Discharge: > 48 hours
Subjective/Interval History
-
Date of Service: June 11, 2024
Objective Data
-
Labs:
Laboratory Results
06/11/24
03:37
WBC 14.4 H
Hgb 10.2 L
Hct 32.2 L
Plt Count 277
Sodium 131 L
Potassium 3.6
Chloride 98
Carbon Dioxide 26
BUN 57 H
Creatinine 4.1 H*
Glucose 142 H
Calcium 9.1
Vital Signs:
Vital Signs
Temp Pulse Resp BP Pulse Ox
97.7 F 77 13 109/73 95
06/11/24 07:38 06/11/24 09:45 06/11/24 09:45 06/11/24 09:45 06/11/24 09:45
I&O
06/10/24 06/11/24 06/12/24
06:59 06:59 06:59
Intake Total 660 / 660 1008 / 1008
Output Total 300 / 300 375 / 375
Balance 360 / 360 633 / 633
--- NOTE | 2024-06-11 11:15 | W.PN.ID1 ---
Addendum entered and electronically signed by Aurelio Treadwell DO 06/11/24 12:46:
I saw and evaluated the patient. I reviewed the resident�s note and agree with findings and plan as documented in the resident�s note.
Original Note:
Date of Service
Date of Service: June 11, 2024
Today's Communication
Continue IV abx
Assessment / Plan
Enterococcal bacteremia - persistent
Probable Endocarditis
S/p Pacemaker - no evidence of infection
s/p TAVR
ESRD, HD via permacath
Diverticulosis
Multiple strokes suggestion of emboli
- repeat blood cultures x2 q48 hours until persistently cleared - ordered for 06/11
- 06/08 single set no growth
- 06/09 two sets: no growth
- 06/05-06/07 amp sensitive E faecalis
- source was likely initially GI, could well have seeded other locations. CT nonrevealing, eventual outpatient colonoscopy, was last done 2017
- TTE - calcified MV, no definite vegetations; given persistent bacteremia will plan 6 weeks of IV therapy followed by oral suppression
-Pt complained of bilateral hand aches - no osler nodes, janeway lesions or splinter hemorrhages
-MARII can be considered, will defer to cardiology, I am not certain that it will environmental change analyst if patient is not a surgical candidate and there are risks with the procedure
- continue close attention to pacemaker on physical exam
- permacath placed the day before onset of bacteremia - seems less likely to be the initial source though likely secondarily infected particularly as enterococcus forms biofilms, removal planned for today
- eventual outpatient colonoscopy to continue workup for initial source
- continue ampicillin 2 gm iv q12 - renally dosed
- continue ceftriaxone 2 gm IV q24 - monitor mental status
- follow clinically
Chief Complaint
-: Bacteremia
Subjective / Review of Systems
Vitals stable overnight
HD ongoing at time of exam
Review of Systems: No Fever, No Chills, No Headache, No Abdominal Pain and Other (bilateral hand pain and weakness)
Vital Signs / Physical Exam
Vital Signs
Vital Signs
Temp Pulse Resp BP Pulse Ox
97.7 F 77 13 109/73 95
06/11/24 07:38 06/11/24 09:45 06/11/24 09:45 06/11/24 09:45 06/11/24 09:45
Physical Exam
Constitutional: No Acute Distress and Comfortable
Cardiovascular: Regular Rate, S1/S2 and Other (no osler nodes, janeway lesions or splinter hemorrhages); Negative Murmur, Rub or Peripheral Edema
Pulmonary: Clear and Non Labored
Gastrointestinal: Soft, Non Tender, Non Distended and Normal Bowel Sounds
Extremities: Edema
Musculoskeletal: Other (bilateral hand tenderness)
Skin: Other (pacemaker site non-tender or erythematous)
Neurological: Awake and Alert
Psychological: Calm
Lines: PIV (dorsal r hand) and HD Cath
Objective Data
Lab Data
Lab Results
06/11/24 03:37
06/11/24 03:37
ESR 22 mm/hour (0-20) H 06/08/24 11:26
Estimated Creat Clear 14 ml/min 06/11/24 03:37
Lactic Acid Cancelled 06/06/24 06:30
Total Bilirubin 0.9 mg/dl (0.2-1.3) 06/01/24 11:49
AST 37 U/L (17-59) 06/01/24 11:49
ALT 27 U/L (0-50) 06/01/24 11:49
Alkaline Phosphatase 61 U/L (38-126) 06/01/24 11:49
C-Reactive Protein 154.40 mg/L (0.0-10.00) H 06/07/24 04:34
Most recent labs reviewed.
Micro Results:
06/09/24 06:14 Blood Culture - Preliminary
Blood/Venous No Growth in 48 hours- Final report to follow
06/09/24 06:20 Blood Culture - Preliminary
Blood/Venous No Growth in 48 hours- Final report to follow
06/11/24 06:19 Blood Culture - Pending
Blood/Venous
06/11/24 03:37 Blood Culture - Pending
Blood/Venous
06/08/24 11:25 Blood Culture - Preliminary
Blood/Venous No Growth in 48 hours- Final report to follow
06/07/24 04:46 Blood Culture - Final
Blood/Venous Enterococcus faecalis
Gram Stain - Final
06/07/24 04:34 Blood Culture - Preliminary
Blood/Venous Enterococcus faecalis
Gram Stain - Preliminary
06/05/24 11:01 Blood Culture - Final
Blood/Venous Enterococcus faecalis
Gram Stain - Final
06/05/24 11:11 Blood Culture - Final
Blood/Venous Enterococcus faecalis
Gram Stain - Final
06/05/24 18:38 MRSA Screen - Final
Throat/Pharynx No Methicillin Resistant Staphylococcus aureus isolated.
06/05/24 18:38 Nasal Screen MRSA (PCR) - Final
Nose MRSA not detected - performed by PCR methodology.
06/05/24 18:38 Legionella Urinary Antigen - Final
Urine Negative for Legionella pneumophila Serogroup 1 antigen.
A negative result does not rule out the possiblity of
Legionella infection due to other serogroups or species of
Legionella. Clinical correlation is recommended.
Streptococcus pneumoniae Antigen (M - Final
Negative for Streptococcus pneumoniae antigen.
A negative result does not exclude infection with
Streptococcus pneumoniae. Clinical correlation is
recommended.
[2024-06-11] MEDS: ZETIA 10 MG PO (11:47)
[2024-06-11] MEDS: TOPROL XL 50 MG PO ×2 (11:47→19:50)
[2024-06-11] MEDS: PROTONIX 40 MG PO (11:47)
[2024-06-11] MEDS: PLAVIX 75 MG PO (11:48)
[2024-06-11] MEDS: LIDOCAINE 4% PATCH 1 PATCH TOPICAL (11:48)
[2024-06-11] MEDS: CRESTOR 10 MG PO (11:48)
[2024-06-11] MEDS: OCUVITE SOFTGEL 1 CAP PO ×2 (11:48→19:50)
[2024-06-11] MEDS: HEPARIN 5000 UNITS SC ×2 (11:48→16:50)
[2024-06-11] MEDS: ROCEPHIN 2000 MG IV (12:16)
[2024-06-11] MEDS: STERILE WATER FOR INJECTION 20 ML IV (12:16)
[2024-06-11] MEDS: AMPICILLIN 108 MG IV (12:16)
--- NOTE | 2024-06-11 13:08 | PN.CDI ---
CDI
- -
CDI:
Physician Documentation Request
Admit Date: 06/03/24 13:44
Dear Doctor Lindsay,
Patient admitted with embolic stroke likely infective endocarditis related.
06/10 Nephrology note, 'CKD stage V due to underlying polycystic kidney disease.....LUCIANO vs CKD progression to ESRD.....-Plan for HD tomorrow.'
06/11 PN,'....CKD stage 5.....End-stage renal disease.....Started on hemodialysis 06/05/2024.'
Creatinine and GFR's documented below:
.
Laboratory Tests
06/01/24 06/02/24 06/03/24
11:49 09:39 08:25
Creatinine 5.8 H* 5.9 H* 6.5 H*
eGFR 8.89 8.71 7.76
06/04/24 06/05/24 06/06/24
07:07 07:48 01:45
Creatinine 6.3 H* 7.1 H* 5.9 H*
eGFR 8.05 6.98 8.71
06/07/24 06/09/24
04:34 07:24
Creatinine 5.0 H* 4.8 H*
eGFR 10.62 11.16
Due to conflicting documentation, please clarify in your note the suspected stage of CKD:
ESRD
CKD 5
Other
Use of terms such as suspected, likely, concern for, or probable (associated with a specific diagnosis that is being evaluated, monitored, or treated as if it exists) are acceptable and can be coded in the inpatient setting, when documented at the
time of discharge.
Thank you,
Susana SANDERS,RN,CCDS
CDI Specialist
Available via [place] text
Please use your independent medical judgment in providing your response.
*Source: Kidney Disease: Improving Global Outcomes (KDIGO) 2012
--- NOTE | 2024-06-11 13:16 | PTCARENOTE ---
CLAIRE RN- Right chest tunneled HD cath removed bedside by Sonny Kilgore RTR. No issues with removal. sterile dressing in place. Leave dressing intact x 2 days and then remove. updated Angelica RN in IMU.
--- NOTE | 2024-06-11 17:05 | CM ---
Patient with Dx embolic stroke, suspicion endocarditis, acute hypoxic respiratory failure, LUCIANO & CKD- new HD, APKD, sepsis with bacteremia, acute TME, back pain, cardiomyopathy. Temp HD catheter removed today. BiPAP HS. Receiving IV Abx. PT & OT
recommend acute rehab.
Spoke with [facility]; he inquired about d/c date which is currently unknown. He is aware patient will go to [place] at d/c then home with [facility].
Phone call to Ana Farfan; left message re; referral requesting callback about benefit check.
Plan follow up with Liban Farfan re; benefit check.
Plan [facility] [facility] with [facility] in place for home IV Abx, with [facility] in place.
--- NOTE | 2024-06-11 19:11 | PTCARENOTE ---
Late entry: verified with Dr Treadwell prior to patient going to IR that HD cath tip does not need to be cultured. Zohra DEXTER made aware prior to transfer to IR.
[2024-06-12] VITALS (17 sets, daily range): BP systolic 94–125; BP diastolic 57–99; PULSE 79–91; O2SAT 95; BMI 22.7
[2024-06-12] MEDS: AMPICILLIN 108 MG IV ×3 (00:08→23:17)
[2024-06-12] MEDS: HEPARIN 5000 UNITS SC ×4 (00:10→23:17)
--- NOTE | 2024-06-12 08:42 | W.PN.CARDCBS ---
Today's Communication / Plan
-
Cont hemodialysis for volume control. Nephrology managing volume. Continue to follow daily weights.
Cont broad spectrum abx for enterococcus bacteremia with negative blood cultures since June 08 2024. With Enterococcus bacteremia, MRI with possible embolic events, transcatheter aortic valve, and permanent pacemaker agree with ID for IV abx and
then chronic suppression. Holding off on MARII for now as would not change current management given need for fpc abx as per ID and pt is poor candidate for invasive treatments for potential endocarditis.
Cont Toprol for new CM with EF 35-40%. Cont Toprol.
GDMT limited due to renal failure and hypotension. Not currently a candidate for segundo/arb/arni/aldactone/SGLT2 inhibitor due to ESRD
Could consider ischemic eval as outpt once improved clinically from comorbidities including renal failure, bacteremia.
CM could also be from chronic pacing as part of the differential.
Neuro input appreciated. Remains on chronic plavix for hx CVA
Vpaced. HR and bp stable overall with bp on the lower side.
Impression / Plan
-
.
Primary Intelligence Research Specialist: Dr. French
Impression:
Presentation with back pain, concern for central cord syndrome
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
Cardiomyopathy, EF 35% by echo 06/03/24
Bacteremia with gram positive cocci
New CVA, multiterritory small embolic ischemic strokes, concerning for possibly an embolic source
Severe s/p TAVR 2019
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
History of TIA/CVA on Plavix
Hypertension
Hyperlipidemia
Moderate bilateral carotid disease
JEANIE on CPAP
Iron deficiency anemia
ECHO 11/2022: EF 53%, moderate concentric LVH, stage II diastolic dysfunction, MAC, mild to moderate MR, mildly dilated left atrium, #26 [place] GAMA #3 ultra transcatheter aortic valve with peak/mean gradients 28/14 mmHg with mild paravalvular AR,
normal right heart
ECHO 06/03/24: EF 35%, global hypokinesis, mild LVH, stage II diastolic dysfunction, dense MAC, mild to moderate MS with peak/mean gradients 14/7 mmHg, mild to moderate MR, status post TAVR with peak/mean gradient 22/12 mmHg, mild to moderate TR, PAP
44 mmHg, small circumferential pericardial effusion
Plan:
Cont hemodialysis for volume control. Nephrology managing volume. Continue to follow daily weights.
Cont broad spectrum abx for enterococcus bacteremia with negative blood cultures since June 08 2024. With Enterococcus bacteremia, MRI with possible embolic events, transcatheter aortic valve, and permanent pacemaker agree with ID for IV abx and
then chronic suppression. Holding off on MARII for now as would not change current management given need for fpc abx as per ID and pt is poor candidate for invasive treatments for potential endocarditis.
Cont Toprol for new CM with EF 35-40%. Cont Toprol.
GDMT limited due to renal failure and hypotension. Not currently a candidate for segundo/arb/arni/aldactone/SGLT2 inhibitor due to ESRD
Could consider ischemic eval as outpt once improved clinically from comorbidities including renal failure, bacteremia.
CM could also be from chronic pacing as part of the differential.
Neuro input appreciated. Remains on chronic plavix for hx CVA
Vpaced. HR and bp stable overall with bp on the lower side.
Prognosis is poor.
HPI: Patient presenting with worsening extremity weakness undergoing evaluation by neurosurgery with concern for central cord syndrome. Additionally, patient noted to have worsening function and dyspnea. Repeat TTE noted reduced LVEF 35-40%.
Progress Note - Intelligence Research Specialist
Subjective
Date of Service: June 12, 2024
Pt seen and examined. No chest pain or shortness of breath.
Objective
Labs:
06/11/24 03:37
06/11/24 03:37
Labs
Hgb 10.2 g/dL (13.0-18.0) L 06/11/24 03:37
Hct 32.2 % (39.0-52.0) L 06/11/24 03:37
Plt Count 277 10^3/uL (130-400) 06/11/24 03:37
Sodium 131 mmol/L (135-145) L 06/11/24 03:37
Potassium 3.6 mmol/L (3.5-5.1) 06/11/24 03:37
BUN 57 mg/dl (9-20) H 06/11/24 03:37
Creatinine 4.1 mg/dL (0.7-1.3) H* 06/11/24 03:37
Glucose 142 mg/dl (70-99) H 06/11/24 03:37
Vital Signs and I&O:
Vital Signs
Temp Pulse Resp BP Pulse Ox
98.1 F 82 12 111/96 94
06/12/24 07:04 06/12/24 06:00 06/12/24 06:00 06/12/24 06:00 06/12/24 06:00
Vital Signs
Temp Pulse Resp BP Pulse Ox
98.1 F 82 12 111/96 94
06/12/24 07:04 06/12/24 06:00 06/12/24 06:00 06/12/24 06:00 06/12/24 06:00
Intake & Output
06/10/24 06/11/24 06/12/24 06/13/24
06:59 06:59 06:59 06:59
Intake Total 660 / 660 1008 / 1008 480 / 480
Output Total 300 / 300 375 / 375 700 / 700
Balance 360 / 360 633 / 633 -220 / -220
Physical Exam
Physical Exam
General: No acute distress, AAOX3
Neck: Negative JVD
Heart: Regular, Negative S3 positive S1/S2, Negative S4, No murmur
Lungs: CTA b/l, negative wheezes/rales/rhonchi
Abd: Positive BS, NT/ND, neg rebound/rigidity/guarding
Ext: Negative cyanosis/clubbing/edema
Neuro: nonfocal
--- NOTE | 2024-06-12 08:43 | W.PN.ID1 ---
Date of Service
Date of Service: June 12, 2024
Today's Communication
Continue antibiotics
Assessment / Plan
Enterococcal bacteremia - persistent over 48h
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
S/p Pacemaker - no evidence of infection
with hx TAVR
ESRD, HD via permacath
Diverticulosis
Multiple strokes suggestion of emboli
- repeat blood cultures pending
- 06/08 single set no growth
- 06/09 two sets: no growth
- 06/05-06/07 amp sensitive E. faecalis
- source was likely initially GI, could well have seeded other locations. CT nonrevealing, eventual outpatient colonoscopy, was last done 2017
- TTE - calcified MV, no definite vegetations; given persistent bacteremia will plan 6 weeks of IV therapy followed by oral suppression
- HD cath removed 06/11/24
- eventual outpatient colonoscopy to continue workup for initial source
- continue ampicillin 2 gm iv q12 - renally dosed
- continue ceftriaxone 2 gm IV q24 - monitor mental status
- follow clinically
����������������������������������������������������������
Chief Complaint
-: Bacteremia
Subjective / Review of Systems
Review of Systems: No Fever, No Chills and No Abdominal Pain
Vital Signs / Physical Exam
Vital Signs
Vital Signs
Temp Pulse Resp BP Pulse Ox
98.1 F 82 12 111/96 94
06/12/24 07:04 06/12/24 06:00 06/12/24 06:00 06/12/24 06:00 06/12/24 06:00
Physical Exam
Constitutional: No Acute Distress and Comfortable
Eyes: No Conjunctival Hemorrhage
Cardiovascular: Regular Rate and S1/S2; Negative S3/S4 or Murmur
Pulmonary: Clear and Non Labored
Gastrointestinal: Soft, Non Tender, Non Distended and Normal Bowel Sounds
Extremities: Edema; Negative Splinter Hemorrhage or Janeway Lesions
Musculoskeletal: Other (bilateral hand tenderness)
Skin: Other (pacemaker site non-tender or erythematous)
Neurological: Awake and Alert
Psychological: Calm
Lines: PIV (dorsal r hand)
Objective Data
Lab Data
Lab Results
06/11/24 03:37
06/11/24 03:37
ESR 22 mm/hour (0-20) H 06/08/24 11:26
Estimated Creat Clear 14 ml/min 06/11/24 03:37
Lactic Acid Cancelled 06/06/24 06:30
Total Bilirubin 0.9 mg/dl (0.2-1.3) 06/01/24 11:49
AST 37 U/L (17-59) 06/01/24 11:49
ALT 27 U/L (0-50) 06/01/24 11:49
Alkaline Phosphatase 61 U/L (38-126) 06/01/24 11:49
C-Reactive Protein 154.40 mg/L (0.0-10.00) H 06/07/24 04:34
Most recent labs reviewed.
Micro Results:
06/09/24 06:14 Blood Culture - Preliminary
Blood/Venous No Growth in 72 hours- Final report to follow
06/09/24 06:20 Blood Culture - Preliminary
Blood/Venous No Growth in 72 hours- Final report to follow
06/11/24 06:19 Blood Culture - Preliminary
Blood/Venous No Growth in 24 hours- Final report to follow
06/11/24 03:37 Blood Culture - Preliminary
Blood/Venous No Growth in 24 hours- Final report to follow
06/08/24 11:25 Blood Culture - Preliminary
Blood/Venous No Growth in 72 hours- Final report to follow
06/07/24 04:46 Blood Culture - Final
Blood/Venous Enterococcus faecalis
Gram Stain - Final
06/07/24 04:34 Blood Culture - Preliminary
Blood/Venous Enterococcus faecalis
Gram Stain - Preliminary
06/05/24 11:01 Blood Culture - Final
Blood/Venous Enterococcus faecalis
Gram Stain - Final
06/05/24 11:11 Blood Culture - Final
Blood/Venous Enterococcus faecalis
Gram Stain - Final
06/05/24 18:38 MRSA Screen - Final
Throat/Pharynx No Methicillin Resistant Staphylococcus aureus isolated.
06/05/24 18:38 Nasal Screen MRSA (PCR) - Final
Nose MRSA not detected - performed by PCR methodology.
06/05/24 18:38 Legionella Urinary Antigen - Final
Urine Negative for Legionella pneumophila Serogroup 1 antigen.
A negative result does not rule out the possiblity of
Legionella infection due to other serogroups or species of
Legionella. Clinical correlation is recommended.
Streptococcus pneumoniae Antigen (M - Final
Negative for Streptococcus pneumoniae antigen.
A negative result does not exclude infection with
Streptococcus pneumoniae. Clinical correlation is
recommended.
Care Review
Plan reviewed with: Physician (Nephrology)
[2024-06-12] MEDS: PLAVIX 75 MG PO (08:49)
[2024-06-12] MEDS: PROTONIX 40 MG PO (08:49)
[2024-06-12] MEDS: CRESTOR 10 MG PO (08:49)
[2024-06-12] MEDS: OCUVITE SOFTGEL 1 CAP PO ×2 (08:49→19:30)
[2024-06-12] MEDS: TOPROL XL 50 MG PO (08:49)
[2024-06-12] MEDS: ZETIA 10 MG PO (08:49)
[2024-06-12] MEDS: LIDOCAINE 4% PATCH 1 PATCH TOPICAL (08:51)
--- NOTE | 2024-06-12 09:23 | W.PN.NEPH.PH ---
Today's Communication / Plan
-
Dialysis Friday
Maintain current antibiotic
Discussed with son
Assessment/Plan
-
Impression:
Urinary retention
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
Acute kidney injury
Hypertension
Dyslipidemia
Metabolic acidosis
History of pacemaker placement
BPH with recent Rutledge catheter removal earlier this week
Enterococcus bacteremia
[facility] EF ~30%
Plan:
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
-Next dialysis will be planned for 06/14/2024
-Patient will need catheter placement as prior catheter was pulled on 07-03 due to underlying infectious process
-blood pressures now normalized
-Holding antihypertensives
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
-
-
Date of Service: June 12, 2024
CC / HPI / ROS
-
Chief Complaint:
CKD V
History of Present Illness:
LUCIANO on CKD V now on HD
Hemodynamically more stable
Currently maintained on ampicillin/rocepin for Enterococcus bacteremia
Review of Systems:
offers no cp or sob
Mental status improving
Tunneled HD catheter removed on 07-03
A-febrile
Labs
-
Labs:
WBC 14.4 10^3/uL (4.8-10.8) H 06/11/24 03:37
RBC 3.63 10^6/uL (4.70-6.10) L 06/11/24 03:37
Hgb 10.2 g/dL (13.0-18.0) L 06/11/24 03:37
Hct 32.2 % (39.0-52.0) L 06/11/24 03:37
Plt Count 277 10^3/uL (130-400) 06/11/24 03:37
Sodium 131 mmol/L (135-145) L 06/11/24 03:37
Potassium 3.6 mmol/L (3.5-5.1) 06/11/24 03:37
Chloride 98 mmol/L (98-107) 06/11/24 03:37
Carbon Dioxide 26 mmol/L (22-30) 06/11/24 03:37
BUN 57 mg/dl (9-20) H 06/11/24 03:37
Creatinine 4.1 mg/dL (0.7-1.3) H* 06/11/24 03:37
eGFR 13.48 06/11/24 03:37
Glucose 142 mg/dl (70-99) H 06/11/24 03:37
Calcium 9.1 mg/dl (8.4-10.2) 06/11/24 03:37
Albumin 3.7 g/dl (3.5-5.0) 06/01/24 11:49
Physical Exam
-
Vital Signs:
Vital Signs
Temp Pulse Resp BP Pulse Ox
98.1 F 78 12 117/72 94
06/12/24 07:04 06/12/24 08:49 06/12/24 06:00 06/12/24 08:49 06/12/24 06:00
Cardiovascular:: Regular rate and rhythm
Respiratory:: Bilateral: CTA
Lung Excursion:: Normal
Abdomen:: Nontender and Soft
Bowel Sounds:: Normal
Extremity Edema:: None: Bilateral:
Rutledge Catheter: No
--- NOTE | 2024-06-12 09:35 | PTCARENOTE ---
Attempted to get PT to chair from bed, Pt reported dizziness. Let sit x 5 minutes, BP = 117/72 ; HR = 92. Dizziness/lightheadedness partially resolved. Assisted to standing with heavy 2 assist - Unable to bear weight. Assisted back to bed.
Noted clear mucus-like discharge from rectum - provider made aware. Will continue to monitor and assess.
--- NOTE | 2024-06-12 11:07 | W.PN.HOSP.TC ---
Today's Communication/Plan
-
IV AB
PT OT
OOB to chair
Assessment / Plan
Assessment / Plan
88yo M with difficulty with moving. Son gave me history [place] and then had a fever. Patient then had difficulty moving and had to be brought to the emergency room in an ambulance.
He also had some pain patient is not able to describe exactly where the pain is. Pain is mostly in the arms with movement but no muscle tenderness
Echo 06/03/2024-LV mildly dilated. Mild LVH. Moderately reduced LV systolic function. Left ventricular ejection fraction 34%. Global hypokinesis. Stage II diastolic dysfunction suggestive of abnormal relaxation and increased filling pressures.
Mildly enlarged RV. Dense mitral annular calcification. Thickened mitral valve leaflets. Posterior leaflet appears calcified and restricted. Mild to moderate mitral stenosis. Mild to moderate MR. Status post TAVR. Mild to moderate TR.
Pulmonary artery pressure 44 mmHg. Small circumferential pericardial fusion without evidence of hemodynamic compromise. Since November 2023 LVEF has decreased from 50% to 34%.
06/04/24-Lumbar spine MRI-multilevel degenerative changes.Worst at L2-L3 where disc and facet disease contribute to severe spinal canal and moderate bilateral neural foraminal stenosis. Severe left-sided neuroforaminal stenosis L4/L5.
06/04/24-C-spine MRI-Motion degraded. Only marginally improved compared to 06/02/2024. 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 Focal mild myelomalacia C3/C4. No overt cord edema.
06/02/24-Thoracic spine MRI-multilevel changes. Advanced degenerative disc space narrowing with reactive Modic type I reactive signal alteration T8/T9 and T9/T10. Moderate to advanced central stenosis T9/T10 and T10/T11. No evidence of thoracic
cord signal alteration.
CT abdomen and pelvis 06/01/2024-prostatomegaly with bladder diverticulum and concentric thickening of the wall of the urinary bladder consistent with partial bladder outlet obstruction. Multicystic kidneys with multiple small bilateral
nonobstructing renal calculi. Stable hepatic cysts up to 5 cm. Atherosclerosis with fusiform aneurysmal dilatation of the infrarenal abdominal aorta 3 cm. Severe multilevel DJD.
MRI of the brain 06/09/2024-numerous small foci of restricted diffusion involving bilateral cerebral hemispheres, bilateral frontal lobes, left parietal and left occipital lobes consistent with acute infarctions. Embolic in nature. No hemorrhage.
3.70 3.5 cm CSF signal lesion in the left parietal convexity consistent with arachnoid cyst with associated mild mass effect similar to the CT. Global volume loss with sec left small vessel ischemic changes.
Awake alert and conversant.
Cardiovascular system S1-S2 appreciated, systolic murmur and diastolic murmur at apex
Extremity no edema
Neuro exam-legs slightly weaker,other exam stable
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
No MARII per cards
Neurochecks and NIH scale
Continue Plavix
# Weakness of upper extremity and to an extent lower extremity also
Generalized weakness
This may be related to enterococcal sepsis
Consider EMG - Though Neuro notes indicate pt wants to hold off
Neuro eval appreciated.
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
Continue supplemental oxygen, BiPAP as needed
#APKD
Metabolic acidosis better
Right chest wall Permacath placed on 06/04/24
Started on hemodialysis 06/05/2024
End-stage renal disease
HD catheter removal after HD 06/11/24.
# Enterococcal faecalis sepsis
No clear source identified at present
Blood Cx have turned negative on 06/08/2024
TTE showed mitral calcifications
On Vanco and Ampicillin
ID following
Follow cultures
Unlikely CAUTI since developed <24 after Permacath insertion.
Permacath removed after dialysis on 06-11-24 and to be replaced 06/14/2024
Colonoscopy 2018-polyps and diverticulosis.
#Dizziness
CT head neg for acute pathology
PCP stopped finasteride as outpatient
#Acute toxic metabolic encephalopathy
Resolved
#Back pain, most likely sciatica with multilevel disk narrowing on CT
B/L UE pain and weakness, cervical spine MRI noted
Pain mgmt
Muscle relaxants
PT/OT
Neurosurgery evaluated the patient
Patient has a history of L4-L5 surgery in the past
# Cardiomyopathy-new ejection fraction 34% by echo 06/03/2024.
Continue Toprol. Not candidate for segundo/arb/Arni/Aldactone/SGLT2 inhibitor due to renal failure
Ischemic evaluation planned at a later date
# Pacemaker placement 2019
# History of TAVR 2019
# History of TIA/CVA-continue Plavix and statin
# Moderate bilateral carotid disease
# Essential HTN-continue metoprolol. Norvasc on Hold.
# Hyperlipidemia-continue Zetia/Crestor
# Prostatomegaly with bladder diverticulum- Tamsulosin/finasteride on hold .Continue Rutledge
# Anemia of chronic disease
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
# Multiple hepatic cysts
# JEANIE-cont CPAP
# GERD/peptic ulcer disease-continue PPI
# Ex-smoker
# DVT ppx -SC hep
# Full code
D/W Renal
Discussed with nursing at bedside
Discussed with patient's son Alejandro at bedside
Spoke to on [phone]- updated the plan
Time spent over 50 min
Anticipated Discharge: > 48 hours
Subjective/Interval History
-
Date of Service: June 12, 2024
Objective Data
-
Vital Signs:
Vital Signs
Temp Pulse Resp BP Pulse Ox
98.1 F 78 12 117/72 94
06/12/24 07:04 06/12/24 08:49 06/12/24 06:00 06/12/24 08:49 06/12/24 06:00
I&O
06/11/24 06/12/24 06/13/24
06:59 06:59 06:59
Intake Total 1008 / 1008 480 / 480
Output Total 375 / 375 700 / 700
Balance 633 / 633 -220 / -220
[2024-06-12] MEDS: ROCEPHIN 2000 MG IV (11:33)
[2024-06-12] MEDS: STERILE WATER FOR INJECTION 20 ML IV (11:34)
[2024-06-12] MEDS: TYLENOL 1000 MG PO (13:00)
[2024-06-12] MEDS: TOPROL XL PO (19:29)
--- NOTE | 2024-06-12 20:00 | PTCARENOTE ---
Received patient at 1900. Pt. currently in bed. Awake, alert, and oriented. Denies pain at this time. Afebrile. Heart paced rhythm. Blood pressure normotensive. Currently on room air, will go on CPAP HS. PO diet ordered, pt. with poor appetite.
Condom catheter in place, draining without issue. Skin as documented. Discussed plan of care. Vital signs stable at this time.
[2024-06-13] VITALS (17 sets, daily range): BP systolic 100–126; BP diastolic 63–87; PULSE 74–80; O2SAT 97–98; BMI 22.9
[2024-06-13 04:17] LABS: % Basophils 0.1 % (0-2); % Eosinophils 0.4 % (0-6); % Immature Granulocytes 0.4 % (0-0.5); % Lymphocytes 23.4 % (20.5-51.1); % Monocytes 5.5 % (1.7-9.3); % Neutrophils 70.2 % (42.2-75.2); Absolute Eosinophils 0.1 10^3/uL (0-0.7); Absolute Immature Granulocytes 0.1 10^3/uL (0-0.05); Absolute Lymphocytes 3.2 10^3/uL (1.2-3.4); Absolute Monocytes 0.8 10^3/uL (0.1-0.6); Absolute Neutrophils 9.5 10^3/uL (1.4-6.5); Hematocrit 29.5 % (39.0-52.0); Hemoglobin 9.5 g/dL (13.0-18.0); Mean Corp Hgb Conc. 32.2 g/dL (33.0-37.0); Mean Corpuscular Hgb 27.3 pg (27.0-31.0); Mean Corpuscular Volume 84.8 fL (80.0-94.0); Mean Platelet Volume 10.6 fL (7.4-10.4); Nucleated Red Blood Cells % 0 % (-); Platelet Count 310 10^3/uL (130-400); Red Blood Cell Count 3.48 10^6/uL (4.70-6.10); Red Cell Dist. Width 16.4 % (11.5-14.5); White Blood Cell Count 13.6 10^3/uL (4.8-10.8)
[2024-06-13 04:43] LABS: Blood Urea Nitrogen 66 mg/dl (9-20); Calcium 8.9 mg/dl (8.4-10.2); Carbon Dioxide 24 mmol/L (22-30); Chloride 100 mmol/L (98-107); Estimated Creatinine Clearance 14 ml/min; Glucose 135 mg/dl (70-99); Potassium 3.6 mmol/L (3.5-5.1); Sodium 132 mmol/L (135-145); eGFR 13.89
--- NOTE | 2024-06-13 08:28 | W.PN.CARDCBS ---
Today's Communication / Plan
-
Continue ceftriaxone and ampicillin. Cultures remain negative after 06/07
No new fevers and weight is stable.
For hemodialysis in AM.
Continue Toprol.
Impression / Plan
-
.
Primary Sheep Herder: Dr. French
Impression:
Presentation with back pain, concern for central cord syndrome
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
Cardiomyopathy, EF 35% by echo 06/03/24
Bacteremia with gram positive cocci
New CVA, multiterritory small embolic ischemic strokes, concerning for possibly an embolic source
Severe s/p TAVR 2019
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
History of TIA/CVA on Plavix
Hypertension
Hyperlipidemia
Moderate bilateral carotid disease
JEANIE on CPAP
Iron deficiency anemia
ECHO 11/2022: EF 53%, moderate concentric LVH, stage II diastolic dysfunction, MAC, mild to moderate MR, mildly dilated left atrium, #26 [place] GAMA #3 ultra transcatheter aortic valve with peak/mean gradients 28/14 mmHg with mild paravalvular AR,
normal right heart
ECHO 06/03/24: EF 35%, global hypokinesis, mild LVH, stage II diastolic dysfunction, dense MAC, mild to moderate MS with peak/mean gradients 14/7 mmHg, mild to moderate MR, status post TAVR with peak/mean gradient 22/12 mmHg, mild to moderate TR, PAP
44 mmHg, small circumferential pericardial effusion
Plan:
Cont hemodialysis for volume control. Nephrology managing volume. Weight is overall stable.
Cont broad spectrum abx for enterococcus bacteremia with negative blood cultures since June 08 2024. With Enterococcus bacteremia, MRI with possible embolic events, transcatheter aortic valve, and permanent pacemaker agree with ID for IV abx and
then chronic suppression. Holding off on MARII for now as would not change current management given need for [facility] abx as per ID and pt is poor candidate for invasive treatments for potential endocarditis.
Cont Toprol for new CM with EF 35-40%. Cont Toprol.
GDMT limited due to renal failure and hypotension. Not currently a candidate for segundo/arb/arni/aldactone/SGLT2 inhibitor due to ESRD
Could consider ischemic eval as outpt once improved clinically from comorbidities including renal failure, bacteremia.
CM could also be from chronic pacing as part of the differential.
Neuro input appreciated. Remains on chronic plavix for hx CVA
Vpaced. HR and bp stable overall with bp on the lower side.
Prognosis is poor.
HPI: Patient presenting with worsening extremity weakness undergoing evaluation by neurosurgery with concern for central cord syndrome. Additionally, patient noted to have worsening function and dyspnea. Repeat TTE noted reduced LVEF 35-40%.
Progress Note - Sheep Herder
Subjective
Date of Service: June 13, 2024
No new fevers. Breathing is stable.
Objective
Labs:
06/13/24 04:08
06/13/24 04:08
Labs
Hgb 9.5 g/dL (13.0-18.0) L 06/13/24 04:08
Hct 29.5 % (39.0-52.0) L 06/13/24 04:08
Plt Count 310 10^3/uL (130-400) 06/13/24 04:08
Sodium 132 mmol/L (135-145) L 06/13/24 04:08
Potassium 3.6 mmol/L (3.5-5.1) 06/13/24 04:08
BUN 66 mg/dl (9-20) H 06/13/24 04:08
Creatinine 4.0 mg/dL (0.7-1.3) H 06/13/24 04:08
Glucose 135 mg/dl (70-99) H 06/13/24 04:08
Vital Signs and I&O:
Vital Signs
Temp Pulse Resp BP Pulse Ox
97.9 F 79 21 113/67 97
06/13/24 07:22 06/13/24 06:00 06/13/24 06:00 06/13/24 06:00 06/13/24 02:00
Vital Signs
Temp Pulse Resp BP Pulse Ox
97.9 F 79 21 113/67 97
06/13/24 07:22 06/13/24 06:00 06/13/24 06:00 06/13/24 06:00 06/13/24 02:00
Intake & Output
06/11/24 06/12/24 06/13/24 06/14/24
06:59 06:59 06:59 06:59
Intake Total 1008 / 1008 480 / 480 608 / 608
Output Total 375 / 375 700 / 700 975 / 975
Balance 633 / 633 -220 / -220 -367 / -367
Physical Exam
Physical Exam
GEN: No distress, awake, Ox3
HEENT: supple, anicteric, mmm
LUNGS: scatt rhonchi
CV: Reg, S1/S2, 1/6 syst LSB, no gallop
ABD: soft, BS+, NT/ND
EXT: No edema
NEURO: Gross non-focal
SKIN: No rash
[2024-06-13] MEDS: LIDOCAINE 4% PATCH 1 PATCH TOPICAL (08:42)
[2024-06-13] MEDS: HEPARIN 5000 UNITS SC ×3 (08:42→23:11)
[2024-06-13] MEDS: OCUVITE SOFTGEL 1 CAP PO ×2 (08:43→19:20)
[2024-06-13] MEDS: CRESTOR 10 MG PO (08:43)
[2024-06-13] MEDS: PLAVIX 75 MG PO (08:43)
[2024-06-13] MEDS: TOPROL XL 50 MG PO ×2 (08:43→19:21)
[2024-06-13] MEDS: PROTONIX 40 MG PO (08:43)
[2024-06-13] MEDS: ZETIA 10 MG PO (08:43)
--- NOTE | 2024-06-13 08:50 | W.PN.NEPH.PH ---
Today's Communication / Plan
-
Tunneled catheter placement tomorrow
Dialysis tomorrow
Assessment/Plan
-
Impression:
Urinary retention
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
Acute kidney injury
Hypertension
Dyslipidemia
Metabolic acidosis
History of pacemaker placement
BPH with recent Rutledge catheter removal earlier this week
Enterococcus bacteremia
[facility] EF ~30%
Plan:
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
-Next dialysis will be planned for 06/14/2024
-Discussed with ID will have IR replace tunneled catheter
-blood pressures improved and more stable
-Holding antihypertensives
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
-
-
Date of Service: June 13, 2024
CC / HPI / ROS
-
Chief Complaint:
CKD V
History of Present Illness:
LUCIANO on CKD V now on HD
Hemodynamically more stable
Currently maintained on ampicillin/rocepin for Enterococcus bacteremia
Review of Systems:
offers no cp or sob
Mental status improving
Tunneled HD catheter removed on 07-03
A-febrile
Labs
-
Labs:
WBC 13.6 10^3/uL (4.8-10.8) H 06/13/24 04:08
RBC 3.48 10^6/uL (4.70-6.10) L 06/13/24 04:08
Hgb 9.5 g/dL (13.0-18.0) L 06/13/24 04:08
Hct 29.5 % (39.0-52.0) L 06/13/24 04:08
Plt Count 310 10^3/uL (130-400) 06/13/24 04:08
Sodium 132 mmol/L (135-145) L 06/13/24 04:08
Potassium 3.6 mmol/L (3.5-5.1) 06/13/24 04:08
Chloride 100 mmol/L (98-107) 06/13/24 04:08
Carbon Dioxide 24 mmol/L (22-30) 06/13/24 04:08
BUN 66 mg/dl (9-20) H 06/13/24 04:08
Creatinine 4.0 mg/dL (0.7-1.3) H 06/13/24 04:08
eGFR 13.89 06/13/24 04:08
Glucose 135 mg/dl (70-99) H 06/13/24 04:08
Calcium 8.9 mg/dl (8.4-10.2) 06/13/24 04:08
Albumin 3.7 g/dl (3.5-5.0) 06/01/24 11:49
Physical Exam
-
Vital Signs:
Vital Signs
Temp Pulse Resp BP Pulse Ox
97.9 F 75 21 126/66 97
06/13/24 07:22 06/13/24 08:43 06/13/24 06:00 06/13/24 08:43 06/13/24 02:00
Cardiovascular:: Regular rate and rhythm
Respiratory:: Bilateral: CTA
Lung Excursion:: Normal
Abdomen:: Nontender and Soft
Bowel Sounds:: Normal
Extremity Edema:: None: Bilateral:
Rutledge Catheter: No
--- NOTE | 2024-06-13 09:15 | W.PN.ID1 ---
Date of Service
Date of Service: June 13, 2024
Today's Communication
Continue abx.
Assessment / Plan
Enterococcal bacteremia
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
S/p Pacemaker - no evidence of infection
with hx TAVR
ESRD, HD via permacath
Diverticulosis
Multiple strokes suggestion of emboli
- repeat blood without growth
- 06/08 single set no growth
- 06/09 two sets: no growth
- 06/05-06/07 amp sensitive E. faecalis
- TTE - calcified MV, no definite vegetations; given persistent bacteremia will plan 6 weeks of IV therapy followed by oral suppression
- HD cath removed 06/11/24
- eventual outpatient colonoscopy to continue workup for initial source
- continue ampicillin 2 gm iv q12 - renally dosed
- continue ceftriaxone 2 gm IV q24 - monitor mental status
- Case discussed with Nephrology. With negative follow-up blood cultures, okay to replace HD catheter tomorrow.
- follow clinically
����������������������������������������������������������
Chief Complaint
-: Bacteremia
Subjective / Review of Systems
Review of Systems: No Fever and No Chills
Vital Signs / Physical Exam
Vital Signs
Vital Signs
Temp Pulse Resp BP Pulse Ox
97.9 F 75 21 126/66 97
06/13/24 07:22 06/13/24 08:43 06/13/24 06:00 06/13/24 08:43 06/13/24 02:00
Physical Exam
Constitutional: No Acute Distress and Comfortable
Eyes: No Conjunctival Hemorrhage
Cardiovascular: Regular Rate and S1/S2; Negative S3/S4 or Murmur
Pulmonary: Clear and Non Labored; Negative Wheezes
Gastrointestinal: Soft, Non Tender, Non Distended and Normal Bowel Sounds
Extremities: Edema; Negative Splinter Hemorrhage or Janeway Lesions
Musculoskeletal: Other (bilateral hand tenderness)
Skin: Other (pacemaker site non-tender or erythematous)
Neurological: Awake and Alert
Psychological: Calm
Lines: PIV (dorsal r hand)
Objective Data
Lab Data
Lab Results
06/13/24 04:08
06/13/24 04:08
ESR 22 mm/hour (0-20) H 06/08/24 11:26
Estimated Creat Clear 14 ml/min 06/13/24 04:08
Lactic Acid Cancelled 06/06/24 06:30
Total Bilirubin 0.9 mg/dl (0.2-1.3) 06/01/24 11:49
AST 37 U/L (17-59) 06/01/24 11:49
ALT 27 U/L (0-50) 06/01/24 11:49
Alkaline Phosphatase 61 U/L (38-126) 06/01/24 11:49
C-Reactive Protein 154.40 mg/L (0.0-10.00) H 06/07/24 04:34
Most recent labs reviewed.
Micro Results:
06/09/24 06:14 Blood Culture - Preliminary
Blood/Venous No Growth in 4 days- Final report to follow
06/09/24 06:20 Blood Culture - Preliminary
Blood/Venous No Growth in 4 days- Final report to follow
06/11/24 06:19 Blood Culture - Preliminary
Blood/Venous No Growth in 48 hours- Final report to follow
06/11/24 03:37 Blood Culture - Preliminary
Blood/Venous No Growth in 48 hours- Final report to follow
06/12/24 13:32 C. difficile GDH Antigen & Toxins - Final
Feces/Stool Negative for toxigenic C.difficile
06/08/24 11:25 Blood Culture - Preliminary
Blood/Venous No Growth in 4 days- Final report to follow
06/07/24 04:46 Blood Culture - Final
Blood/Venous Enterococcus faecalis
Gram Stain - Final
06/07/24 04:34 Blood Culture - Preliminary
Blood/Venous Enterococcus faecalis
Gram Stain - Preliminary
06/05/24 11:01 Blood Culture - Final
Blood/Venous Enterococcus faecalis
Gram Stain - Final
06/05/24 11:11 Blood Culture - Final
Blood/Venous Enterococcus faecalis
Gram Stain - Final
06/05/24 18:38 MRSA Screen - Final
Throat/Pharynx No Methicillin Resistant Staphylococcus aureus isolated.
06/05/24 18:38 Nasal Screen MRSA (PCR) - Final
Nose MRSA not detected - performed by PCR methodology.
06/05/24 18:38 Legionella Urinary Antigen - Final
Urine Negative for Legionella pneumophila Serogroup 1 antigen.
A negative result does not rule out the possiblity of
Legionella infection due to other serogroups or species of
Legionella. Clinical correlation is recommended.
Streptococcus pneumoniae Antigen (M - Final
Negative for Streptococcus pneumoniae antigen.
A negative result does not exclude infection with
Streptococcus pneumoniae. Clinical correlation is
recommended.
SPEC #: [id number] LIN: 06/05/24-1111
RECD: 06/05/24-1134
SOURCE: BLOOD/VE
Blood Culture Final 06/08/24-1038
Enterococcus faecalis
Organism 1 Enterococcus faecalis
1. Enterococcus faecalis
M.I.C. RX
--------- ---
Ampicillin <=2 S
Gentamicin Synergy Screen <=500 S
Vancomycin 1 S
Care Review
Plan reviewed with: Physician
--- NOTE | 2024-06-13 10:46 | W.PN.HOSP.TC ---
Today's Communication/Plan
-
AB
HD catheter placement tomorrow and also HD
EMG
[facility] eventually.
Assessment / Plan
Assessment / Plan
88yo M with difficulty with moving. [place] gave me history [place] and then had a fever. Patient then had difficulty moving and had to be brought to the emergency room in an ambulance.
He also had some pain patient is not able to describe exactly where the pain is. Pain is mostly in the arms with movement but no muscle tenderness
Echo 06/03/2024-LV mildly dilated. Mild LVH. Moderately reduced LV systolic function. Left ventricular ejection fraction 34%. Global hypokinesis. Stage II diastolic dysfunction suggestive of abnormal relaxation and increased filling pressures.
Mildly enlarged RV. Dense mitral annular calcification. Thickened mitral valve leaflets. Posterior leaflet appears calcified and restricted. Mild to moderate mitral stenosis. Mild to moderate MR. Status post TAVR. Mild to moderate TR.
Pulmonary artery pressure 44 mmHg. Small circumferential pericardial fusion without evidence of hemodynamic compromise. Since November 2023 LVEF has decreased from 50% to 34%.
06/04/24-Lumbar spine MRI-multilevel degenerative changes.Worst at L2-L3 where disc and facet disease contribute to severe spinal canal and moderate bilateral neural foraminal stenosis. Severe left-sided neuroforaminal stenosis L4/L5.
06/04/24-C-spine MRI-Motion degraded. Only marginally improved compared to 06/02/2024. 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 Focal mild myelomalacia C3/C4. No overt cord edema.
06/02/24-Thoracic spine MRI-multilevel changes. Advanced degenerative disc space narrowing with reactive Modic type I reactive signal alteration T8/T9 and T9/T10. Moderate to advanced central stenosis T9/T10 and T10/T11. No evidence of thoracic
cord signal alteration.
CT abdomen and pelvis 06/01/2024-prostatomegaly with bladder diverticulum and concentric thickening of the wall of the urinary bladder consistent with partial bladder outlet obstruction. Multicystic kidneys with multiple small bilateral
nonobstructing renal calculi. Stable hepatic cysts up to 5 cm. Atherosclerosis with fusiform aneurysmal dilatation of the infrarenal abdominal aorta 3 cm. Severe multilevel DJD.
MRI of the brain 06/09/2024-numerous small foci of restricted diffusion involving bilateral cerebral hemispheres, bilateral frontal lobes, left parietal and left occipital lobes consistent with acute infarctions. Embolic in nature. No hemorrhage.
3.70 3.5 cm CSF signal lesion in the left parietal convexity consistent with arachnoid cyst with associated mild mass effect similar to the CT. Global volume loss with sec left small vessel ischemic changes.
Awake alert and conversant.
Cardiovascular system S1-S2 appreciated, systolic murmur and diastolic murmur at apex
Extremity no edema
Neuro exam-legs slightly proximally weak, distally better, able to move arms upto the level of mouth.
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
No MARII per cards
Neurochecks and NIH scale
Continue Plavix
# Weakness of upper extremity and to an extent lower extremity also
Generalized weakness
This may be related to enterococcal sepsis
Consider EMG - Though Neuro notes indicate pt wants to hold off
Neuro eval appreciated.
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
Continue supplemental oxygen, BiPAP as needed
#APKD
Metabolic acidosis better
Right chest wall Permacath placed on 06/04/24
Started on hemodialysis 06/05/2024
End-stage renal disease
HD catheter removal after HD 06/11/24.
# Enterococcal faecalis sepsis
No clear source identified at present
Blood Cx have turned negative on 06/08/2024
TTE showed mitral calcifications
On Vanco and Ampicillin
ID following
Follow cultures
Unlikely CAUTI since developed <24 after Permacath insertion.
Permacath removed after dialysis on 06-11-24 and to be replaced 06/14/2024
Colonoscopy 2018-polyps and diverticulosis.
#Dizziness
CT head neg for acute pathology
PCP stopped finasteride as outpatient
#Acute toxic metabolic encephalopathy
Resolved
#Back pain, most likely sciatica with multilevel disk narrowing on CT
B/L UE pain and weakness, cervical spine MRI noted
Pain mgmt
Muscle relaxants
PT/OT
Neurosurgery evaluated the patient
Patient has a history of L4-L5 surgery in the past
# Cardiomyopathy-new ejection fraction 34% by echo 06/03/2024.
Continue Toprol. Not candidate for segundo/arb/Arni/Aldactone/SGLT2 inhibitor due to renal failure
Ischemic evaluation planned at a later date
# Pacemaker placement 2019
# History of TAVR 2019
# History of TIA/CVA-continue Plavix and statin
# Moderate bilateral carotid disease
# Essential HTN-continue metoprolol. Norvasc on Hold.
# Hyperlipidemia-continue Zetia/Crestor
# Prostatomegaly with bladder diverticulum- Tamsulosin/finasteride on hold .Continue Rutledge
# Anemia of chronic disease
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
# Multiple hepatic cysts
# JEANIE-cont CPAP
# GERD/peptic ulcer disease-continue PPI
# Ex-smoker
# DVT ppx -SC hep
# Full code
D/W Renal
Discussed with nursing at bedside
Discussed with patient's son Alejandro at bedside
Spoke to on [phone]- updated the plan . ( She wants updates daily even if we talk to son)
Time spent over 50 min
Anticipated Discharge: 24 - 48 hours
Subjective/Interval History
-
Date of Service: June 13, 2024
Objective Data
-
Labs:
Laboratory Results
06/13/24
04:08
WBC 13.6 H
Hgb 9.5 L
Hct 29.5 L
Plt Count 310
Sodium 132 L
Potassium 3.6
Chloride 100
Carbon Dioxide 24
BUN 66 H
Creatinine 4.0 H
Glucose 135 H
Calcium 8.9
Vital Signs:
Vital Signs
Temp Pulse Resp BP Pulse Ox
97.9 F 75 21 126/66 97
06/13/24 07:22 06/13/24 08:43 06/13/24 06:00 06/13/24 08:43 06/13/24 09:33
I&O
06/12/24 06/13/24 06/14/24
06:59 06:59 06:59
Intake Total 480 / 480 608 / 608
Output Total 700 / 700 975 / 975
Balance -220 / -220 -367 / -367
[2024-06-13] MEDS: AMPICILLIN 108 MG IV ×2 (12:22→23:11)
[2024-06-13] MEDS: STERILE WATER FOR INJECTION 20 ML IV (12:22)
[2024-06-13] MEDS: ROCEPHIN 2000 MG IV (12:22)
--- NOTE | 2024-06-13 13:43 | PTCARENOTE ---
Pt presents as assessed. Aox3. NIH of 6. Vpaced on tele monitor. Sating mid to high 90's on RA. Pt with poor appetite, assistance eating provided by pt's family. Encouraged pt to try to increase PO intake. Care as documented. Family at bedside,
updated on plan of care.
--- NOTE | 2024-06-13 20:00 | PTCARENOTE ---
rec'd patient. confused at times when answering orientation questions, able to redirect. NIH 6. V paced on monitor. on RA, denies SOB. willing to wear CPAP tonight. oral liquids encouraged. #[address], draining yellow urine. at bedside,
questions answered. call eisenberg in reach.
[2024-06-14] VITALS (30 sets, daily range): BP systolic 76–145; BP diastolic 55–95; PULSE 72–80; O2SAT 97; BMI 22.9
[2024-06-14 05:35] LABS: Hematocrit 30.3 % (39.0-52.0); Hemoglobin 9.9 g/dL (13.0-18.0); Mean Corp Hgb Conc. 32.7 g/dL (33.0-37.0); Mean Corpuscular Hgb 28.5 pg (27.0-31.0); Mean Corpuscular Volume 87.3 fL (80.0-94.0); Mean Platelet Volume 10.3 fL (7.4-10.4); Platelet Count 325 10^3/uL (130-400); Red Blood Cell Count 3.47 10^6/uL (4.70-6.10); Red Cell Dist. Width 16.4 % (11.5-14.5); White Blood Cell Count 14.6 10^3/uL (4.8-10.8)
[2024-06-14 06:00] LABS: Blood Urea Nitrogen 76 mg/dl (9-20); Calcium 9.3 mg/dl (8.4-10.2); Carbon Dioxide 22 mmol/L (22-30); Chloride 98 mmol/L (98-107); Estimated Creatinine Clearance 12 ml/min; Glucose 133 mg/dl (70-99); Potassium 3.5 mmol/L (3.5-5.1); Sodium 132 mmol/L (135-145); eGFR 11.74
[2024-06-14] MEDS: HEPARIN SC ×2 (07:08→16:52)
[2024-06-14] MEDS: OCUVITE SOFTGEL 1 CAP PO ×2 (07:13→19:58)
[2024-06-14] MEDS: PLAVIX 75 MG PO (07:13)
[2024-06-14] MEDS: ZETIA 10 MG PO (07:13)
[2024-06-14] MEDS: LIDOCAINE 4% PATCH 1 PATCH TOPICAL (07:13)
[2024-06-14] MEDS: TOPROL XL 50 MG PO ×2 (07:13→19:59)
[2024-06-14] MEDS: PROTONIX 40 MG PO (07:13)
[2024-06-14] MEDS: CRESTOR 10 MG PO (07:13)
[2024-06-14] MEDS: HEPARIN 5000 UNITS SC ×2 (07:22→23:43)
--- NOTE | 2024-06-14 08:01 | PTCARENOTE ---
pt received from previous rn- aox3, forgetful at times, able to make needs known, NIH of 5. pt able to help with turning and repositioning. pt with chronic back pain- lidocaine patch applied per order. pt able to assist with am care. pt to be npo
after breakfast for hd cath placement today- pt verbalized understanding of education and plan of care. 100%v paced on monitor, on room air. no further complaints. condom cath intact. all safety precautions in place, call eisenberg within reach
--- NOTE | 2024-06-14 09:32 | W.PN.ID1 ---
Addendum entered and electronically signed by Pamella Meraz MD 06/14/24 16:08:
I saw and evaluated the patient. I reviewed the resident�s note and agree with findings and plan as documented in the resident�s note with the following additions/corrections:
Plan:
MRI r ankle
uric acid in the AM
- continue ampicillin 2 gm iv q12 - renally dosed
- continue ceftriaxone 2 gm IV q24 - monitor mental status
- duration of antibiotics will be 6 weeks through 07/20, after completion of IV therapy patient to start amoxicillin 500 mg QPM as it will need to be post HD

S:
Remains afebrile
for HD replacement today
O
VSS, afebrile
PE:
Gen: frail, nontoxic
CV: S1/S2 no murmurs
Pulm: CTA bilaterally
GI: nondistended, nontender, NABS
Skin: no new rashes
TMSK: bilateral knees no redness swelling or tenderness
Lines: HD Cath site no redness, swelling or tenderness, and L sided pacemaker no erythema, warmth, swelling or tenderness
Blood cultures 06/08 and 06/09 x2 - all finalized negative
06/12 C diff ag/tox neg
A&P:
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 Patient with numerous medical devices that have not shown gross evidence of suprainfection. Also with
numerous tiny embolic strokes also suggestive of endocarditis. As the intravascular devices cannot be removed, lifelong suppression is planned - patient and in agreement.
Enterococcal bacteremia- sustained
Definite Prosthetic Valve Endocarditis
S/p Pacemaker - no evidence of infection
with hx TAVR
ESRD, HD via permacath
Diverticulosis
Multiple strokes suggestion of emboli
- new marked R ankle pain and mild swelling
- given recent disseminated enterococcal infection plan MRI R ankle
- check uric acid - no known history of gout
- 06/08 single set finalized no growth
- 06/09 two sets: finalized no growth
- 06/05-06/07 amp sensitive E. faecalis
- TTE - calcified MV, no definite vegetations; given persistent bacteremia will plan 6 weeks of IV therapy followed by oral suppression
- HD cath removed 06/11/24
- eventual outpatient colonoscopy to continue workup for initial source
- continue ampicillin 2 gm iv q12 - renally dosed
- continue ceftriaxone 2 gm IV q24 - monitor mental status
- duration of antibiotics will be 6 weeks through 07/20, after completion of IV therapy patient to start amoxicillin 500 mg QPM as it will need to be post HD
- PICC will be needed - ordered
- agree with replacing HD catheter when feasible
- stable for dc from ID perspective when outpatient IV antibiotics arranged
Original Note:
Date of Service
Date of Service: June 14, 2024
Today's Communication
Continue IV abx
R ankle imaging
Assessment / Plan
Enterococcal bacteremia
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
S/p Pacemaker - no evidence of infection
with hx TAVR
ESRD, HD via permacath
Diverticulosis
Multiple strokes suggestion of emboli
- repeat blood without growth
- 06/08 single set no growth
- 06/09 two sets: no growth
- 06/05-06/07 amp sensitive E. faecalis
- Given warm, swollen, painful R ankle, will consider MRI of R foot. Concern for septic arthritis
- TTE - calcified MV, no definite vegetations; given persistent bacteremia will plan 6 weeks of IV therapy followed by oral suppression.
- HD cath removed 06/11/24, to be reinserted today given negative blood cultures.
- eventual outpatient colonoscopy to continue workup for initial source
- continue ampicillin 2 gm iv q12 - renally dosed
- continue ceftriaxone 2 gm IV q24 - monitor mental status
- Appreciate Nephrology input.
- follow clinically
����������������������������������������������������������
Chief Complaint
-: Bacteremia
Subjective / Review of Systems
-Pt complains of some bilateral hand pain and RLE pain.
-HD tunnel catheter removed on 06/11. Repeat blood culture negative
Review of Systems: No Fever, No Abdominal Pain and No Diarrhea
Vital Signs / Physical Exam
Vital Signs
Vital Signs
Temp Pulse Resp BP Pulse Ox
97.7 F 82 16 133/72 98
06/14/24 07:00 06/14/24 08:00 06/14/24 08:00 06/14/24 08:00 06/14/24 08:00
Physical Exam
Constitutional: No Acute Distress and Comfortable
Oropharyngeal: Other (greenish coating on tongue)
Cardiovascular: Regular Rate and S1/S2; Negative Murmur or Rub
Pulmonary: Clear and Non Labored; Negative Wheezes, Rales or Rhonchi
Gastrointestinal: Soft, Non Tender, Non Distended, Normal Bowel Sounds, No Rebound and No Guarding
Genito-Urinary: Clear Urine and Other (small quantity urine in bag, condom catheter)
Extremities: Edema
Musculoskeletal: Joint Swelling (R ankle edema 1+, tender, ROM of ankle limited by pain. ) and Other (Hands without splinter hemorrhages, Osler nodes or Janeway lesions)
Skin: Warm, Dry and Other (Dressing over right chest HD tunnel catheter site intact. )
Neurological: Awake, Alert and Other (appropriately responsive to questions)
Psychological: Calm
Lines: PIV
Objective Data
Lab Data
Lab Results
06/14/24 05:18
06/14/24 05:18
ESR 22 mm/hour (0-20) H 06/08/24 11:26
Estimated Creat Clear 12 ml/min 06/14/24 05:18
Lactic Acid Cancelled 06/06/24 06:30
Total Bilirubin 0.9 mg/dl (0.2-1.3) 06/01/24 11:49
AST 37 U/L (17-59) 06/01/24 11:49
ALT 27 U/L (0-50) 06/01/24 11:49
Alkaline Phosphatase 61 U/L (38-126) 06/01/24 11:49
C-Reactive Protein 154.40 mg/L (0.0-10.00) H 06/07/24 04:34
Most recent labs reviewed.
Micro Results:
06/09/24 06:20 Blood Culture - Final
Blood/Venous No Growth - Final Report
06/09/24 06:14 Blood Culture - Final
Blood/Venous No Growth - Final Report
06/11/24 06:19 Blood Culture - Preliminary
Blood/Venous No Growth in 72 hours- Final report to follow
06/11/24 03:37 Blood Culture - Preliminary
Blood/Venous No Growth in 72 hours- Final report to follow
06/07/24 04:34 Blood Culture - Final
Blood/Venous Enterococcus faecalis
Gram Stain - Final
06/08/24 11:25 Blood Culture - Final
Blood/Venous No Growth - Final Report
06/12/24 13:32 C. difficile GDH Antigen & Toxins - Final
Feces/Stool Negative for toxigenic C.difficile
06/07/24 04:46 Blood Culture - Final
Blood/Venous Enterococcus faecalis
Gram Stain - Final
06/05/24 11:01 Blood Culture - Final
Blood/Venous Enterococcus faecalis
Gram Stain - Final
06/05/24 11:11 Blood Culture - Final
Blood/Venous Enterococcus faecalis
Gram Stain - Final
06/05/24 18:38 MRSA Screen - Final
Throat/Pharynx No Methicillin Resistant Staphylococcus aureus isolated.
06/05/24 18:38 Nasal Screen MRSA (PCR) - Final
Nose MRSA not detected - performed by PCR methodology.
06/05/24 18:38 Legionella Urinary Antigen - Final
Urine Negative for Legionella pneumophila Serogroup 1 antigen.
A negative result does not rule out the possiblity of
Legionella infection due to other serogroups or species of
Legionella. Clinical correlation is recommended.
Streptococcus pneumoniae Antigen (M - Final
Negative for Streptococcus pneumoniae antigen.
A negative result does not exclude infection with
Streptococcus pneumoniae. Clinical correlation is
recommended.
SPEC #: [id number] LIN: 06/05/24-1111
RECD: 06/05/24-1134
SOURCE: BLOOD/VE
Blood Culture Final 06/08/24-1038
Enterococcus faecalis
Organism 1 Enterococcus faecalis
1. Enterococcus faecalis
M.I.C. RX
--------- ---
Ampicillin <=2 S
Gentamicin Synergy Screen <=500 S
Vancomycin 1 S
--- NOTE | 2024-06-14 10:12 | W.PN.CARDCBS ---
Today's Communication / Plan
-
Cont hemodialysis for volume control. Nephrology managing volume. Weight is overall stable.
Cont broad spectrum abx for enterococcus bacteremia with negative blood cultures since June 08 2024. With Enterococcus bacteremia, MRI with possible embolic events, transcatheter aortic valve, and permanent pacemaker agree with ID for IV abx and
then chronic suppression. Holding off on MARII as would not change current management given need for prison abx as per ID and pt is poor candidate for invasive treatments for potential endocarditis.
Cont Toprol for new CM with EF 35-40%.
GDMT limited due to renal failure and hypotension. Not currently a candidate for segundo/arb/arni/aldactone/SGLT2 inhibitor due to ESRD
Consider ischemic eval as outpt once improved clinically from comorbidities including renal failure, bacteremia. CM could also be from chronic pacing as part of the differential.
Remains on chronic plavix for hx CVA
Vpaced. HR and bp stable overall
Prognosis is poor.
Please recall if needed.
Will arrange outpt follow up.
Impression / Plan
-
.
Primary Airplane Coverer: Dr. French
Impression:
Presentation with back pain, concern for central cord syndrome
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
Cardiomyopathy, EF 35% by echo 06/03/24
Bacteremia with gram positive cocci
New CVA, multiterritory small embolic ischemic strokes, concerning for possibly an embolic source
Severe s/p TAVR 2019
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
History of TIA/CVA on Plavix
Hypertension
Hyperlipidemia
Moderate bilateral carotid disease
JEANIE on CPAP
Iron deficiency anemia
ECHO 11/2022: EF 53%, moderate concentric LVH, stage II diastolic dysfunction, MAC, mild to moderate MR, mildly dilated left atrium, #26 [place] GAMA #3 ultra transcatheter aortic valve with peak/mean gradients 28/14 mmHg with mild paravalvular AR,
normal right heart
ECHO 06/03/24: EF 35%, global hypokinesis, mild LVH, stage II diastolic dysfunction, dense MAC, mild to moderate MS with peak/mean gradients 14/7 mmHg, mild to moderate MR, status post TAVR with peak/mean gradient 22/12 mmHg, mild to moderate TR, PAP
44 mmHg, small circumferential pericardial effusion
Plan:
Cont hemodialysis for volume control. Nephrology managing volume. Weight is overall stable.
Cont broad spectrum abx for enterococcus bacteremia with negative blood cultures since June 08 2024. With Enterococcus bacteremia, MRI with possible embolic events, transcatheter aortic valve, and permanent pacemaker agree with ID for IV abx and
then chronic suppression. Holding off on MARII as would not change current management given need for prison abx as per ID and pt is poor candidate for invasive treatments for potential endocarditis.
Cont Toprol for new CM with EF 35-40%.
GDMT limited due to renal failure and hypotension. Not currently a candidate for segundo/arb/arni/aldactone/SGLT2 inhibitor due to ESRD
Consider ischemic eval as outpt once improved clinically from comorbidities including renal failure, bacteremia. CM could also be from chronic pacing as part of the differential.
Remains on chronic plavix for hx CVA
Vpaced. HR and bp stable overall
Prognosis is poor.
Please recall if needed.
Will arrange outpt follow up.
HPI: Patient presenting with worsening extremity weakness undergoing evaluation by neurosurgery with concern for central cord syndrome. Additionally, patient noted to have worsening function and dyspnea. Repeat TTE noted reduced LVEF 35-40%.
Progress Note - Airplane Coverer
Subjective
Date of Service: June 14, 2024
Pt seen and examined. No complaints. No chest pain or shortness of breath.
Objective
Labs:
06/14/24 05:18
06/14/24 05:18
Labs
Hgb 9.9 g/dL (13.0-18.0) L 06/14/24 05:18
Hct 30.3 % (39.0-52.0) L 06/14/24 05:18
Plt Count 325 10^3/uL (130-400) 06/14/24 05:18
Sodium 132 mmol/L (135-145) L 06/14/24 05:18
Potassium 3.5 mmol/L (3.5-5.1) 06/14/24 05:18
BUN 76 mg/dl (9-20) H 06/14/24 05:18
Creatinine 4.6 mg/dL (0.7-1.3) H* 06/14/24 05:18
Glucose 133 mg/dl (70-99) H 06/14/24 05:18
Vital Signs and I&O:
Vital Signs
Temp Pulse Resp BP Pulse Ox
97.7 F 75 17 115/74 97
06/14/24 07:00 06/14/24 10:00 06/14/24 10:00 06/14/24 10:00 06/14/24 10:00
Vital Signs
Temp Pulse Resp BP Pulse Ox
97.7 F 75 17 115/74 97
06/14/24 07:00 06/14/24 10:00 06/14/24 10:00 06/14/24 10:00 06/14/24 10:00
Intake & Output
06/12/24 06/13/24 06/14/24 06/15/24
06:59 06:59 06:59 06:59
Intake Total 480 / 480 608 / 608 100 / 100
Output Total 700 / 700 975 / 975 1150 / 1150
Balance -220 / -220 -367 / -367 -1050 / -1050
Physical Exam
Physical Exam
General: No acute distress, AAOX3
Neck: Negative JVD
Heart: Regular, Negative S3 positive S1/S2, Negative S4, No murmur
Lungs: CTA b/l, negative wheezes/rales/rhonchi
Abd: Positive BS, NT/ND, neg rebound/rigidity/guarding
Ext: Negative cyanosis/clubbing/edema
Neuro: nonfocal
--- NOTE | 2024-06-14 10:29 | PTCARENOTE ---
pt oob to chair with pt and ot, chair lifted back into bed, pt educated about picc line placement, verbalized understanding. npo for ir
[2024-06-14] MEDS: ROCEPHIN 2000 MG IV (12:11)
[2024-06-14] MEDS: STERILE WATER FOR INJECTION 20 ML IV (12:11)
[2024-06-14] MEDS: AMPICILLIN 108 MG IV ×2 (12:11→23:44)
--- NOTE | 2024-06-14 12:32 | PTCARENOTE ---
Addendum entered by Laura Gleason RN 06/14/24 12:52:
Dr. Ogden from neurology also notified
Original Note:
pt continues to be forgetful, able to answer most questions, Dr. Camara aware, no new orders. pt redirectable when forgetful. all safety precautions in place. weakness unchanged.
--- NOTE | 2024-06-14 14:05 | PTCARENOTE ---
pt off floor at 1330 for ir for hd cath placement
--- NOTE | 2024-06-14 16:05 | CM ---
Patient with Dx embolic stroke, suspicion endocarditis, acute hypoxic respiratory failure, LUCIANO & CKD- new HD, APKD, sepsis with bacteremia, acute TME, back pain, cardiomyopathy. Room air. Tunneled HD catheter placement today.
Message from Liban Perez; benefits check completed for outpatient IV Abx patient cost is $37/week for drug and patient has 100% coverage for nursing and infusion supplies. She will reach out to patient's with that information.
Spoke with Michele. [facility]ia[facility]; clinical update provided. They should have a bed for him when he is medically ready, and will need insurance auth - they are aware he has [employer].
[phone]; provided update d/c date TBD.
Plan [facility] with Liban Farfan in place for home IV Abx, with [facility] in place.
--- NOTE | 2024-06-14 16:28 | PTCARENOTE ---
PT oozing from dialysis catheter site; site cleaned and manual pressure held for 5 minutes, and pressure dressings reapplied x3; pt with continuous oozing; site re-sutured by MD; new dressing applied
--- NOTE | 2024-06-14 16:29 | W.PN.HOSP.TC ---
Addendum entered and electronically signed by Pamella Meraz MD 06/14/24 16:33:
Discussed plan with Dr Camara hospitalist, he prefers to hold MRI for now and call orthopedics for possible aspiration, if an aspiration is done and consistent with gout then MRI would be less useful. Will hold off for now.
Original Note:
Today's Communication/Plan
-
cont ABx
Ortho consult
Assessment / Plan
Assessment / Plan
88yo M with SSS s/p PPM, s/p TAVR, APKD with CKD stage 5, BPH, HTN, HLD came with intractable back pain starting from the top of the back and radiating down to both LE R>L. Also noted dizziness for past few days. ALso started to complain of b/l
UE weakness with pain, concern for central cord syndrome. Developed worsening LUCIANO and AMS 2/2 this. Started new HD. Low suspicion for pneumonia on admission then developed bacteremia with sepsis on 06/05/24. Managed for possible infective
endocarditis, as per discussion with cardiology - high risk for MARII. 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 Initially placed HD cath was removed on 06/11/24. New HD catheter placed on 06/14/24
A/P:
#Sepsis with bacteremia (AMS, leukocytosis fever) 2/2 acute infective endocarditis
#XR with concern for b/l pneumonia
Bcx E.faecalis
ID consult: switch to Ceftriaxone/Ampicillin- 6 weeks
Follow repeated Bcx
Legionella and S/pneumonia Ag neg
Sputum Cx NTD
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
#APKD
Nephro to follow: might need HD
Permacath placed on 06/04/24
Initiate HD
[place], strict I&O
BiPAP PRN
Supplemental O2
Limit fluid intake
#R anckle swelling
ortho for arthrocentesis
#Cardiomyopathy
#Severe s/p TAVR
TTE showed mitral calcifications and new reduced EF 35%. Due to hypotension GDMT limited
#Acute metabolic encephalopathy complicated by septic encephalopathy with acute embolic strokes
Treat infection
Plavix
#Back pain, most likely sciatica with multilevel disk narrowing on CT
#Hx of spinal Sx L4-L5
#B/L UE pain and weakness, concern for central cord syndrome
Pain mgmt
Muscle relaxant
PT/OT
MRI spine: cervical, thoracic and lumbar. Concern for C4-C5 stenosis. Neurosurgery follows. Due to poor image quality - repeating MRI cervical. sedation impossible 2/2 worsening respiratory status.
Neurology consult
#Dizziness
CT head neg for acute pathology
#Essential HTN
cont home meds
#BPH
tamsulosin/finasteride
R[place]
#Anemia of chronic disease with iron deficiency
Epo and iron as per Nephro
#JEANIE
cont CPAP
#AAA
3cm
follow as outpatient with US abd q1y
# History of TIA/CVA
# Moderate bilateral carotid disease
# Hyperlipidemia
# Prostatomegaly with bladder diverticulum
# Anemia of chronic disease
cont home meds
DVT ppx hep
Full code
I ahve spent at least 58min reviewing chart, test results, communication with consultants and direct patient care
Anticipated Discharge: > 48 hours
Subjective/Interval History
-
Date of Service: June 14, 2024
Objective Data
-
Labs:
Laboratory Results
06/14/24
05:18
WBC 14.6 H
Hgb 9.9 L
Hct 30.3 L
Plt Count 325
Sodium 132 L
Potassium 3.5
Chloride 98
Carbon Dioxide 22
BUN 76 H
Creatinine 4.6 H*
Glucose 133 H
Calcium 9.3
Vital Signs:
Vital Signs
Temp Pulse Resp BP Pulse Ox
97.7 F 84 20 122/83 99
06/14/24 14:45 06/14/24 16:15 06/14/24 16:15 06/14/24 16:15 06/14/24 16:15
I&O
06/13/24 06/14/24 06/15/24
06:59 06:59 06:59
Intake Total 608 / 608 100 / 100 110 / 110
Output Total 975 / 975 1150 / 1150 250 / 250
Balance -367 / -367 -1050 / -1050 -140 / -140
Review of Systems
-
History Source: Patient
All other systems: Reviewed and negative
Physical Exam
-
General: Well Developed, Well Nourished and No Apparent Distress
HEENT: Normocephalic
Respiratory: Negative Wheezes or Rales
Cardiac: Regular Rhythm
GI: Soft, Nontender and Nondistended
Musculoskeletal: No Clubbing, No Cyanosis, Edema, Right Lower Extrem, Edema, Left Lower Extrem and Other (R anckle redness and swelling)
Skin: Warm
Neuro: Awake, Alert and Oriented
Psych: Calm
--- NOTE | 2024-06-14 16:47 | W.PN.UPDATE ---
Update Note
Progress Note Update
- patient taken down for TDC placement and unfortunately having some bleeding
- no urgent indications for HD today, lytes ok and weights stable
- we will plan for HD first thing tomorrow AM once the patient is stabilized
--- NOTE | 2024-06-14 17:16 | PTCARENOTE ---
pt back on floor at 1710- nephro ordered dialysis for tomorrow. at bedside educated about poc- verbalized understanding. pt with right chest HD cath. pt remains forgetful. was discussed with dr. loaiza and dr. cosme.
--- NOTE | 2024-06-14 20:32 | PTCARENOTE ---
Received pt resting in bed. Pt is drowsy, but awakens easily to verbal stimuli. AAOx1, c/o 11/19 chronic back pain when not moving, neuro check/NIHSS completed. Pt scored NIHSS of 9 compared to a score of 5 on previous assessment. Pt with difficulty
to the RUE he did not have for previous [facility] assessments, however, pt received a RUE PICC today as well as a R chest wall tunneled HD cath; pt relates new difficulty with RUE to discomfort secondary to procedures. Pt politely declines offered
analgesic. Pt with difficulty against gravity to the LE's on exam, pt c/o 05/19 chronic back pain with attempts to lift b/l LE against gravity off of the bed. Covering [employer] made aware of changes in NIHSS, no new orders at this time. Condom cath in
placed draining yellow urine. Pt assisted with PM hygiene. Resting comfortably in bed at this time, call eisenberg within reach.
--- NOTE | 2024-06-14 22:02 | PTCARENOTE ---
Pt education provided on the purpose and importance of CPAP by RN and RT at the bedside. RT placed pt on CPAP which pt tolerated for less than 5 minutes before demanding the mask be removed. CPAP education reinforced.
[2024-06-15] VITALS (40 sets, daily range): BP systolic 98–132; BP diastolic 59–95; PULSE 82–85; O2SAT 98; BMI 23.2
[2024-06-15 04:25] LABS: % Basophils 0.1 % (0-2); % Eosinophils 0.2 % (0-6); % Immature Granulocytes 0.5 % (0-0.5); % Lymphocytes 23.2 % (20.5-51.1); % Monocytes 5.9 % (1.7-9.3); % Neutrophils 70.1 % (42.2-75.2); Absolute Immature Granulocytes 0.1 10^3/uL (0-0.05); Absolute Monocytes 0.8 10^3/uL (0.1-0.6); Absolute Neutrophils 9.2 10^3/uL (1.4-6.5); Hematocrit 27.3 % (39.0-52.0); Hemoglobin 8.9 g/dL (13.0-18.0); Mean Corp Hgb Conc. 32.6 g/dL (33.0-37.0); Mean Corpuscular Hgb 28.1 pg (27.0-31.0); Mean Corpuscular Volume 86.1 fL (80.0-94.0); Mean Platelet Volume 10.2 fL (7.4-10.4); Nucleated Red Blood Cells % 0 % (-); Platelet Count 345 10^3/uL (130-400); Red Blood Cell Count 3.17 10^6/uL (4.70-6.10); Red Cell Dist. Width 16.3 % (11.5-14.5); White Blood Cell Count 13.1 10^3/uL (4.8-10.8)
[2024-06-15 04:47] LABS: ALT (SGPT) 42 U/L (0-50); AST (SGOT) 36 U/L (17-59); Albumin 2.4 g/dl (3.5-5.0); Alkaline Phosphatase 79 U/L (38-126); Blood Urea Nitrogen 84 mg/dl (9-20); Calcium 9.3 mg/dl (8.4-10.2); Carbon Dioxide 25 mmol/L (22-30); Chloride 100 mmol/L (98-107); Estimated Creatinine Clearance 12 ml/min; Glucose 122 mg/dl (70-99); Potassium 3.6 mmol/L (3.5-5.1); Sodium 135 mmol/L (135-145); Total Bilirubin 0.8 mg/dl (0.2-1.3); Total Protein 4.8 g/dl (6.3-8.2); eGFR 11.44
[2024-06-15 05:33] LABS: Uric Acid 6.5 mg/dl (3.5-8.5)
[2024-06-15] MEDS: MANNITOL 25% 12.5 GRAMS IV ×2 (08:20→09:50)
[2024-06-15] MEDS: RETACRIT 8000 UNITS IV (08:31)
[2024-06-15] MEDS: FLEXBUMIN 25% FOR HEMODIALYSIS 12.5 GRAMS IV (10:05)
--- NOTE | 2024-06-15 10:20 | W.PN.HOSP.TC ---
Today's Communication/Plan
-
COnt Abx, HD today
Confusion most likely 2/2 missed HD while awaiting for replacement of the HD line
Bleeding during HD line placement most likely 2/2 uremic coagulopathy
Repeat head CT
Assessment / Plan
Assessment / Plan
88yo M with SSS s/p PPM, s/p TAVR, APKD with CKD stage 5, BPH, HTN, HLD came with intractable back pain starting from the top of the back and radiating down to both LE R>L. Also noted dizziness for past few days. ALso started to complain of b/l
UE weakness with pain, concern for central cord syndrome. Developed worsening LUCIANO and AMS 2/2 this. Started new HD. Low suspicion for pneumonia on admission then developed bacteremia with sepsis on 06/05/24. Managed for possible infective
endocarditis, as per discussion with cardiology - high risk for MARII. 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 Initially placed HD cath was removed on 06/11/24. New HD catheter placed on 06/14/24
A/P:
#Sepsis with bacteremia (AMS, leukocytosis fever) 2/2 acute infective endocarditis
#XR with concern for b/l pneumonia
Bcx E.faecalis
ID consult: switch to Ceftriaxone/Ampicillin- 6 weeks
Follow repeated Bcx
Legionella and S/pneumonia Ag neg
Sputum Cx NTD
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
#APKD
Nephro to follow: might need HD
Permacath placed on 06/04/24
Initiate HD
R[place], strict I&O
BiPAP PRN
Supplemental O2
Limit fluid intake
#R anckle swelling
Podiatry for possible arthrocentesis
XR ancle without sock pending
#Cardiomyopathy
#Severe s/p TAVR
TTE showed mitral calcifications and new reduced EF 35%. Due to hypotension GDMT limited
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
Treat infection
Plavix
HD
#Back pain, most likely sciatica with multilevel disk narrowing on CT
#Hx of spinal Sx L4-L5
#B/L UE pain and weakness, concern for central cord syndrome
Pain mgmt
Muscle relaxant
PT/OT
MRI spine: cervical, thoracic and lumbar. Concern for C4-C5 stenosis. Neurosurgery follows. Due to poor image quality - repeating MRI cervical. sedation impossible 2/2 worsening respiratory status.
Neurology consult
#Dizziness
CT head neg for acute pathology
#Essential HTN
cont home meds
#BPH
tamsulosin/finasteride
[place]
#Anemia of chronic disease with iron deficiency
Epo and iron as per Nephro
#JEANIE
cont CPAP
#AAA
3cm
follow as outpatient with US abd q1y
# History of TIA/CVA
# Moderate bilateral carotid disease
# Hyperlipidemia
# Prostatomegaly with bladder diverticulum
# Anemia of chronic disease
cont home meds
DVT ppx hep
Full code
I Have spent at least 58min reviewing chart, test results, communication with consultants and direct patient care
Anticipated Discharge: > 48 hours
Subjective/Interval History
-
Date of Service: June 15, 2024
Objective Data
-
Labs:
Laboratory Results
06/15/24
04:12
WBC 13.1 H
Hgb 8.9 L
Hct 27.3 L
Plt Count 345
Sodium 135
Potassium 3.6
Chloride 100
Carbon Dioxide 25
BUN 84 H
Creatinine 4.7 H*
Glucose 122 H
Calcium 9.3
Total Bilirubin 0.8
AST 36
ALT 42
Alkaline Phosphatase 79
Vital Signs:
Vital Signs
Temp Pulse Resp BP Pulse Ox
98.3 F 80 17 116/75 98
06/15/24 03:02 06/15/24 04:00 06/15/24 04:00 06/15/24 06:00 06/15/24 04:00
I&O
06/14/24 06/15/24 06/16/24
06:59 06:59 06:59
Intake Total 100 / 100 338 / 338
Output Total 1150 / 1150 900 / 900
Balance -1050 / -1050 -562 / -562
Review of Systems
-
Unable to obtain full review of systems at this time due to: Acuity
History Source: Patient
Physical Exam
-
General: No Apparent Distress
HEENT: Normocephalic
Respiratory: Clear to Auscultation
Cardiac: Regular Rhythm
GI: Soft, Nontender and Nondistended
Skin: Warm, Dry and Rash
Neuro: Awake and Alert
Psych: Calm
--- NOTE | 2024-06-15 10:29 | W.PN.ID1 ---
Date of Service
Date of Service: June 15, 2024
Today's Communication
- continue ampicillin 2 gm iv q12 - renally dosed
- continue ceftriaxone 2 gm IV q24
- duration of antibiotics will be 6 weeks through 07/20, after completion of IV therapy patient to start amoxicillin 500 mg QPM as it will need to be post HD
- PICC in place
- awaiting further input re: R ankle
Assessment / Plan
A&P:
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 Patient with numerous medical devices that have not shown gross evidence of suprainfection. Also with
numerous tiny embolic strokes also suggestive of endocarditis. As the intravascular devices cannot be removed, lifelong suppression is planned - patient and in agreement.
Enterococcal bacteremia- sustained
Definite Prosthetic Valve Endocarditis
S/p Pacemaker - no evidence of infection
with hx TAVR
ESRD, HD via permacath
Diverticulosis
Multiple strokes suggestion of emboli
- new marked R ankle pain and mild swelling
- given recent disseminated enterococcal infection ankle could be aspirated to rule out septic joint, if there is a septic joint then washout would be needed
- uric acid in normal range, doesnt rule out gout
- 06/08 single set finalized no growth
- 06/09 two sets: finalized no growth
- 06/05-06/07 amp sensitive E. faecalis
- TTE - calcified MV, no definite vegetations; given persistent bacteremia will plan 6 weeks of IV therapy followed by oral suppression
- HD cath replaced
- eventual outpatient colonoscopy to continue workup for initial source
- continue ampicillin 2 gm iv q12 - renally dosed
- continue ceftriaxone 2 gm IV q24
- duration of antibiotics will be 6 weeks through 07/20, after completion of IV therapy patient to start amoxicillin 500 mg QPM as it will need to be post HD
- PICC in place
- awaiting further input re: R ankle
Chief Complaint
-: Bacteremia
Subjective / Review of Systems
had issues with bleeding with HD cath placement - delayed and HD will be delayed as well
some confusion after missed HD
still with right ankle pain with flexion - less than previous
Vital Signs / Physical Exam
Vital Signs
Vital Signs
Temp Pulse Resp BP Pulse Ox
98.3 F 80 17 116/75 98
06/15/24 03:02 06/15/24 04:00 06/15/24 04:00 06/15/24 06:00 06/15/24 04:00
Physical Exam
Constitutional: No Acute Distress
Cardiovascular: Regular Rate and S1/S2; Negative Murmur or Rub
Pulmonary: Clear and Symmetric; Negative Wheezes or Rales
Gastrointestinal: Soft, Non Tender, Non Distended and Normal Bowel Sounds
Skin: Warm and Dry; Negative Rash or Jaundice
Objective Data
Lab Data
Lab Results
06/15/24 04:12
06/15/24 04:12
ESR 22 mm/hour (0-20) H 06/08/24 11:26
Estimated Creat Clear 12 ml/min 06/15/24 04:12
Lactic Acid Cancelled 06/06/24 06:30
Total Bilirubin 0.8 mg/dl (0.2-1.3) 06/15/24 04:12
AST 36 U/L (17-59) 06/15/24 04:12
ALT 42 U/L (0-50) 06/15/24 04:12
Alkaline Phosphatase 79 U/L (38-126) 06/15/24 04:12
C-Reactive Protein 154.40 mg/L (0.0-10.00) H 06/07/24 04:34
Most recent labs reviewed.
Micro Results:
06/11/24 06:19 Blood Culture - Preliminary
Blood/Venous No Growth in 4 days- Final report to follow
06/11/24 03:37 Blood Culture - Preliminary
Blood/Venous No Growth in 4 days- Final report to follow
06/09/24 06:20 Blood Culture - Final
Blood/Venous No Growth - Final Report
06/09/24 06:14 Blood Culture - Final
Blood/Venous No Growth - Final Report
06/07/24 04:34 Blood Culture - Final
Blood/Venous Enterococcus faecalis
Gram Stain - Final
06/08/24 11:25 Blood Culture - Final
Blood/Venous No Growth - Final Report
06/12/24 13:32 C. difficile GDH Antigen & Toxins - Final
Feces/Stool Negative for toxigenic C.difficile
06/07/24 04:46 Blood Culture - Final
Blood/Venous Enterococcus faecalis
Gram Stain - Final
06/05/24 11:01 Blood Culture - Final
Blood/Venous Enterococcus faecalis
Gram Stain - Final
06/05/24 11:11 Blood Culture - Final
Blood/Venous Enterococcus faecalis
Gram Stain - Final
06/05/24 18:38 MRSA Screen - Final
Throat/Pharynx No Methicillin Resistant Staphylococcus aureus isolated.
06/05/24 18:38 Nasal Screen MRSA (PCR) - Final
Nose MRSA not detected - performed by PCR methodology.
06/05/24 18:38 Legionella Urinary Antigen - Final
Urine Negative for Legionella pneumophila Serogroup 1 antigen.
A negative result does not rule out the possiblity of
Legionella infection due to other serogroups or species of
Legionella. Clinical correlation is recommended.
Streptococcus pneumoniae Antigen (M - Final
Negative for Streptococcus pneumoniae antigen.
A negative result does not exclude infection with
Streptococcus pneumoniae. Clinical correlation is
recommended.
SPEC #: [id number] LIN: 06/05/24-1111
RECD: 06/05/24-1134
SOURCE: BLOOD/VE
Blood Culture Final 06/08/24-1038
Enterococcus faecalis
Organism 1 Enterococcus faecalis
1. Enterococcus faecalis
M.I.C. RX
--------- ---
Ampicillin <=2 S
Gentamicin Synergy Screen <=500 S
Vancomycin 1 S
Other: Image Reviewed (Xray R ankle Degenerative changes. Evaluation for occult joint effusion cannot be assessed with this imaging modality.) and Report Reviewed
Care Review
Plan reviewed with: Physician (Dr Camara - podiatry)
--- NOTE | 2024-06-15 11:30 | W.PN.NEPH.HD ---
Assessment
-
- patient with bleeding after TDC placement so unable to complete HD yesterday
- will complete HD tomorrow so patient is back on MWF schedule
Progress Note - Hemodialysis
-
Date of Service: June 15, 2024
Duration: 30 minutes and 3 hours
Potassium Bath: 3
Calcium Bath: 2.5
Opti-Dialyzer: 160
Ultrafiltration: Other
Blood Flow: 400
Dialysate Flow: 600
--- NOTE | 2024-06-15 11:41 | CM ---
Patient with Dx embolic stroke, Sepsis with bacteremia 2/2 acute infective endocarditis, acute hypoxic respiratory failure, LUCIANO & CKD- new HD, APKD, Recurrent Acute metabolic encephalopathy, back pain, right ankle swelling, cardiomyopathy. Room
air. CPAP HS - not tolerated. Receiving IV Abx. PT & OT 06/14 recommend acute rehab.
Phone message from [facility] (ph [phone] x [phone]); [place] indicated [facility] is holding the HD chair and they will push out the start date to 06/30/24.
Message from Dr Camara; with new ankle swelling- I doubt dc in the next 48-72h.
Spoke with Cheyanne; she heard from [facility] nurse about benefit check for home infusion and agrees with costs. CM provided update that MD indicated patient would not be ready for [facility] for the next 2-3 days.
Message to Jordon Osorio Liaison with update.
Plan [facility] with [facility] in place for home IV Abx, with [facility] in place.
[2024-06-15] MEDS: TOPROL XL PO (12:02)
[2024-06-15] MEDS: HEPARIN 5000 UNITS SC ×2 (12:03→19:09)
[2024-06-15] MEDS: PLAVIX 75 MG PO (12:03)
[2024-06-15] MEDS: CRESTOR 10 MG PO (12:03)
[2024-06-15] MEDS: PROTONIX 40 MG PO (12:03)
[2024-06-15] MEDS: ZETIA 10 MG PO (12:03)
[2024-06-15] MEDS: OCUVITE SOFTGEL 1 CAP PO ×2 (12:03→19:54)
[2024-06-15] MEDS: LIDOCAINE 4% PATCH 1 PATCH TOPICAL (12:04)
[2024-06-15] MEDS: AMPICILLIN 108 MG IV (13:26)
[2024-06-15] MEDS: ROCEPHIN 2000 MG IV (13:27)
[2024-06-15] MEDS: STERILE WATER FOR INJECTION 20 ML IV (13:27)
--- NOTE | 2024-06-15 13:44 | PN.IRAD.UPD ---
Update Note - IRAD
- -
Cleaned right sided [facility] HD with chloraprep, removed purse string suture, and sutured catheter in place. Redressed with gauze and a tegaderm.
Sonny Kilgore RT(R)()
[2024-06-15] MEDS: TOPROL XL 50 MG PO (19:54)
--- NOTE | 2024-06-15 20:21 | PTCARENOTE ---
Received pt at shift change with at the bedside. AAOx3, NIHSS = 6, see flowsheet. V-paced on the monitor with PVC's. SpO2 97% on RA. Pt's reports pt has a poor appetite for dinner today, requesting pt's second Vanilla Ensure which was
provided, pt finished 100%. Condom cath d/c'd secondary to redness of the skin, Desenex ordered. Pt and updated on POC for the evening, no questions at this time.
[2024-06-16] VITALS (38 sets, daily range): BP systolic 89–139; BP diastolic 62–96; PULSE 92; O2SAT 98–99; BMI 22.8
[2024-06-16] MEDS: DESENEX/MITRAZOL/ZEASORB 1 APPLIC TOPICAL ×3 (00:21→20:05)
[2024-06-16] MEDS: HEPARIN 5000 UNITS SC ×4 (00:22→23:13)
[2024-06-16] MEDS: AMPICILLIN 108 MG IV ×3 (00:22→23:13)
[2024-06-16 04:54] LABS: % Basophils 0.1 % (0-2); % Eosinophils 0.3 % (0-6); % Immature Granulocytes 0.4 % (0-0.5); % Monocytes 6.7 % (1.7-9.3); % Neutrophils 64.5 % (42.2-75.2); Absolute Monocytes 0.7 10^3/uL (0.1-0.6); Absolute Neutrophils 6.8 10^3/uL (1.4-6.5); Hematocrit 26.2 % (39.0-52.0); Hemoglobin 8.3 g/dL (13.0-18.0); Mean Corp Hgb Conc. 31.7 g/dL (33.0-37.0); Mean Corpuscular Hgb 27.2 pg (27.0-31.0); Mean Corpuscular Volume 85.9 fL (80.0-94.0); Mean Platelet Volume 10.5 fL (7.4-10.4); Nucleated Red Blood Cells % 0 % (-); Platelet Count 316 10^3/uL (130-400); Red Blood Cell Count 3.05 10^6/uL (4.70-6.10); Red Cell Dist. Width 16.3 % (11.5-14.5); White Blood Cell Count 10.6 10^3/uL (4.8-10.8)
[2024-06-16 05:15] LABS: ALT (SGPT) 40 U/L (0-50); AST (SGOT) 38 U/L (17-59); Albumin 2.4 g/dl (3.5-5.0); Alkaline Phosphatase 77 U/L (38-126); Blood Urea Nitrogen 51 mg/dl (9-20); Calcium 9.1 mg/dl (8.4-10.2); Carbon Dioxide 31 mmol/L (22-30); Chloride 98 mmol/L (98-107); Estimated Creatinine Clearance 19 ml/min; Glucose 136 mg/dl (70-99); Potassium 3.6 mmol/L (3.5-5.1); Sodium 134 mmol/L (135-145); Total Bilirubin 0.7 mg/dl (0.2-1.3); Total Protein 4.7 g/dl (6.3-8.2); eGFR 20.43
--- NOTE | 2024-06-16 08:06 | PTCARENOTE ---
Patient AAO x 3, no complaints overnight. Patient is currently receiving HD with [facility].
--- NOTE | 2024-06-16 08:25 | W.PN.NEPH.HD ---
Assessment
-
Patient seen on dialysis
Systolic blood pressure at 105 the current UF
Resting comfortably
Progress Note - Hemodialysis
-
Date of Service: June 16, 2024
Duration: 30 minutes and 3 hours
Potassium Bath: 3
Calcium Bath: 2.5
Opti-Dialyzer: 160
Ultrafiltration: Other (0.5 to 1 kg hemodynamically tolerated)
Blood Flow: 400
Dialysate Flow: 600
Heparin: None
EPO: 3000
[2024-06-16] MEDS: RETACRIT 8000 UNITS IV (09:06)
--- NOTE | 2024-06-16 11:13 | PN.CDI ---
Addendum entered and electronically signed by Delano Camara MD 06/16/24 12:56:
not significant
Original Note:
CDI
- -
CDI:
Physician Documentation Request
Admit Date: 06/03/24 13:44
Dear Doctor Hoa,
Patient admitted with embolic stroke likely infective endocarditis related.
Na levels documented below:
Laboratory Tests
06/11/24 06/13/24 06/14/24
03:37 04:08 05:18
Sodium 131 L 132 L 132 L
06/16/24
04:33
Sodium 134 L
Based on the above, please in the progress notes, the appropriate diagnosis, if significant, that supports the above abnormalities and additional evaluation, monitoring and/or treatment rendered:
Hyponatremia
Insignificant abnormal lab findings
Other
Use of terms such as suspected, likely, concern for, or probable (associated with a specific diagnosis that is being evaluated, monitored, or treated as if it exists) are acceptable and can be coded in the inpatient setting, when documented at the
time of discharge.
Thank you,
Susana SANDERS,RN,CCDS
CDI Specialist
Available via tiger text
Please use your independent medical judgment in providing your response.
--- NOTE | 2024-06-16 11:33 | W.PN.UPDATE ---
Update Note
Progress Note Update
SOAP
S: remains afebrile
on HD
O:
VSS
Exam: agree with residents exam with the following corrections
Labs: note resolved leukocytosis today, K 3.6
CT head without contrast was repeated: no acute abnormalities
A&P:
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 Patient with numerous medical devices that have not shown gross evidence of suprainfection. Also with
numerous tiny embolic strokes also suggestive of endocarditis. As the intravascular devices cannot be removed, lifelong suppression is planned - patient and in agreement.
Enterococcal bacteremia- sustained
Definite Prosthetic Valve Endocarditis
S/p Pacemaker - no evidence of infection
with hx TAVR
ESRD, HD via permacath
Diverticulosis
Multiple strokes suggestion of emboli
- new marked R ankle pain and mild swelling
- given recent disseminated enterococcal infection ankle could be aspirated to rule out septic joint, if there is a septic joint then washout would be needed
- uric acid in normal range, doesnt rule out gout
- 06/08 single set finalized no growth
- 06/09 two sets: finalized no growth
- 06/05-06/07 amp sensitive E. faecalis
- TTE - calcified MV, no definite vegetations; given persistent bacteremia will plan 6 weeks of IV therapy followed by oral suppression
- HD cath replaced
- eventual outpatient colonoscopy to continue workup for initial source
- continue ampicillin 2 gm iv q12 - renally dosed
- continue ceftriaxone 2 gm IV q24
- duration of antibiotics will be 6 weeks through 07/20, after completion of IV therapy patient to start amoxicillin 500 mg QPM as it will need to be post HD
- PICC in place
- agree with MRI right ankle, suggest with IV contrast as we use newer generation of gadolinium, could be dialysed within 24 hours
- IR to aspirate the joint
- follow clinically
--- NOTE | 2024-06-16 11:47 | W.PN.HOSP.TC ---
Today's Communication/Plan
-
IRAD for aspiration per the swollen joint pathway
cont Abx
Assessment / Plan
Assessment / Plan
88yo M with SSS s/p PPM, s/p TAVR, APKD with CKD stage 5, BPH, HTN, HLD came with intractable back pain starting from the top of the back and radiating down to both LE R>L. Also noted dizziness for past few days. ALso started to complain of b/l
UE weakness with pain, concern for central cord syndrome. Developed worsening LUCIANO and AMS 2/2 this. Started new HD. Low suspicion for pneumonia on admission then developed bacteremia with sepsis on 06/05/24. Managed for possible infective
endocarditis, as per discussion with cardiology - high risk for MARII. 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 Initially placed HD cath was removed on 06/11/24. New HD catheter placed on 06/14/24
A/P:
#Sepsis with bacteremia (AMS, leukocytosis fever) 2/2 acute infective endocarditis
#XR with concern for b/l pneumonia
Bcx E.faecalis
ID consult: switch to Ceftriaxone/Ampicillin- 6 weeks
Follow repeated Bcx
Legionella and S/pneumonia Ag neg
Sputum Cx NTD
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
#APKD
Nephro to follow: might need HD
Permacath placed on 06/04/24
Initiate HD
Rutledge, strict I&O
BiPAP PRN
Supplemental O2
Limit fluid intake
#R ankle swelling
Podiatry
IRAD for aspiration per the swollen joint pathway as per podiatry
XR ankle without significant findings
MRI R ankle
#Cardiomyopathy
#Severe s/p TAVR
TTE showed mitral calcifications and new reduced EF 35%. Due to hypotension GDMT limited
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
Treat infection
Plavix
HD
#Back pain, most likely sciatica with multilevel disk narrowing on CT
#Hx of spinal Sx L4-L5
#B/L UE pain and weakness, concern for central cord syndrome
Pain mgmt
Muscle relaxant
PT/OT
MRI spine: cervical, thoracic and lumbar. Concern for C4-C5 stenosis. Neurosurgery follows. Due to poor image quality - repeating MRI cervical. sedation impossible 2/2 worsening respiratory status.
Neurology consult
#Dizziness
CT head neg for acute pathology
#Essential HTN
cont home meds
#BPH
tamsulosin/finasteride
Rutledge
#Anemia of chronic disease with iron deficiency
Epo and iron as per Nephro
#JEANIE
cont CPAP
#AAA
3cm
follow as outpatient with US abd q1y
# History of TIA/CVA
# Moderate bilateral carotid disease
# Hyperlipidemia
# Prostatomegaly with bladder diverticulum
# Anemia of chronic disease
cont home meds
DVT ppx hep
Full code
I Have spent at least 58min reviewing chart, test results, communication with consultants and direct patient care
Anticipated Discharge: 24 - 48 hours
Subjective/Interval History
-
Date of Service: June 16, 2024
Objective Data
-
Labs:
Laboratory Results
06/16/24
04:33
WBC 10.6
Hgb 8.3 L
Hct 26.2 L
Plt Count 316
Sodium 134 L
Potassium 3.6
Chloride 98
Carbon Dioxide 31 H
BUN 51 H
Creatinine 2.9 H
Glucose 136 H
Calcium 9.1
Total Bilirubin 0.7
AST 38
ALT 40
Alkaline Phosphatase 77
Vital Signs:
Vital Signs
Temp Pulse Resp BP Pulse Ox
98.1 F 76 16 120/77 96
06/16/24 11:29 06/16/24 08:00 06/16/24 08:00 06/16/24 08:00 06/16/24 08:05
I&O
06/15/24 06/16/24 06/17/24
06:59 06:59 06:59
Intake Total 338 / 338 240 / 240
Output Total 900 / 900 250 / 250
Balance -562 / -562 -10 / -10
Review of Systems
-
History Source: Patient
All other systems: Reviewed and negative
Physical Exam
-
General: No Apparent Distress
HEENT: Normocephalic
Respiratory: Clear to Auscultation
Cardiac: Regular Rhythm
GI: Soft, Nontender and Nondistended
Musculoskeletal: No Clubbing, No Cyanosis, Edema, Right Lower Extrem, Edema, Left Lower Extrem and Other (mild R ankle swelling without redness)
Skin: Warm
Neuro: Awake, Alert, Oriented and AO x 3
Psych: Calm
[2024-06-16] MEDS: STERILE WATER FOR INJECTION 20 ML IV (12:02)
[2024-06-16] MEDS: ROCEPHIN 2000 MG IV (12:02)
[2024-06-16] MEDS: FLUSH (NSS) 2 FLUSH IV (12:03)
[2024-06-16] MEDS: OCUVITE SOFTGEL 1 CAP PO ×2 (12:04→20:05)
[2024-06-16] MEDS: CRESTOR 10 MG PO (12:04)
[2024-06-16] MEDS: PROTONIX 40 MG PO (12:04)
[2024-06-16] MEDS: LIDOCAINE 4% PATCH 1 PATCH TOPICAL (12:07)
[2024-06-16] MEDS: TOPROL XL 50 MG PO (12:07)
[2024-06-16] MEDS: PLAVIX 75 MG PO (12:08)
[2024-06-16] MEDS: ZETIA 10 MG PO (12:08)
--- NOTE | 2024-06-16 13:46 | W.PN.ID1 ---
Addendum entered and electronically signed by Pamella Meraz MD 06/17/24 09:08:
I saw and evaluated the patient. I reviewed the resident�s note and agree with findings and plan as documented in the resident�s note with the exceptions/corrections below
Addendum entered and electronically signed by Pamella Meraz MD 06/16/24 15:59:
SOAP
S: remains afebrile
on HD
O:
VSS
Exam: agree with residents exam with the following corrections
Labs: note resolved leukocytosis today, K 3.6
CT head without contrast was repeated: no acute abnormalities
A&P:
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 Patient with numerous medical devices that have not shown gross evidence of suprainfection. Also with
numerous tiny embolic strokes also suggestive of endocarditis. As the intravascular devices cannot be removed, lifelong suppression is planned - patient and in agreement.
Enterococcal bacteremia- sustained
Definite Prosthetic Valve Endocarditis
S/p Pacemaker - no evidence of infection
with hx TAVR
ESRD, HD via permacath
Diverticulosis
Multiple strokes suggestion of emboli
- new marked R ankle pain and mild swelling
- given recent disseminated enterococcal infection ankle could be aspirated to rule out septic joint, if there is a septic joint then washout would be needed
- uric acid in normal range, doesnt rule out gout
- 06/08 single set finalized no growth
- 06/09 two sets: finalized no growth
- 06/05-06/07 amp sensitive E. faecalis
- TTE - calcified MV, no definite vegetations; given persistent bacteremia will plan 6 weeks of IV therapy followed by oral suppression
- HD cath replaced
- eventual outpatient colonoscopy to continue workup for initial source
- continue ampicillin 2 gm iv q12 - renally dosed
- continue ceftriaxone 2 gm IV q24
- duration of antibiotics will be 6 weeks through 07/20, after completion of IV therapy patient to start amoxicillin 500 mg QPM as it will need to be post HD
- PICC in place
- agree with MRI right ankle, suggest with IV contrast as we use newer generation of gadolinium, could be dialysed within 24 hours
- IR to aspirate the joint
- follow clinically
AW
Original Note:
Date of Service
Date of Service: June 16, 2024
Today's Communication
Continue IV Ampicillin and Ceftriaxone
Assessment / Plan
A&P:
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 Patient with numerous medical devices that have not shown gross evidence of suprainfection. Also with
numerous tiny embolic strokes also suggestive of endocarditis. As the intravascular devices cannot be removed, lifelong suppression is planned - patient and in agreement.
Enterococcal bacteremia- sustained
Definite Prosthetic Valve Endocarditis
S/p Pacemaker - no evidence of infection
with hx TAVR
ESRD, HD via permacath
Diverticulosis
Multiple strokes suggestion of emboli
- new marked R ankle pain and mild swelling
- given recent disseminated enterococcal infection ankle could be aspirated to rule out septic joint, if there is a septic joint then washout would be needed
- uric acid in normal range, doesnt rule out gout
- R ankle x-ray showed no acute osseous abnormality. MRI preferable
- 06/08 single set finalized no growth
- 06/09 two sets: finalized no growth
- 06/05-06/07 amp sensitive E. faecalis
- TTE - calcified MV, no definite vegetations; given persistent bacteremia will plan 6 weeks of IV therapy followed by oral suppression
- HD cath replaced
- eventual outpatient colonoscopy to continue workup for initial source
- continue ampicillin 2 gm iv q12 - renally dosed
- continue ceftriaxone 2 gm IV q24
- duration of antibiotics will be 6 weeks through 07/20, after completion of IV therapy patient to start amoxicillin 500 mg QPM as it will need to be post HD
- PICC in place
- awaiting further input re: R ankle
Chief Complaint
-: Bacteremia
Subjective / Review of Systems
Hemodialysis this AM.
Patients states he feels well
Review of Systems: No Fever, No Chills, No Headache, No Abdominal Pain, No Nausea, No Diarrhea and Joint Pain (R amkle)
Vital Signs / Physical Exam
Vital Signs
Vital Signs
Temp Pulse Resp BP Pulse Ox
98.1 F 77 20 116/77 98
06/16/24 11:29 06/16/24 12:00 06/16/24 12:00 06/16/24 12:00 06/16/24 12:00
Physical Exam
Constitutional: No Acute Distress and Comfortable
Oropharyngeal: Other (dark/greenish coating on tongue); Negative Erythema
Cardiovascular: Regular Rate, S1/S2 and Murmur (systolic murmur)
Pulmonary: Clear and Non Labored; Negative Wheezes, Rales or Rhonchi
Gastrointestinal: Soft, Non Tender, Non Distended, Normal Bowel Sounds, No Rebound and No Guarding
Genito-Urinary: Negative Suprapubic Tenderness
Musculoskeletal: Joint Swelling (R ankle pain + swelling of R foot and ankle, 1+ edema, mildly warm to touch)
Skin: Warm and Dry
Neurological: Awake and Alert
Lines: PICC and HD Cath
Objective Data
Lab Data
Lab Results
06/16/24 04:33
06/16/24 04:33
ESR 22 mm/hour (0-20) H 06/08/24 11:26
Estimated Creat Clear 19 ml/min 06/16/24 04:33
Lactic Acid Cancelled 06/06/24 06:30
Total Bilirubin 0.7 mg/dl (0.2-1.3) 06/16/24 04:33
AST 38 U/L (17-59) 06/16/24 04:33
ALT 40 U/L (0-50) 06/16/24 04:33
Alkaline Phosphatase 77 U/L (38-126) 06/16/24 04:33
C-Reactive Protein 154.40 mg/L (0.0-10.00) H 06/07/24 04:34
Most recent labs reviewed.
Micro Results:
06/11/24 06:19 Blood Culture - Final
Blood/Venous No Growth - Final Report
06/11/24 03:37 Blood Culture - Final
Blood/Venous No Growth - Final Report
06/09/24 06:20 Blood Culture - Final
Blood/Venous No Growth - Final Report
06/09/24 06:14 Blood Culture - Final
Blood/Venous No Growth - Final Report
06/07/24 04:34 Blood Culture - Final
Blood/Venous Enterococcus faecalis
Gram Stain - Final
06/08/24 11:25 Blood Culture - Final
Blood/Venous No Growth - Final Report
06/12/24 13:32 C. difficile GDH Antigen & Toxins - Final
Feces/Stool Negative for toxigenic C.difficile
06/07/24 04:46 Blood Culture - Final
Blood/Venous Enterococcus faecalis
Gram Stain - Final
06/05/24 11:01 Blood Culture - Final
Blood/Venous Enterococcus faecalis
Gram Stain - Final
06/05/24 11:11 Blood Culture - Final
Blood/Venous Enterococcus faecalis
Gram Stain - Final
06/05/24 18:38 MRSA Screen - Final
Throat/Pharynx No Methicillin Resistant Staphylococcus aureus isolated.
06/05/24 18:38 Nasal Screen MRSA (PCR) - Final
Nose MRSA not detected - performed by PCR methodology.
06/05/24 18:38 Legionella Urinary Antigen - Final
Urine Negative for Legionella pneumophila Serogroup 1 antigen.
A negative result does not rule out the possiblity of
Legionella infection due to other serogroups or species of
Legionella. Clinical correlation is recommended.
Streptococcus pneumoniae Antigen (M - Final
Negative for Streptococcus pneumoniae antigen.
A negative result does not exclude infection with
Streptococcus pneumoniae. Clinical correlation is
recommended.
SPEC #: [id number] LIN: 06/05/24-1110
RECD: 06/05/241134
SOURCE: BLOOD/VE
Blood Culture Final 06/08/24-1038
Enterococcus faecalis
Organism 1 Enterococcus faecalis
1. Enterococcus faecalis
M.I.C. RX
--------- ---
Ampicillin <=2 S
Gentamicin Synergy Screen <=500 S
Vancomycin 1 S
--- NOTE | 2024-06-16 18:18 | W.PN.UPDATE ---
Update Note
Progress Note Update
Patient seen at bedside
Minimal concern for septic arthritis, will await MRI
WBAT
Appreciate ID Recommendations
[2024-06-16] MEDS: TOPROL XL PO (20:10)
[2024-06-17] VITALS (17 sets, daily range): BP systolic 100–135; BP diastolic 67–92; PULSE 83; BMI 22.8
[2024-06-17] MEDS: TYLENOL 1000 MG PO (03:06)
[2024-06-17 05:15] LABS: % Basophils 0.2 % (0-2); % Eosinophils 0.4 % (0-6); % Immature Granulocytes 0.4 % (0-0.5); % Lymphocytes 28.1 % (20.5-51.1); % Neutrophils 63.9 % (42.2-75.2); Absolute Monocytes 0.8 10^3/uL (0.1-0.6); Absolute Neutrophils 6.8 10^3/uL (1.4-6.5); Hematocrit 26.9 % (39.0-52.0); Hemoglobin 8.6 g/dL (13.0-18.0); Mean Corpuscular Hgb 28.5 pg (27.0-31.0); Mean Corpuscular Volume 89.1 fL (80.0-94.0); Nucleated Red Blood Cells % 0 % (-); Platelet Count 273 10^3/uL (130-400); Red Blood Cell Count 3.02 10^6/uL (4.70-6.10); Red Cell Dist. Width 16.5 % (11.5-14.5); White Blood Cell Count 10.7 10^3/uL (4.8-10.8)
[2024-06-17 05:28] LABS: ALT (SGPT) 60 U/L (0-50); AST (SGOT) 56 U/L (17-59); Albumin 2.4 g/dl (3.5-5.0); Alkaline Phosphatase 89 U/L (38-126); Blood Urea Nitrogen 44 mg/dl (9-20); Calcium 9.1 mg/dl (8.4-10.2); Carbon Dioxide 29 mmol/L (22-30); Chloride 98 mmol/L (98-107); Estimated Creatinine Clearance 21 ml/min; Glucose 132 mg/dl (70-99); Potassium 3.6 mmol/L (3.5-5.1); Sodium 134 mmol/L (135-145); Total Bilirubin 0.7 mg/dl (0.2-1.3); Total Protein 4.9 g/dl (6.3-8.2); eGFR 22.26
--- NOTE | 2024-06-17 07:21 | W.PN.UPDATE ---
Update Note
Progress Note Update
IR received order for ankle aspiration. Awaiting MRI to see if there is any drainable joint effusion.
--- NOTE | 2024-06-17 07:25 | W.PN.ID1 ---
Addendum entered and electronically signed by Pamella Meraz MD 06/17/24 14:09:
I saw and evaluated the patient. I reviewed the resident�s note and agree with findings and plan as documented in the resident�s note with the following additions/corrections
S: remains afebrile, no overnight events
O:
VSS
Exam: my exam is contsistent with the residents
Labs:
wbc 10, hgb 8.6, plt 273, no left shift,
A&P:
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 Patient with numerous medical devices that have not shown gross evidence of suprainfection. Also with
numerous tiny embolic strokes also suggestive of endocarditis. As the intravascular devices cannot be removed, lifelong suppression is planned - patient and in agreement.
Enterococcal bacteremia- sustained
Definite Prosthetic Valve Endocarditis
S/p Pacemaker - no evidence of infection
with hx TAVR
ESRD, HD via permacath
Diverticulosis
Multiple strokes suggestion of emboli
- MRI no joint effusion, probable peroneal tendinopathy - unlikely infection, defer to orthopedics/podiatry
- 06/08 single set finalized no growth
- 06/09 two sets: finalized no growth
- 06/05-06/07 amp sensitive E. faecalis
- TTE - calcified MV, no definite vegetations; given persistent bacteremia will plan 6 weeks of IV therapy followed by oral suppression
- HD cath replaced
- eventual outpatient colonoscopy to continue workup for initial source
- continue ampicillin 2 gm iv q12 - renally dosed
- continue ceftriaxone 2 gm IV q24
- duration of antibiotics will be 6 weeks through 07/20, after completion of IV therapy patient to start amoxicillin 500 mg QPM as it will need to be post HD
- PICC in place
- stable for dc from ID perspective once outpatient IV antibiotics arranged
AW
Original Note:
Date of Service
Date of Service: June 17, 2024
Today's Communication
Continue IV Ceftriaxone and Ampicillin
Assessment / Plan
A&P:
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 Patient with numerous medical devices that have not shown gross evidence of suprainfection. Also with
numerous tiny embolic strokes also suggestive of endocarditis. As the intravascular devices cannot be removed, lifelong suppression is planned - patient and in agreement.
Enterococcal bacteremia- sustained
Definite Prosthetic Valve Endocarditis
S/p Pacemaker - no evidence of infection
with hx TAVR
ESRD, HD via permacath
Diverticulosis
Multiple strokes suggestion of emboli
- new marked R ankle pain and mild swelling
- given recent disseminated enterococcal infection ankle could be aspirated to rule out septic joint, if there is a septic joint then washout would be needed
- uric acid in normal range, doesnt rule out gout
- R ankle x-ray showed no acute osseous abnormality.
- 06/08 single set finalized no growth
- 06/09 two sets: finalized no growth
- 06/05-06/07 amp sensitive E. faecalis
- TTE - calcified MV, no definite vegetations; given persistent bacteremia will plan 6 weeks of IV therapy followed by oral suppression
- HD cath replaced 06/14
- eventual outpatient colonoscopy to continue workup for initial source
- continue ampicillin 2 gm iv q12 - renally dosed
- continue ceftriaxone 2 gm IV q24
- duration of antibiotics will be 6 weeks through 07/20, after completion of IV therapy patient to start amoxicillin 500 mg QPM as it will need to be post HD
- PICC in place
- For MRI, and possible joint aspiration by IR.
Chief Complaint
-: Bacteremia
Subjective / Review of Systems
No fever overnight.
Pt has no acute complaints. Son Alejandro at bedside this AM. Discussed plan
Review of Systems: No Fever, Abdominal Pain, Joint Pain (ankle pain) and Other (weakness in hands)
Vital Signs / Physical Exam
Vital Signs
Vital Signs
Temp Pulse Resp BP Pulse Ox
99.1 F 71 18 111/71 96
06/17/24 03:50 06/17/24 06:00 06/17/24 06:00 06/17/24 06:00 06/17/24 06:00
Physical Exam
Constitutional: No Acute Distress and Comfortable
Cardiovascular: Regular Rate, S1/S2 and Murmur; Negative Rub
Pulmonary: Clear and Non Labored; Negative Wheezes, Rales or Rhonchi
Gastrointestinal: Soft, Non Tender, Non Distended, Normal Bowel Sounds, No Rebound and No Guarding
Musculoskeletal: Joint Swelling (tender R ankle, mild swelling, ROM restricted by pain )
Neurological: Awake and Alert
Lines: PICC and HD Cath
Objective Data
Lab Data
Lab Results
06/17/24 04:50
06/17/24 04:50
ESR 22 mm/hour (0-20) H 06/08/24 11:26
Estimated Creat Clear 21 ml/min 06/17/24 04:50
Lactic Acid Cancelled 06/06/24 06:30
Total Bilirubin 0.7 mg/dl (0.2-1.3) 06/17/24 04:50
AST 56 U/L (17-59) 06/17/24 04:50
ALT 60 U/L (0-50) H 06/17/24 04:50
Alkaline Phosphatase 89 U/L (38-126) 06/17/24 04:50
C-Reactive Protein 154.40 mg/L (0.0-10.00) H 06/07/24 04:34
Most recent labs reviewed.
Micro Results:
06/11/24 06:19 Blood Culture - Final
Blood/Venous No Growth - Final Report
06/11/24 03:37 Blood Culture - Final
Blood/Venous No Growth - Final Report
06/09/24 06:20 Blood Culture - Final
Blood/Venous No Growth - Final Report
06/09/24 06:14 Blood Culture - Final
Blood/Venous No Growth - Final Report
06/07/24 04:34 Blood Culture - Final
Blood/Venous Enterococcus faecalis
Gram Stain - Final
06/08/24 11:25 Blood Culture - Final
Blood/Venous No Growth - Final Report
06/12/24 13:32 C. difficile GDH Antigen & Toxins - Final
Feces/Stool Negative for toxigenic C.difficile
06/07/24 04:46 Blood Culture - Final
Blood/Venous Enterococcus faecalis
Gram Stain - Final
06/05/24 11:01 Blood Culture - Final
Blood/Venous Enterococcus faecalis
Gram Stain - Final
06/05/24 11:11 Blood Culture - Final
Blood/Venous Enterococcus faecalis
Gram Stain - Final
06/05/24 18:38 MRSA Screen - Final
Throat/Pharynx No Methicillin Resistant Staphylococcus aureus isolated.
06/05/24 18:38 Nasal Screen MRSA (PCR) - Final
Nose MRSA not detected - performed by PCR methodology.
06/05/24 18:38 Legionella Urinary Antigen - Final
Urine Negative for Legionella pneumophila Serogroup 1 antigen.
A negative result does not rule out the possiblity of
Legionella infection due to other serogroups or species of
Legionella. Clinical correlation is recommended.
Streptococcus pneumoniae Antigen (M - Final
Negative for Streptococcus pneumoniae antigen.
A negative result does not exclude infection with
Streptococcus pneumoniae. Clinical correlation is
recommended.
SPEC #: [id number] LIN: 06/05/24-1111
RECD: 06/05/24-1134
SOURCE: BLOOD/VE
Blood Culture Final 06/08/24-1038
Enterococcus faecalis
Organism 1 Enterococcus faecalis
1. Enterococcus faecalis
M.I.C. RX
--------- ---
Ampicillin <=2 S
Gentamicin Synergy Screen <=500 S
Vancomycin 1 S
[2024-06-17] MEDS: PROTONIX 40 MG PO (09:20)
[2024-06-17] MEDS: OCUVITE SOFTGEL 1 CAP PO (09:20)
[2024-06-17] MEDS: TOPROL XL 50 MG PO (09:20)
[2024-06-17] MEDS: DESENEX/MITRAZOL/ZEASORB 1 APPLIC TOPICAL ×2 (09:21→20:45)
[2024-06-17] MEDS: CRESTOR 10 MG PO (09:21)
[2024-06-17] MEDS: ZETIA 10 MG PO (09:21)
[2024-06-17] MEDS: HEPARIN 5000 UNITS SC ×3 (09:23→23:41)
[2024-06-17] MEDS: LIDOCAINE 4% PATCH 1 PATCH TOPICAL (09:24)
[2024-06-17] MEDS: PLAVIX 75 MG PO (09:25)
--- NOTE | 2024-06-17 09:28 | W.PN.NEPH.PH ---
Today's Communication / Plan
-
MRI of right ankle today
Dialysis tomorrow
Assessment/Plan
-
Impression:
Urinary retention
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
Acute kidney injury
Hypertension
Dyslipidemia
Metabolic acidosis
History of pacemaker placement
BPH with recent Rutledge catheter removal earlier this week
Enterococcus bacteremia
[employer] EF ~30%
Plan:
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
-Next dialysis will be planned for tomorrow
-Orders provided, EDW ~74kg
-blood pressures improved and more stable
-Holding antihypertensives
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
-Right ankle pain workup in progress possibly for aspiration pending MRI results
-
-
Date of Service: June 17, 2024
CC / HPI / ROS
-
Chief Complaint:
CKD V
History of Present Illness:
LUCIANO on CKD V now on HD
Hemodynamically more stable
Currently maintained on ampicillin/rocepin for Enterococcus bacteremia
Review of Systems:
offers no cp or sob
Mental status improved to baseline
Tunneled catheter
A-febrile
Right ankle pain
Labs
-
Labs:
WBC 10.7 10^3/uL (4.8-10.8) 06/17/24 04:50
RBC 3.02 10^6/uL (4.70-6.10) L 06/17/24 04:50
Hgb 8.6 g/dL (13.0-18.0) L 06/17/24 04:50
Hct 26.9 % (39.0-52.0) L 06/17/24 04:50
Plt Count 273 10^3/uL (130-400) 06/17/24 04:50
Sodium 134 mmol/L (135-145) L 06/17/24 04:50
Potassium 3.6 mmol/L (3.5-5.1) 06/17/24 04:50
Chloride 98 mmol/L (98-107) 06/17/24 04:50
Carbon Dioxide 29 mmol/L (22-30) 06/17/24 04:50
BUN 44 mg/dl (9-20) H 06/17/24 04:50
Creatinine 2.7 mg/dL (0.7-1.3) H 06/17/24 04:50
eGFR 22.26 06/17/24 04:50
Glucose 132 mg/dl (70-99) H 06/17/24 04:50
Calcium 9.1 mg/dl (8.4-10.2) 06/17/24 04:50
Albumin 2.4 g/dl (3.5-5.0) L 06/17/24 04:50
Physical Exam
-
Vital Signs:
Vital Signs
Temp Pulse Resp BP Pulse Ox
99.1 F 72 9 126/71 91
06/17/24 03:50 06/17/24 08:00 06/17/24 08:00 06/17/24 08:00 06/17/24 08:00
Cardiovascular:: Regular rate and rhythm
Respiratory:: Bilateral: CTA
Lung Excursion:: Normal
Abdomen:: Nontender and Soft
Bowel Sounds:: Normal
Extremity Edema:: None: Bilateral:
Rutledge Catheter: No
--- NOTE | 2024-06-17 09:33 | W.PN.HOSP.TC ---
Today's Communication/Plan
-
IRAD pending MRI
cont Abx
Mild slurred of speech, but patient did not sleep whole night, similar presentation intermittently over past week, will monitor
Assessment / Plan
Assessment / Plan
88yo M with SSS s/p PPM, s/p TAVR, APKD with CKD stage 5, BPH, HTN, HLD came with intractable back pain starting from the top of the back and radiating down to both LE R>L. Also noted dizziness for past few days. ALso started to complain of b/l
UE weakness with pain, concern for central cord syndrome. Developed worsening LUCIANO and AMS 2/2 this. Started new HD. Low suspicion for pneumonia on admission then developed bacteremia with sepsis on 06/05/24. Managed for possible infective
endocarditis, as per discussion with cardiology - high risk for MARII. 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 Initially placed HD cath was removed on 06/11/24. New HD catheter placed on 06/14/24
A/P:
#Sepsis with bacteremia (AMS, leukocytosis fever) 2/2 acute infective endocarditis
#XR with concern for b/l pneumonia
Bcx E.faecalis
ID consult: switch to Ceftriaxone/Ampicillin- 6 weeks
Follow repeated Bcx
Legionella and S/pneumonia Ag neg
Sputum Cx NTD
Colonoscopy upon discharge - patient and son bedside verbalized understanding
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
#APKD
Nephro to follow: might need HD
Permacath placed on 06/04/24
Initiate HD
[place], strict I&O
BiPAP PRN
Supplemental O2
Limit fluid intake
#R ankle swelling
Podiatry: low suspicion for septic arthritis
IRAD for aspiration per the swollen joint pathway as per podiatry
XR ankle without significant findings
MRI R ankle
#Cardiomyopathy
#Severe s/p TAVR
TTE showed mitral calcifications and new reduced EF 35%. Due to hypotension GDMT limited
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
Treat infection
Plavix
HD
#Back pain, most likely sciatica with multilevel disk narrowing on CT
#Hx of spinal Sx L4-L5
#B/L UE pain and weakness, concern for central cord syndrome
Pain mgmt
Muscle relaxant
PT/OT
MRI spine: cervical, thoracic and lumbar. Concern for C4-C5 stenosis. Neurosurgery follows. Due to poor image quality - repeating MRI cervical. sedation impossible 2/2 worsening respiratory status.
Neurology consult
#Dizziness
CT head neg for acute pathology
#Essential HTN
cont home meds
#BPH
tamsulosin/finasteride
[place]
#Anemia of chronic disease with iron deficiency
Epo and iron as per Nephro
#JEANIE
cont CPAP
#AAA
3cm
follow as outpatient with US abd q1y
# History of TIA/CVA
# Moderate bilateral carotid disease
# Hyperlipidemia
# Prostatomegaly with bladder diverticulum
# Anemia of chronic disease
cont home meds
DVT ppx hep
Full code
I Have spent at least 38min reviewing chart, test results, communication with consultants and direct patient care
Anticipated Discharge: > 48 hours
Subjective/Interval History
-
Date of Service: June 17, 2024
Objective Data
-
Labs:
Laboratory Results
06/17/24
04:50
WBC 10.7
Hgb 8.6 L
Hct 26.9 L
Plt Count 273
Sodium 134 L
Potassium 3.6
Chloride 98
Carbon Dioxide 29
BUN 44 H
Creatinine 2.7 H
Glucose 132 H
Calcium 9.1
Total Bilirubin 0.7
AST 56
ALT 60 H
Alkaline Phosphatase 89
Vital Signs:
Vital Signs
Temp Pulse Resp BP Pulse Ox
99.1 F 72 9 126/71 91
06/17/24 03:50 06/17/24 08:00 06/17/24 08:00 06/17/24 08:00 06/17/24 08:00
I&O
06/16/24 06/17/24 06/18/24
06:59 06:59 06:59
Intake Total 240 / 240 1370 / 1370
Output Total 250 / 250
Balance -10 / -10 1370 / 1370
Review of Systems
-
History Source: Patient
All other systems: Reviewed and negative
Physical Exam
-
General: Well Developed, Well Nourished and No Apparent Distress
HEENT: Normocephalic, Atraumatic and Moist Mucous Membranes
Respiratory: Clear to Auscultation
Cardiac: Regular Rhythm
GI: Soft, Nontender and Nondistended
Musculoskeletal: No Clubbing, No Cyanosis and No Edema
Skin: Warm
Neuro: Awake, Alert, Oriented, AO x 3 and Slurred Speech (minimally)
Psych: Calm
--- NOTE | 2024-06-17 11:15 | PTCARENOTE ---
Patient off unit to MRI. RN is with the patient.
[2024-06-17] MEDS: ROCEPHIN 2000 MG IV (12:40)
[2024-06-17] MEDS: AMPICILLIN 108 MG IV ×2 (12:41→23:41)
[2024-06-17] MEDS: STERILE WATER FOR INJECTION 20 ML IV (12:43)
--- NOTE | 2024-06-17 17:02 | CM ---
Patient with Dx embolic stroke, Sepsis with bacteremia 2/2 acute infective endocarditis, acute hypoxic respiratory failure, LUCIANO & CKD- new HD, APKD, Recurrent Acute metabolic encephalopathy, back pain, right ankle swelling, cardiomyopathy.
Receiving IV Abx. PT 06/17 recommends acute vs skilled rehab. OT 06/17 recommends acute rehab.
Plan [facility] with [facility] in place for home IV Abx, with [facility] in place.
[2024-06-17] MEDS: VISBIOME 1 CAP PO (17:25)
[2024-06-17] MEDS: LIPITOR 40 MG PO (17:25)
[2024-06-17] MEDS: TOPROL XL 25 MG PO (20:45)
[2024-06-17] MEDS: MELATONIN 5 MG PO (20:46)
--- NOTE | 2024-06-17 22:03 | PTCARENOTE ---
assumed care of patient, pt is AAOx2- stated wrong month, forgetful. pt is able to make needs known. NIH-8, weak hand grasps, pt unable to lift legs. pt in chair at start of shift, pt pulled over from chair to bed x4 assist. v-paced on the monitor.
95% RA. pt did have a BM on bedpan, stool was brown and loose. q2t- able to take pills with water. bed alarm on for safety. care ongoing.
[2024-06-18] VITALS (8 sets, daily range): BP systolic 108–139; BP diastolic 65–89; BMI 22.6
[2024-06-18] MEDS: PROTONIX 40 MG PO (08:00)
[2024-06-18] MEDS: VISBIOME 1 CAP PO (08:00)
[2024-06-18] MEDS: ZETIA 10 MG PO (08:00)
[2024-06-18] MEDS: TOPROL XL 25 MG PO ×2 (08:00→20:12)
--- NOTE | 2024-06-18 08:00 | PTCARENOTE ---
Pt AAOx2-3 some confusion at times. Neuro checks and NIHSS done as ordered with no changes. R single lumen Picc intact and R HD poet intact. Pt vpaced on monitor . For tx to [facility].
[2024-06-18] MEDS: HEPARIN 5000 UNITS SC ×3 (08:01→23:59)
[2024-06-18] MEDS: PLAVIX 75 MG PO (08:01)
[2024-06-18] MEDS: DESENEX/MITRAZOL/ZEASORB 1 APPLIC TOPICAL ×2 (08:03→20:13)
--- NOTE | 2024-06-18 08:25 | W.PN.ID1 ---
Addendum entered and electronically signed by Pamella Meraz MD 06/18/24 17:06:
I saw and evaluated the patient. I reviewed the resident�s note and agree with findings and plan as documented in the resident�s note.
Original Note:
Date of Service
Date of Service: June 18, 2024
Today's Communication
Continue IV ampicillin and ceftriaxone
Assessment / Plan
A&P:
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 Patient with numerous medical devices that have not shown gross evidence of suprainfection. Also with
numerous tiny embolic strokes also suggestive of endocarditis. As the intravascular devices cannot be removed, lifelong suppression is planned - patient and in agreement.
Enterococcal bacteremia- sustained
Definite Prosthetic Valve Endocarditis
S/p Pacemaker - no evidence of infection
with hx TAVR
ESRD, HD via permacath
Diverticulosis
Multiple strokes suggestion of emboli
- new marked R ankle pain and mild swelling
- given recent disseminated enterococcal infection ankle could be aspirated to rule out septic joint, if there is a septic joint then washout would be needed
- uric acid in normal range, doesnt rule out gout
- R ankle x-ray showed no acute osseous abnormality.
- R Ankle MRI: soft tissue swelling/edema along the dorsal lateral aspect of the ankle/proximal foot without drainable fluid collection. Degenerative changes throughout the ankle and hindfoot without evidence of joint effusion
- 06/08 single set finalized no growth
- 06/09 two sets: finalized no growth
- 06/05-06/07 amp sensitive E. faecalis
- TTE - calcified MV, no definite vegetations; given persistent bacteremia will plan 6 weeks of IV therapy followed by oral suppression
- HD cath replaced 06/14
- eventual outpatient colonoscopy to continue workup for initial source
- continue ampicillin 2 gm iv q12 - renally dosed
- continue ceftriaxone 2 gm IV q24
- duration of antibiotics will be 6 weeks through 07/20. After completion of IV therapy patient to start amoxicillin 500 mg QPM as it will need to be post HD, for lifelong suppression, given enterococcus bacteremia and potential for colony/biofilm
- PICC in place
-Unlikely septic arthritis or gout given MRI. Improved ROM and tenderness on PE
Chief Complaint
-: Bacteremia
Subjective / Review of Systems
No acute overnight events.
R ankle MRI yesterday
Review of Systems: No Chest Pain, No Abdominal Pain and Other (R ankle pain)
Vital Signs / Physical Exam
Vital Signs
Vital Signs
Temp Pulse Resp BP Pulse Ox
98.2 F 79 12 111/81 95
06/18/24 08:05 06/18/24 08:00 06/18/24 06:00 06/18/24 08:00 06/17/24 20:45
Physical Exam
Constitutional: No Acute Distress and Comfortable
Cardiovascular: Regular Rate, S1/S2, Murmur (systolic) and Peripheral Edema (bilateral )
Pulmonary: Clear and Non Labored; Negative Wheezes, Rales or Rhonchi
Gastrointestinal: Soft, Non Tender and Non Distended
Musculoskeletal: Joint Swelling (r ankle tenderness and swelling. ROM limited by pain)
Skin: Warm, Dry and Other (pacemaker site no evidence of infection)
Neurological: Awake, Alert and AO x 3
Psychological: Calm
Lines: HD Cath
Objective Data
Lab Data
ESR 22 mm/hour (0-20) H 06/08/24 11:26
Estimated Creat Clear 21 ml/min 06/17/24 04:50
Lactic Acid Cancelled 06/06/24 06:30
Total Bilirubin 0.7 mg/dl (0.2-1.3) 06/17/24 04:50
AST 56 U/L (17-59) 06/17/24 04:50
ALT 60 U/L (0-50) H 06/17/24 04:50
Alkaline Phosphatase 89 U/L (38-126) 06/17/24 04:50
C-Reactive Protein 154.40 mg/L (0.0-10.00) H 06/07/24 04:34
Most recent labs reviewed.
Micro Results:
06/11/24 06:19 Blood Culture - Final
Blood/Venous No Growth - Final Report
06/11/24 03:37 Blood Culture - Final
Blood/Venous No Growth - Final Report
06/09/24 06:20 Blood Culture - Final
Blood/Venous No Growth - Final Report
06/09/24 06:14 Blood Culture - Final
Blood/Venous No Growth - Final Report
06/07/24 04:34 Blood Culture - Final
Blood/Venous Enterococcus faecalis
Gram Stain - Final
06/08/24 11:25 Blood Culture - Final
Blood/Venous No Growth - Final Report
06/12/24 13:32 C. difficile GDH Antigen & Toxins - Final
Feces/Stool Negative for toxigenic C.difficile
06/07/24 04:46 Blood Culture - Final
Blood/Venous Enterococcus faecalis
Gram Stain - Final
06/05/24 11:01 Blood Culture - Final
Blood/Venous Enterococcus faecalis
Gram Stain - Final
06/05/24 11:11 Blood Culture - Final
Blood/Venous Enterococcus faecalis
Gram Stain - Final
06/05/24 18:38 MRSA Screen - Final
Throat/Pharynx No Methicillin Resistant Staphylococcus aureus isolated.
06/05/24 18:38 Nasal Screen MRSA (PCR) - Final
Nose MRSA not detected - performed by PCR methodology.
06/05/24 18:38 Legionella Urinary Antigen - Final
Urine Negative for Legionella pneumophila Serogroup 1 antigen.
A negative result does not rule out the possiblity of
Legionella infection due to other serogroups or species of
Legionella. Clinical correlation is recommended.
Streptococcus pneumoniae Antigen (M - Final
Negative for Streptococcus pneumoniae antigen.
A negative result does not exclude infection with
Streptococcus pneumoniae. Clinical correlation is
recommended.
SPEC #: [id number] LIN: 06/05/24-1110
RECD: 06/05/24
SOURCE: BLOOD/VE
Blood Culture Final 06/08/24-1037
Enterococcus faecalis
Organism 1 Enterococcus faecalis
1. Enterococcus faecalis
M.I.C. RX
--------- ---
Ampicillin <=2 S
Gentamicin Synergy Screen <=500 S
Vancomycin 1 S
--- NOTE | 2024-06-18 10:58 | PTCARENOTE ---
pt transferred from IMU awake and alert. LCTA on RA vpaced skin CDI +1B/L LE edema weak PP B/L plan for HD today
--- NOTE | 2024-06-18 11:41 | W.PN.HOSP.TC ---
Today's Communication/Plan
-
medically stable for d/c - CM informed, pending rehab
Assessment / Plan
Assessment / Plan
88yo M with SSS s/p PPM, s/p TAVR, APKD with CKD stage 5, BPH, HTN, HLD came with intractable back pain starting from the top of the back and radiating down to both LE R>L. Also noted dizziness for past few days. ALso started to complain of b/l
UE weakness with pain, concern for central cord syndrome. Developed worsening LUCIANO and AMS 2/2 this. Started new HD. Low suspicion for pneumonia on admission then developed bacteremia with sepsis on 06/05/24. Managed for possible infective
endocarditis, as per discussion with cardiology - high risk for MARII. 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 Initially placed HD cath was removed on 06/11/24. New HD catheter placed on 06/14/24, restarted HD and
improved. MRI R ankle showed peroneal tendinopathy. As per ID - IV Rocephin and Ampicillin until 07/20/24 and after that Amoxicillin 500mg indefinetely. Medically stable for d/c as PICC placed.
A/P:
#Sepsis with bacteremia (AMS, leukocytosis fever) 2/2 acute infective endocarditis
#XR with concern for b/l pneumonia
Bcx E.faecalis
ID consult: switch to Ceftriaxone/Ampicillin- until 07/20/24 cont IV and then indefinite suppression with daily Amoxicillin 500mg
repeated Bcx NTD
Legionella and S/pneumonia Ag neg
Sputum Cx NTD
Colonoscopy upon discharge - patient and son bedside verbalized understanding
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
#APKD
Nephro to follow: might need HD
Permacath placed on 06/04/24
Initiate HD
[place], strict I&O
BiPAP PRN
Supplemental O2
Limit fluid intake
#R ankle swelling 2/2 peroneal tendinopathy
PT/OT
Podiatry: low suspicion for septic arthritis
no joint effusion to drain
#Cardiomyopathy
#Severe s/p TAVR
TTE showed mitral calcifications and new reduced EF 35%. Due to hypotension GDMT limited
Cardiology followed - continue outpatient follow up
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
Treat infection
Plavix
HD
#Back pain, most likely sciatica with multilevel disk narrowing on CT
#Hx of spinal Sx L4-L5
#B/L UE pain and weakness, concern for central cord syndrome
Pain mgmt
Muscle relaxant
PT/OT
MRI spine: cervical, thoracic and lumbar. Concern for C4-C5 stenosis. Neurosurgery follows. Due to poor image quality - repeating MRI cervical. sedation impossible 2/2 worsening respiratory status.
Neurology consult
#Essential HTN
cont home meds
#BPH
tamsulosin/finasteride
[place]
#Anemia of chronic disease with iron deficiency
Epo and iron as per Nephro
#JEANIE
cont CPAP
#AAA
3cm
follow as outpatient with US abd q1y
# History of TIA/CVA
# Moderate bilateral carotid disease
# Hyperlipidemia
# Prostatomegaly with bladder diverticulum
# Anemia of chronic disease
cont home meds
DVT ppx hep
Full code
I Have spent at least 38min reviewing chart, test results, communication with consultants and direct patient care
Anticipated Discharge: > 48 hours
Subjective/Interval History
-
Date of Service: June 18, 2024
Objective Data
-
Labs:
Laboratory Results
06/18/24
07:00
WBC Pending
Hgb Pending
Hct Pending
Plt Count Pending
Sodium Pending
Potassium Pending
Chloride Pending
Carbon Dioxide Pending
BUN Pending
Creatinine Pending
Glucose Pending
Calcium Pending
Total Bilirubin Pending
AST Pending
ALT Pending
Alkaline Phosphatase Pending
Vital Signs:
Vital Signs
Temp Pulse Resp BP Pulse Ox
98.2 F 79 12 111/81 96
06/18/24 08:05 06/18/24 08:00 06/18/24 06:00 06/18/24 08:00 06/18/24 09:50
I&O
06/17/24 06/18/24 06/19/24
06:59 06:59 06:59
Intake Total 1370 / 1370 696 / 696
Balance 1370 / 1370 696 / 696
Review of Systems
-
History Source: Patient
All other systems: Reviewed and negative
Physical Exam
-
General: No Apparent Distress
HEENT: Normocephalic and Atraumatic
Cardiac: Regular Rhythm
GI: Soft, Nontender and Nondistended
Genito-urinary: No Costovertebral Tender
Musculoskeletal: No Clubbing, No Cyanosis and No Edema
Skin: Warm
Neuro: Awake, Alert, Oriented and AO x 3
Psych: Calm
--- NOTE | 2024-06-18 12:01 | W.DCSUMMARY ---
Discharge Summary
Discharge Data
Date of Admission: 06/03/24
Date of Discharge: 06/18/24
-
Pending Results: No
Hospital Course
88yo M with SSS s/p PPM, s/p TAVR, APKD with CKD stage 5, BPH, HTN, HLD came with intractable back pain starting from the top of the back and radiating down to both LE R>L. Also noted dizziness for past few days. ALso started to complain of b/l
UE weakness with pain, concern for central cord syndrome. Developed worsening LUCIANO and AMS 2/2 this. Started new HD. Low suspicion for pneumonia on admission then developed bacteremia with sepsis on 06/05/24. Managed for possible infective
endocarditis, as per discussion with cardiology - high risk for MARII. 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 Initially placed HD cath was removed on 06/11/24. New HD catheter placed on 06/14/24, restarted HD and
improved. MRI R ankle showed peroneal tendinopathy. As per ID - IV Rocephin and Ampicillin until 07/20/24 and after that Amoxicillin 500mg indefinetely. Medically stable for d/c as PICC placed.
I have spent at least 38min preparing discharge, reviewing chart, test results, communication with consultants and direct patient care
Patient was managed for:
#Sepsis with bacteremia (AMS, leukocytosis fever) 2/2 acute infective endocarditis
#XR with concern for b/l pneumonia
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
#APKD
#R ankle swelling 2/2 peroneal tendinopathy
#Cardiomyopathy
#Severe s/p TAVR
#Recurrent Acute metabolic encephalopathy 2/2 ESRD also complicated by septic encephalopathy with acute embolic strokes 2/2 endocarditis
#Back pain, most likely sciatica with multilevel disk narrowing on CT
#Hx of spinal Sx L4-L5
#B/L UE pain and weakness, concern for central cord syndrome
#Essential HTN
#BPH
#Anemia of chronic disease with iron deficiency
Discharge Plan
-
Patient Disposition: Acute Rehab Facility
Discharge Diagnosis/Procedures: Bacteremia
Diet: Other diet
Additional Diets: Renal
Activity: As tolerated
Driving Restrictions: As prior to admission
Bathing Restrictions: None
Referrals:
Rudy Gerardo DO [Family Provider] -
Mayco French MD [Active] - 07/27/24 11:20 am (You have a cardiology follow-up appointment at the [place] office. Please call with questions)
Alin Ritter MD [Active] - in one month
Bita Negrete MD [Active] - in one week
Pamella Meraz MD [Active] - in one week
Prescriptions:
New
Ampicillin 2000 MG
0.9% Sodium Chloride 100 ml [Nss] 100 ML
108 mls/hr IV Q12H
Ordered By: Delano Camara MD
Last Taken: 06/17/24 23:41 108 mls
atorvastatin 40 mg Tablet
40 mg PO QPM Qty: 30 0RF
metoprolol succinate 25 mg Tablet Extended Release 24 Hr
25 mg PO BID Qty: 60 0RF
ceftriaxone 2 gram Recon Soln
2,000 mg IV Q24H 32 Days Qty: 0 0RF
melatonin 5 mg Tablet
5 mg PO HS Qty: 30 0RF
Lactobac/Bifidobac Visbiome
1 cap PO DAILY Qty: 30 0RF
Continued
amlodipine 10 MG tablet
10 mg PO DAILY
ezetimibe 10 MG tablet
10 mg PO DAILY
tamsulosin 0.4 MG capsule
0.4 mg PO HS
rosuvastatin 20 MG tablet
20 mg PO DAILY
pantoprazole 40 MG tablet,delayed release (DR/EC)
40 mg PO DAILY
clopidogrel 75 MG tablet
75 mg PO DAILY
acetaminophen 650 mg Tablet Extended Release
650 mg PO DAILYPRN PRN (Reason: mild pain)
PreserVision AREDS 4,296 mcg-226 mg-90 mg Capsule
1 cap PO BID
sodium bicarbonate 650 mg tablet
1,300 mg PO TID
Discontinued
metoprolol succinate 50 MG tablet extended release 24 hr
50 mg PO BID
Discharge Orders:
Discharge Patient (As Directed); Ordered 06/18/24
Ordered By: Delano Camara
Discharge Date and Time
Print Language: VIETNAMESE
--- NOTE | 2024-06-18 12:47 | CM ---
Addendum entered by Wilmar Perez 06/18/24 15:01:
[facility], pt will be accepted as early as Friday and also, pt needs to be accepted for HD treatment at their dialysis unit and requested information regarding hepatitis panel and flow sheets faxed to [phone].
D.C plan: [facility] on Friday.
Addendum entered by Wilmar Perez 06/18/24 14:37:
Apparently, a referral to SNFs made in late May. [facility] was not included.
INO received a phone call from pt's son Alejandro [phone] and he stated he went to [facility], liked there very much, met with director of reimbursement Tami and per son, she confirmed that pt might be accepted for admission on this
weekend.
A referral to [facility] made.
INO left a message to [facility] director of admission Tami [phone].
Discharge plan: [facility] for a short term rehab and HD treatment on site or at [facility].
Original Note:
INO following re: discharge planning.
Reviewed pt's chart, met with pt, spoke to pt's spouse over the phone and met with pt's son Alejandro to discuss discharge plan progress.
INO spoke to [facility] tech this morning and she confirmed she follows the pt for admission to [facility] and as of now pt is dependent, cannot tolerate much therapy. per liacarmela Ayers she will reevaluate the pt on Friday to see
any pt's physical progress. per liacarmela Osorio if pt will not be able to tolerate minimum 3 hours of therapy per day then pt will not be accepted and an alternative plan needs to be initiated.
INO spoke to pt's spouse over the phone regarding acute rehab admission concerns and pt's brought to me very disappointed feeling stated that all Doctors were telling her that pt will go to [facility]. Acute rehab criteria explained to the
pt's spouse, she expressed her understanding with expressing negative feelings and pt's spouse asked to meet with her son Alejandro who is in pt's room to explain everything and to discuss SNF options.
CM met with pt and son Alejandro at bedside. Explained challenges for acute rehab. pt's son expressed understanding. A list of SNFs with HD treatment site provided to pt's son. pt's son gave me permission to refer the pt to [facility], [place]
[facility] ([place], [place] or [facility] and in meantime he and his mother will tour those SNFs.
A referral to [facility] and [facility] made. Awaitiung for determination.
D/c plan: Plan A: [facility]. Jamila Ayers will re-evaluate the pt on Friday
Plan B: Preferred SNF: [facility], [facility] or [facility] with HD treatment onsite.
CM will follow to assist pt with discharge plan progress as hospitalization progresses
[2024-06-18 13:02] LABS: % Basophils 0.2 % (0-2); % Eosinophils 0.4 % (0-6); % Immature Granulocytes 0.3 % (0-0.5); % Lymphocytes 19.8 % (20.5-51.1); % Monocytes 4.9 % (1.7-9.3); % Neutrophils 74.4 % (42.2-75.2); Absolute Eosinophils 0.1 10^3/uL (0-0.7); Absolute Lymphocytes 2.4 10^3/uL (1.2-3.4); Absolute Monocytes 0.6 10^3/uL (0.1-0.6); Absolute Neutrophils 8.9 10^3/uL (1.4-6.5); Hematocrit 28.3 % (39.0-52.0); Mean Corp Hgb Conc. 31.8 g/dL (33.0-37.0); Mean Corpuscular Hgb 27.9 pg (27.0-31.0); Mean Corpuscular Volume 87.6 fL (80.0-94.0); Mean Platelet Volume 11.1 fL (7.4-10.4); Nucleated Red Blood Cells % 0 % (-); Platelet Count 285 10^3/uL (130-400); Red Blood Cell Count 3.23 10^6/uL (4.70-6.10); Red Cell Dist. Width 16.4 % (11.5-14.5); White Blood Cell Count 11.9 10^3/uL (4.8-10.8)
[2024-06-18] MEDS: MANNITOL 25% 12.5 GRAMS IV ×2 (13:20→14:19)
--- NOTE | 2024-06-18 13:27 | W.PN.NEPH.HD ---
Assessment
-
Seen on HD no new complaints. VSS, access ok
abx for bacteremia
Progress Note - Hemodialysis
-
Date of Service: June 18, 2024
Duration: 30 minutes and 3 hours
Potassium Bath: 3
Calcium Bath: 2.5
Opti-Dialyzer: 160
Ultrafiltration: Other (1kg)
Blood Flow: 400
Dialysate Flow: 600
Heparin: no
EPO: 8000 units
[2024-06-18] MEDS: RETACRIT 8000 UNITS IV (13:33)
[2024-06-18] MEDS: FERRLECIT 125 MG IV (13:34)
[2024-06-18 13:41] LABS: ALT (SGPT) 80 U/L (0-50); AST (SGOT) 63 U/L (17-59); Albumin 2.8 g/dl (3.5-5.0); Alkaline Phosphatase 93 U/L (38-126); Blood Urea Nitrogen 60 mg/dl (9-20); Calcium 9.3 mg/dl (8.4-10.2); Carbon Dioxide 30 mmol/L (22-30); Chloride 98 mmol/L (98-107); Estimated Creatinine Clearance 15 ml/min; Glucose 161 mg/dl (70-99); Potassium 3.5 mmol/L (3.5-5.1); Sodium 134 mmol/L (135-145); Total Bilirubin 0.7 mg/dl (0.2-1.3); Total Protein 5.5 g/dl (6.3-8.2); eGFR 14.77
--- NOTE | 2024-06-18 14:12 | W.PN.UPDATE ---
Update Note
Progress Note Update
minimal transaminitis, most likely 2/2 infection and Abx with neg HepC and B serology
monitor
[2024-06-18] MEDS: LIDOCAINE 4% PATCH TOPICAL (15:06)
[2024-06-18] MEDS: AMPICILLIN 108 MG IV (15:30)
[2024-06-18] MEDS: HEPARIN 4000 UNITS INTRACATH (16:33)
[2024-06-18] MEDS: STERILE WATER FOR INJECTION 20 ML IV (16:55)
[2024-06-18] MEDS: ROCEPHIN 2000 MG IV (16:55)
[2024-06-18] MEDS: LIPITOR 40 MG PO (16:56)
[2024-06-18] MEDS: TYLENOL 1000 MG PO (20:11)
[2024-06-18] MEDS: MELATONIN 5 MG PO (20:11)
[2024-06-19] VITALS (9 sets, daily range): BP systolic 70–192; BP diastolic 69–88; PULSE 85; O2SAT 99; BMI 22.8
[2024-06-19 06:02] LABS: % Basophils 0.3 % (0-2); % Eosinophils 0.9 % (0-6); % Immature Granulocytes 0.3 % (0-0.5); % Monocytes 5.7 % (1.7-9.3); % Neutrophils 62.8 % (42.2-75.2); ALT (SGPT) 91 U/L (0-50); AST (SGOT) 54 U/L (17-59); Absolute Eosinophils 0.1 10^3/uL (0-0.7); Absolute Lymphocytes 2.7 10^3/uL (1.2-3.4); Absolute Monocytes 0.5 10^3/uL (0.1-0.6); Absolute Neutrophils 5.6 10^3/uL (1.4-6.5); Albumin 2.4 g/dl (3.5-5.0); Alkaline Phosphatase 97 U/L (38-126); Blood Urea Nitrogen 38 mg/dl (9-20); Calcium 9.2 mg/dl (8.4-10.2); Carbon Dioxide 29 mmol/L (22-30); Chloride 101 mmol/L (98-107); Estimated Creatinine Clearance 22 ml/min; Glucose 112 mg/dl (70-99); Hematocrit 27.3 % (39.0-52.0); Hemoglobin 8.7 g/dL (13.0-18.0); Mean Corp Hgb Conc. 31.9 g/dL (33.0-37.0); Mean Corpuscular Hgb 28.9 pg (27.0-31.0); Mean Corpuscular Volume 90.7 fL (80.0-94.0); Mean Platelet Volume 10.6 fL (7.4-10.4); Nucleated Red Blood Cells % 0 % (-); Platelet Count 224 10^3/uL (130-400); Potassium 3.6 mmol/L (3.5-5.1); Red Blood Cell Count 3.01 10^6/uL (4.70-6.10); Red Cell Dist. Width 16.5 % (11.5-14.5); Sodium 135 mmol/L (135-145); Total Bilirubin 0.6 mg/dl (0.2-1.3); White Blood Cell Count 8.9 10^3/uL (4.8-10.8); eGFR 24.41
[2024-06-19] MEDS: PLAVIX 75 MG PO (08:35)
[2024-06-19] MEDS: VISBIOME 1 CAP PO (08:35)
[2024-06-19] MEDS: ZETIA 10 MG PO (08:35)
[2024-06-19] MEDS: HEPARIN 5000 UNITS SC ×3 (08:35→23:15)
[2024-06-19] MEDS: PROTONIX 40 MG PO (08:35)
[2024-06-19] MEDS: LIDOCAINE 4% PATCH 1 PATCH TOPICAL (08:35)
[2024-06-19] MEDS: TOPROL XL 25 MG PO ×2 (08:36→19:48)
--- NOTE | 2024-06-19 09:07 | W.PN.UPDATE ---
Update Note
Progress Note Update
Continue Tx per the primary team. Right ankle MRI noted to have soft tissue swelling laterally but no fluid collection/abscess. No signs orf osteomyelitis. No surgical indications at this time. Orthopaedics/Podi to sign off for now, please reengage
during this admission if necessary
[2024-06-19] MEDS: DESENEX/MITRAZOL/ZEASORB 1 APPLIC TOPICAL ×2 (09:26→19:50)
--- NOTE | 2024-06-19 11:14 | W.PN.NEPH.PH ---
Today's Communication / Plan
-
HD friday
Assessment/Plan
-
Impression:
Urinary retention
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
Acute kidney injury
Hypertension
Dyslipidemia
Metabolic acidosis
History of pacemaker placement
BPH with recent Rutledge catheter removal earlier this week
Enterococcus bacteremia
PUTTY MIXER EF ~30%
Plan:
await OP planning
for [facility] will need to know HD schedule, should be TTS or else they can arrange transportation to [facility] on [address] for any shift.
-
-
Date of Service: June 19, 2024
CC / HPI / ROS
-
Chief Complaint:
CKD V
History of Present Illness:
LUCIANO on CKD V now on HD
Hemodynamically stable
Currently maintained on ampicillin/rocepin for Enterococcus bacteremia
tolerated HD yesterday
Review of Systems:
offers no cp or sob
Mental status improved to baseline
Tunneled catheter
Labs
-
Labs:
WBC 8.9 10^3/uL (4.8-10.8) 06/19/24 05:16
RBC 3.01 10^6/uL (4.70-6.10) L 06/19/24 05:16
Hgb 8.7 g/dL (13.0-18.0) L 06/19/24 05:16
Hct 27.3 % (39.0-52.0) L 06/19/24 05:16
Plt Count 224 10^3/uL (130-400) D 06/19/24 05:16
Sodium 135 mmol/L (135-145) 06/19/24 05:16
Potassium 3.6 mmol/L (3.5-5.1) 06/19/24 05:16
Chloride 101 mmol/L (98-107) 06/19/24 05:16
Carbon Dioxide 29 mmol/L (22-30) 06/19/24 05:16
BUN 38 mg/dl (9-20) H 06/19/24 05:16
Creatinine 2.5 mg/dL (0.7-1.3) H 06/19/24 05:16
eGFR 24.41 06/19/24 05:16
Glucose 112 mg/dl (70-99) H 06/19/24 05:16
Calcium 9.2 mg/dl (8.4-10.2) 06/19/24 05:16
Albumin 2.4 g/dl (3.5-5.0) L 06/19/24 05:16
Physical Exam
-
Vital Signs:
Vital Signs
Temp Pulse Resp BP Pulse Ox
98.7 F 74 18 133/79 99
06/19/24 07:00 06/19/24 08:36 06/19/24 07:00 06/19/24 08:36 06/19/24 07:00
Cardiovascular:: Regular rate and rhythm
Respiratory:: Bilateral: CTA
Lung Excursion:: Normal
Abdomen:: Nontender and Soft
Bowel Sounds:: Normal
Extremity Edema:: None: Bilateral:
--- NOTE | 2024-06-19 11:43 | W.PN.HOSP.TC ---
Today's Communication/Plan
-
Pending assessment by acute rehab vs STR
Assessment / Plan
Assessment / Plan
88yo M with SSS s/p PPM, s/p TAVR, APKD with CKD stage 5, BPH, HTN, HLD came with intractable back pain starting from the top of the back and radiating down to both LE R>L. Also noted dizziness for past few days. ALso started to complain of b/l
UE weakness with pain, concern for central cord syndrome. Developed worsening LUCIANO and AMS 2/2 this. Started new HD. Low suspicion for pneumonia on admission then developed bacteremia with sepsis on 06/05/24. Managed for possible infective
endocarditis, as per discussion with cardiology - high risk for MARII. 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 Initially placed HD cath was removed on 06/11/24. New HD catheter placed on 06/14/24, restarted HD and
improved. MRI R ankle showed peroneal tendinopathy. As per ID - IV Rocephin and Ampicillin until 07/20/24 and after that Amoxicillin 500mg indefinetely. Medically stable for d/c as PICC placed. Pending assessment by acute rehab vs STR
A/P:
#Sepsis with bacteremia (AMS, leukocytosis fever) 2/2 acute infective endocarditis
#XR with concern for b/l pneumonia
Bcx E.faecalis
ID consult: switch to Ceftriaxone/Ampicillin- until 07/20/24 cont IV and then indefinite suppression with daily Amoxicillin 500mg
repeated Bcx NTD
Legionella and S/pneumonia Ag neg
Sputum Cx NTD
Colonoscopy upon discharge - patient and son bedside verbalized understanding
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
#APKD
Nephro to follow: might need HD
Permacath placed on 06/04/24
Initiate HD
Rutledge, strict I&O
BiPAP PRN
Supplemental O2
Limit fluid intake
#R ankle swelling 2/2 peroneal tendinopathy
PT/OT
Podiatry: low suspicion for septic arthritis
no joint effusion to drain
#Cardiomyopathy
#Severe s/p TAVR
TTE showed mitral calcifications and new reduced EF 35%. Due to hypotension GDMT limited
Cardiology followed - continue outpatient follow up
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
Treat infection
Plavix
HD
#Back pain, most likely sciatica with multilevel disk narrowing on CT
#Hx of spinal Sx L4-L5
#B/L UE pain and weakness, concern for central cord syndrome
Pain mgmt
Muscle relaxant
PT/OT
MRI spine: cervical, thoracic and lumbar. Concern for C4-C5 stenosis. Neurosurgery follows. Due to poor image quality - repeating MRI cervical. sedation impossible 2/2 worsening respiratory status.
Neurology consult
#Essential HTN
cont home meds
#BPH
tamsulosin/finasteride
Rutledge
#Anemia of chronic disease with iron deficiency
Epo and iron as per Nephro
#JEANIE
cont CPAP
#AAA
3cm
follow as outpatient with US abd q1y
# History of TIA/CVA
# Moderate bilateral carotid disease
# Hyperlipidemia
# Prostatomegaly with bladder diverticulum
# Anemia of chronic disease
cont home meds
DVT ppx hep
Full code
I Have spent at least 38min reviewing chart, test results, communication with consultants and direct patient care
Anticipated Discharge: 24 - 48 hours
Subjective/Interval History
-
Date of Service: June 19, 2024
Objective Data
-
Labs:
Laboratory Results
06/19/24
05:16
WBC 8.9
Hgb 8.7 L
Hct 27.3 L
Plt Count 224 D
Sodium 135
Potassium 3.6
Chloride 101
Carbon Dioxide 29
BUN 38 H
Creatinine 2.5 H
Glucose 112 H
Calcium 9.2
Total Bilirubin 0.6
AST 54
ALT 91 H
Alkaline Phosphatase 97
Vital Signs:
Vital Signs
Temp Pulse Resp BP Pulse Ox
97.8 F 88 18 127/83 100
06/19/24 11:00 06/19/24 11:00 06/19/24 11:00 06/19/24 11:00 06/19/24 11:00
I&O
06/18/24 06/19/24 06/20/24
06:59 06:59 06:59
Intake Total 696 / 696 280 / 280
Balance 696 / 696 280 / 280
Review of Systems
-
History Source: Patient
All other systems: Reviewed and negative
Physical Exam
-
General: No Apparent Distress
Respiratory: Negative Wheezes, Rales or Rhonchi
Cardiac: Regular Rhythm
GI: Soft, Nontender and Nondistended
Genito-urinary: No Costovertebral Tender
Musculoskeletal: No Clubbing, No Cyanosis and No Edema
Neuro: Awake, Alert, Oriented and AO x 3
Psych: Calm
[2024-06-19] MEDS: ROCEPHIN 2000 MG IV (13:06)
[2024-06-19] MEDS: STERILE WATER FOR INJECTION 20 ML IV (13:07)
[2024-06-19] MEDS: AMPICILLIN 108 MG IV ×3 (13:09→23:14)
[2024-06-19] MEDS: LIPITOR 40 MG PO (17:21)
[2024-06-19] MEDS: MELATONIN 5 MG PO (19:48)
[2024-06-19] MEDS: TYLENOL 1000 MG PO (21:09)
[2024-06-20] VITALS (7 sets, daily range): BP systolic 116–140; BP diastolic 71–85; PULSE 88; O2SAT 99; BMI 22.5
[2024-06-20] MEDS: PLAVIX 75 MG PO (08:38)
[2024-06-20] MEDS: ZETIA 10 MG PO (08:38)
[2024-06-20] MEDS: TOPROL XL 25 MG PO ×2 (08:38→20:17)
[2024-06-20] MEDS: VISBIOME 1 CAP PO (08:38)
[2024-06-20] MEDS: PROTONIX 40 MG PO (08:38)
[2024-06-20] MEDS: LIDOCAINE 4% PATCH 1 PATCH TOPICAL (08:39)
[2024-06-20] MEDS: DESENEX/MITRAZOL/ZEASORB 1 APPLIC TOPICAL ×2 (08:41→20:15)
[2024-06-20] MEDS: HEPARIN 5000 UNITS SC ×2 (08:42→17:07)
--- NOTE | 2024-06-20 10:26 | W.PN.HOSP.TC ---
Today's Communication/Plan
-
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
Assessment / Plan
Assessment / Plan
88yo M with SSS s/p PPM, s/p TAVR, APKD with CKD stage 5, BPH, HTN, HLD came with intractable back pain starting from the top of the back and radiating down to both LE R>L. Also noted dizziness for past few days. ALso started to complain of b/l
UE weakness with pain, concern for central cord syndrome. Developed worsening LUCIANO and AMS 2/2 this. Started new HD. Low suspicion for pneumonia on admission then developed bacteremia with sepsis on 06/05/24. Managed for possible infective
endocarditis, as per discussion with cardiology - high risk for MARII. 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 Initially placed HD cath was removed on 06/11/24. New HD catheter placed on 06/14/24, restarted HD and
improved. MRI R ankle showed peroneal tendinopathy. As per ID - IV Rocephin and Ampicillin until 07/20/24 and after that Amoxicillin 500mg indefinetely. Medically stable for d/c as PICC placed. Pending assessment by acute rehab vs STR
A/P:
#Sepsis with bacteremia (AMS, leukocytosis fever) 2/2 acute infective endocarditis
#XR with concern for b/l pneumonia
Bcx E.faecalis
ID consult: switch to Ceftriaxone/Ampicillin- until 07/20/24 cont IV and then indefinite suppression with daily Amoxicillin 500mg
repeated Bcx NTD
Legionella and S/pneumonia Ag neg
Sputum Cx NTD
Colonoscopy upon discharge - patient and son bedside verbalized understanding
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
#APKD
Nephro to follow: might need HD
Permacath placed on 06/04/24
Initiate HD
Rutledge, strict I&O
BiPAP PRN
Supplemental O2
Limit fluid intake
#R ankle swelling 2/2 peroneal tendinopathy
PT/OT
Podiatry: low suspicion for septic arthritis
no joint effusion to drain
#Cardiomyopathy
#Severe s/p TAVR
TTE showed mitral calcifications and new reduced EF 35%. Due to hypotension GDMT limited
Cardiology followed - continue outpatient follow up
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
Treat infection
Plavix
HD
#Back pain, most likely sciatica with multilevel disk narrowing on CT
#Hx of spinal Sx L4-L5
#B/L UE pain and weakness, concern for central cord syndrome
Pain mgmt
Muscle relaxant
PT/OT
MRI spine: cervical, thoracic and lumbar. Concern for C4-C5 stenosis. Neurosurgery follows. Due to poor image quality - repeating MRI cervical. sedation impossible 2/2 worsening respiratory status.
Neurology consult
#Essential HTN
cont home meds
#BPH
tamsulosin/finasteride
Rutledge
#Anemia of chronic disease with iron deficiency
Epo and iron as per Nephro
#JEANIE
cont CPAP
#AAA
3cm
follow as outpatient with US abd q1y
# History of TIA/CVA
# Moderate bilateral carotid disease
# Hyperlipidemia
# Prostatomegaly with bladder diverticulum
# Anemia of chronic disease
cont home meds
DVT ppx hep
Full code
I Have spent at least 38min reviewing chart, test results, communication with consultants and direct patient care
Anticipated Discharge: Within 24 hours
Subjective/Interval History
-
Date of Service: June 20, 2024
Objective Data
-
Vital Signs:
Vital Signs
Temp Pulse Resp BP Pulse Ox
97.9 F 88 17 134/85 98
06/20/24 07:00 06/20/24 08:38 06/20/24 07:00 06/20/24 08:38 06/20/24 07:00
I&O
06/19/24 06/20/24 06/21/24
06:59 06:59 06:59
Intake Total 280 / 280 1300 / 1300
Output Total 120 / 120
Balance 280 / 280 1180 / 1180
Review of Systems
-
History Source: Patient
All other systems: Reviewed and negative
Physical Exam
-
General: No Apparent Distress
HEENT: Normocephalic, Atraumatic and Moist Mucous Membranes
Respiratory: Clear to Auscultation
Cardiac: Regular Rhythm
GI: Soft, Nontender and Nondistended
Musculoskeletal: No Clubbing, No Cyanosis and No Edema
Neuro: Awake, Alert, Oriented and AO x 3
Psych: Calm
--- NOTE | 2024-06-20 10:57 | W.PN.NEPH.PH ---
Today's Communication / Plan
-
HD tomorrow
Assessment/Plan
-
Impression:
Urinary retention
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
Acute kidney injury
Hypertension
Dyslipidemia
Metabolic acidosis
History of pacemaker placement
BPH with recent Rutledge catheter removal earlier this week
Enterococcus bacteremia
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
Plan:
HD tomorrow
await OP planning
for [facility] will need to know HD schedule, should be TTS or else they can arrange transportation to [facility] on [address] for any shift.
-
-
Date of Service: June 20, 2024
CC / HPI / ROS
-
Chief Complaint:
CKD V
History of Present Illness:
LUCIANO on CKD V now on HD
Hemodynamically stable
Currently maintained on ampicillin/rocephin for Enterococcus bacteremia
working with PT
Review of Systems:
offers no cp or sob
Mental status improved to baseline
Tunneled catheter
Labs
-
Labs:
WBC 8.9 10^3/uL (4.8-10.8) 06/19/24 05:16
RBC 3.01 10^6/uL (4.70-6.10) L 06/19/24 05:16
Hgb 8.7 g/dL (13.0-18.0) L 06/19/24 05:16
Hct 27.3 % (39.0-52.0) L 06/19/24 05:16
Plt Count 224 10^3/uL (130-400) D 06/19/24 05:16
Sodium 135 mmol/L (135-145) 06/19/24 05:16
Potassium 3.6 mmol/L (3.5-5.1) 06/19/24 05:16
Chloride 101 mmol/L (98-107) 06/19/24 05:16
Carbon Dioxide 29 mmol/L (22-30) 06/19/24 05:16
BUN 38 mg/dl (9-20) H 06/19/24 05:16
Creatinine 2.5 mg/dL (0.7-1.3) H 06/19/24 05:16
eGFR 24.41 06/19/24 05:16
Glucose 112 mg/dl (70-99) H 06/19/24 05:16
Calcium 9.2 mg/dl (8.4-10.2) 06/19/24 05:16
Albumin 2.4 g/dl (3.5-5.0) L 06/19/24 05:16
Physical Exam
-
Vital Signs:
Vital Signs
Temp Pulse Resp BP Pulse Ox
97.9 F 88 17 134/85 98
06/20/24 07:00 06/20/24 08:38 06/20/24 07:00 06/20/24 08:38 06/20/24 07:00
Cardiovascular:: Regular rate and rhythm
Respiratory:: Bilateral: Coarse
Lung Excursion:: Normal
Abdomen:: Nontender and Soft
Bowel Sounds:: Normal
Extremity Edema:: None: Bilateral:
[2024-06-20] MEDS: AMPICILLIN 108 MG IV (11:48)
[2024-06-20] MEDS: ROCEPHIN 2000 MG IV (11:49)
[2024-06-20] MEDS: STERILE WATER FOR INJECTION 20 ML IV (11:49)
--- NOTE | 2024-06-20 15:13 | PTCARENOTE ---
patient denies chest pain and sob, reports back pain 4/10 and has denied need for analgesia when offered, tolerating diet, turns with assist x2, vss, will continue to monitor.
[2024-06-20] MEDS: LIPITOR 40 MG PO (17:07)
[2024-06-20] MEDS: MELATONIN 5 MG PO (21:57)
[2024-06-21] MEDS: HEPARIN 5000 UNITS SC ×4 (00:12→23:05)
[2024-06-21] MEDS: AMPICILLIN 108 MG IV ×3 (00:14→23:04)
[2024-06-21 06:00] VITALS: BMI 22.6
[2024-06-21 06:34] LABS: % Basophils 0.3 % (0-2); % Eosinophils 1.2 % (0-6); % Immature Granulocytes 0.4 % (0-0.5); % Lymphocytes 27.1 % (20.5-51.1); Absolute Eosinophils 0.1 10^3/uL (0-0.7); Absolute Lymphocytes 2.8 10^3/uL (1.2-3.4); Absolute Monocytes 0.5 10^3/uL (0.1-0.6); Absolute Neutrophils 6.8 10^3/uL (1.4-6.5); Hematocrit 28.8 % (39.0-52.0); Mean Corp Hgb Conc. 31.3 g/dL (33.0-37.0); Mean Corpuscular Hgb 28.2 pg (27.0-31.0); Mean Corpuscular Volume 90.3 fL (80.0-94.0); Mean Platelet Volume 10.9 fL (7.4-10.4); Nucleated Red Blood Cells % 0 % (-); Platelet Count 230 10^3/uL (130-400); Red Blood Cell Count 3.19 10^6/uL (4.70-6.10); Red Cell Dist. Width 17.1 % (11.5-14.5); White Blood Cell Count 10.3 10^3/uL (4.8-10.8)
[2024-06-21 06:56] LABS: ALT (SGPT) 61 U/L (0-50); AST (SGOT) 34 U/L (17-59); Albumin 2.6 g/dl (3.5-5.0); Blood Urea Nitrogen 61 mg/dl (9-20); Carbon Dioxide 28 mmol/L (22-30); Estimated Creatinine Clearance 15 ml/min; Glucose 111 mg/dl (70-99); Potassium 3.7 mmol/L (3.5-5.1); Total Bilirubin 0.8 mg/dl (0.2-1.3); Total Protein 5.1 g/dl (6.3-8.2); eGFR 14.77
[2024-06-21 07:06] LABS: Alkaline Phosphatase 103 U/L (38-126); Calcium 9.7 mg/dl (8.4-10.2); Chloride 99 mmol/L (98-107); Sodium 133 mmol/L (135-145)
[2024-06-21] MEDS: PROTONIX 40 MG PO (07:35)
[2024-06-21] MEDS: LIDOCAINE 4% PATCH 1 PATCH TOPICAL (07:35)
[2024-06-21] MEDS: VISBIOME 1 CAP PO (07:36)
[2024-06-21] MEDS: PLAVIX 75 MG PO (07:36)
[2024-06-21] MEDS: ZETIA 10 MG PO (07:36)
[2024-06-21] MEDS: TOPROL XL 25 MG PO ×2 (07:37→19:45)
[2024-06-21] MEDS: DESENEX/MITRAZOL/ZEASORB 1 APPLIC TOPICAL ×2 (07:39→19:45)
[2024-06-21 08:09] VITALS: BP 156/88
--- NOTE | 2024-06-21 09:35 | PN.CDI ---
CDI
- -
CDI:
Physician Documentation Request
Admit Date: 06/03/24 13:44
Dear Doctor Hoa,
Patient admitted with embolic stroke likely infective endocarditis related.
06/20 Nursing skin assessment, 'Stage 2 left hip pressure injury.'
Physician documentation of the type and location of wounds is required for compliant documentation. Based on the above clinical findings and your assessment, please provide the following in your progress note:
Type (etiology) of ulcer/wound:
- Pressure (decubitus) ulcer
- Other
- Unable to determine
For a pressure ulcer, please also include the stage* of the ulcer:
- Stage 1 - Skin intact, non-blanchable redness
- Stage 2 - Partial thickness loss of dermis, includes intact or open blister
- Stage 3 - Full thickness tissue not including bone, tendon or muscle
- Stage 4 - Full thickness tissue loss, including exposed bone, tendon or muscle
- Unstageable - Full thickness loss in which the base of the ulcer is covered by slough (yellow, barron, lopez, green or brown) and/or eschar (barron, brown or black) in the wound bed.
- Unable to determine
Use of terms such as suspected, likely, concern for, or probable (associated with a specific diagnosis that is being evaluated, monitored, or treated as if it exists) are acceptable and can be coded in the inpatient setting, when documented at the
time of discharge.
Thank you,
Susana SANDERS,RN,CCDS
CDI Specialist
Available via [employer] text
Please use your independent medical judgment in providing your response.
*Source: National Pressure Ulcer Advisory Panel (NPUAP)
--- NOTE | 2024-06-21 09:49 | W.PN.ID1 ---
Addendum entered and electronically signed by Pamella Meraz MD 06/21/24 12:10:
I saw and evaluated the patient. I reviewed the resident�s note and agree with findings and plan as documented in the resident�s note.
Duration of antibiotics will be 6 weeks through 07/20. Follow up with me in 4-6 weeks. After completion of IV therapy start amoxicillin 500 mg QPM as it will need to be post HD, for lifelong suppression
Stable for dc from ID perspective. Will follow peripherally until outpatient follow up, please recall if there are further questions.
Original Note:
Date of Service
Date of Service: June 21, 2024
Today's Communication
Continue IV Abx
-Infectious disease will follow peripherally as needed. Please call us back if needed.
Assessment / Plan
A&P:
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 Patient with numerous medical devices that have not shown gross evidence of suprainfection. Also with
numerous tiny embolic strokes also suggestive of endocarditis. As the intravascular devices cannot be removed, lifelong suppression is planned - patient and in agreement.
Enterococcal bacteremia- sustained
Definite Prosthetic Valve Endocarditis
S/p Pacemaker - no evidence of infection
with hx TAVR
ESRD, HD via permacath
Diverticulosis
Multiple strokes suggestion of emboli
- new marked R ankle pain and mild swelling
- given recent disseminated enterococcal infection ankle could be aspirated to rule out septic joint, if there is a septic joint then washout would be needed
- uric acid in normal range, doesnt rule out gout
- R ankle x-ray showed no acute osseous abnormality.
- R Ankle MRI: soft tissue swelling/edema along the dorsal lateral aspect of the ankle/proximal foot without drainable fluid collection. Degenerative changes throughout the ankle and hindfoot without evidence of joint effusion
- 06/08 single set finalized no growth
- 06/09 two sets: finalized no growth
- 06/05-06/07 amp sensitive E. faecalis
- TTE - calcified MV, no definite vegetations; given persistent bacteremia will plan 6 weeks of IV therapy followed by oral suppression
- HD cath replaced 06/14
- eventual outpatient colonoscopy to continue workup for initial source
- continue ampicillin 2 gm iv q12 - renally dosed
- continue ceftriaxone 2 gm IV q24
- duration of antibiotics will be 6 weeks through 07/20. Will need weekly blood work to be sent to Dr. Meraz. He will follow up with ID outpt in 4 weeks. After completion of IV therapy patient to start amoxicillin 500 mg QPM as it will need to be
post HD, for lifelong suppression, given enterococcus bacteremia and potential for colony/biofilm
- PICC in place
-Unlikely septic arthritis or gout. Tendonitis given MRI result. Improved ROM and tenderness on PE
Chief Complaint
-: Bacteremia
Subjective / Review of Systems
No fever overnight
Review of Systems: No Fever and Joint Pain (R ankle)
Vital Signs / Physical Exam
Vital Signs
Vital Signs
Temp Pulse Resp BP Pulse Ox
97.6 F 79 16 156/88 99
06/21/24 08:09 06/21/24 08:09 06/21/24 08:09 06/21/24 08:09 06/21/24 08:09
Physical Exam
Constitutional: No Acute Distress and Comfortable
Cardiovascular: Regular Rate, S1/S2 and Murmur (mild systolic); Negative Rub or Peripheral Edema
Pulmonary: Clear; Negative Symmetric, Wheezes, Rales or Rhonchi
Gastrointestinal: Soft, Non Tender, Non Distended and Normal Bowel Sounds
Genito-Urinary: Negative Suprapubic Tenderness or CVA Tenderness
Extremities: Negative Edema
Musculoskeletal: Joint Swelling (mild right ankle swelling, tenderness. some ROM restriction due to pain)
Neurological: Awake and Alert
Lines: PICC (medial R arm, intact) and HD Cath (medial R arm)
Objective Data
Lab Data
Lab Results
06/21/24 05:18
06/21/24 05:18
ESR 22 mm/hour (0-20) H 06/08/24 11:26
Estimated Creat Clear 15 ml/min 06/21/24 05:18
Lactic Acid Cancelled 06/06/24 06:30
Total Bilirubin 0.8 mg/dl (0.2-1.3) 06/21/24 05:18
AST 34 U/L (17-59) 06/21/24 05:18
ALT 61 U/L (0-50) H 06/21/24 05:18
Alkaline Phosphatase 103 U/L (38-126) 06/21/24 05:18
C-Reactive Protein 154.40 mg/L (0.0-10.00) H 06/07/24 04:34
Most recent labs reviewed.
Micro Results:
06/11/24 06:19 Blood Culture - Final
Blood/Venous No Growth - Final Report
06/11/24 03:37 Blood Culture - Final
Blood/Venous No Growth - Final Report
06/09/24 06:20 Blood Culture - Final
Blood/Venous No Growth - Final Report
06/09/24 06:14 Blood Culture - Final
Blood/Venous No Growth - Final Report
06/07/24 04:34 Blood Culture - Final
Blood/Venous Enterococcus faecalis
Gram Stain - Final
06/08/24 11:25 Blood Culture - Final
Blood/Venous No Growth - Final Report
06/12/24 13:32 C. difficile GDH Antigen & Toxins - Final
Feces/Stool Negative for toxigenic C.difficile
06/07/24 04:46 Blood Culture - Final
Blood/Venous Enterococcus faecalis
Gram Stain - Final
06/05/24 11:01 Blood Culture - Final
Blood/Venous Enterococcus faecalis
Gram Stain - Final
06/05/24 11:11 Blood Culture - Final
Blood/Venous Enterococcus faecalis
Gram Stain - Final
06/05/24 18:38 MRSA Screen - Final
Throat/Pharynx No Methicillin Resistant Staphylococcus aureus isolated.
06/05/24 18:38 Nasal Screen MRSA (PCR) - Final
Nose MRSA not detected - performed by PCR methodology.
06/05/24 18:38 Legionella Urinary Antigen - Final
Urine Negative for Legionella pneumophila Serogroup 1 antigen.
A negative result does not rule out the possiblity of
Legionella infection due to other serogroups or species of
Legionella. Clinical correlation is recommended.
Streptococcus pneumoniae Antigen (M - Final
Negative for Streptococcus pneumoniae antigen.
A negative result does not exclude infection with
Streptococcus pneumoniae. Clinical correlation is
recommended.
SPEC #: [id number] LIN: 06/05/24-1111
RECD: 06/05/24-1134
SOURCE: BLOOD/VE
Blood Culture Final 06/08/24-1038
Enterococcus faecalis
Organism 1 Enterococcus faecalis
1. Enterococcus faecalis
M.I.C. RX
--------- ---
Ampicillin <=2 S
Gentamicin Synergy Screen <=500 S
Vancomycin 1 S
--- NOTE | 2024-06-21 11:12 | WOUNDNOTE ---
WO RN note: Patient admitted with back pain.
See H&P for complete history.
PMH: [facility] dialysis, HTN,PM,CVA,multiple ortho surgeries and arthritis.
Wound Location and type/assessment: Patient admitted with: intact sacrum and heels, developed and abrasion to L hip not pressure injury. Patient thinks it happened when using a bedpan, has been too weak to get oob. Skin folds with mild MASD, fungal
powder in use. Wound is superficial with a cluster of 3 open sores, scant slough vs fibrin. Son at bedside and teaching done with both regarding the importance of increased protein in diet and turning. PT has been working with patient to build up
strength, discharge plan is TBD per son.
Appetite: Fair states patient.
Pressure redistribution devices in place: Accumax, turns self.
Plan:Will order Polysporin for L hip: clean with soap and water, Polysporin, adaptic and dry dressing daily.
Will confirm orders with hospitalist and update nurse.
Updated care plan and will follow as needed.
Note to case management of equipment requested for discharge: nurse to do wound care at facility.
--- NOTE | 2024-06-21 12:31 | CM ---
Addendum entered by PAIGE Cortes 06/21/24 13:31:
Received notification from attending who stated that patient is medically cleared for discharge. Placed a call to Ann at [facility] who stated that she has to determine chair availability with dialysis and will update CM right away.
Attending updated.
Addendum entered by PAIGE Cortes 06/21/24 12:43:
Received call from Hallie at [facility] who wanted update. She stated that her # is [phone].
Original Note:
Reviewed chart, spoke with previous CM on case. Spoke with patient's son, Brett who inquired as to when patient may be discharged and is agreeable to [facility] when patient is medically stable.
Will f/u with [facility] once d/c status is known.
Plan: Case management will continue to follow and assist with discharge planning. [facility] when stable.
--- NOTE | 2024-06-21 12:55 | W.PN.HOSP.TC ---
Today's Communication/Plan
-
CM for placement
Assessment / Plan
Assessment / Plan
88yo M with SSS s/p PPM, s/p TAVR, APKD with CKD stage 5, BPH, HTN, HLD came with intractable back pain starting from the top of the back and radiating down to both LE R>L. Also noted dizziness for past few days. ALso started to complain of b/l
UE weakness with pain, concern for central cord syndrome. Developed worsening LUCIANO and AMS 2/2 this. Started new HD. Low suspicion for pneumonia on admission then developed bacteremia with sepsis on 06/05/24. Managed for possible infective
endocarditis, as per discussion with cardiology - high risk for MARII. 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 Initially placed HD cath was removed on 06/11/24. New HD catheter placed on 06/14/24, restarted HD and
improved. MRI R ankle showed peroneal tendinopathy. As per ID - IV Rocephin and Ampicillin until 07/20/24 and after that Amoxicillin 500mg indefinetely. Medically stable for d/c as PICC placed. Pending assessment by acute rehab vs STR
A/P:
#Sepsis with bacteremia (AMS, leukocytosis fever) 2/2 acute infective endocarditis
#XR with concern for b/l pneumonia
Bcx E.faecalis
ID consult: switch to Ceftriaxone/Ampicillin- until 07/20/24 cont IV and then indefinite suppression with daily Amoxicillin 500mg
repeated Bcx NTD
Legionella and S/pneumonia Ag neg
Sputum Cx NTD
Colonoscopy upon discharge - patient and son bedside verbalized understanding
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
#APKD
Nephro to follow: might need HD
Permacath placed on 06/04/24
Initiate HD
Rutledge, strict I&O
BiPAP PRN
Supplemental O2
Limit fluid intake
#R ankle swelling 2/2 peroneal tendinopathy
PT/OT
Podiatry: low suspicion for septic arthritis
no joint effusion to drain
#Cardiomyopathy
#Severe s/p TAVR
TTE showed mitral calcifications and new reduced EF 35%. Due to hypotension GDMT limited
Cardiology followed - continue outpatient follow up
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
Treat infection
Plavix
HD
#Back pain, most likely sciatica with multilevel disk narrowing on CT
#Hx of spinal Sx L4-L5
#B/L UE pain and weakness, concern for central cord syndrome
Pain mgmt
Muscle relaxant
PT/OT
MRI spine: cervical, thoracic and lumbar. Concern for C4-C5 stenosis. Neurosurgery follows. Due to poor image quality - repeating MRI cervical. sedation impossible 2/2 worsening respiratory status.
Neurology consult
#Essential HTN
cont home meds
#BPH
tamsulosin/finasteride
Rutledge
#Anemia of chronic disease with iron deficiency
Epo and iron as per Nephro
#JEANIE
cont CPAP
#AAA
3cm
follow as outpatient with US abd q1y
# History of TIA/CVA
# Moderate bilateral carotid disease
# Hyperlipidemia
# Prostatomegaly with bladder diverticulum
# Anemia of chronic disease
cont home meds
#Stage 2 left hip pressure injury
Wound care
DVT ppx hep
Full code
I Have spent at least 38min reviewing chart, test results, communication with consultants and direct patient care
Anticipated Discharge: Within 24 hours
Subjective/Interval History
-
Date of Service: June 21, 2024
Objective Data
-
Labs:
Laboratory Results
06/21/24
05:18
WBC 10.3
Hgb 9.0 L
Hct 28.8 L
Plt Count 230
Sodium 133 L
Potassium 3.7
Chloride 99
Carbon Dioxide 28
BUN 61 H
Creatinine 3.8 H
Glucose 111 H
Calcium 9.7
Total Bilirubin 0.8
AST 34
ALT 61 H
Alkaline Phosphatase 103
Vital Signs:
Vital Signs
Temp Pulse Resp BP Pulse Ox
97.6 F 79 16 156/88 99
06/21/24 08:09 06/21/24 08:09 06/21/24 08:09 06/21/24 08:09 06/21/24 08:09
I&O
06/20/24 06/21/24 06/22/24
06:59 06:59 06:59
Intake Total 1300 / 1300 1728 / 1728
Output Total 120 / 120 575 / 575
Balance 1180 / 1180 1153 / 1153
Review of Systems
-
History Source: Patient
All other systems: Reviewed and negative
Physical Exam
-
General: Well Nourished and No Apparent Distress
HEENT: Normocephalic
Respiratory: Clear to Auscultation
Cardiac: Regular Rhythm
GI: Soft, Nontender and Nondistended
Skin: Warm
Neuro: Awake, Oriented and AO x 3
Psych: Calm
[2024-06-21] MEDS: FERRLECIT 125 MG IV (13:09)
[2024-06-21] MEDS: RETACRIT 10000 UNITS IV (13:10)
--- NOTE | 2024-06-21 13:57 | W.PN.NEPH.HD ---
Assessment
-
pt seen during HD
vitals stable
below DW, only limited UF
CVC functions well
abx per ID
await placement, hopefully TTS at [facility]
Progress Note - Hemodialysis
-
Date of Service: June 21, 2024
Duration: 30 minutes and 3 hours
Potassium Bath: 3
Calcium Bath: 2.5
Opti-Dialyzer: 160
Ultrafiltration: Other (0.5kg)
Blood Flow: 400
Dialysate Flow: 600
Heparin: no
EPO: [id number]
[2024-06-21] MEDS: HEPARIN 4200 UNITS INTRACATH (15:35)
[2024-06-21 15:36] VITALS: BP 120/72
[2024-06-21] MEDS: ROCEPHIN 2000 MG IV (15:48)
[2024-06-21] MEDS: STERILE WATER FOR INJECTION 20 ML IV (15:48)
[2024-06-21] MEDS: LIPITOR 40 MG PO (17:18)
[2024-06-21] MEDS: TYLENOL 1000 MG PO (19:51)
[2024-06-21] MEDS: MELATONIN 5 MG PO (23:05)
[2024-06-21 23:12] VITALS: BP 139/79
[2024-06-22 06:00] VITALS: BMI 22.8
[2024-06-22 07:43] VITALS: BP 138/79
[2024-06-22] MEDS: HEPARIN 5000 UNITS SC ×2 (09:17→17:25)
[2024-06-22] MEDS: TOPROL XL 25 MG PO ×2 (09:17→21:40)
[2024-06-22] MEDS: ZETIA 10 MG PO (09:17)
[2024-06-22] MEDS: DESENEX/MITRAZOL/ZEASORB 1 APPLIC TOPICAL ×2 (09:18→21:39)
[2024-06-22] MEDS: POLYSPORIN OINTMENT 1 APPLIC TOPICAL (09:18)
[2024-06-22] MEDS: VISBIOME 1 CAP PO (09:18)
[2024-06-22] MEDS: LIDOCAINE 4% PATCH 1 PATCH TOPICAL (09:18)
[2024-06-22] MEDS: PLAVIX 75 MG PO (09:18)
[2024-06-22] MEDS: PROTONIX 40 MG PO (09:18)
[2024-06-22] MEDS: STERILE WATER FOR INJECTION 20 ML IV (12:31)
[2024-06-22] MEDS: AMPICILLIN 108 MG IV (12:31)
[2024-06-22] MEDS: ROCEPHIN 2000 MG IV (12:31)
--- NOTE | 2024-06-22 14:18 | W.PN.HOSP.TC ---
Addendum entered and electronically signed by Wilfredo Montoya MD 06/22/24 14:54:
88yo M with difficulty with moving. Son gave me history [place] and then had a fever. Patient then had difficulty moving and had to be brought to the emergency room in an ambulance.
He also had some pain patient is not able to describe exactly where the pain is. Pain is mostly in the arms with movement but no muscle tenderness
Echo 06/03/2024-LV mildly dilated. Mild LVH. Moderately reduced LV systolic function. Left ventricular ejection fraction 34%. Global hypokinesis. Stage II diastolic dysfunction suggestive of abnormal relaxation and increased filling pressures.
Mildly enlarged RV. Dense mitral annular calcification. Thickened mitral valve leaflets. Posterior leaflet appears calcified and restricted. Mild to moderate mitral stenosis. Mild to moderate MR. Status post TAVR. Mild to moderate TR.
Pulmonary artery pressure 44 mmHg. Small circumferential pericardial fusion without evidence of hemodynamic compromise. Since November 2023 LVEF has decreased from 50% to 34%.
06/04/24-Lumbar spine MRI-multilevel degenerative changes.Worst at L2-L3 where disc and facet disease contribute to severe spinal canal and moderate bilateral neural foraminal stenosis. Severe left-sided neuroforaminal stenosis L4/L5.
06/04/24-C-spine MRI-Motion degraded. Only marginally improved compared to 06/02/2024. 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 Focal mild myelomalacia C3/C4. No overt cord edema.
06/02/24-Thoracic spine MRI-multilevel changes. Advanced degenerative disc space narrowing with reactive Modic type I reactive signal alteration T8/T9 and T9/T10. Moderate to advanced central stenosis T9/T10 and T10/T11. No evidence of thoracic
cord signal alteration.
CT abdomen and pelvis 06/01/2024-prostatomegaly with bladder diverticulum and concentric thickening of the wall of the urinary bladder consistent with partial bladder outlet obstruction. Multicystic kidneys with multiple small bilateral
nonobstructing renal calculi. Stable hepatic cysts up to 5 cm. Atherosclerosis with fusiform aneurysmal dilatation of the infrarenal abdominal aorta 3 cm. Severe multilevel DJD.
MRI of the brain 06/09/2024-numerous small foci of restricted diffusion involving bilateral cerebral hemispheres, bilateral frontal lobes, left parietal and left occipital lobes consistent with acute infarctions. Embolic in nature. No hemorrhage.
3.70 3.5 cm CSF signal lesion in the left parietal convexity consistent with arachnoid cyst with associated mild mass effect similar to the CT. Global volume loss with sec left small vessel ischemic changes.
MRI of the right ankle-soft tissue swelling/edema along the dorsal lateral aspect of the ankle/proximal foot without drainable fluid collection. Degenerative changes throughout the ankle and hindfoot without joint effusion. Likely peroneal
tendinopathy.
Arm strength is better able to lift up on the shoulder
Left leg strength better
Right leg still weaker
Cardiovascular system S1-S2 appreciated
Chest decreased breath sounds but clear
Abdomen soft and nontender
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
No MARII per cards
Continue Plavix
# Weakness of upper extremity and to an extent lower extremity also
Generalized weakness
This may be related to enterococcal sepsis
Back pain, most likely sciatica with multilevel disk narrowing on CT
Patient has a history of L4-L5 surgery in the past
MRI spine noted
Pain mgmt,Muscle relaxants
Neurosurgery evaluated the patient
PT OT
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
Continue supplemental oxygen, BiPAP as needed
#VLWE-Btu-aoubp renal disease
Metabolic acidosis better
Right chest wall Permacath placed on 06/04/24
Started on hemodialysis 06/05/2024
HD catheter removal after HD 06/11/24 and replaced 06/14/24.
# Enterococcal faecalis sepsis
No clear source identified at present
Blood Cx have turned negative on 06/08/2024
TTE showed mitral calcifications
Ceftriaxone/Ampicillin- until 07/20/24 cont IV and then indefinite suppression with daily Amoxicillin 500mg
Repeat Cx neg
Permacath removed after dialysis on 06-11-24 and replaced
Colonoscopy 2018-polyps and diverticulosis. Needs repeat Colonoscopy upon discharge
F/U with ID 4-6 weeks
#R ankle edema 2/2 peroneal tendinopathy
Podiatry eval: low suspicion for septic arthritis
No joint effusion to drain
#Acute toxic metabolic encephalopathy
# Cardiomyopathy-new ejection fraction 34% by echo 06/03/2024.
Continue Toprol. Not candidate for segundo/arb/Arni/Aldactone/SGLT2 inhibitor due to hypotension
Ischemic evaluation planned at a later date
# Pacemaker placement 2019
# History of TAVR 2019
# History of TIA/CVA-continue Plavix and statin
# Moderate bilateral carotid disease
# Essential HTN-continue metoprolol. Norvasc stopped
# Hyperlipidemia-Continue Zetia/Crestor
# Prostatomegaly with bladder diverticulum- Tamsulosin/finasteride stopped
# Anemia of chronic disease- Epo with HD
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
# Multiple hepatic cysts
# JEANIE-cont CPAP
# GERD/peptic ulcer disease-continue PPI
# Ex-smoker
# DVT ppx -SC hep
# Full code
D/W Son at bed side
D/W and updated.
Discussed with case management
Medically stable for discharge
Original Note:
Today's Communication/Plan
-
Awaiting availability of bed at dialysis at [facility]
Continue IV antibiotics
Outpatient follow-up with cardiology
Patient follow-up for abdominal aortic aneurysm with abdominal ultrasound q1y
Assessment / Plan
Assessment / Plan
IMPRESSION: 88yo M with SSS s/p PPM, s/p TAVR, APKD with CKD stage 5, BPH, HTN, HLD came with intractable back pain starting from the top of the back and radiating down to both LE R>L. Also noted dizziness for past few days. ALso started to
complain of b/l UE weakness with pain, concern for central cord syndrome. Developed worsening LUCIANO and AMS 2/2 this. Started new HD. Low suspicion for pneumonia on admission then developed bacteremia with sepsis on 06/05/24. Managed for possible
infective endocarditis, as per discussion with cardiology - high risk for MARII. 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 Initially placed HD cath was removed on 06/11/24. New HD catheter placed on 06/14/24, restarted HD
and improved. MRI R ankle showed peroneal tendinopathy. As per ID - IV Rocephin and Ampicillin until 07/20/24 and after that Amoxicillin 500mg indefinetely. Medically stable for d/c as PICC placed. Awaiting availability of bed at the dialysis at
[facility]. No overnight events no new symptoms.
A/P:
#Sepsis with bacteremia (AMS, leukocytosis fever) 2/2 acute infective endocarditis
#XR with concern for b/l pneumonia
Bcx E.faecalis
ID consult: switch to Ceftriaxone/Ampicillin- until 07/20/24 cont IV and then indefinite suppression with daily Amoxicillin 500mg
repeated Bcx NTD
Legionella and S/pneumonia Ag neg
Sputum Cx NTD
Colonoscopy upon discharge - patient and son bedside verbalized understanding
#Acute hypoxic respiratory failure 2/2 pulmonary edema 2/2 LUCIANO on CKD stage 5, now resolved
#APKD
New HD catheter placed 06/14/24.
#R ankle swelling 2/2 peroneal tendinopathy
PT/OT
Podiatry: low suspicion for septic arthritis
no joint effusion to drain
#Cardiomyopathy
#Severe s/p TAVR
TTE showed mitral calcifications and new reduced EF 35%. Due to hypotension GDMT limited
Cardiology followed - continue outpatient follow up
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
Treat infection
Plavix
HD
#Back pain, most likely sciatica with multilevel disk narrowing on CT
#Hx of spinal Sx L4-L5
#B/L UE pain and weakness, concern for central cord syndrome
Pain mgmt
Muscle relaxant
PT/OT
MRI spine: cervical, thoracic and lumbar. Concern for C4-C5 stenosis. Neurosurgery follows. Due to poor image quality - repeating MRI cervical. sedation impossible 2/2 worsening respiratory status.
Neurology consult
#Essential HTN
cont home meds
#BPH
tamsulosin/finasteride
Rutledge
#Anemia of chronic disease with iron deficiency
Epo and iron as per Nephro
#JEANIE
cont CPAP
#AAA
3cm
follow as outpatient with US abd q1y
# History of TIA/CVA
# Moderate bilateral carotid disease
# Hyperlipidemia
# Prostatomegaly with bladder diverticulum
# Anemia of chronic disease
cont home meds
#Stage 2 left hip pressure injury
Wound care
DVT ppx hep
Full code
Anticipated Discharge: Today
Subjective/Interval History
-
Date of Service: June 22, 2024
Objective Data
-
Vital Signs:
Vital Signs
Temp Pulse Resp BP Pulse Ox
97.7 F 80 16 138/79 99
06/22/24 07:43 06/22/24 09:17 06/22/24 07:43 06/22/24 09:17 06/22/24 07:43
I&O
06/21/24 06/22/24 06/23/24
06:59 06:59 06:59
Intake Total 1728 / 1728 420 / 420 480 / 480
Output Total 575 / 575 175 / 175
Balance 1153 / 1153 420 / 420 305 / 305
Review of Systems
-
History Source: Patient
All other systems: Reviewed and negative
Physical Exam
-
General: Well Nourished and No Apparent Distress
HEENT: Normocephalic
Respiratory: Clear to Auscultation
Cardiac: Regular Rhythm
GI: Soft, Nontender and Nondistended
Musculoskeletal: Other (Bilateral lower extremity weakness)
Skin: Warm
Neuro: Awake, Oriented and AO x 3
Psych: Calm
[2024-06-22 14:24] VITALS: BP 138/81; PULSE 75; PULSE 87; O2SAT 100
--- NOTE | 2024-06-22 15:46 | W.PN.NEPH.PH ---
Today's Communication / Plan
-
HD tomorrow
await palcement
Assessment/Plan
-
Impression:
Urinary retention
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
Acute kidney injury
Hypertension
Dyslipidemia
Metabolic acidosis
History of pacemaker placement
BPH with recent Rutledge catheter removal earlier this week
Enterococcus bacteremia
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
Plan:
HD tomorrow
await OP planning
for [facility] will need to know HD schedule, should be TTS or else they can arrange transportation to [facility] on [address] for any shift.
known h/o U retention, was on IC at home-follow bladder scan
-
-
Date of Service: June 22, 2024
CC / HPI / ROS
-
Chief Complaint:
CKD V
History of Present Illness:
LUCIANO on CKD V now on HD
Hemodynamically stable
Currently maintained on ampicillin/rocephin for Enterococcus bacteremia
working with PT
Review of Systems:
offers no cp or sob
Mental status improved to baseline
Tunneled catheter
no other complaints
Labs
-
Labs:
WBC 10.3 10^3/uL (4.8-10.8) 06/21/24 05:18
RBC 3.19 10^6/uL (4.70-6.10) L 06/21/24 05:18
Hgb 9.0 g/dL (13.0-18.0) L 06/21/24 05:18
Hct 28.8 % (39.0-52.0) L 06/21/24 05:18
Plt Count 230 10^3/uL (130-400) 06/21/24 05:18
Sodium 133 mmol/L (135-145) L 06/21/24 05:18
Potassium 3.7 mmol/L (3.5-5.1) 06/21/24 05:18
Chloride 99 mmol/L (98-107) 06/21/24 05:18
Carbon Dioxide 28 mmol/L (22-30) 06/21/24 05:18
BUN 61 mg/dl (9-20) H 06/21/24 05:18
Creatinine 3.8 mg/dL (0.7-1.3) H 06/21/24 05:18
eGFR 14.77 06/21/24 05:18
Glucose 111 mg/dl (70-99) H 06/21/24 05:18
Calcium 9.7 mg/dl (8.4-10.2) 06/21/24 05:18
Albumin 2.6 g/dl (3.5-5.0) L 06/21/24 05:18
Physical Exam
-
Vital Signs:
Vital Signs
Temp Pulse Resp BP Pulse Ox
97.7 F 80 16 138/79 99
06/22/24 07:43 06/22/24 09:17 06/22/24 07:43 06/22/24 09:17 06/22/24 07:43
Cardiovascular:: Regular rate and rhythm
Respiratory:: Bilateral: CTA
Lung Excursion:: Normal
Abdomen:: Nontender and Soft
Extremity Edema:: None: Bilateral:
Rutledge Catheter: No
--- NOTE | 2024-06-22 16:21 | CM ---
Call placed to Pineda at [facility], Per Pineda all he sees in his system is a referral that was cancelled pn 06/15/24 due to patient going to [place], Made Pineda aware that our had sent HD flow sheets and labs to [facility] on Friday. Call to Andrade at
[facility] [phone]. Per Andrade he spoke to [facility] Clinical Barrel Polisher, Shruti Betancourt yesterday and she stated that all she needed to know is what IV antibiotic is the patient going to be discharged to the facility on, if they have the IV
antibiotic in stock they may be able to start his HD there on 06/24/24. Update to . Also called Pineda back at [facility] and made him aware of above. He said to continue to work with the [facility] Clinical [facility] and he will make sure the referral
is data entered into their system.
[2024-06-22 16:37] VITALS: BP 126/70
[2024-06-22] MEDS: LIPITOR 40 MG PO (17:25)
[2024-06-22] MEDS: MELATONIN 5 MG PO (21:40)
[2024-06-22 23:50] VITALS: BP 129/75
[2024-06-23] MEDS: AMPICILLIN 108 MG IV ×2 (00:38→12:23)
[2024-06-23] MEDS: HEPARIN 5000 UNITS SC ×3 (00:39→21:22)
[2024-06-23] MEDS: FLUSH (NSS) 2 FLUSH IV (00:40)
[2024-06-23] MEDS: TYLENOL 1000 MG PO (04:59)
[2024-06-23 06:00] VITALS: BMI 23.3
[2024-06-23 07:30] VITALS: BP 137/81
[2024-06-23 08:10] LABS: % Basophils 0.2 % (0-2); % Eosinophils 1.3 % (0-6); % Immature Granulocytes 0.2 % (0-0.5); % Lymphocytes 26.1 % (20.5-51.1); % Monocytes 6.4 % (1.7-9.3); % Neutrophils 65.8 % (42.2-75.2); Absolute Eosinophils 0.1 10^3/uL (0-0.7); Absolute Lymphocytes 2.3 10^3/uL (1.2-3.4); Absolute Monocytes 0.6 10^3/uL (0.1-0.6); Absolute Neutrophils 5.7 10^3/uL (1.4-6.5); Hematocrit 26.8 % (39.0-52.0); Hemoglobin 8.2 g/dL (13.0-18.0); Mean Corp Hgb Conc. 30.6 g/dL (33.0-37.0); Mean Corpuscular Hgb 27.4 pg (27.0-31.0); Mean Corpuscular Volume 89.6 fL (80.0-94.0); Mean Platelet Volume 10.8 fL (7.4-10.4); Nucleated Red Blood Cells % 0 % (-); Platelet Count 203 10^3/uL (130-400); Red Blood Cell Count 2.99 10^6/uL (4.70-6.10); Red Cell Dist. Width 17.5 % (11.5-14.5); White Blood Cell Count 8.6 10^3/uL (4.8-10.8)
[2024-06-23 08:32] LABS: Blood Urea Nitrogen 47 mg/dl (9-20); Calcium 9.5 mg/dl (8.4-10.2); Carbon Dioxide 30 mmol/L (22-30); Chloride 100 mmol/L (98-107); Estimated Creatinine Clearance 15 ml/min; Glucose 101 mg/dl (70-99); Potassium 3.2 mmol/L (3.5-5.1); Sodium 135 mmol/L (135-145); eGFR 15.25
[2024-06-23] MEDS: RETACRIT 6000 UNITS IV (08:47)
--- NOTE | 2024-06-23 10:04 | W.PN.NEPH.HD ---
Assessment
-
Patient seen on dialysis
Systolic blood pressure stable at current UF of 1.5 kg
Estimated dry weight at 74 kg
Changed back to 4K given low potassium level
Patient will be discharged to a Friday shift at [facility]
Progress Note - Hemodialysis
-
Date of Service: June 23, 2024
Duration: 30 minutes and 3 hours
Potassium Bath: 4
Calcium Bath: 2.5
Opti-Dialyzer: 160
Ultrafiltration: EDW (74 kg)
Blood Flow: 400
Dialysate Flow: 600
Heparin: none
EPO: 6000
[2024-06-23] MEDS: LIDOCAINE 4% PATCH 1 PATCH TOPICAL (11:29)
[2024-06-23] MEDS: TOPROL XL 25 MG PO ×2 (11:30→21:17)
[2024-06-23] MEDS: ZETIA 10 MG PO (11:30)
[2024-06-23] MEDS: VISBIOME 1 CAP PO (11:30)
[2024-06-23] MEDS: POLYSPORIN OINTMENT 1 APPLIC TOPICAL (11:30)
[2024-06-23] MEDS: PROTONIX 40 MG PO (11:30)
[2024-06-23] MEDS: PLAVIX 75 MG PO (11:30)
[2024-06-23] MEDS: DESENEX/MITRAZOL/ZEASORB 1 APPLIC TOPICAL ×2 (11:44→21:21)
[2024-06-23] MEDS: STERILE WATER FOR INJECTION 20 ML IV (12:29)
[2024-06-23] MEDS: ROCEPHIN 2000 MG IV (12:29)
[2024-06-23 12:45] VITALS: BP 155/86; PULSE 81
--- NOTE | 2024-06-23 13:31 | CM ---
Spoke with Andrade from [facility] p#[phone]
Will fax IV anbx scripts to .
Per Andrade, he has all the other information, bed available.
Patient will require insurance authorization.
[2024-06-23] MEDS: TORADOL 10 MG PO (14:13)
--- NOTE | 2024-06-23 14:35 | W.PN.HOSP.TC ---
Addendum entered and electronically signed by Wilfredo Montoya MD 06/23/24 16:00:
I personally performed a history and physical exam of the patient and discussed management with the resident. I reviewed the resident's note and agree with the documented findings and plan of care HPI/CC.
Seen earlier. Patient had finished hemodialysis and was feeling well.
Hypokalemia was not corrected as he was getting dialysis
Repeat hemoglobin ordered-pending.
Medically cleared for discharge since June 18. Waiting for bed/HD set up.
D/W RN
D/W HD RN
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
Original Note:
Today's Communication/Plan
-
Bed available at [place], awaiting insurance authorization
Hemodialysis today
Planning discharge
Assessment / Plan
Assessment / Plan
IMPRESSION: 88yo M with SSS s/p PPM, s/p TAVR, APKD with CKD stage 5, BPH, HTN, HLD came with intractable back pain starting from the top of the back and radiating down to both LE R>L. Also noted dizziness for past few days. ALso started to
complain of b/l UE weakness with pain, concern for central cord syndrome. Developed worsening LUCIANO and AMS 2/2 this. Started new HD. Low suspicion for pneumonia on admission then developed bacteremia with sepsis on 06/05/24. Managed for possible
infective endocarditis, as per discussion with cardiology - high risk for MARII. 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 Initially placed HD cath was removed on 06/11/24. New HD catheter placed on 06/14/24, restarted HD
and improved. MRI R ankle showed peroneal tendinopathy. As per ID - IV Rocephin and Ampicillin until 07/20/24 and after that Amoxicillin 500mg indefinetely. Medically stable for d/c as PICC placed. Per caseworker protective services, bed available at [place] [place].
Awaiting insurance authorization. No overnight events. Patient notes severe pain back.
A/P:
#Sepsis with bacteremia (AMS, leukocytosis fever) 2/2 acute infective endocarditis
Bcx E.faecalis
ID consult: switch to Ceftriaxone/Ampicillin- until 07/20/24 cont IV and then indefinite suppression with daily Amoxicillin 500mg
repeated Bcx NTD
Legionella and S/pneumonia Ag neg
Sputum Cx NTD
Colonoscopy upon discharge - patient and son bedside verbalized understanding
Continue antibiotics
#Acute hypoxic respiratory failure 2/2 pulmonary edema 2/2 LUCIANO on CKD stage 5, now resolved
#APKD
New HD catheter placed 06/14/24.
Hemodialysis today
#R ankle swelling 2/2 peroneal tendinopathy
PT/OT
Podiatry: low suspicion for septic arthritis
no joint effusion to drain
#Cardiomyopathy
#Severe s/p TAVR
TTE showed mitral calcifications and new reduced EF 35%. Due to hypotension GDMT limited
Cardiology followed - continue outpatient follow up
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
Treat infection
Plavix
HD
#Back pain, most likely sciatica with multilevel disk narrowing on CT
#Hx of spinal Sx L4-L5
#B/L UE pain and weakness, concern for central cord syndrome
Pain mgmt
Muscle relaxant
PT/OT
MRI spine: cervical, thoracic and lumbar. Concern for C4-C5 stenosis. Neurosurgery follows. Due to poor image quality - repeating MRI cervical. sedation impossible 2/2 worsening respiratory status.
Toradol 10 mg once today
#Essential HTN
cont home meds
#BPH
tamsulosin/finasteride
Rutledge
#Anemia of chronic disease with iron deficiency
Epo and iron as per Nephro
#JEANIE
cont CPAP
#AAA
3cm
follow as outpatient with US abd q1y
# History of TIA/CVA
# Moderate bilateral carotid disease
# Hyperlipidemia
# Prostatomegaly with bladder diverticulum
# Anemia of chronic disease
cont home meds
#Stage 2 left hip pressure injury
Wound care
DVT ppx hep
Full code
Anticipated Discharge: Today
Subjective/Interval History
-
Date of Service: June 23, 2024
Objective Data
-
Labs:
Laboratory Results
06/23/24 06/23/24
07:35 13:34
WBC 8.6
Hgb 8.2 L Pending
Hct 26.8 L Pending
Plt Count 203
Sodium 135
Potassium 3.2 L
Chloride 100
Carbon Dioxide 30
BUN 47 H
Creatinine 3.7 H
Glucose 101 H
Calcium 9.5
Vital Signs:
Vital Signs
Temp Pulse Resp BP Pulse Ox
97.6 F 81 16 155/86 97
06/23/24 07:30 06/23/24 11:30 06/23/24 07:30 06/23/24 11:30 06/23/24 07:30
I&O
06/22/24 06/23/24 06/24/24
06:59 06:59 06:59
Intake Total 420 / 420 750 / 750 240 / 240
Output Total 375 / 375 175 / 175
Balance 420 / 420 375 / 375 65 / 65
Review of Systems
-
History Source: Patient
All other systems: Reviewed and negative
Physical Exam
-
General: Well Nourished and No Apparent Distress
HEENT: Normocephalic
Respiratory: Clear to Auscultation
Cardiac: Regular Rhythm
GI: Soft, Nontender and Nondistended
Musculoskeletal: Other (Bilateral lower extremity weakness)
Skin: Warm
Neuro: Awake, Oriented and AO x 3
Psych: Calm
[2024-06-23 15:15] VITALS: BP 143/82
--- NOTE | 2024-06-23 15:21 | CM ---
Addendum entered by Tami Campbell [facility] 06/23/24 17:36:
Director obtained director of [facility]'s number, -Anupama.
Placed a call to [place] and provided him her number. He stated that he will call her to determine if he can get further information.
Addendum entered by Tami Campbell [facility] 06/23/24 16:58:
Spoke with Alejandro, patient's son to provide update that patient will most likely not be able to transfer until tomorrow. Alejandro stated that he would rather that than patient transfer late tonight.
Addendum entered by Tami Campbell [facility] 06/23/24 16:25:
#for report [phone] # for fax# [phone]
Addendum entered by Tami Campbell [facility] 06/23/24 16:09:
Received call back from Andrade who stated that he has been unable to get a hold of anyone at [facility] and therefore he will be unable to accept patient until tomorrow at earliest.
Relaying situation to Director for further guidance.
Addendum entered by Tami Campbell [facility] 06/23/24 15:39:
Received return call back from Ama rodríguez at [facility] who approved 6 days sub acute level of care NRD 06/28-call needs to be made to [phone] for concurrent review.
Auth# is [id number]
Placed a call to Andrade at [facility] to update. He stated that he is still awaiting confirmation on the start date for patient as well as time. He relayed that he has emailed [facility] and still as of yet not received a reply. He stated that he will
call them to attempt to expedite.
Original Note:
Placed a call to [facility] and spoke with Ann in admissions who provided NPI for hopeful authorization for transfer-[facility] NPDamien [id number] and Dr. Yanely Esparza [phone]
Placed a call to [address] [place] [address] and spoke with sales representative [employer] named, Ama who took all clinical and stated that she will return call to to update about hopeful authorization.
Ann stated that Andrade is exploring bed availability at [facility] for patient and will f/u with CM.
Plan: Case management will continue to follow and assist with discharge planning. Hopeful transfer to [facility] upon acceptance at [facility] and auth.
[2024-06-23] MEDS: HEPARIN SC (17:59)
[2024-06-23] MEDS: LIPITOR 40 MG PO (18:36)
[2024-06-23 18:42] LABS: Hematocrit 28.9 % (39.0-52.0); Hemoglobin 9.1 g/dL (13.0-18.0)
[2024-06-23] MEDS: MELATONIN 5 MG PO (21:16)
[2024-06-23 23:02] VITALS: BP 127/82
[2024-06-24] MEDS: AMPICILLIN 108 MG IV ×2 (00:50→11:49)
[2024-06-24] MEDS: HEPARIN 5000 UNITS SC ×2 (04:54→11:48)
[2024-06-24 05:19] LABS: % Basophils 0.4 % (0-2); % Eosinophils 1.7 % (0-6); % Immature Granulocytes 0.3 % (0-0.5); % Lymphocytes 29.5 % (20.5-51.1); % Monocytes 7.7 % (1.7-9.3); % Neutrophils 60.4 % (42.2-75.2); Absolute Eosinophils 0.1 10^3/uL (0-0.7); Absolute Lymphocytes 2.2 10^3/uL (1.2-3.4); Absolute Monocytes 0.6 10^3/uL (0.1-0.6); Absolute Neutrophils 4.5 10^3/uL (1.4-6.5); Hematocrit 27.7 % (39.0-52.0); Hemoglobin 8.6 g/dL (13.0-18.0); Mean Corpuscular Hgb 27.4 pg (27.0-31.0); Mean Corpuscular Volume 88.2 fL (80.0-94.0); Mean Platelet Volume 10.6 fL (7.4-10.4); Nucleated Red Blood Cells % 0 % (-); Platelet Count 191 10^3/uL (130-400); Red Blood Cell Count 3.14 10^6/uL (4.70-6.10); Red Cell Dist. Width 17.9 % (11.5-14.5); White Blood Cell Count 7.5 10^3/uL (4.8-10.8)
[2024-06-24 05:36] LABS: Blood Urea Nitrogen 28 mg/dl (9-20); Calcium 9.1 mg/dl (8.4-10.2); Carbon Dioxide 30 mmol/L (22-30); Chloride 101 mmol/L (98-107); Estimated Creatinine Clearance 23 ml/min; Glucose 104 mg/dl (70-99); Potassium 3.5 mmol/L (3.5-5.1); Sodium 136 mmol/L (135-145); eGFR 24.41
[2024-06-24 06:00] VITALS: BMI 22.0
[2024-06-24 07:30] VITALS: BP 147/89
[2024-06-24] MEDS: LIDOCAINE 4% PATCH 1 PATCH TOPICAL (07:52)
[2024-06-24] MEDS: PROTONIX 40 MG PO (07:53)
[2024-06-24] MEDS: ZETIA 10 MG PO (07:53)
[2024-06-24] MEDS: VISBIOME 1 CAP PO (07:53)
[2024-06-24] MEDS: TOPROL XL 25 MG PO (07:53)
[2024-06-24] MEDS: PLAVIX 75 MG PO (07:53)
[2024-06-24] MEDS: POLYSPORIN OINTMENT 1 APPLIC TOPICAL (07:55)
[2024-06-24] MEDS: DESENEX/MITRAZOL/ZEASORB 1 APPLIC TOPICAL (07:56)
--- NOTE | 2024-06-24 08:00 | W.PN.HOSP.TC ---
Addendum entered and electronically signed by Wilfredo Montoya MD 06/24/24 13:55:
I personally performed a history and physical exam of the patient and discussed management with the resident. I reviewed the resident's note and agree with the documented findings and plan of care HPI/CC
Patient was able to lift his arms up
Able to lift left leg up slightly
Stated that Toradol helped with her generalized bodyaches yesterday requested 1 more dose today.
He is in good spirits today. No complaints.
awaiting discharge set up
Original Note:
Today's Communication/Plan
-
Awaiting [facility] acceptance
Continue antibiotics
Assessment / Plan
Assessment / Plan
IMPRESSION: 88yo M with SSS s/p PPM, s/p TAVR, APKD with CKD stage 5, BPH, HTN, HLD came with intractable back pain starting from the top of the back and radiating down to both LE R>L. Also noted dizziness for past few days. ALso started to
complain of b/l UE weakness with pain, concern for central cord syndrome. Developed worsening LUCIANO and AMS 2/2 this. Started new HD. Low suspicion for pneumonia on admission then developed bacteremia with sepsis on 06/05/24. Managed for possible
infective endocarditis, as per discussion with cardiology - high risk for MARII. 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 Initially placed HD cath was removed on 06/11/24. New HD catheter placed on 06/14/24, restarted HD
and improved. MRI R ankle showed peroneal tendinopathy. As per ID - IV Rocephin and Ampicillin until 07/20/24 and after that Amoxicillin 500mg indefinetely. Medically stable for d/c as PICC placed. Per clinical case manager, bed available at [place].
Waiting for [facility] acceptance. no overnight events. No new symptoms.
A/P:
#Sepsis with bacteremia (AMS, leukocytosis fever) 2/2 acute infective endocarditis
Bcx E.faecalis
ID consult: switch to Ceftriaxone/Ampicillin- until 07/20/24 cont IV and then indefinite suppression with daily Amoxicillin 500mg
repeated Bcx NTD
Legionella and S/pneumonia Ag neg
Sputum Cx NTD
Colonoscopy upon discharge - patient and son bedside verbalized understanding
Continue antibiotics
#Acute hypoxic respiratory failure 2/2 pulmonary edema 2/2 LUCIANO on CKD stage 5, now resolved
#APKD
New HD catheter placed 06/14/24.
Hemodialysis today
#R ankle swelling 2/2 peroneal tendinopathy
PT/OT
Podiatry: low suspicion for septic arthritis, arthrocentesis not necessary at this time, consider MRI before arthrocentesis
no joint effusion to drain
#Cardiomyopathy
#Severe s/p TAVR
TTE showed mitral calcifications and new reduced EF 35%. Due to hypotension GDMT limited
Cardiology followed - continue outpatient follow up
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
Treat infection
Plavix
HD
#Back pain, most likely sciatica with multilevel disk narrowing on CT
#Hx of spinal Sx L4-L5
#B/L UE pain and weakness, concern for central cord syndrome
Pain mgmt
Muscle relaxant
PT/OT
MRI spine: cervical, thoracic and lumbar. Concern for C4-C5 stenosis. Neurosurgery follows. Due to poor image quality - repeating MRI cervical. sedation impossible 2/2 worsening respiratory status.
Toradol 10 mg once today
#Essential HTN
cont home meds
#BPH
tamsulosin/finasteride
Rutledge
#Anemia of chronic disease with iron deficiency
Epo and iron as per Nephro
#JEANIE
cont CPAP
#AAA
3cm
follow as outpatient with US abd q1y
# History of TIA/CVA
# Moderate bilateral carotid disease
# Hyperlipidemia
# Prostatomegaly with bladder diverticulum
# Anemia of chronic disease
cont home meds
#Stage 2 left hip pressure injury
Wound care
DVT ppx hep
Full code
Anticipated Discharge: Today
Subjective/Interval History
-
Date of Service: June 24, 2024
Objective Data
-
Labs:
Laboratory Results
06/24/24
04:50
WBC 7.5
Hgb 8.6 L
Hct 27.7 L
Plt Count 191
Sodium 136
Potassium 3.5
Chloride 101
Carbon Dioxide 30
BUN 28 H
Creatinine 2.5 H
Glucose 104 H
Calcium 9.1
Vital Signs:
Vital Signs
Temp Pulse Resp BP Pulse Ox
98.3 F 84 16 147/89 99
06/24/24 07:30 06/24/24 07:30 06/24/24 07:30 06/24/24 07:30 06/24/24 07:30
I&O
06/23/24 06/24/24 06/25/24
06:59 06:59 06:59
Intake Total 750 / 750 928 / 928 228 / 228
Output Total 375 / 375 375 / 375
Balance 375 / 375 553 / 553 228 / 228
Review of Systems
-
History Source: Patient
All other systems: Reviewed and negative
Physical Exam
-
General: Well Nourished and No Apparent Distress
HEENT: Normocephalic
Respiratory: Clear to Auscultation
Cardiac: Regular Rhythm
GI: Soft, Nontender and Nondistended
Musculoskeletal: Other (Bilateral lower extremity weakness)
Skin: Warm
Neuro: Awake, Oriented and AO x 3
Psych: Calm
[2024-06-24] MEDS: TORADOL 10 MG PO (11:47)
[2024-06-24] MEDS: STERILE WATER FOR INJECTION 20 ML IV (11:49)
[2024-06-24] MEDS: ROCEPHIN 2000 MG IV (11:49)
--- NOTE | 2024-06-24 11:53 | CM ---
Addendum entered by PAIGE Cortes 06/24/24 12:44:
Patient's son, Axel villa. Reviewed IMM.
Original Note:
Reviewed chart, spoke with Anupama, director at [facility] who requested that patient's PICC be removed and he switch ABX as they only have access to particular medications. Anupama was advised that ABX was already reviewed with facility and PICC
already implanted. Tomeka agreeable was agreeable to administer. She confirmed that this would be ok to have [facility] take care of the ABX and [facility] take care of Rehab and IV ABX.
Confirmed plan with Andrade, Provided auth#
# For report and fax in previous CM note.
Medical necessity and transfer sheet provided to [facility] unit control clerk.
Plan: Case management will continue to follow and assist with discharge planning. Tomeka for SNF and Dialysis at [facility].
[2024-06-24 12:35] VITALS: BP 141/92; PULSE 90; O2SAT 99
[2024-06-24 13:02] VITALS: BP 141/92; PULSE 91; O2SAT 99
--- NOTE | 2024-06-24 14:33 | W.PN.NEPH.PH ---
Today's Communication / Plan
-
Dialysis tomorrow
Assessment/Plan
-
Impression:
Urinary retention
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
Acute kidney injury
Hypertension
Dyslipidemia
Metabolic acidosis
History of pacemaker placement
BPH with recent Rutledge catheter removal earlier this week
Enterococcus bacteremia
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
Plan:
HD tomorrow, orders provided
await OP planning
discharge for [facility] will need to know HD schedule, should be TTS or else they can arrange transportation to [facility] on [address] for any shift.
known h/o U retention, was on IC at home-follow bladder scan
-
-
Date of Service: June 24, 2024
CC / HPI / ROS
-
Chief Complaint:
CKD V
History of Present Illness:
LUCIANO on CKD V now on HD
Hemodynamically stable
Currently maintained on ampicillin/rocephin for Enterococcus bacteremia
working with PT
Review of Systems:
offers no cp or sob
Mental status improved to baseline
Tunneled catheter
no other complaints
Labs
-
Labs:
WBC 7.5 10^3/uL (4.8-10.8) 06/24/24 04:50
RBC 3.14 10^6/uL (4.70-6.10) L 06/24/24 04:50
Hgb 8.6 g/dL (13.0-18.0) L 06/24/24 04:50
Hct 27.7 % (39.0-52.0) L 06/24/24 04:50
Plt Count 191 10^3/uL (130-400) 06/24/24 04:50
Sodium 136 mmol/L (135-145) 06/24/24 04:50
Potassium 3.5 mmol/L (3.5-5.1) 06/24/24 04:50
Chloride 101 mmol/L (98-107) 06/24/24 04:50
Carbon Dioxide 30 mmol/L (22-30) 06/24/24 04:50
BUN 28 mg/dl (9-20) H 06/24/24 04:50
Creatinine 2.5 mg/dL (0.7-1.3) H 06/24/24 04:50
eGFR 24.41 06/24/24 04:50
Glucose 104 mg/dl (70-99) H 06/24/24 04:50
Calcium 9.1 mg/dl (8.4-10.2) 06/24/24 04:50
Albumin 2.6 g/dl (3.5-5.0) L 06/21/24 05:18
Physical Exam
-
Vital Signs:
Vital Signs
Temp Pulse Resp BP Pulse Ox
98.3 F 84 16 147/89 99
06/24/24 07:30 06/24/24 07:30 06/24/24 07:30 06/24/24 07:30 06/24/24 07:30
Cardiovascular:: Regular rate and rhythm
Respiratory:: Bilateral: CTA
Lung Excursion:: Normal
Abdomen:: Nontender and Soft
Extremity Edema:: None: Bilateral:
Rutledge Catheter: No
[2024-06-24 15:00] VITALS: BP 130/74
--- NOTE | 2024-06-24 18:14 | W.DCSUMMARY ---
Documented by User: Zaida Robles MD, Resident 06/24/24 19:31
Discharge Summary
Discharge Data
Date of Admission: 06/03/24
Date of Discharge: 06/24/24
Total time spent discharging patient (in min): 56
-
Pending Results: No
Hospital Course
Primary diagnoses:
Enterococcal sepsis
Embolic stroke
Acute hypoxic respiratory failure
Generalized weakness
End-stage renal disease from polycystic kidney disease-now on dialysis
TME
Chronic back pain
Secondary diagnoses:
Cardiomyopathy with ejection fraction 34% s/p pacemaker
History of TAVR
Moderate bilateral carotid disease
Hypertension
Hyperlipidemia
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
Multiple hepatic cysts
Sleep apnea
GERD/peptic ulcer
88-year-old man with past medical history of stage V chronic kidney disease from polycystic kidney disease, severe aortic stenosis status post TAVR, hypertension, hyperlipidemia, obstructive sleep apnea on CPAP who was admitted with severe low back
pain with bilateral radicular symptoms (right greater than left). He had weakness, paresthesia and was unable to ambulate. Patient also had complaints of bilateral upper extremity weakness. Patient had acute hypoxic respiratory failure secondary
to pulmonary edema from LUCIANO and received supplemental O2. MRI cervical spine revealed C4-C5 spinal canal stenosis and MRI thoracic spine revealed T9-T10, T10-T11 moderate to advanced central stenosis. Evaluation by neurosurgery with concern for
central cord syndrome. Patient also reported dizziness at times and became febrile, head CT was negative. Renal function continued to worsen (baseline creatinine ~5, 06/01: 5.8, 06/05: 7.1) and hemodialysis was started. TTE (06/03): EF 35%, global
hypokinesis, mild LVH, stage II diastolic dysfunction, mild to moderate emesis, mild to moderate TR, dense mitral annular calcifications (no vegetation). Cardiology was consulted and planned for conservative management given ongoing active issues.
Patient considered high risk for surgical procedures. Neurosurgery was following patient, given improvement in symptoms with hemodialysis, did not consider surgery and believed his symptoms were most likely to have been metabolic from uremia.
Abdominal CT was notable for chronic bladder outlet, PCKD with nonobstructing stones, hepatic cysts, 3 cm AAA. UA, UC negative. Blood culture (06/07) positive for Enterococcus faecalis. Vancomycin and ampicillin were continued. No clear source for
bacteremia was identified, outpatient follow-up for colonoscopy is needed. Blood cultures (06/09 and 06/11) were negative. Given patient's transcatheter aortic valve, will need long-term antibiotics. PICC was placed. Brain MRI showed numerous small
foci of restricted diffusion involving the bilateral cerebellar hemispheres, bilateral frontal lobes, left parietal and left occipital lobes consistent with acute infarctions (likely embolic infarcts secondary to endocarditis). HD catheter was
removed on 06/11 and replaced 06/14. Last hemodialysis in hospital was 06/23 (Cr: 2.5). Patient also developed right lower extremity swelling during hospital stay. MRI ankle showed peroneal tendinopathy. Podiatry consulted, believed arthrocentesis is
not necessary at this time.
Patient is medically stable to be discharged to [facility] for dialysis. Duration of antibiotics will be 6 weeks through 07/20, after completion of IV therapy patient to start amoxicillin 500 mg QPM as will need to be post
hemodialysis. Will need outpatient follow-up with cardiology (appointment scheduled), nephrology, neurology, infectious disease, gastroenterology (for colonoscopy).
Discharge Plan
-
Patient Disposition: Acute Rehab Facility
Discharge Diagnosis/Procedures: Enterococcal sepsis
Embolic stroke
Acute hypoxic respiratory failure
Generalized weakness
End-stage renal disease from polycystic kidney disease-now on dialysis
TME
Chronic back pain
Cardiomyopathy with ejection fraction 34%
Pacemaker
History of TAVR
Moderate bilateral carotid disease
Hypertension
Hyperlipidemia
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
Multiple hepatic cysts
Sleep apnea
GERD/peptic ulcer
Diet: 2 Gram Sodium and Restrict fluids to 48 oz
Additional Diets: Renal
Activity: With assistance and As tolerated
Driving Restrictions: No driving
Bathing Restrictions: None
Blood Work: cbc 1 week. BMP with dyalisis.
Others Tests: Colonoscopy needs to be done as outpatient
Other Services: PT and OT
Specialty Instructions: Weigh Daily- Call MD for wt gain/loss 3 lbs overnight/5 lbs in 1 week
Activity Restrictions/Additional Instructions:
Wound Care Instructions
L hip: clean with soap and water, polysporin, adaptic and dry dressing daily
Follow up at wound care center call for an appointment.
IV antibiotics till 07/20/24 after that amoxicillin 500 mg PO every evening ( As it needs to be after HD) lifelong for suppression.
Referrals:
Rudy Gerardo, DO [Family Provider] -
Mayco French MD [Active] - 07/27/24 11:20 am (You have a cardiology follow-up appointment at the [facility] office. Please call with questions)
Alin Ritter MD [Active] - in one month
Bita Negrete MD [Active] - in one week
Pamella Meraz MD [Active] - in four to six weeks
Additional Discharge Medication Instructions: stop AMlodipine, Sodium Bicarb, Flomax.
Prescriptions:
New
Ampicillin 2000 MG
0.9% Sodium Chloride 100 ml [Nss] 100 ML
108 mls/hr IV Q12H
Ordered By: Delano Camara MD
Last Taken: 06/24/24 11:49 108 mls
atorvastatin 40 mg Tablet
40 mg PO QPM Qty: 30 0RF
metoprolol succinate 25 mg Tablet Extended Release 24 Hr
25 mg PO BID Qty: 60 0RF
ceftriaxone 2 gram Recon Soln
2,000 mg IV Q24H 32 Days Qty: 0 0RF
melatonin 5 mg Tablet
5 mg PO HS Qty: 30 0RF
Lactobac/Bifidobac Visbiome
1 cap PO DAILY Qty: 30 0RF
lidocaine 4 % Adhesive Patch,Medicated
1 patch topical DAILY Qty: 0 0RF
Continued
ezetimibe 10 MG tablet
10 mg PO DAILY
rosuvastatin 20 MG tablet
20 mg PO DAILY
pantoprazole 40 MG tablet,delayed release (DR/EC)
40 mg PO DAILY
clopidogrel 75 MG tablet
75 mg PO DAILY
acetaminophen 650 mg Tablet Extended Release
650 mg PO DAILYPRN PRN (Reason: mild pain)
PreserVision AREDS 4,296 mcg-226 mg-90 mg Capsule
1 cap PO BID
Discontinued
amlodipine 10 MG tablet
10 mg PO DAILY
metoprolol succinate 50 MG tablet extended release 24 hr
50 mg PO BID
tamsulosin 0.4 MG capsule
0.4 mg PO HS
sodium bicarbonate 650 mg tablet
1,300 mg PO TID
Discharge Orders:
Discharge Patient (As Directed); Ordered 06/23/24
Ordered By: Wilfredo Montoya
Discharge Date and Time
Discharge Date/Time: 06/24/24 15:42
Print Language: SRI LANKAN

Documented by User: Wilfredo Montoya MD 06/25/24 16:14
Discharge Summary
Discharge Data
Date of Admission: 06/03/24
Date of Discharge: 06/25/24
Hospital Course
Primary diagnoses:
Enterococcal sepsis
Embolic stroke
Acute hypoxic respiratory failure
Generalized weakness
End-stage renal disease from polycystic kidney disease-now on dialysis
TME
Chronic back pain
Secondary diagnoses:
Cardiomyopathy with ejection fraction 34% s/p pacemaker
History of TAVR
Moderate bilateral carotid disease
Hypertension
Hyperlipidemia
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
Multiple hepatic cysts
Sleep apnea
GERD/peptic ulcer
88-year-old man with past medical history of stage V chronic kidney disease from polycystic kidney disease, severe aortic stenosis status post TAVR, hypertension, hyperlipidemia, obstructive sleep apnea on CPAP who was admitted with severe low back
pain with bilateral radicular symptoms (right greater than left). He had weakness, paresthesia and was unable to ambulate. Patient also had complaints of bilateral upper extremity weakness. Patient had acute hypoxic respiratory failure secondary
to pulmonary edema from LUCIANO and received supplemental O2. MRI cervical spine revealed C4-C5 spinal canal stenosis and MRI thoracic spine revealed T9-T10, T10-T11 moderate to advanced central stenosis. Evaluation by neurosurgery with concern for
central cord syndrome. Was ruled out. Patient also reported dizziness at times and became febrile, head CT was negative. Renal function continued to worsen (baseline creatinine ~5, 06/01: 5.8, 06/05: 7.1) and hemodialysis was started. TTE (06/03):
EF 35%, global hypokinesis, mild LVH, stage II diastolic dysfunction, mild to moderate emesis, mild to moderate TR, dense mitral annular calcifications (no vegetation). Cardiology was consulted and planned for conservative management given ongoing
active issues. Patient considered high risk for surgical procedures. Neurosurgery was following patient, given improvement in symptoms with hemodialysis, did not consider surgery and believed his symptoms were most likely to have been metabolic from
uremia. Abdominal CT was notable for chronic bladder outlet, PCKD with nonobstructing stones, hepatic cysts, 3 cm AAA. UA, UC negative. Blood culture (06/07) positive for Enterococcus faecalis. Vancomycin and ampicillin were continued. No clear
source for bacteremia was identified, outpatient follow-up for colonoscopy is needed. Blood cultures (06/09 and 06/11) were negative. Given patient's transcatheter aortic valve, will need long-term antibiotics. PICC was placed. Brain MRI showed
numerous small foci of restricted diffusion involving the bilateral cerebellar hemispheres, bilateral frontal lobes, left parietal and left occipital lobes consistent with acute infarctions (likely embolic infarcts secondary to endocarditis). HD
catheter was removed on 06/11 and replaced 06/14. Last hemodialysis in hospital was 06/23 (Cr: 2.5). Patient also developed right lower extremity swelling during hospital stay. MRI ankle showed peroneal tendinopathy. Podiatry consulted, believed
arthrocentesis is not necessary at this time.
Patient is medically stable to be discharged to [facility] and [facility] for dialysis. Duration of antibiotics will be 6 weeks through 07/20, after completion of IV therapy patient to start amoxicillin 500 mg QPM as will need to be post
hemodialysis. Will need outpatient follow-up with cardiology (appointment scheduled), nephrology, neurology, infectious disease, gastroenterology (for colonoscopy).
Discharge Plan
-
Patient Disposition: Acute Rehab Facility
Discharge Diagnosis/Procedures: Enterococcal sepsis
Embolic stroke
Acute hypoxic respiratory failure
Generalized weakness
End-stage renal disease from polycystic kidney disease-now on dialysis
TME
Chronic back pain
Cardiomyopathy with ejection fraction 34%
Pacemaker
History of TAVR
Moderate bilateral carotid disease
Hypertension
Hyperlipidemia
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
Multiple hepatic cysts
Sleep apnea
GERD/peptic ulcer
Diet: 2 Gram Sodium and Restrict fluids to 48 oz
Additional Diets: Renal
Activity: With assistance and As tolerated
Driving Restrictions: No driving
Bathing Restrictions: None
Blood Work: cbc 1 week. BMP with dyalisis.
Others Tests: Colonoscopy needs to be done as outpatient
Other Services: PT and OT
Specialty Instructions: Weigh Daily- Call MD for wt gain/loss 3 lbs overnight/5 lbs in 1 week
Activity Restrictions/Additional Instructions:
Wound Care Instructions
L hip: clean with soap and water, polysporin, adaptic and dry dressing daily
Follow up at wound care center call for an appointment.
IV antibiotics till 07/20/24 after that amoxicillin 500 mg PO every evening ( As it needs to be after HD) lifelong for suppression.
Referrals:
Rudy Gerardo DO [Family Provider] -
Mayco French MD [Active] - 07/27/24 11:20 am (You have a cardiology follow-up appointment at the [facility] office. Please call with questions)
Alin Ritter MD [Active] - in one month
Bita Negrete MD [Active] - in one week
Pamella Meraz MD [Active] - in four to six weeks
Additional Discharge Medication Instructions: stop AMlodipine, Sodium Bicarb, Flomax.
Prescriptions:
New
Ampicillin 2000 MG
0.9% Sodium Chloride 100 ml [Nss] 100 ML
108 mls/hr IV Q12H
Ordered By: Delano Camara MD
Last Taken: 06/24/24 11:49 108 mls
atorvastatin 40 mg Tablet
40 mg PO QPM Qty: 30 0RF
metoprolol succinate 25 mg Tablet Extended Release 24 Hr
25 mg PO BID Qty: 60 0RF
ceftriaxone 2 gram Recon Soln
2,000 mg IV Q24H 32 Days Qty: 0 0RF
melatonin 5 mg Tablet
5 mg PO HS Qty: 30 0RF
Lactobac/Bifidobac Visbiome
1 cap PO DAILY Qty: 30 0RF
lidocaine 4 % Adhesive Patch,Medicated
1 patch topical DAILY Qty: 0 0RF
Continued
ezetimibe 10 MG tablet
10 mg PO DAILY
rosuvastatin 20 MG tablet
20 mg PO DAILY
pantoprazole 40 MG tablet,delayed release (DR/EC)
40 mg PO DAILY
clopidogrel 75 MG tablet
75 mg PO DAILY
acetaminophen 650 mg Tablet Extended Release
650 mg PO DAILYPRN PRN (Reason: mild pain)
PreserVision AREDS 4,296 mcg-226 mg-90 mg Capsule
1 cap PO BID
Discontinued
amlodipine 10 MG tablet
10 mg PO DAILY
metoprolol succinate 50 MG tablet extended release 24 hr
50 mg PO BID
tamsulosin 0.4 MG capsule
0.4 mg PO HS
sodium bicarbonate 650 mg tablet
1,300 mg PO TID
Discharge Orders:
Discharge Patient (As Directed); Ordered 06/23/24
Ordered By: Wilfredo Montoya
Discharge Date and Time
Discharge Date/Time: 06/24/24 15:42
Print Language: SRI LANKAN
== END 2024-06-24 15:42 | DRG 698 ==
LOC: 3 WEST ACU 13:44
PROVIDERS: Internal Medicine; Nurse Practitioner Family; Physician Assistant; Physician Assistant Medical; Radiology Diagnostic Radiology; Radiology Vascular & Interventional Radiology; Specialist; Student in an Organized Health Care Education/Training Program; ADMITTING PHYSICIAN Internal Medicine; ATTENDING PHYSICIAN Hospitalist; CONSULT PHYSICIAN Internal Medicine Cardiovascular Disease; CONSULT PHYSICIAN Physical Medicine & Rehabilitation; CONSULT PHYSICIAN Psychiatry & Neurology Neurology; CONSULT PHYSICIAN Student in an Organized Health Care Education/Training Program; EMERGENCY PHYSICIAN Student in an Organized Health Care Education/Training Program; FAMILY PHYSICIAN Family Medicine; OTHER PHYSICIAN Neurological Surgery; OTHER PHYSICIAN Psychiatry & Neurology Neurology
PROC: 5A09357 Assistance with Respiratory Ventilation, Less than 24 Consecutive Hours, Continuous Positive Airway Pressure (ICD-10-PCS; 2024-06-02)
PROC: 0JH60XZ Insertion of Tunneled Vascular Access Device into Chest Subcutaneous Tissue and Fascia, Open Approach (ICD-10-PCS; 2024-06-04)
PROC: B5181ZA Fluoroscopy of Superior Vena Cava using Low Osmolar Contrast, Guidance (ICD-10-PCS; 2024-06-04)
PROC: 02H633Z Insertion of Infusion Device into Right Atrium, Percutaneous Approach (ICD-10-PCS; 2024-06-04)
PROC: 5A1D70Z Performance of Urinary Filtration, Intermittent, Less than 6 Hours Per Day (ICD-10-PCS; 2024-06-05)
PROC: 0JPT3XZ Removal of Tunneled Vascular Access Device from Trunk Subcutaneous Tissue and Fascia, Percutaneous Approach (ICD-10-PCS; 2024-06-11)
PROC: 02HV33Z Insertion of Infusion Device into Superior Vena Cava, Percutaneous Approach (ICD-10-PCS; 2024-06-14)
DX: Q61.3 Polycystic kidney, unspecified (principal); A41.81 Sepsis due to Enterococcus; J18.9 Pneumonia, unspecified organism; J96.01 Acute respiratory failure with hypoxia; G92.8 Other toxic encephalopathy; I63.40 Cerebral infarction due to embolism of unspecified cerebral artery; I33.0 Acute and subacute infective endocarditis; E87.22 Chronic metabolic acidosis; N13.8 Other obstructive and reflux uropathy; I42.9 Cardiomyopathy, unspecified; J81.1 Chronic pulmonary edema; M50.01 Cervical disc disorder with myelopathy, high cervical region; T82.6XXA Infection and inflammatory reaction due to cardiac valve prosthesis, initial encounter; N18.6 End stage renal disease; M51.17 Intervertebral disc disorders with radiculopathy, lumbosacral region; N17.9 Acute kidney failure, unspecified; M48.02 Spinal stenosis, cervical region; D63.1 Anemia in chronic kidney disease; E78.00 Pure hypercholesterolemia, unspecified; K21.9 Gastro-esophageal reflux disease without esophagitis; N40.1 Benign prostatic hyperplasia with lower urinary tract symptoms; R33.9 Retention of urine, unspecified; I35.0 Nonrheumatic aortic (valve) stenosis; M48.04 Spinal stenosis, thoracic region; I15.1 Hypertension secondary to other renal disorders; I71.40 Abdominal aortic aneurysm, without rupture, unspecified; K76.89 Other specified diseases of liver; I44.1 Atrioventricular block, second degree; G47.33 Obstructive sleep apnea (adult) (pediatric); E87.6 Hypokalemia; I25.10 Atherosclerotic heart disease of native coronary artery without angina pectoris; G62.9 Polyneuropathy, unspecified; D50.9 Iron deficiency anemia, unspecified; M62.838 Other muscle spasm; L89.222 Pressure ulcer of left hip, stage 2; G89.29 Other chronic pain; Y83.1 Surgical operation with implant of artificial internal device as the cause of abnormal reaction of the patient, or of later complication, without mention of misadventure at the time of the procedure; M76.71 Peroneal tendinitis, right leg; Z96.653 Presence of artificial knee joint, bilateral; Z95.0 Presence of cardiac pacemaker; Z95.2 Presence of prosthetic heart valve; Z87.891 Personal history of nicotine dependence; Z88.6 Allergy status to analgesic agent; Z79.02 Long term (current) use of antithrombotics/antiplatelets; Z86.73 Personal history of transient ischemic attack (TIA), and cerebral infarction without residual deficits; Z87.11 Personal history of peptic ulcer disease; Z87.19 Personal history of other diseases of the digestive system
CPT/HCPCS: 36558; 36589; 70450; 70551; 71045; 72141; 72146; 72148; 73600; 73721; 74176; 76937; 77001; 80048; 80053; 80202; 81003; 81015; 82550; 82607; 82728; 82746; 82805; 83540; 83550; 83605; 84443; 84550; 85014; 85018; 85025; 85027; 85652; 86038; 86140; 86704; 86706; 86803; 87040; 87070; 87077; 87186; 87205; 87324; 87340; 87449; 87641; 87899; 93005; 93306; 93971; 94640; 94660; 96361; 96374; 97110; 97129; 97163; 97167; 97530; 97535; 99152; 99153; 99285; C1750; G0257; J2916; P9047; Q5106

== ENCOUNTER → 2024-09-09 12:50 | Outpatient (REF) | payer OTHER, SELFPAY | LOC: HWRCS 12:50 | PROVIDERS: ATTENDING PHYSICIAN Internal Medicine Cardiovascular Disease; FAMILY PHYSICIAN Family Medicine | DX: I33.0 Acute and subacute infective endocarditis (principal) | CPT/HCPCS: 93306 ==

== ENCOUNTER → 2024-09-23 13:58 | Outpatient (REF) | payer OTHER, SELFPAY | LOC: RAD 13:58 | PROVIDERS: ATTENDING PHYSICIAN Surgery Vascular Surgery; FAMILY PHYSICIAN Family Medicine | DX: Z01.818 Encounter for other preprocedural examination (principal) | CPT/HCPCS: 93985 ==

== ENCOUNTER 2024-11-23 10:20 | Day surgery (SDC) | payer OTHER, SELFPAY ==
[2024-11-23] VITALS (18 sets, daily range): BP systolic 88–122; BP diastolic 52–81
[2024-11-23 11:18] LABS: Hematocrit 30.7 % (39.0-52.0); Hemoglobin 10.3 g/dL (13.0-18.0); Mean Corp Hgb Conc. 33.6 g/dL (33.0-37.0); Mean Corpuscular Hgb 33.3 pg (27.0-31.0); Mean Corpuscular Volume 99.4 fL (80.0-94.0); Mean Platelet Volume 10.6 fL (7.4-10.4); Platelet Count 166 10^3/uL (130-400); Red Blood Cell Count 3.09 10^6/uL (4.70-6.10); Red Cell Dist. Width 14.1 % (11.5-14.5); White Blood Cell Count 7.7 10^3/uL (4.8-10.8)
--- NOTE | 2024-11-23 11:27 | HP.FOC2 ---
Addendum entered and electronically signed by PEDRO Mackenzie 11/23/24 11:41:
Correction: Patient has been on dialysis since June 2024.
Original Note:
Focused History & Physical
Chief Complaint
HPI:
Chief Complaint: End-stage renal disease on hemodialysis
HPI / Indication for Planned Procedure: 88-year-old male here for planned outpatient right AV fistula creation, possible graft with Dr. Rutledge. Patient here today at his baseline health. Patient reports no changes in his medications or health over
the last month. Patient started dialysis via chest catheter 2 months ago. Patient agreeable to proceed with planned procedure today.
Relevant Past Medical History: Other (CAD, LVH, BPH, valvular heart disease, TIA, dyslipidemia, proteinuria, polycystic kidney disease, aortic stenosis, hypertension)
Relevant Social History: Negative
Relevant Family History: Negative
Relevant Past Surgical History: Positive for (TAVR)
Review of Systems
Review of Pertinent Systems: All Systems Negative
Medication
See Medication form for detailed medications: Yes
Medication List (including Herbals & OTC):
ezetimibe 10 mg tablet 10 mg PO DAILY High cholesterol 08/29/09
pantoprazole 40 mg tablet,delayed release 40 mg PO DAILY Gastrointestinal issue 04/01/16
rosuvastatin 20 mg tablet 20 mg PO QPM High cholesterol 04/01/16
clopidogrel 75 mg tablet 75 mg PO QPM Blood clot prevention/tx 08/03/20
amoxicillin 500 mg tablet 500 mg PO QPM 10/25/24
metoprolol succinate 25 mg tablet,extended release 24 hr 25 mg PO BID 10/25/24
tamsulosin 0.4 mg capsule (Flomax) 0.4 mg PO QPM 10/25/24
nut.tx.imp.renal fxn,lac-reduc 0.08 gram-1.8 kcal/mL oral liquid (Nepro Carb Steady) 1 ea PO BID 11/19/24
Medications Reviewed: Yes
Allergies and Reactions
Patient has Allergies: Yes
Noted Allergies and Reactions:
Allergy/AdvReac Type Severity Reaction Status Date / Time
celecoxib [From Celebrex] Allergy GI bleed Verified 11/19/24 14:39
Pertinent Physical Exam
All Other Systems: Negative
Head/Neck: Normal
Lungs: Normal
Heart: Normal
Abdomen: Normal
Extremities: Normal and Other (+2 radial pulse R arm)
Neurological: Normal
Diagnosis / Assessment
End-stage renal disease newly on HD
Plan / Procedure
88-year-old male here for planned outpatient AV fistula creation, possible graft of the right upper extremity with Dr. Rutledge
Anesthesia/Sedation to be done by Anesthesia Provider: Yes
[2024-11-23 11:30] LABS: INR 1.12; PT 14.7 Sec (11.4-14.6)
[2024-11-23 11:31] LABS: APTT 34.1 Sec (23.4-35.0)
[2024-11-23] MEDS: BACTROBAN NASAL 1 GRAM NASAL (11:37)
[2024-11-23] MEDS: PERIDEX 0.12% ORAL RINSE 15 ML PO (11:37)
[2024-11-23 11:52] LABS: Blood Urea Nitrogen 39 mg/dl (9-20); Calcium 9.3 mg/dl (8.4-10.2); Carbon Dioxide 29 mmol/L (22-30); Chloride 100 mmol/L (98-107); Glucose 110 mg/dl (70-99); Potassium 4.5 mmol/L (3.5-5.1); Sodium 141 mmol/L (135-145); eGFR 10.62
--- NOTE | 2024-11-23 12:43 | W.SUR.PREOP ---
Pre-Operative Surgical Note
-
I have examined this patient prior to the performance of the scheduled procedure.
The patient's condition is unchanged from the time of the current History and
Physical and the patient is able to undergo the scheduled procedure.
--- NOTE | 2024-11-23 15:00 | W.IMMPOSTOP ---
Surgical Immed Post Op Note
-
Primary Surgeon: Maty
Assisting Surgeon: Felicitas
Pre-op Diagnosis: CKD
Post-op Diagnosis: CKD, AV fistula
Procedure Performed: RUE Radiocephalic AV fistula
Anesthesia Type: MAC
Specimen / Cultures: None
Estimated Blood Loss: 10 cc
Complications: None
Operative Findings: Creation of RUE radiocephalic AV fistula with branch ligation of cephalic branch
--- NOTE | 2024-11-23 15:22 | OR.RPT ---
Operative Report
Operative Report
Date of Operation: 11/23/2024
Pre Op Diagnosis:
1. End-stage renal disease requiring hemodialysis
2. Need for permanent hemodialysis access
Post Op Diagnosis:
1. End-stage renal disease requiring hemodialysis
2. Need for permanent hemodialysis access
Procedure:
1. Creation of right wrist radiocephalic arteriovenous fistula
2. Cephalic vein branch ligation
Surgeon: Jayme Rutledge III, MD
Director Dental Services: Dany Polk MD PGY1
Anesthesia: General
Complications: None
Estimated Blood Loss: Less than 10 cc
History and Indications for Procedure: 88-year-old male with end-stage renal disease requiring hemodialysis. He is in need of more permanent hemodialysis access. He has a left chest wall pacemaker and therefore we elected to proceed with the right
arm for dialysis access creation.
Procedure in Detail: Barrett Anne was correctly identified and brought to the operating room. He was placed supine on the operating table with the right arm abducted 90 degrees on a side table. After adequate induction of anesthesia I performed
intraoperative ultrasound on the veins of the right arm. I identified and measured the cephalic vein from the wrist to the shoulder. The vein was of adequate quality and diameter uniformly from the wrist to the upper arm for AV fistula creation.
The right radial artery was also identified at the wrist. An appropriate skin incision was marked at the wrist between the radial artery and cephalic vein. The right hand, wrist, forearm and upper arm were circumferentially prepped and draped in
usual sterile fashion. Preoperative antibiotics were administered. A timeout procedure was performed with the nursing and anesthesia staff confirming the patient's identity as well as the nature and laterality of the procedure.
A skin incision was made at the wrist through the previously placed skin jerel. A combination of electrocautery and sharp dissection was used to expose the cephalic vein. Branches were ligated and divided between silk ties and metal clips. The
radial artery was exposed using sharp dissection. Proximal and distal control was obtained on the radial artery with vessel loops. The distal end of the cephalic vein was ligated with a silk tie and then transected with scissors. The vein was
flushed with heparinized saline solution. The vein flushed easily with no resistance. A bulldog clamp was placed on the vein. The radial artery vessel loops were secured. An arteriotomy was made with an ophthalmic blade and extended slightly
proximally and distally with Celaya scissors. The proximal and distal radial artery were flushed with heparinized saline solution. An end-to-side anastomosis was created using a running 7-0 Prolene suture. Prior to the completion of the
anastomosis the artery was allowed to temporarily forward bleed and backbleed. The area under the anastomosis was flushed with heparinized saline solution to remove any potential thrombus or debris. The anastomosis was completed. The bulldog was
removed from the vein. The proximal vessel loop was released first. After several heartbeats the distal vessel loop was released. There was an easily palpable thrill in the cephalic vein along its course in the forearm. The anastomotic suture
line was closely inspected and hemostasis was achieved. Hemostasis was achieved in the wound bed. The wound was irrigated with saline solution. There was an easily palpable radial pulse proximal and distal to the arteriovenous anastomosis. Local
anesthesia was infiltrated into the skin and subcutaneous tissue around the wound. The wound was closed in layers. Skin glue was applied. There was an easily visible large cephalic vein branch communicating with the main cephalic vein outflow of
the fistula at the distal forearm. I made a small incision over this branch and ligated it with a single 2-0 silk tie. This small incision was then closed with a single interrupted buried Monocryl suture and skin glue was applied.
At the conclusion of the case the patient had an easily palpable thrill in the cephalic vein in the forearm. The patient had a palpable radial pulse at the right wrist.
The patient tolerated the procedure well and was taken to the recovery room in good condition.
Attestation: I was present and responsible for the entire procedure
Signed:
Jayme Rutledge III, MD
[facility]
[phone] (ivom)
--- NOTE | 2024-11-23 17:19 | W.PN.UPDATE ---
Update Note
Progress Note Update
Patient developed a hematoma under the right wrist incision while in recovery area. Soft, not tense. No skin compromise. AVF is patent with palp thrill in the cephalic vein forearm
Plan to admit and observe
Hematoma extent marked on the skin
Gentle MIHIR wrap compression applied with palp thrill maintained in the AVF
Discussed with patient and who agree
[2024-11-23] MEDS: FLOMAX 0.4 MG PO (20:05)
[2024-11-23] MEDS: PLAVIX 75 MG PO (20:05)
[2024-11-23] MEDS: AMOXIL 500 MG PO (20:06)
[2024-11-23] MEDS: TOPROL XL 25 MG PO (20:06)
[2024-11-23] MEDS: CRESTOR 20 MG PO (20:06)
[2024-11-24 03:05] VITALS: BP 100/61
[2024-11-24 06:59] VITALS: BP 111/59
--- NOTE | 2024-11-24 07:25 | W.PN.VS ---
Today's Communication / Plan
-
Patient seen and examined at bedside with Dr. Viral Ibrahim, below plan reviewed with attending.
Assessment/Plan
-
Assessment: 88-year-old male POD #1 right wrist radiocephalic AV fistula creation and cephalic vein branch ligation with resolved postoperative right wrist hematoma
Plan:
Patient is stable for discharge to home, confirmed with patient that he has an available seat at his 1130 HD session today, will discharge so that he may make that appointment
Follow-up placed in discharge instructions
Subjective Data
-
Date of Service: November 24, 2024
Patient seen and examined at bedside, offers no complaints. Reports well-managed postoperative pain at right wrist AV fistula creation site. Denies nausea, vomiting, fever, and chills. Reports tolerating p.o. intake. Does confirm that he has a
chair at his HD session today at roughly 1130 in the outpatient setting.
Objective Data
-
Vital Signs
Temp Pulse Resp BP Pulse Ox
98.1 F 71 18 111/59 98
11/24/24 06:59 11/24/24 06:59 11/24/24 06:59 11/24/24 06:59 11/24/24 06:59
Intake and Output
11/23/24 11/24/24 11/25/24
06:59 06:59 06:59
Intake Total 480 / 480
Balance 480 / 480
Intake:
Oral fluids 480 / 480
IV fluids (Total) 0 / 0
NSS 0 / 0
Other:
Number of approximated MODERATE 2
amounts of urine
Lab Results
11/23/24 11:10
11/23/24 11:10
Calcium 9.3 mg/dl (8.4-10.2) 11/23/24 11:10
Physical Exam
-
Awake and alert, no apparent distress resting in bed comfortably
No tachycardia
No tachypnea
ABD flat, nontender, nondistended
Right wrist radiocephalic AV fistula with resolved hematoma, mild ecchymosis remains, positive thrill, hand warm, incision CDI and well-approximated, all surrounding compartments of skin soft
[2024-11-24] MEDS: PROTONIX 40 MG PO (09:19)
[2024-11-24] MEDS: ZETIA 10 MG PO (09:19)
[2024-11-24] MEDS: TOPROL XL 25 MG PO (09:20)
--- NOTE | 2024-11-24 09:38 | CM ---
Patient seen at bedside. IA completed.
Per UR - obs to PSR status
POD #1 right wrist radiocephalic AV fistula creation and cephalic vein branch ligation with resolved postoperative right wrist hematoma
Patient w/ESRD on HD for approx 2 mos - chair time 11:30 M-W-F at [facility], [place]
Lives at home with in a 2 story home, 2 steps to enter, flight to second floor
PLOF: Independent with can
DME: cane, walker, wheelchair, shower chair
Has had [facility] in past/does not recall rehab
Denies insecurities
PCP: Rudy Gerardo
Pharmacy: [facility] [address]
PLAN: Home, no needs-going to dialysis today at 11:30am
to transport
== END 2024-11-24 19:46 | disposition home or self-care (01) ==
LOC: CATH 10:20
PROVIDERS: ATTENDING PHYSICIAN Surgery Vascular Surgery; FAMILY PHYSICIAN Family Medicine
DX: I12.0 Hypertensive chronic kidney disease with stage 5 chronic kidney disease or end stage renal disease (principal); N18.6 End stage renal disease; Z99.2 Dependence on renal dialysis; Q61.3 Polycystic kidney, unspecified; E78.5 Hyperlipidemia, unspecified; I25.10 Atherosclerotic heart disease of native coronary artery without angina pectoris; N40.0 Benign prostatic hyperplasia without lower urinary tract symptoms; Z86.73 Personal history of transient ischemic attack (TIA), and cerebral infarction without residual deficits; Z79.02 Long term (current) use of antithrombotics/antiplatelets
CPT/HCPCS: 36821; 80048; 85027; 85610; 85730; 87070; G0378

== ENCOUNTER → 2025-01-04 13:02 | Outpatient (REF) | payer OTHER, SELFPAY | LOC: HWRCS 13:02 | PROVIDERS: ATTENDING PHYSICIAN Internal Medicine Cardiovascular Disease; FAMILY PHYSICIAN Family Medicine | DX: Z95.2 Presence of prosthetic heart valve (principal) | CPT/HCPCS: 93306 ==

== ENCOUNTER → 2025-01-13 12:57 | Outpatient (REF) | payer OTHER, SELFPAY | LOC: RAD 12:57 | PROVIDERS: ATTENDING PHYSICIAN Registered Nurse; FAMILY PHYSICIAN Family Medicine | DX: I77.0 Arteriovenous fistula, acquired (principal) | CPT/HCPCS: 93990 ==

== ENCOUNTER → 2025-02-17 08:28 | Outpatient (REF) | payer OTHER, SELFPAY | LOC: RADI 08:28 | PROVIDERS: ATTENDING PHYSICIAN Specialist; FAMILY PHYSICIAN Family Medicine | DX: Z49.01 Encounter for fitting and adjustment of extracorporeal dialysis catheter (principal); N18.6 End stage renal disease | CPT/HCPCS: 36589 ==